=== PATIENT | male | born 1950 | race Caucasian/White ===

== ENCOUNTER 2019-06-28 05:42 | Day surgery (SDC) | payer MEDICARE, OTHER, SELFPAY ==
[2019-06-21 16:09] VITALS: BMI 43.5
--- NOTE | 2019-06-27 18:18 | HP.PCM_ITS ---
History and Physical Date of Admission: 06/28/19 HISTORY OF PRESENT ILLNESS 69 year old man presents with a lesion on his left nasal ala at nasal alar groove that had increased in size over the last several months. He underwent a shave biopsy by Dermatology on 06/03/19 which showed a melanoma in situ, lentigo maligna type. He denies fever. He denies trauma. He denies bleeding from this lesion. He has had basal cell carcinomas excised in the past. He has a family history of skin cancer. He presents at this time for surgical options for treatment. PAST MEDICAL HISTORY Atrial fibrillation Cataracts, bilateral Glaucoma Hearing problem History of blood clots Kidney stones Prostate cancer Skin cancer Sleep apnea High blood pressure PAST SURGICAL HISTORY hip replacement ALLERGIES No Known Allergies MEDICATIONS abiraterone amlodipine ascorbate calcium (vitamin C) aspirin atorvastatin calcium carbonate dorzolamide-timolol leuprolide losartan-hydrochlorothiazide metformin ER metoprolol multivitamin omega-3 fatty acids prednisone primidone venlafaxine ER warfarin FAMILY HISTORY Sister - Breast cancer Brother - Lung cancer Daughter - Melanoma SOCIAL HISTORY Smoking Status: Former smoker alcohol intake: never substance use type: does not use REVIEW OF SYSTEMS General - Denies fever, fatigue, and weight loss. Eyes - Has cataracts. Denies glaucoma. ENT - Denies nasal congestion and sore throat. Endocrine - Has excessive thirst and urination. Skin - Denies suspicious lesions and skin cancer. Musculoskeletal - Denies joint pain, weakness of muscles and joints, back pain, and arthritis. Has joint stiffness. Neuro - Denies headaches. Has lightheadedness. Cardiovascular - Denies chest pain, fatigue, and shortness of breath with exertion. Psych - Denies anxiety and depression. Respiratory - Denies chronic cough. Has shortness of breath. Has sleep apnea. Patient is a former smoker. Gastrointestinal - Denies nausea, vomiting, diarrhea, and constipation. Hematologic - Denies abnormal bruising and bleeding. Genitourinary - Denies hematuria. Has urinary frequency. Has incontinence. PHYSICAL EXAMINATION General - Alert and Oriented HEENT - PERRL. EOMI. Throat is clear. On the left nasal ala at nasal alar groove is a healing biopsy that occurred on 06/03/19 and it showed melanoma in situ, lentigo maligna type. No evidence of infection. Measures 6 mm. It is located by the melolabial fold. It is located 9 mm from the lateral nasal alar rim. No other suspicious lesions noted. Neck - Supple and nontender. No cervical adenopathy. No suspicious lesions noted. Lungs - Clear to auscultation. Heart - Regular rate and rhythm. Abdomen - Soft and nondistended. Extremities - FROM. No axillary adenopathy. Radial pulses are palpable. No suspicious lesions noted. Neuro - CN II-XII grossly intact. Psych - Normal mood and affect. ASSESSMENT 1. 6 mm melanoma in situ, lentigo maligna type, left nasal ala at nasal alar groove, shave excision. 2. Personal history of skin cancer. 3. Family history of skin cancer. 4. Former smoker. PLAN This was a shave excision so we need to establish the diagnosis with a completion excision into the subcutaneous tissue to check if there is any deeper focus of melanoma that would change the definitive treatment with regard to the margin required at the time of the wide excision. Also if there is a focus of melanoma in the intermediate range (between 1 and 4 mm thick) would require a sentinel lymph node biopsy before proceeding with a definitive wide excision since the definitive treatment can distort the lymphatic drainage. At the time of the completion excision, tissue will be sent to Pathology for analysis to look for a deeper focus of melanoma. At the time of surgery will leave the wound open and proceed with postop wound care with Silver dressing changes. Once the final pathology is available, can then schedule the definitive wide excision with a 5 mm margin down to the muscular fascia. Reconstruction will be with a two stage nasolabial flap and cartilage grafting for support. In three weeks will need a second procedure which is division and inset of the flap. Since melanoma in situ can travel extensively in the horizontal plane, if the subsequent pathology report has additional melanoma in situ at the margins, then additional excision would be necessary. Depending on the final size of the wound defect, a larger forehead flap may be necessary which is also a two stage procedure. Discussed with the patient the different levels of melanoma for treatment. If melanoma is less than 1 mm thick, it is a thin melanoma and needs a 1 cm margin of excision. If melanoma is between 1 and 4 mm thick, it is an intermediate melanoma and needs a 2 cm margin of excision. If melanoma is greater than 4 mm thick, it is a thick melanoma and needs a 2-3 cm margin of excision. The initial surgery will be done on an outpatient basis under local anesthesia with IV sedation. For the definitive wide excision with a nasolabial flap and cartilage graft for support, surgery can be done under general anesthesia with a surgical observation overnight stay in the hospital. Tissue will be sent to Pathology for analysis to look for any additional melanoma at the margins. For the second stage procedure which is division and inset of the flap can be done under general anesthesia on an outpatient basis. Patient was informed of the risks and complications of the procedure including alternatives to surgery. These were discussed with the patient personally. Patient voices understanding and wishes to proceed. Some of the risks and complications were included in a form from the [employer]. After treatment has been completed, she will need TBSE every 3-6 months. On a yearly basis, she will need LFT's including LDH and fractionation of Alkaline Phosphatase and a CXR.
[2019-06-28] VITALS (7 sets, daily range): BP systolic 102–131; BP diastolic 56–77; PULSE 46–52; RESP 16; TEMP 35.9–36.2; O2SAT 92–98; BMI 41.7
--- NOTE | 2019-06-28 | IMM_PTH ---
PATIENT: CRYSTAL PANTOJA LOC: [facility] – [place] U#:[id number] AGE/SX: 69/M ROOM: RE06/28/[address]: Dr. Domingo Donahue MD : 1950 BED: DIS: 06/28/2019 SPEC #: [id number] RECD: 06/29/19 13:53 STATUS: VANDANA REQ #: [id number] FRANCY: 06/28/19 00:[address]: Domingo Donahue DEPT: IMMUNOHISTOCHEMISTRY RECD BY: Sally Garcia ENTERED: 06/29/19 13:54 SP TYPE: IMMUNO OTHR DR: Dr. Dorita Shaw MD Tissues: Skin of nose, NOS Procedures: Vimentin (add) Pankeratin (initial) MELAN-A (add) S-100 (add) PHYSICIAN & INSTITUTION [place] [place] [id number] SPECIMEN INFORMATION: Tissue Source: Skin of left nasal ala, excision Clinical Info: Melanoma in situ Specimen Number: [id number] CPT code: 95869, 86484 x3 METHODOLOGY: Deparaffinized sections of prefer/formalin-fixed tissue or PAP/DQ stained slides are incubated with monoclonal/polyclonal antibodies/oligonucleotide probes. Localization is made via biotin free immunoperoxidase method. Appropriate controls are performed and reacted as expected. Results on target cell population are indicated in the following table: RESULTS: ANTIBODY / CLONE RESULT AE1-3 (AE1/AE3/PCK26) negative Vimentin (V9) negative Melan A (A103) positive S-100 (4C4.9) positive These tests were developed and their performance characteristics determined by [facility]. They may not have been cleared or approved by the U.S. Food and Drug Administration. The FDA has determined that such clearance or approval is not necessary. The above immunohistochemical/dualISH markers are ordered and reviewed by the Pathologist. INTERPRETATION: Skin of left nasal ala, excision: Focal atypical intraepithelial melanocytic proliferation, excised. Case has been reviewed in consultation with Dr. Rebolledo who concurs with the above diagnosis. IDC:WILLIE AM:anusha 06/29/19
[2019-06-28 06:21] LABS: Bedside Glucose 105 mg/dL (70-110)
[2019-06-28] MEDS: Lactated Ringers 1,000 ML 100 ML IV (06:31)
--- NOTE | 2019-06-28 07:30 | NASAL_PTH ---
PATIENT: CRYSTAL PANTOJA LOC: [facility] [place] U#:[id number] AGE/SX: 69/M ROOM: RE06/28/[address]: Dr. Domingo Donahue MD : 1950 BED: DIS: 06/28/2019 SPEC #: [id number] RECD: 06/28/19 09:00 STATUS: VANDANA TED #: [id number] FRANCY: 06/28/19 07:[address]: Domingo Donahue DEPT: SURGICAL PATHOLOGY RECD BY: Doris Kelsey ENTERED: 06/28/19 11:07 SP TYPE: NASAL SPEC OTHR DR: Dr. Dorita Shaw MD Tissues: Skin of nose, NOS Procedures: Gen Path Consultation (on slides) Surgery Specimen Level IV HEADER OPERATION: Completion excision melanoma in situ, nasal ala at nasal alar groove PRE-OP DIAGNOSIS: 6 mm melanoma in situ, lentigo maligna type, left nasal ala at nasal alar groove, shave excision; personal history of skin cancer TISSUE SUBMITTED: 6 mm melanoma in situ, lentigo maligna type, left nasal ala at nasal alar groove, suture at 12 o'clock MICROSCOPIC DIAGNOSIS Skin of left nasal alar groove, excision: Atypical intraepithelial melanocytic proliferation, excised. Jarvis. Solar elastosis AM:anusha 06/29/19 COMMENT Atypical melanocytic proliferation extends to 2mm to the 3-6 o'clock margin of excision. Immunohistochemistry ([id number]) supports the above diagnosis. This case is reviewed in consultation with of [place]. The complete consultative report can be viewed in patient's EMR. Case has been reviewed in consultation with Dr. Rebolledo who concurs with the above diagnosis. IDC:SJ MICROSCOPIC DESCRIPTION Slides are reviewed. GROSS DESCRIPTION Received in fixative is one container labeled with the patient's name and designated melanoma in situ, left nasal ala at nasal alar groove, suture at 12 o'clock. The specimen consists of a round piece of farley-white skin measuring 0.1 x 0.1 cm and up to 0.5 cm in thickness. The specimen is inked as follows: 12 to 3 o'clock - black, 3 to 6 o'clock - blue, 6 to 9 o'clock - green and 9 to 12 o'clock - yellow. The specimen is serially sectioned and submitted entirely in one cassette. / SJ:anusha 06/28/19 TC:3 CPT: 50325
--- NOTE | 2019-06-28 08:05 | OP.PCM_ITS ---
Report of Operation Date of Procedure: 06/28/19 Pre-Operative Diagnosis: 1. 6 mm melanoma in situ, lentigo maligna type, left nasal ala at nasal alar groove, shave excision. 2. Personal history of skin cancer. 3. Family history of skin cancer. 4. Former smoker. Post-Operative Diagnosis: Same. Surgery/Procedure Performed:: Excision 6 mm melanoma in situ, lentigo maligna type, left nasal ala at nasal alar groove. Description of Surgical Findings:: 69 year old man presents with a lesion on his left nasal ala at nasal alar groove that had increased in size over the last several months. He underwent a shave biopsy by Dermatology on 06/03/19 which showed a melanoma in situ, lentigo maligna type. He denies fever. He denies trauma. He denies bleeding from this lesion. He has had basal cell carcinomas excised in the past. He has a family history of skin cancer. Patient was informed of the risks and complications of the procedure including alternatives to surgery. These were discussed with the patient personally. Patient voices understanding and wishes to proceed. Some of the risks and complications were included in a form from the [employer]. Size of defect left nasal ala at nasal alar groove - 1 x 1 x 0.7 cm. hotel engineer: None Type of Anesthesia:: Local MAC Specimen's removed: Melanoma in situ, lentigo maligna type, left nasal ala at nasal alar groove to Pathology. Drains: None. Estimated Blood Loss (mL): 5 ml. Description of Procedure: Patient was taken to OR in supine position and was given IV sedation. The face was prepped and draped in the usual fashion. SCD's were placed for DVT prophylaxis. Perioperative antibiotics were given intravenously. The lesion left nasal ala at nasal alar groove was infiltrated with xylocaine and epinephrine. After waiting 5 minutes for the anesthetic to take effect, the melanoma in situ lesion was excised in a circular fashion into the subcutaneous tissue. I excised the lesion with a 2 mm margin in all directions thus making it a 1 cm excision. A suture was marked at the 12 oclock position for pathology orientation. The lesion was sent to Pathology for analysis to rule out carcinoma at the margins and to rule out a deeper focus of melanoma. Hemostasis was obtained with electrocautery. The melanoma in situ wound measured 1 x 1 x 0.7 cm. I placed Aquacel Silver into the wound and secured to the skin with 4-0 Nylon tie over stent suture dressing. Patient tolerated the procedure well and was sent to PACU in satisfactory condition. Patient will be sent home on antibiotics and pain medication. He will keep his head elevated during the initial postoperative period. Patient will followup tomorrow for a wound check and for a Silver dressing change. Will instruct the family on the Silver dressing changes. When the pathology report becomes available, will then proceed with the next stage which is wide excision down to the muscular fascia with reconstruction using a 2 stage nasolabial flap and cartilage graft for support. Grafts/Implants Used: None. - Complications None. - Admit VTE Documentation VTE Present on Admission: No VTE Mechan Device Prophylaxis: SCD's VTE Pharm Prophylaxis ordered?: No Code Visit Surgery Charges CPT - 16144 ICD-10 - D03.39, Z85.828, Z80.8, Z87.891
--- NOTE | 2019-06-28 08:18 | DCINST_ITS ---
You will use the following diet at home:: No restrictions Discharge Activity: May not drive while taking narcotic pain medications., May Not Shower - until the operatve dressing is removed in the office, - - keep head elevated. no heavy lifting. May shower in (days): 2 - after the operative dressing is removed and on the days the silver dressing is changed. May resume sexual activity in: No Restrictions Ice area for (Minutes): 5 - as needed for facial swelling. Weight Bearing Status: Weight bearing as tolerated, Full weight bearing, Partial weight bearing, Toe touch weight bearing, No weight bearing Lifting Restrictions: 10 lbs. Keep extremity elevated above heart level: - - elevate head. Call your doctor if your incision/area has: Continuous Slow Oozing, Sudden Increased Bleeding, Increased Pain/ Swelling, Increased Redness, Foul Smelling Discharge, Swelling at the incision site Call your doctor if you observe: Fever of 101 or Higher, Coldness, Increased Pain, Shortness of breath, Chest pain, Calf discomfort, Uncontrolled pain Change Dressing in (Days):: 1 - will change dressing in the office. Cleanse incision/area with: - - after the operative dressing is removed in the office, may shower on the days the silver dressing is changed. Allergies/Adverse Reactions: Allergies No Known Allergies Allergy (Unverified 06/28/19 06:22) Medications to take at Discharge abiraterone 250 mg tablet 1,000 mg PO DAILY 06/21/19 amlodipine 10 mg tablet 10 mg PO DAILY 06/21/19 ascorbate calcium (vitamin C) 500 mg capsule 500 mg PO DAILY 06/21/19 atorvastatin 10 mg tablet 10 mg PO DAILY 06/21/19 calcium carbonate 600 mg calcium (1,500 mg) tablet 600 mg PO DAILY 06/21/19 dorzolamide-timolol (PF) 2 %-0.5 % eye drops in a dropperette 1 drp OPHTHALMIC BID 06/21/19 leuprolide (6 month) 45 mg intramuscular syringe kit 45 mg IM [id number] 06/21/19 losartan 50 mg-hydrochlorothiazide 12.5 mg tablet 1 tab PO DAILY 06/21/19 metformin ER 500 mg tablet,extended release 24 hr 500 mg PO QPM 06/21/19 metoprolol tartrate 50 mg tablet 50 mg PO BID 06/21/19 multivitamin capsule 1 cap PO DAILY 06/21/19 omega-3 fatty acids 1,000 mg capsule 1,200 mg PO DAILY cap 06/21/19 prednisone 5 mg tablet 5 mg PO DAILY 06/21/19 primidone 50 mg tablet 50 mg PO BID tab 06/21/19 venlafaxine ER 150 mg capsule,extended release 24 hr 150 mg PO DAILY 06/21/19 warfarin 6 mg tablet 6 mg PO ONCE 06/21/19 Clindamycin HCl [Cleocin] 300 mg PO TID #15 cap 06/28/19 Lactobacillus Acidophilus/Fos [Acidophilus Probiotic Tablet] 1 ea PO BID #10 tab 06/28/19 Oxycodone HCl/Acetaminophen [Percocet 5/325] 1 tablet PO Q6H PRN PRN 7 Days #30 tablet 06/28/19 The following prescriptions were given: Lactobacillus Acidophilus/Fos [Acidophilus Probiotic Tablet] 1 ea PO BID #10 tab Transmission Status: Pending to [facility] Clindamycin HCl [Cleocin] 300 mg PO TID #15 cap Transmission Status: Pending to [facility] Oxycodone HCl/Acetaminophen [Percocet 5/325] 1 tablet PO Q6H PRN PRN 7 Days #30 tablet PRN Reason: Pain Score 4-5/10 Transmission Status: Sent to [facility] Primary Care Physician: Dorita Shaw MD [Primary Care Provider] - Test Results: Test results from this visit will be discussed in further detail at your follow- up appointment, if applicable. Please Follow Up With: Domingo Donahue MD When: tomorrow 06/29/19. call [phone] for appt. Proposed Discharge Date: 06/28/19
== END 2019-06-28 09:02 | disposition home or self-care (01) ==
LOC: SDC 05:42 → AC 05:44
PROVIDERS: Family Provider Family Medicine; PCP Family Medicine; Referring Provider Surgery; Visit Provider Surgery
PROC: (CPT 11641; principal; 2019-06-28 07:20)
DX: D03.39 Melanoma in situ of other parts of face (principal); Z85.828 Personal history of other malignant neoplasm of skin; Z80.8 Family history of malignant neoplasm of other organs or systems; Z87.891 Personal history of nicotine dependence; I48.91 Unspecified atrial fibrillation; G47.30 Sleep apnea, unspecified; I10 Essential (primary) hypertension; H26.9 Unspecified cataract; E78.00 Pure hypercholesterolemia, unspecified; Z86.718 Personal history of other venous thrombosis and embolism; Z87.442 Personal history of urinary calculi; Z85.46 Personal history of malignant neoplasm of prostate; Z79.82 Long term (current) use of aspirin; Z79.84 Long term (current) use of oral hypoglycemic drugs; Z79.01 Long term (current) use of anticoagulants; Z79.899 Other long term (current) drug therapy
CPT/HCPCS: 00300; 11641; 36416; 82962; 85610; 88305; 88325; 88341; 88342; J7120

== ENCOUNTER 2019-08-02 10:53 | Observation (INO) | payer MEDICARE, OTHER, SELFPAY ==
[2019-06-29 11:47] VITALS: BMI 41.7
--- NOTE | 2019-08-01 22:28 | PCM.HP.BLA ---
History and Physical Date of Admission: 08/02/19 HISTORY OF PRESENT ILLNESS 69 year old man presented with a lesion on his left nasal ala at nasal alar groove that had increased in size over the last several months. He underwent a shave biopsy by Dermatology on 06/03/19 which showed a melanoma in situ, lentigo maligna type. He denies fever. He denies trauma. He denies bleeding from this lesion. He has had basal cell carcinomas excised in the past. He has a family history of skin cancer. 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 Pathology showed atypical intraepithelial melanocytic proliferation. No further melanoma seen. 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 PAST MEDICAL HISTORY Atrial fibrillation Cataracts, bilateral Glaucoma Hearing problem History of blood clots Kidney stones Prostate cancer Skin cancer Sleep apnea High blood pressure melanoma in situ, lentigo maligna type, left nasal ala at nasal alar groove. PAST SURGICAL HISTORY hip replacement excision 6 mm melanoma in situ, lentigo maligna type, left nasal ala at nasal alar groove - 06/28/19 ALLERGIES No Known Allergies MEDICATIONS abiraterone amlodipine ascorbate calcium (vitamin C) aspirin atorvastatin calcium carbonate dorzolamide-timolol leuprolide losartan-hydrochlorothiazide metformin ER metoprolol multivitamin omega-3 fatty acids prednisone primidone venlafaxine ER warfarin FAMILY HISTORY Sister - Breast cancer Brother - Lung cancer Daughter - Melanoma SOCIAL HISTORY Smoking Status: Former smoker alcohol intake: never substance use type: does not use REVIEW OF SYSTEMS General - Denies fever, fatigue, and weight loss. Eyes - Has cataracts. Denies glaucoma. ENT - Denies nasal congestion and sore throat. Endocrine - Has excessive thirst and urination. Skin - Denies suspicious lesions and skin cancer. Musculoskeletal - Denies joint pain, weakness of muscles and joints, back pain, and arthritis. Has joint stiffness. Neuro - Denies headaches. Has lightheadedness. Cardiovascular - Denies chest pain, fatigue, and shortness of breath with exertion. Psych - Denies anxiety and depression. Respiratory - Denies chronic cough. Has shortness of breath. Has sleep apnea. Patient is a former smoker. Gastrointestinal - Denies nausea, vomiting, diarrhea, and constipation. Hematologic - Denies abnormal bruising and bleeding. Genitourinary - Denies hematuria. Has urinary frequency. Has incontinence. PHYSICAL EXAMINATION General - Alert and Oriented HEENT - PERRL. EOMI. Throat is clear. On the left nasal ala at nasal alar groove is an open surgical melanoma wound that measures 1 cm after a shave excision on 06/03/19 that showed melanoma in situ, lentigo maligna type. No evidence of infection. It is located by the melolabial fold. It is located 9 mm from the lateral nasal alar rim. No other suspicious lesions noted. Neck - Supple and nontender. No cervical adenopathy. No suspicious lesions noted. Lungs - Clear to auscultation. Heart - Regular rate and rhythm. Abdomen - Soft and nondistended. Extremities - FROM. No axillary adenopathy. Radial pulses are palpable. No suspicious lesions noted. Neuro - CN II-XII grossly intact. Psych - Normal mood and affect. ASSESSMENT 1. 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 2. Personal history of skin cancer. 3. Family history of skin cancer. 4. Former smoker. PLAN Recommend definitive wide excision with a 5 mm margin down to the muscular fascia. Reconstruction will be with a two stage melolabial flap and cartilage grafting for support. In three weeks will need a second procedure which is division and inset of the flap. Since melanoma in situ can travel extensively in the horizontal plane, if the subsequent pathology report has additional melanoma in situ at the margins, then additional excision would be necessary. Depending on the final size of the wound defect, a larger forehead flap may be necessary which is also a two stage procedure. Discussed with the patient the different levels of melanoma for treatment. If melanoma is less than 1 mm thick, it is a thin melanoma and needs a 1 cm margin of excision. If melanoma is between 1 and 4 mm thick, it is an intermediate melanoma and needs a 2 cm margin of excision. If melanoma is greater than 4 mm thick, it is a thick melanoma and needs a 2-3 cm margin of excision. For the definitive wide excision with a melolabial flap and cartilage graft for support, surgery can be done under general anesthesia with a surgical observation overnight stay in the hospital. Tissue will be sent to Pathology for analysis to look for any additional melanoma at the margins. For the second stage procedure which is division and inset of the flap can be done under general anesthesia on an outpatient basis. Patient was informed of the risks and complications of the procedure including alternatives to surgery. These were discussed with the patient personally. Patient voices understanding and wishes to proceed. Some of the risks and complications were included in a form from the [employer]. After treatment has been completed, she will need TBSE every 3-6 months. On a yearly basis, she will need LFT's including LDH and fractionation of Alkaline Phosphatase and a CXR.
[2019-08-02] VITALS (11 sets, daily range): BP systolic 110–151; BP diastolic 70–99; PULSE 68–104; RESP 15–22; TEMP 35.4–36.7; O2SAT 92–97; BMI 42.5; BMI 43.0
--- NOTE | 2019-08-02 | IMM_PTH ---
PATIENT: CRYSTAL PANTOJA LOC: [facility] U#:[id number] AGE/SX: 69/M ROOM: IL311 RE08/02/[address]: Dr. Boy Hill DO : 1950 BED: 1 DIS: 08/03/2019 SPEC #: [id number] RECD: 08/04/19 12:51 STATUS: VANDANA REQ #: [id number] FRANCY: 08/02/19 00:[address]: Domingo Donahue DEPT: IMMUNOHISTOCHEMISTRY RECD BY: Sally Garcia ENTERED: 08/04/19 12:53 SP TYPE: IMMUNO OTHR DR: DO Dr. Dorita Martin MD Dr. Mark Tereletsky, DO Tissues: Nasal bone Procedures: MACRO (add) Vimentin (add) Pankeratin (initial) MELAN-A (add) S-100 (add) PHYSICIAN & INSTITUTION [place] [id number] SPECIMEN INFORMATION: Tissue Source: Left nasal ala Clinical Info: Melanoma in situ left nasal ala groove Specimen Number: [id number] CPT code: 02175, 50681 x4 METHODOLOGY: Deparaffinized sections of prefer/formalin-fixed tissue or PAP/DQ stained slides are incubated with monoclonal/polyclonal antibodies/oligonucleotide probes. Localization is made via biotin free immunoperoxidase method. Appropriate controls are performed and reacted as expected. Results on target cell population are indicated in the following table: RESULTS: ANTIBODY / CLONE RESULT AE1-3 (AE1/AE3/PCK26) negative Vimentin (V9) positive Macro (HAM-56) positive Melan A (A103) negative S-100 (4C4.9) negative These tests were developed and their performance characteristics determined by [facility]. They may not have been cleared or approved by the U.S. Food and Drug Administration. The FDA has determined that such clearance or approval is not necessary. The above immunohistochemical/dualISH markers are ordered and reviewed by the Pathologist. INTERPRETATION: Skin lesion, left nasal ala, re-excision: No evidence of residual melanotic lesion. AM:anusha 08/05/19
[2019-08-02 06:21] LABS: Bedside Glucose 117 mg/dL (70-110)
[2019-08-02] MEDS: Lactated Ringers 1,000 ML 100 ML IV ×2 (06:44→09:20)
--- NOTE | 2019-08-02 06:54 | EKG12_ITS ---
Test Reason : PREOP Blood Pressure : / mmHG Vent. Rate : 092 BPM Atrial Rate : 197 BPM P-R Int : 000 ms QRS Dur : 114 ms QT Int : 406 ms P-R-T Axes : 000 -29 011 degrees QTc Int : 502 ms Atrial Flutter Leftward Temple [id number] Prolonged QT Abnormal ECG Confirmed by JACK VIRGEN, KEVEN ([id number]), advertising editor ARNOL LYLES ([id number]) on 08/04/2019 11:50:46 AM Referred By: Domingo Donahue Confirmed By:KEVEN SANTIAGO MD
--- NOTE | 2019-08-02 07:30 | NASAL_PTH ---
PATIENT: CRYSTAL PANTOJA LOC: MS3 U#:[id number] AGE/SX: 69/M ROOM: ND311 RE08/02/[address]: Dr. Boy Hill DO : 1950 BED: 1 DIS: 08/03/2019 SPEC #: [id number] RECD: 08/02/19 10:48 STATUS: VANDANA TED #: [id number] FRANCY: 08/02/19 07:[address]: Domingo Donahue DEPT: SURGICAL PATHOLOGY RECD BY: Stanley Phoenix ENTERED: 08/02/19 12:19 SP TYPE: NASAL SPEC OTHR DR: Dr. 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 Solar elastosis. No evidence of residual melanoma. See comment. AM:anusha 08/04/19 COMMENT Immunohistochemistry (RF20-1) supports the above diagnosis. Case has been reviewed in consultation with Dr. Rebolledo who concurs with the above diagnosis. IDC:[id number] MICROSCOPIC DESCRIPTION Slides are reviewed. GROSS DESCRIPTION Received is one container labeled with the patient's name and not further designated. The specimen consists of a discoid fragment of farley skin measuring 1.3 x 1.2 cm and depth of excision measuring 0.5 cm. A suture is present along one edge designating the point of opposition. The central cutaneous portion contains an ulcerated area measuring 0.9 x 0.7 x 0.3 cm. The specimen is differentially inked as follows: 12 o'clock - black, 3 o'clock - red, 6 o'clock - blue and 9 o'clock - yellow. The specimen is serially sectioned in a 3 to 9 o'clock orientation and totally submitted in one cassette. / AM:anusha 08/02/19 TC:2 CPT: 53830
[2019-08-02] MEDS: Mupirocin Ointment 22gm Tube 1 APPLIC (10:00)
[2019-08-02] MEDS: Oxymetazoline 0.05% 1 SPRAY SPRAY.BTL 15 SPRAY (10:00)
--- NOTE | 2019-08-02 10:42 | PCM.OPRPT ---
Report of Operation Date of Procedure: 08/02/19 Pre-Operative Diagnosis: 1. 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 2. Personal history of skin cancer. 3. Family history of skin cancer. 4. Former smoker. Post-Operative Diagnosis: Same. Surgery/Procedure Performed:: 1. Wide excision melanoma in situ, lentigo maligna type, wound left nasal ala at nasal alar groove. 2. 1st stage complex nasal reconstruction with left melolabial flap and cartilage graft from left ear. Description of Surgical Findings:: 69 year old man presented with a lesion on his left nasal ala at nasal alar groove that had increased in size over the last several months. He underwent a shave biopsy by Dermatology on 06/03/19 which showed a melanoma in situ, lentigo maligna type. He denies fever. He denies trauma. He denies bleeding from this lesion. He has had basal cell carcinomas excised in the past. He has a family history of skin cancer. 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 Pathology showed atypical intraepithelial melanocytic proliferation. No further melanoma seen. 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 Patient was informed of the risks and complications of the procedure including alternatives to surgery. These were discussed with the patient personally. Patient voices understanding and wishes to proceed. Some of the risks and complications were included in a form from the [employer]. gutter mouth cutter: None Type of Anesthesia:: General Specimen's removed: Melanoma in situ wound left nasal ala at nasal alar groove to Pathology. Drains: None. Estimated Blood Loss (mL): 15 ml. Fluids Replaced: 2050 ml (IV Fluids 1700 ml, Urine Output 350 ml). Description of Procedure: Patient was taken to OR in supine position and was placed under general anesthesia. The nose and face and left ear areas were prepped and draped in the usual fashion. SCD's were placed for DVT prophylaxis. Perioperative antibiotics were given intravenously. A berumen catheter was placed. Using xylocaine with epinephrine, the melanoma in situ wound left nasal ala was infiltrated. After waiting 5 minutes for the anesthetic to take effect, I proceeded with a wide excision of the melanoma in situ with a 5 mm margin. At the initial completion excision last month, the excision had a 2 mm margin removed. So I added 3 mm to this margin of excision making the total margin excised at 5 mm. The excision went down to the edge of the nasal cartilage and intranasal mucosa. A suture was marked at the 12 oclock position for pathology orientation. The lesion was sent to Pathology for evaluation to rule out any carcinoma at the margins. The defect measured 1.6 x 1.6 cm. The distance to the alar rim was about 5 mm. I marked out the left melolabial fold extending to the oral commissure. I took a suture packet and placed the foil on the wound and then traced the foil template onto the melolabial fold area just superior to the oral commissure. The melolabial flap was marked out leaving about 6 mm between the superior edge of the flap and the perialar crease. Incisions were made and the flap was elevated distally to proximally at the level of the facial musculature. When I got close to the superior edge of the flap, I included more of the subcutaneous tissue to maximize the blood supply to the flap from perforators from the angular artery which is the terminal branch of the facial artery. I stopped the dissection when I was able to rotate the flap clockwise into the left nasal ala defect. Hemostasis was obtained with electrocautery. I then obtained a cartilage graft from the left ear in the conchal area. I infiltrated the posterior aspect left ear with xylocaine with epinephrine. Longitudinal incision was made through the subcutaneous tissue until the perichondrium was seen. I the cartilage from the perichondrium. I measured a 1.5 cm graft. After excising the cartilage, it was placed in a blood soaked sponge. Hemostasis was obtained with electrocautery. I closed the incision with 5-0 Monocryl simple interrupted sutures. There was a small rent on the anterior aspect of the ear that was also closed with 5-0 Monocryl interrupted sutures. Antibiotic ointment was applied to the incision followed by Xeroform gauze and a dental roll soaked in saline as a compression dressing to minimize hematoma. The dental roll was secured with a 3-0 Nylon tie over stent suture dressing. The cartilage graft was placed in the left nasal alar defect and secured to the base of the wound to minimize flap contraction. The anterior edge of the graft was secured to the lateral edge of the existing lateral nasal cartilage with 5-0 Monocryl interrupted sutures. The melolabial flap was then inset into the left nasal alar defect over the cartilage graft with 5-0 Monocryl simple interrupted and vertical mattress interrupted sutures. I then wrapped Xeroform gauze around the base of the flap to cover the exposed undersurface of the flap. The melolabial fold was then closed in a layered fashion with 5-0 Monocryl interrupted sutures for the deep dermis and subcutaneous tissue. The skin was approximated with 6-0 Prolene simple interrupted sutures. Steri-strips were applied followed by antibiotic ointment. Antibiotic ointment was also applied to the suture line on the flap inset. At the end of the surgery, the flap was pink and soft and viable with evidence of vascular compromise. There was no clinical evidence of hematoma. Patient tolerated the procedure well and was sent to PACU in satisfactory condition. Patient will be sent upstairs for continued postop care. He will be admitted overnight as a surgical observation overnight stay in the hospital. He will be given a dose of Lovenox tomorrow. And he will resume his Coumadin after discharge. He will keep his head elevated during the initial postoperative period. Will schedule the next stage of the complex nasal reconstruction process which is division and inset of the melolabial flap in 3 weeks. Grafts/Implants Used: None. - Complications None. - Admit VTE Documentation VTE Present on Admission: No VTE Mechan Device Prophylaxis: SCD's VTE Pharm Prophylaxis ordered?: Yes Code Visit Surgery Charges CPT - 30880-87 ICD-10 - D03.39, S01.20xA, Z85.828, Z80.8, Z87.891 28408 D03.39, S01.20xA, Z85.828, Z80.8, Z87.891 35742 D03.39, S01.20xA, Z85.828, Z80.8, Z87.891
[2019-08-02 11:31] LABS: Bedside Glucose 149 mg/dL (70-110)
[2019-08-02] MEDS: Lactated Ringers 1,000 ML 60 ML IV (12:40)
[2019-08-02 13:00] LABS: Bedside Glucose 144 mg/dL (70-110)
--- NOTE | 2019-08-02 14:09 | PN_ITS ---
Subjective: Consult for medical mgmt. Feels well currently. No shortness of breath. Vitals/I&O's: Vital Signs Temp Pulse Resp BP Pulse Ox 36.7 C 103 H 18 135/90 H 95 08/02/19 12:00 08/02/19 12:00 08/02/19 12:00 08/02/19 12:00 08/02/19 12:00 Oxygen Flow Rate (L/min) 2 Oxygen Delivery Method Nasal Cannula Weight: 132 kg Body Mass Index (BMI) 43.0 Finger Stick Blood Glucose 149 Intake and Output for Last 24 Hours 07/31/19 08/01/19 08/02/19 23:59 23:59 23:59 Intake Total 1188 / 1188 Balance 1188 / 1188 General: Alert, Cooperative HEENT: Normocephalic, - - bandage over left side of nose. Oral: Moist Mucosa, No Gingival or Mucosal Lesions/ Ulcerations Neck: No Nodes, Trachea Midline Lungs: Clear to auscultation, Normal air movement, No rhonchi, No wheeze Cardiovascular: Regular rate, Regular Rhythm, Normal S1, Normal S2 Abdomen: Bowel Sounds Present, Soft, Non Tender, Non-Distended, Obese Extremities: No edema, No Calf Tenderness Skin: No rashes, No breakdown Musculoskeletal: No Tenderness to Palpation of Joints or Extremities, No Muscle Wasting Psych/Mental Status: Normal Affect, Appropriate Laboratory Results 08/02/19 06:14: POC Glucose 117 H 08/02/19 11:23: POC Glucose 149 H 08/02/19 12:53: POC Glucose 144 H Current Medications Amlodipine Besylate (Norvasc) 10 mg PO DAILY [facility] Ascorbic Acid (Vitamin C) 500 mg PO DAILY [facility] Atorvastatin Calcium (Lipitor) 10 mg PO HS [facility] Calcium Carbonate (Os-Graham 500) 500 mg PO DAILYCM [facility] Docusate Sodium (Colace) 100 mg PO BID [facility] Enoxaparin Sodium (Lovenox) 40 mg SC DAILY@0600 [facility] Hydrochlorothiazide (Hctz) 25 mg PO DAILY [facility] Hydrocortisone Sodium Succinate (Solu-Cortef) 100 mg IV Q8 [facility] Stop: 08/03/19 06:01 Hydromorphone HCl (Dilaudid Inj) 0.5 mg IV Q3H PRN PRN PRN Reason: Pain Score 6-10/10 Clindamycin Phosphate 600 mg/ (Dextrose) 54 mls @ 100 mls/hr IV Q8 [facility] Last Admin: 08/02/19 14:02 Dose: 100 mls/hr Documented by: Lactated Ringer's () 1,000 mls @ 60 mls/hr IV .[id number] [facility] Last Infusion: 08/02/19 14:02 Dose: 0 mls/hr Documented by: Losartan Potassium (Cozaar) 100 mg PO DAILY [facility] Metformin HCl (Glucophage Xr) 500 mg PO QPM [facility] Metoprolol Tartrate (Lopressor (Beta Ofelia)) 100 mg PO 1700 [facility] Metoprolol Tartrate (Lopressor (Beta Ofelia)) 150 mg PO 0800 [facility] Multivitamins (Multivitamin) 1 tablet PO DAILYCM [facility] Non-Formulary Medication (Dorzolamide/Timolol/Pf [Cosopt Pf Eye Drops]) 1 drp OPHTHALMIC BID [facility] Non-Formulary Medication (Abiraterone Acetate) 1,000 mg PO DAILY [facility] Non-Formulary Medication (Leuprolide Acetate [Lupron Depot]) 45 mg IM [id number] [facility] Nutritional Formula (Walt - [place] Flavor) 1 packet PO BIDCM [facility] Ondansetron HCl (Zofran) 4 mg IV Q6H PRN PRN PRN Reason: NAUSEA Oxycodone HCl (Oxyir) 5 mg PO Q4H PRN PRN PRN Reason: Pain Score 6-10/10 Primidone (Mysoline) 50 mg PO QHS [facility] Promethazine HCl (Phenergan Tablet) 25 mg PO Q4H PRN PRN PRN Reason: NAUSEA/VOMITING Sodium Chloride () 10 - 40 ml IV UD PRN PRN Reason: SALINE FLUSH Venlafaxine HCl (Effexor Xr) 150 mg PO DAILY [facility] STROKE Vital Signs/Narrative: Vital Signs Temp Pulse Resp BP Pulse Ox 08/02/19 12:00 36.7 C 103 H 18 135/90 H 95 08/02/19 11:32 36.4 C L 99 18 149/90 H 96 08/02/19 11:14 104 H 18 143/99 H 96 08/02/19 10:55 36.4 C L 104 H 18 110/70 92 Medical Necessity - Tobacco Use Smoking Status: Former smoker Tobacco Use: Non-smoker Assessment/Plan All Active Problems (Last Reviewed 07/01/19 @ 18:49 by Domingo Donahue MD) Open wound of nose (Acute) Assessment: 1. Left nasal ala melanoma 2. A fib, rate-controlled 3. TARIQ 4. HTN-stable 5. Dm2 Plan: 1. continue BP meds 2. resume warfarin when ok with Dr. Donahue 3. Start SSI, continue metformin 4. VTE proph with SCDs Thank you for the consult. The hospitalist service will follow along. Code Visit Inpatient E&M: 17399 Subs Hosp L2
[2019-08-02] MEDS: Hydrocortisone Sod Succinate 100 MG/2 ML Vial IV ×2 (15:18→22:05)
[2019-08-02 16:46] LABS: Bedside Glucose 241 mg/dL (70-110)
[2019-08-02] MEDS: Insulin Lispro 100 UNIT/ML INSULN.PEN SC (17:39)
[2019-08-02] MEDS: Metoprolol Tartrate 100 MG Tablet PO (17:41)
[2019-08-02] MEDS: metFORMIN (XR) 500 MG Tablet PO (20:27)
[2019-08-02] MEDS: Docusate Sodium 100 MG Capsule PO (20:28)
[2019-08-02] MEDS: Dorzolamide HCL/Timolol 10 ml Bottle 1 DRP RIGHT EYE (20:28)
[2019-08-02] MEDS: Primidone 50 MG Tablet PO (20:29)
[2019-08-02] MEDS: Atorvastatin Calcium 10 MG Tablet PO (20:29)
[2019-08-02 21:45] LABS: Bedside Glucose 155 mg/dL (70-110)
[2019-08-02] MEDS: 0.9% Saline Lock 10 ML Syringe IV (22:05)
[2019-08-03 02:20] VITALS: BP 137/87; PULSE 102; RESP 18; TEMP 36.5; O2SAT 96
[2019-08-03] MEDS: Lactated Ringers 1,000 ML 60 ML IV (03:22)
[2019-08-03] MEDS: 0.9% Saline Lock 10 ML Syringe IV (05:52)
[2019-08-03] MEDS: Hydrocortisone Sod Succinate 100 MG/2 ML Vial IV (05:52)
[2019-08-03 05:59] LABS: Hematocrit 40.4 % (40-54); Hemoglobin 13.6 g/dL (13.0-16.5); Mean Corp Hgb Conc 33.7 g/dL (32-36); Mean Corpuscular Hgb 30.3 pg (27.0-32.0); Mean Platelet Vol. 9.6 fl (6.2-12.0); Platelet Count 193 K/mm3 (150-450); RBC Distribution Width CV 13.3 % (11.6-14.6); RBC Distribution Width SD 43.8 fl (35.1-43.9); Red Blood Count 4.49 M/mm3 (4.6-6.2)
[2019-08-03 06:40] LABS: Anion Gap 7 (5-15); BUN 18 mg/dL (7-18); BUN/Creat Ratio 22.1 RATIO (10-20); Calcium,Total 8.8 mg/dL (8.5-10.1); Chloride 104 mmol/L (98-107); Creatinine, Serum 0.82 mg/dL (0.70-1.30); EST Glomerular Filtration Rate 99 mL/min (>60); Est Glom Filt Rate - Afr Amer 120 mL/min (>60); Estimated Creatinine Clearance 83.82 ml/min; Glucose 133 mg/dL (74-106); Potassium 3.4 mmol/L (3.5-5.1); Prealbumin 27.1 mg/dL (20.0-40.0); Sodium Level 143 mmol/L (136-145)
[2019-08-03] MEDS: Enoxaparin 40 MG/0.4 ML Syringe SC (06:47)
[2019-08-03 07:00] LABS: Bedside Glucose 114 mg/dL (70-110)
[2019-08-03 08:06] VITALS: BP 148/103; PULSE 104; RESP 18; TEMP 36.8; O2SAT 94
[2019-08-03 08:13] VITALS: PULSE 104
[2019-08-03] MEDS: Calcium (Elemental) 500 MG Tablet PO (08:13)
[2019-08-03] MEDS: Multivitamins,Therapeutic Tablet 1 TABLET PO (08:13)
[2019-08-03] MEDS: Metoprolol Tartrate 50 MG Tablet 150 MG PO (08:13)
[2019-08-03] MEDS: Docusate Sodium 100 MG Capsule PO (08:14)
[2019-08-03] MEDS: Losartan Potassium 100 MG Tablet PO (08:14)
[2019-08-03] MEDS: ABIRATERONE ACETATE 250 MG TABLET 1000 MG PO (08:14)
[2019-08-03] MEDS: hydroCHLOROthiazide 25 MG Tablet PO (08:14)
[2019-08-03] MEDS: Dorzolamide HCL/Timolol 10 ml Bottle 1 DRP RIGHT EYE (08:14)
[2019-08-03] MEDS: Ascorbic Acid 500 MG Tablet PO (08:14)
[2019-08-03] MEDS: amLODIPine 10 MG Tablet PO (08:14)
[2019-08-03] MEDS: Venlafaxine XR 150 MG Capsule PO (08:14)
[2019-08-03 10:01] VITALS: BP 143/91
[2019-08-03 11:20] LABS: Bedside Glucose 141 mg/dL (70-110)
--- NOTE | 2019-08-03 11:55 | PN.SURG_ITS ---
Subjective: Postop #1 Patient is resting comfortably. - Physical Exam Vitals/I&O's: Vital Signs Temp Pulse Resp BP Pulse Ox 98.2 F 104 H 18 143/91 H 94 08/03/19 08:06 08/03/19 08:13 08/03/19 08:06 08/03/19 10:01 08/03/19 08:06 Oxygen Flow Rate (L/min) 2 Oxygen Delivery Method Room Air Weight: 291 lb 0.163 oz Body Mass Index (BMI) 43.0 Finger Stick Blood Glucose 149 Intake and Output for Last 24 Hours 08/01/19 08/02/19 08/03/19 23:59 23:59 23:59 Intake Total 2562.67 / 2562.67 1153 / 1153 Output Total 550 / 550 1200 / 1200 Balance -47 / -47 General: Alert, Oriented x3 HEENT: PERRLA, EOMI Oral: Moist Mucosa Neck: Supple Abdomen: Soft, Non-Distended Skin: Incision - nasal and cheek incisions are dry and intact. Melolabial flap is soft and pink and viable. No active bleeding seen. Minimal oozing seen on the undersurface of the flap. Xeroform gauze changed today and adaptic placed under the flap. Neurological: Cranial nerves II-XII grossly intact Psych/Mental Status: Normal Affect, Appropriate Laboratory Results 08/02/19 12:53: POC Glucose 144 H 08/02/19 16:43: POC Glucose 241 H 08/02/19 21:38: POC Glucose 155 H 08/03/19 05:35: WBC 9.0, RBC 4.49 L, Hgb 13.6, Hct 40.4, MCV 90.0, MCH 30.3, MCHC 33.7, RDW Std Deviation 43.8, RDW Coeff of Kayley 13.3, Plt Count 193, MPV 9.6 08/03/19 05:35: Sodium 143, Potassium 3.4 L, Chloride 104, Carbon Dioxide 32.0, Anion Gap 7, BUN 18, Creatinine 0.82, Estim Creat Clear Calc 83.82, Est GFR (MDRD) Af Amer 120, Est GFR (MDRD) Non-Af 99, BUN/Creatinine Ratio 22.1 H, Glucose 133 H, Calcium 8.8, Prealbumin 27.1 08/03/19 06:50: POC Glucose 114 H 08/03/19 11:13: POC Glucose 141 H Current Medications Abiraterone Acetate (Zytiga) 1,000 mg PO DAILY [facility] Last Admin: 08/03/19 08:14 Dose: 1,000 mg Documented by: Amlodipine Besylate (Norvasc) 10 mg PO DAILY [facility] Last Admin: 08/03/19 08:14 Dose: 10 mg Documented by: Ascorbic Acid (Vitamin C) 500 mg PO DAILY [facility] Last Admin: 08/03/19 08:14 Dose: 500 mg Documented by: Atorvastatin Calcium (Lipitor) 10 mg PO HS [facility] Last Admin: 08/02/19 20:29 Dose: 10 mg Documented by: Calcium Carbonate (Os-Graham 500) 500 mg PO DAILYCM [facility] Last Admin: 08/03/19 08:13 Dose: 500 mg Documented by: Docusate Sodium (Colace) 100 mg PO BID [facility] Last Admin: 08/03/19 08:14 Dose: 100 mg Documented by: Dorzolamide/Timolol (Cosopt Opth Drops) 1 drop RIGHT EYE BID [facility] Last Admin: 08/03/19 08:14 Dose: 1 drop Documented by: Enoxaparin Sodium (Lovenox) 40 mg SC DAILY@0600 [facility] Last Admin: 08/03/19 06:47 Dose: 40 mg Documented by: Glucagon () 1 mg IM .X1 PRN PRN Reason: Hypoglycemia Hydrochlorothiazide (Hctz) 25 mg PO DAILY [facility] Last Admin: 08/03/19 08:14 Dose: 25 mg Documented by: Hydromorphone HCl (Dilaudid Inj) 0.5 mg IV Q3H PRN PRN PRN Reason: Pain Score 6-10/10 Clindamycin Phosphate 600 mg/ (Dextrose) 54 mls @ 100 mls/hr IV Q8 [facility] Last Infusion: 08/03/19 06:26 Dose: Infused Documented by: Lactated Ringer's () 1,000 mls @ 60 mls/hr IV .[id number] [facility] Last Infusion: 08/03/19 06:26 Dose: 60 mls/hr Documented by: Dextrose (Dextrose 10%-Water) 250 mls @ 999 mls/hr IV .Q16M PRN; Protocol PRN Reason: HYPOGLYCEMIA Insulin Human Lispro (Humalog Kwikpen (Bkc)) 0 unit SC TIDAC [facility]; Protocol Last Admin: 08/03/19 11:16 Dose: Not Given Documented by: Leuprolide Acetate (Eligard) 45 mg SQ Q6M [facility] Losartan Potassium (Cozaar) 100 mg PO DAILY [facility] Last Admin: 08/03/19 08:14 Dose: 100 mg Documented by: Metformin HCl (Glucophage Xr) 500 mg PO QPM [facility] Last Admin: 08/02/19 20:27 Dose: 500 mg Documented by: Metoprolol Tartrate (Lopressor (Beta Ofelia)) 100 mg PO 1700 [facility] Last Admin: 08/02/19 17:41 Dose: 100 mg Documented by: Metoprolol Tartrate (Lopressor (Beta Ofelia)) 150 mg PO 0800 [facility] Last Admin: 08/03/19 08:13 Dose: 150 mg Documented by: [facility]ivit[facility] ([facility]amin) [facility] Last Admin: 08/03/19 08:13 Dose: 1 tablet Documented by: Mupirocin (Bactroban) 1 applic TOPICAL DAILY [facility]; Protocol Nutritional Formula (Walt - [place] Flavor) 1 packet PO BIDCM [facility] Last Admin: 08/03/19 08:13 Dose: 1 packet Documented by: Ondansetron HCl (Zofran) 4 mg IV Q6H PRN PRN PRN Reason: NAUSEA Oxycodone HCl (Oxyir) 5 mg PO Q4H PRN PRN PRN Reason: Pain Score 6-10/10 Primidone (Mysoline) 50 mg PO QHS [facility] Last Admin: 08/02/19 20:29 Dose: 50 mg Documented by: Promethazine HCl (Phenergan Tablet) 25 mg PO Q4H PRN PRN PRN Reason: NAUSEA/VOMITING Sodium Chloride () 10 - 40 ml IV UD PRN PRN Reason: SALINE FLUSH Last Admin: 08/03/19 05:52 Dose: 10 ml Documented by: Venlafaxine HCl (Effexor Xr) 150 mg PO DAILY [facility] Last Admin: 08/03/19 08:14 Dose: 150 mg Documented by: Medical Necessity - Tobacco Use Smoking Status: Former smoker Tobacco Use: Non-smoker Assessment/Plan All Active Problems (Last Reviewed 07/01/19 @ 18:49 by Domingo Donahue MD) Open wound of nose (Acute) 1. 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 2. Personal history of skin cancer. 3. Family history of skin cancer. 4. Former smoker. 5. s/p wide excision melanoma in situ, lentigo maligna type, wound left nasal ala at nasal alar groove and 1st stage complex nasal reconstruction with left melolabial flap and cartilage graft from left ear. Melolabial flap is soft and pink and viable. No active bleeding seen. Minimal oozing noted on the undersurface of the flap. He has minimal pain. He is tolerating po analgesia. Ok for discharge home today. Keep head elevated. No heavy lifting with 10 lb restriction. Followup office 08/05/19, for another dressing change. Instructed family on the dressing change. Will further instruct on Thursday in the office. Wrote script for Cleocin and for Acidophilus Probiotic while on his antibiotics. Wrote script for Percocet for pain (30 tabs). Wrote script for Phenergan for nausea (30 tabs) and a refill and for Colace for constipation (60 tabs). He will resume his Coumadin tonight.
--- NOTE | 2019-08-03 12:05 | DCINST_ITS ---
You will use the following diet at home:: Calorie/Carbohydrate Controlled (specify 1200, 1400, etc), Other - encourage nutritional supplementation with protein to help the healing process. Discharge Activity: May not drive while taking narcotic pain medications., May Shower - from the neck down. Wash his face gently in the sink. Minimize getting the flap wet., - - keep head elevated. no heavy lifting. May shower in (days): 1 - from the neck down. wash face gently in the sink. May resume sexual activity in: 10-14 days Weight Bearing Status: Weight bearing as tolerated Lifting Restrictions: 10 lbs. Keep extremity elevated above heart level: - - elevate head. Call your doctor if your incision/area has: Continuous Slow Oozing, Sudden Increased Bleeding, Increased Pain/ Swelling, Increased Redness, Foul Smelling Discharge, Swelling at the incision site Call your doctor if you observe: Fever of 101 or Higher, Coldness, Increased Pain, Shortness of breath, Chest pain, Calf discomfort, Uncontrolled pain Suture Line Care: - - apply antibiotic ointment to suture line daily. may start after seen in the office. Change Dressing in (Days):: 2 - will change dressing in the office. Cleanse incision/area with: - - may shower from the neck down and wash face gently in the sink. Minimize getting the flap wet. Allergies/Adverse Reactions: Allergies No Known Allergies Allergy (Verified 08/02/19 06:04) Medications to take at Discharge abiraterone 250 mg tablet 1,000 mg PO DAILY 06/21/19 amlodipine 10 mg tablet 10 mg PO DAILY 06/21/19 ascorbate calcium (vitamin C) 500 mg capsule 500 mg PO DAILY 06/21/19 atorvastatin 10 mg tablet 10 mg PO DAILY 06/21/19 calcium carbonate 600 mg calcium (1,500 mg) tablet 600 mg PO DAILY 06/21/19 dorzolamide-timolol (PF) 2 %-0.5 % eye drops in a dropperette 1 drp OPHTHALMIC BID 06/21/19 leuprolide (6 month) 45 mg intramuscular syringe kit 45 mg IM [id number] 06/21/19 metformin 500 mg tablet,extended release 24 hr 500 mg PO QPM 06/21/19 metoprolol tartrate 50 mg tablet 100 mg PO 1700 06/21/19 multivitamin 1 cap PO DAILY 06/21/19 omega-3 fatty acids 1,000 mg capsule 1,200 mg PO DAILY cap 06/21/19 prednisone 5 mg tablet 5 mg PO DAILY 06/21/19 primidone 50 mg tablet 50 mg PO QHS tab 06/21/19 venlafaxine 150 mg capsule,extended release 24 hr 150 mg PO DAILY 06/21/19 warfarin 6 mg tablet 6 mg PO ONCE 06/21/19 Metoprolol Tartrate [Lopressor (beta karrie)] 150 mg PO 0800 07/28/19 Losartan/Hydrochlorothiazide [Losartan-Hctz 100-25 mg Tab] 1 ea PO DAILY 08/02/19 Clindamycin HCl [Cleocin] 300 mg PO TID #12 cap 08/03/19 Docusate Sodium [Colace] 100 mg PO BID #60 cap 08/03/19 Hydrochlorothiazide [Hctz] 25 mg PO DAILY tab 08/03/19 Insulin Lispro [Humalog KwikPen] See Protocol SUBCUT TIDAC insuln.pen 08/03/19 Lactobacillus Acidophilus/Fos [Acidophilus Probiotic Tablet] 1 ea PO BID #10 tab 08/03/19 Losartan Potassium [Cozaar] 100 mg PO DAILY tab 08/03/19 Mupirocin [Bactroban] 1 applic TOPICAL .QDAILY #2 tube 08/03/19 Oxycodone HCl/Acetaminophen [Percocet 5/325] 1 tablet PO Q6H PRN PRN 7 Days #30 tablet 08/03/19 proMETHazine tablet [Phenergan tablet] 25 mg PO 4X/DAY PRN PRN #30 tab 08/03/19 The following prescriptions were given: Lactobacillus Acidophilus/Fos [Acidophilus Probiotic Tablet] 1 ea PO BID #10 tab Transmission Status: Pending to [facility] Mupirocin [Bactroban] 1 applic TOPICAL .QDAILY #2 tube Transmission Status: Pending to [facility] Clindamycin HCl [Cleocin] 300 mg PO TID #12 cap Transmission Status: Pending to [facility] Docusate Sodium [Colace] 100 mg PO BID #60 cap Transmission Status: Pending to [facility] Oxycodone HCl/Acetaminophen [Percocet 5/325] 1 tablet PO Q6H PRN PRN 7 Days #30 tablet PRN Reason: Pain Score 4-5/10 Transmission Status: Received by [facility] proMETHazine tablet [Phenergan tablet] 25 mg PO 4X/DAY PRN PRN #30 tab PRN Reason: NAUSEA/VOMITING Transmission Status: Pending to [facility] Primary Care Physician: Dorita Shaw MD [Primary Care Provider] - Test Results: Test results from this visit will be discussed in further detail at your follow- up appointment, if applicable. Please Follow Up With: Domingo Donahue MD When: thursday08/05/19. call [phone] for appt. Proposed Discharge Date: 08/03/19
[2019-08-03] MEDS: Mupirocin Ointment 22gm Tube 1 APPLIC TOPICAL (12:55)
[2019-08-03 12:59] VITALS: BP 138/84; PULSE 84; RESP 16; TEMP 36.4; O2SAT 93
--- NOTE | 2019-08-03 15:35 | PN_ITS ---
Subjective: Patient was seen and examined today, he does not complain of any shortness of breath or chest discomfort. - Physical Exam Vitals/I&O's: Vital Signs Temp Pulse Resp BP Pulse Ox 97.6 F L 84 16 138/84 H 93 08/03/19 12:59 08/03/19 12:59 08/03/19 12:59 08/03/19 12:59 08/03/19 12:59 Oxygen Flow Rate (L/min) 2 Oxygen Delivery Method Room Air Weight: 132 kg Body Mass Index (BMI) 43.0 Finger Stick Blood Glucose 149 Intake and Output for Last 24 Hours 08/01/19 08/02/19 08/03/19 23:59 23:59 23:59 Intake Total 2562.67 / 2562.67 1544 / 1544 Output Total 550 / 550 1200 / 1200 Balance / 344 / 344 General: Alert, Oriented x3, Cooperative, No apparent distress, Well developed, Well nourished HEENT: PERRLA, EOMI, Normocephalic, - - Patient has a surgical bandage over the left side of the nasal area, this was not removed for examination Oral: Moist Mucosa Neck: Supple, No JVD, Trachea Midline, Thyroid Normal Size and Texture Lungs: Clear to auscultation, Normal air movement, No rhonchi, No wheeze Cardiovascular: Regular rate, Regular Rhythm, Normal S1, Normal S2, No murmurs, PMI Normal, No rub noted, No Gallop Abdomen: Bowel Sounds Present, Soft, Non Tender, Non-Distended, Obese Extremities: No clubbing, No cyanosis, No edema, Capillary Refill Less than 3 Seconds Skin: No rashes, No breakdown Musculoskeletal: No Tenderness to Palpation of Joints or Extremities Neurological: Cranial nerves II-XII grossly intact, Neuro grossly intact, Sensory exam intact to light touch and pain Psych/Mental Status: Normal Affect, Appropriate, Alert and oriented to time, place, person, mood and affect Laboratory Results 08/02/19 16:43: POC Glucose 241 H 08/02/19 21:38: POC Glucose 155 H 08/03/19 05:35: WBC 9.0, RBC 4.49 L, Hgb 13.6, Hct 40.4, MCV 90.0, MCH 30.3, MCHC 33.7, RDW Std Deviation 43.8, RDW Coeff of Kayley 13.3, Plt Count 193, MPV 9.6 08/03/19 05:35: Sodium 143, Potassium 3.4 L, Chloride 104, Carbon Dioxide 32.0, Anion Gap 7, BUN 18, Creatinine 0.82, Estim Creat Clear Calc 83.82, Est GFR (M DRD) Af Amer 120, Est GFR (MDRD) Non-Af 99, BUN/Creatinine Ratio 22.1 H, Glucose 133 H, Calcium 8.8, Prealbumin 27.1 08/03/19 06:50: POC Glucose 114 H 08/03/19 11:13: POC Glucose 141 H Medical Necessity - Tobacco Use Smoking Status: Former smoker Tobacco Use: Non-smoker Assessment/Plan All Active Problems (Last Reviewed 07/01/19 @ 18:49 by Domingo Donahue MD) Open wound of nose (Acute) #1 paroxysmal atrial fibrillation-patient appears to be in sinus rhythm at this time #2 hypertension #3 prostate cancer #4 hyperlipidemia #5 type 2 diabetes-patient is on metformin #6 melanoma-status post surgical excision of melanoma on the face Patient appears medically stable for discharge home Code Visit Inpatient E&M: 64156 Subs Hosp L2
[2019-08-04 07:55] LABS: Prothrombin Time Fingerstick 16.3 SEC (11.9-14.4)
== END 2019-08-03 13:22 | disposition home or self-care (01) ==
LOC: MS3 10:53
PROVIDERS: Admitting Provider Surgery; Family Provider Family Medicine; PCP Family Medicine; Referring Provider Surgery; Visit Provider Internal Medicine
PROC: (CPT 30420; principal; 2019-08-02 07:15)
DX: D03.39 Melanoma in situ of other parts of face (principal); I48.91 Unspecified atrial fibrillation; I10 Essential (primary) hypertension; G47.30 Sleep apnea, unspecified; H40.9 Unspecified glaucoma; H26.9 Unspecified cataract; R73.03 Prediabetes; S01.20XA Unspecified open wound of nose, initial encounter; E78.00 Pure hypercholesterolemia, unspecified; Z79.899 Other long term (current) drug therapy; Z79.84 Long term (current) use of oral hypoglycemic drugs; Z79.82 Long term (current) use of aspirin; Z80.8 Family history of malignant neoplasm of other organs or systems; Z85.828 Personal history of other malignant neoplasm of skin; Z87.891 Personal history of nicotine dependence; Z85.46 Personal history of malignant neoplasm of prostate; Z79.01 Long term (current) use of anticoagulants; Z79.51 Long term (current) use of inhaled steroids; Z86.718 Personal history of other venous thrombosis and embolism; Z86.711 Personal history of pulmonary embolism; R94.31 Abnormal electrocardiogram [ECG] [EKG]; Y83.8 Other surgical procedures as the cause of abnormal reaction of the patient, or of later complication, without mention of misadventure at the time of the procedure
CPT/HCPCS: 11642; 15576; 21235; 36415; 36416; 80048; 82962; 84134; 85027; 85610; 88305; 88341; 88342; 93005; 96365; 96366; 96372; 96375; 96376; 99218; J7120; A4216; G0378; G0379; J2405; Q9968

== ENCOUNTER 2019-09-05 11:35 | Day surgery (SDC) | payer MEDICARE, OTHER, SELFPAY ==
[2019-08-08 14:37] VITALS: BMI 43.0
[2019-08-31 10:16] VITALS: BMI 43.0
[2019-09-05] VITALS (8 sets, daily range): BP systolic 115–151; BP diastolic 86–111; PULSE 67–123; RESP 16–18; TEMP 35.9–36.5; O2SAT 85–97; BMI 41.6
--- NOTE | 2019-09-05 11:24 | PCM.HP.BLA ---
History and Physical Date of Admission: 09/05/19 HISTORY OF PRESENT ILLNESS 69 year old man presented with a lesion on his left nasal ala at nasal alar groove that had increased in size over the last several months. He underwent a shave biopsy by Dermatology on 06/03/19 which showed a melanoma in situ, lentigo maligna type. He denies fever. He denies trauma. He denies bleeding from this lesion. He has had basal cell carcinomas excised in the past. He has a family history of skin cancer. 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 Pathology showed atypical intraepithelial melanocytic proliferation. No further melanoma seen. On 08/02/19 he went to surgery and underwent wide excision melanoma in situ, lentigo maligna type, wound left nasal ala at nasal alar groove and 1st stage complex nasal reconstruction with left melolabial flap and cartilage graft from left ear. Postoperatively the flap healed uneventfully. He was scheduled for the second stage division and inset of the flap on 08/23/19. That was postponed because of respiratory issues that required steroid therapy. He is breathing better now and presents today for the second stage division and inset of the flap. PAST MEDICAL HISTORY Atrial fibrillation Cataracts, bilateral Glaucoma Hearing problem History of blood clots Kidney stones Prostate cancer Skin cancer Sleep apnea High blood pressure melanoma in situ, lentigo maligna type, left nasal ala at nasal alar groove. PAST SURGICAL HISTORY hip replacement excision 6 mm melanoma in situ, lentigo maligna type, left nasal ala at nasal alar groove - 06/28/19 Wide excision melanoma in situ, lentigo maligna type, wound left nasal ala at nasal alar groove and 1st stage complex nasal reconstruction with left melolabial flap and cartilage graft from left ear - 08/02/19 ALLERGIES No Known Allergies MEDICATIONS abiraterone amlodipine ascorbate calcium (vitamin C) aspirin atorvastatin calcium carbonate dorzolamide-timolol leuprolide losartan-hydrochlorothiazide metformin ER metoprolol multivitamin omega-3 fatty acids prednisone primidone venlafaxine ER warfarin FAMILY HISTORY Sister - Breast cancer Brother - Lung cancer Daughter - Melanoma SOCIAL HISTORY Smoking Status: Former smoker alcohol intake: never substance use type: does not use REVIEW OF SYSTEMS General - Denies fever, fatigue, and weight loss. Eyes - Has cataracts. Denies glaucoma. ENT - Denies nasal congestion and sore throat. Endocrine - Has excessive thirst and urination. Skin - Denies suspicious lesions and skin cancer. Musculoskeletal - Denies joint pain, weakness of muscles and joints, back pain, and arthritis. Has joint stiffness. Neuro - Denies headaches. Has lightheadedness. Cardiovascular - Denies chest pain, fatigue, and shortness of breath with exertion. Psych - Denies anxiety and depression. Respiratory - Denies chronic cough. Has shortness of breath. Has sleep apnea. Patient is a former smoker. Gastrointestinal - Denies nausea, vomiting, diarrhea, and constipation. Hematologic - Denies abnormal bruising and bleeding. Genitourinary - Denies hematuria. Has urinary frequency. Has incontinence. PHYSICAL EXAMINATION General - Alert and Oriented HEENT - PERRL. EOMI. Throat is clear. On the left nasal ala is a healing melolabial flap. The left melolabial fold incision is healed. The left ear incision is healed. Neck - Supple and nontender. No cervical adenopathy. No suspicious lesions noted. Lungs - Clear to auscultation. Heart - Regular rate and rhythm. Abdomen - Soft and nondistended. Extremities - FROM. No axillary adenopathy. Radial pulses are palpable. No suspicious lesions noted. Neuro - CN II-XII grossly intact. Psych - Normal mood and affect. ASSESSMENT 1. Melanoma in situ, lentigo maligna type, left nasal ala at nasal alar groove. 2. s/p wide excision melanoma in situ, lentigo maligna type, wound left nasal ala at nasal alar groove and 1st stage complex nasal reconstruction with left melolabial flap and cartilage graft from left ear. 3. Personal history of skin cancer. 4. Family history of skin cancer. 5. Former smoker. PLAN He presents today for the second stage division and inset of the melolabial flap. The procedure can be done under general anesthesia on an outpatient basis. Patient was informed of the risks and complications of the procedure including alternatives to surgery. These were discussed with the patient personally. Patient voices understanding and wishes to proceed. Some of the risks and complications were included in a form from the [employer]. After treatment has been completed, he will need TBSE every 3-6 months. On a yearly basis, he will need LFT's including LDH and fractionation of Alkaline Phosphatase and a CXR.
[2019-09-05 12:16] LABS: Prothrombin Time Fingerstick 15.1 SEC (11.9-14.4)
[2019-09-05] MEDS: Lactated Ringers 1,000 ML 100 ML IV (12:30)
[2019-09-05 12:40] LABS: Bedside Glucose 138 mg/dL (70-110)
[2019-09-05 12:42] LABS: Hemoglobin A1c 6.2 % (4.2-6.3)
[2019-09-05] MEDS: Mupirocin Ointment 22gm Tube 1 APPLIC (14:41)
--- NOTE | 2019-09-05 15:22 | PCM.OPRPT ---
Report of Operation Date of Procedure: 09/05/19 Pre-Operative Diagnosis: 1. Melanoma in situ, lentigo maligna type, left nasal ala at nasal alar groove. 2. s/p wide excision melanoma in situ, lentigo maligna type, wound left nasal ala at nasal alar groove and 1st stage complex nasal reconstruction with left melolabial flap and cartilage graft from left ear. 3. Personal history of skin cancer. 4. Family history of skin cancer. 5. Former smoker. Post-Operative Diagnosis: Same. Surgery/Procedure Performed:: 2nd stage complex nasal reconstruction left nasal ala at nasal alar groove with division and inset left melolabial flap. Description of Surgical Findings:: 69 year old man presented with a lesion on his left nasal ala at nasal alar groove that had increased in size over the last several months. He underwent a shave biopsy by Dermatology on 06/03/19 which showed a melanoma in situ, lentigo maligna type. He denies fever. He denies trauma. He denies bleeding from this lesion. He has had basal cell carcinomas excised in the past. He has a family history of skin cancer. 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 Pathology showed atypical intraepithelial melanocytic proliferation. No further melanoma seen. On 08/02/19 he went to surgery and underwent wide excision melanoma in situ, lentigo maligna type, wound left nasal ala at nasal alar groove and 1st stage complex nasal reconstruction with left melolabial flap and cartilage graft from left ear. Postoperatively the flap healed uneventfully. He was scheduled for the second stage division and inset of the flap on 08/23/19. That was postponed because of respiratory issues that required steroid therapy. He is breathing better now and presents today for the second stage division and inset of the flap. Patient was informed of the risks and complications of the procedure including alternatives to surgery. These were discussed with the patient personally. Patient voices understanding and wishes to proceed. Some of the risks and complications were included in a form from the [employer]. 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 Drains: None. Estimated Blood Loss (mL): 10 ml. Description of Procedure: Patient was taken to OR in supine position and was placed under general anesthesia. The nose and left cheek areas were prepped and draped in the usual fashion. SCD's were placed for DVT prophylaxis. Perioperative antibiotics were given intravenously. Using xylocaine with epinephrine, the left cheek portion of the flap was infiltrated. I made an incision through the melolabial flap near its base. I excised the excess flap and subcutaneous tissue in order to inset the flap into the nasal alar defect with minimal tension and minimal distortion. Hemostasis was obtained with electrocautery. The flap was then inset with 5-0 Monocryl vertical mattress interrupted sutures and simple interrupted sutures. Good nasal contour seen. No vascular compromise was noted on the melolabial flap. The proximal portion of the flap was excised down into the subcutaneous tissue. Hemostasis was obtained with electrocautery. I approximated the superior portion of the donor left melolabial incision in a layered fashion with 5-0 Monocryl interrupted sutures for the deep dermis and subcutaneous tissue. The skin was approximated with 6-0 Prolene simple interrupted sutures and vertical mattress interrupted sutures. Good cheek contour noted. Steri-strips were applied followed by antibiotic ointment. Patient tolerated the procedure well and was sent to PACU in satisfactory condition. Patient will be sent home on antibiotics and pain medication. He will keep his head elevated during the initial postoperative period. Patient will followup in a week for a wound check. Grafts/Implants Used: None. - Complications None. - Admit VTE Documentation VTE Present on Admission: No VTE Mechan Device Prophylaxis: SCD's VTE Pharm Prophylaxis ordered?: No Code Visit Surgery Charges CPT - 04052-38 ICD-10 - D03.39, Z85.828, Z80.8, Z87.891
--- NOTE | 2019-09-05 15:35 | DCINST_ITS ---
You will use the following diet at home:: No restrictions Discharge Activity: May not drive while taking narcotic pain medications., May Shower - in two days., - - keep head elevated. no heavy lifting. May shower in (days): 2 May resume sexual activity in: No Restrictions Weight Bearing Status: Weight bearing as tolerated Lifting Restrictions: 10 lbs. Keep extremity elevated above heart level: - - elevate head. Call your doctor if your incision/area has: Continuous Slow Oozing, Sudden Increased Bleeding, Increased Pain/ Swelling, Increased Redness, Foul Smelling Discharge, Swelling at the incision site Call your doctor if you observe: Fever of 101 or Higher, Coldness, Increased Pain, Shortness of breath, Chest pain, Calf discomfort, Uncontrolled pain Suture Line Care: - - apply antibiotic ointment to suture line daily. Cleanse incision/area with: - - may get incisions wet in the shower in two days. Allergies/Adverse Reactions: Allergies No Known Allergies Allergy (Verified 09/05/19 12:03) Medications to take at Discharge abiraterone 250 mg tablet 1,000 mg PO DAILY 06/21/19 amlodipine 10 mg tablet 10 mg PO DAILY 06/21/19 ascorbate calcium (vitamin C) 500 mg capsule 500 mg PO DAILY 06/21/19 atorvastatin 10 mg tablet 10 mg PO DAILY 06/21/19 calcium carbonate 600 mg calcium (1,500 mg) tablet 600 mg PO DAILY 06/21/19 dorzolamide-timolol (PF) 2 %-0.5 % eye drops in a dropperette 1 drp OPHTHALMIC BID 06/21/19 leuprolide (6 month) 45 mg intramuscular syringe kit 45 mg IM [id number] 06/21/19 metformin 500 mg tablet,extended release 24 hr 500 mg PO QPM 06/21/19 metoprolol tartrate 50 mg tablet 100 mg PO 1700 06/21/19 multivitamin 1 cap PO DAILY 06/21/19 prednisone 5 mg tablet 5 mg PO DAILY 06/21/19 primidone 50 mg tablet 50 mg PO QHS tab 06/21/19 venlafaxine 150 mg capsule,extended release 24 hr 150 mg PO DAILY 06/21/19 Metoprolol Tartrate [Lopressor (beta karrie)] 150 mg PO 0800 07/28/19 Docusate Sodium [Colace] 100 mg PO BID #60 cap 08/03/19 Hydrochlorothiazide [Hctz] 25 mg PO DAILY tab 08/03/19 Insulin Lispro [Humalog KwikPen] See Protocol SUBCUT TIDAC insuln.pen 08/03/19 Losartan Potassium [Cozaar] 100 mg PO DAILY tab 08/03/19 Mupirocin [Bactroban] 1 applic TOPICAL .QDAILY #2 tube 08/03/19 proMETHazine tablet [Phenergan tablet] 25 mg PO 4X/DAY PRN PRN #30 tab 08/03/19 Clindamycin HCl [Cleocin] 300 mg PO TID #15 cap 09/05/19 Lactobacillus Acidophilus/Fos [Acidophilus Probiotic Tablet] 1 ea PO BID #10 tab 09/05/19 Oxycodone HCl/Acetaminophen [Percocet 5/325] 1 tablet PO Q6H PRN PRN 7 Days #30 tablet 09/05/19 Warfarin Sodium 6 mg PO SUMOWETHSA #0 09/05/19 Warfarin [Coumadin] 9 mg PO TUFR #0 09/05/19 The following prescriptions were given: Lactobacillus Acidophilus/Fos [Acidophilus Probiotic Tablet] 1 ea PO BID #10 tab Transmission Status: Pending to [address] Clindamycin HCl [Cleocin] 300 mg PO TID #15 cap Transmission Status: Pending to [facility] Oxycodone HCl/Acetaminophen [Percocet 5/325] 1 tablet PO Q6H PRN PRN 7 Days #30 tablet PRN Reason: Pain Score 4-5/10 Transmission Status: Sent to [facility] Primary Care Physician: Dortia Shaw MD [Primary Care Provider] - Test Results: Test results from this visit will be discussed in further detail at your follow- up appointment, if applicable. Please Follow Up With: Domingo Donahue MD When: one week. call [phone] for appt. Proposed Discharge Date: 09/05/19
[2019-09-05 16:06] LABS: Bedside Glucose 129 mg/dL (70-110)
== END 2019-09-05 16:53 | disposition home or self-care (01) ==
LOC: SDC 11:36 → AC 11:53
PROVIDERS: Anesthesiology; Family Provider Family Medicine; PCP Family Medicine; Referring Provider Surgery; Visit Provider Surgery
PROC: (CPT 30420; principal; 2019-09-05 13:00)
DX: D03.39 Melanoma in situ of other parts of face (principal); Z85.828 Personal history of other malignant neoplasm of skin; Z80.8 Family history of malignant neoplasm of other organs or systems; Z87.891 Personal history of nicotine dependence; I48.91 Unspecified atrial fibrillation; H26.9 Unspecified cataract; H40.9 Unspecified glaucoma; G47.30 Sleep apnea, unspecified; I10 Essential (primary) hypertension; E78.00 Pure hypercholesterolemia, unspecified; E11.9 Type 2 diabetes mellitus without complications; Z85.46 Personal history of malignant neoplasm of prostate; Z86.718 Personal history of other venous thrombosis and embolism; Z87.442 Personal history of urinary calculi; Z79.84 Long term (current) use of oral hypoglycemic drugs; Z79.82 Long term (current) use of aspirin; Z79.01 Long term (current) use of anticoagulants; Z79.899 Other long term (current) drug therapy
CPT/HCPCS: 15630; 36416; 82962; 83036; 85610; J7120; J2405; Q9968

== ENCOUNTER 2020-12-13 08:34 | Inpatient (IN) | payer MEDICARE, OTHER, SELFPAY ==
[2020-12-13] VITALS (20 sets, daily range): BP systolic 116–202; BP diastolic 69–122; PULSE 20–137; RESP 18–27; TEMP 36.1–37.1; O2SAT 94–97; BMI 46.2; BMI 46.3; BMI 45.3
--- NOTE | 2020-12-13 08:50 | EKG12_ITS ---
Test Reason : SOB Blood Pressure : / mmHG Vent. Rate : 101 BPM Atrial Rate : 079 BPM P-R Int : 000 ms QRS Dur : 106 ms QT Int : 370 ms P-R-T Axes : 000 -22 058 degrees QTc Int : 479 ms Atrial fibrillation with rapid ventricular response Incomplete right bundle branch block Inferior infarct , age undetermined Abnormal ECG Confirmed by JACK VIRGEN, KEVEN ([id number]), sports editor SARAH PASTOR ([id number]) on 12/17/2020 2:29:48 PM Referred By: Confirmed By:KEVEN SANTIAGO MD
--- NOTE | 2020-12-13 09:01 | ED.VIS.DYS ---
HPI History of Present Illness Chief Complaint: Shortness of Breath Informant: patient and family Narrative Narrative: 70-year-old male presenting with shortness of breath. Patient was scheduled to have outpatient biopsy of a lesion on his lip today per Dr. Donahue. He was noted to have a pulse ox between 85 to 88% on room air. He was given a breathing treatment. He states he has been short of breath worsening over the last several days. It is worsened with exertion. He denies chest pain. Denies fever. He has a dry cough. He had Covid in April and has since recovered. He has a history of COPD. He is not on home O2. 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, vermilion border Neoplasm of unspecified behavior of bone, soft tissue, and skin Prostate cancer Skin cancer Sleep apnea Home Medications amlodipine 10 mg tablet 10 mg PO DAILY 06/21/19 [History Last Taken 12/13/20 05:30] atorvastatin 10 mg tablet 10 mg PO DAILY 06/21/19 [History Last Taken Unknown] calcium carbonate 600 mg calcium (1,500 mg) tablet 600 mg PO DAILY 06/21/19 [History Last Taken Unknown] leuprolide (6 month) 45 mg intramuscular syringe kit 45 mg IM [id number] 06/21/19 [History Last Taken Unknown] metformin 500 mg tablet,extended release 24 hr 500 mg PO QHS 06/21/19 [History Last Taken Unknown] metoprolol tartrate 50 mg tablet 100 mg PO 1700 06/21/19 [History Last Taken 09/05/19 09:00] multivitamin 1 cap PO DAILY 06/21/19 [History Last Taken Unknown] prednisone 5 mg tablet 5 mg PO DAILY 06/21/19 [History Last Taken 12/13/20 05:30] venlafaxine 150 mg capsule,extended release 24 hr 150 mg PO DAILY 06/21/19 [History Last Taken Unknown] hydrochlorothiazide 25 mg PO DAILY tab 08/03/19 [Rx Last Taken Unknown] primidone 50 mg tablet 150 mg PO TID tablet 10/22/20 [History Last Taken 12/13/20 05:30] albuterol sulfate 1 - 2 puff INHALATION Q4H PRN PRN 11/07/20 [History Last Taken Unknown] aspirin 81 mg PO DAILY 11/07/20 [History Last Taken Unknown] famotidine 40 mg PO DAILY 11/07/20 [History Last Taken 12/13/20 05:30] fluticasone furoate-vilanterol 1 puff IH DAILY 11/07/20 [History Last Taken Unknown] montelukast 10 mg PO DAILY 11/07/20 [History Last Taken Unknown] potassium citrate 20 meq PO BID 11/07/20 [History Last Taken Unknown] warfarin 6 mg PO DAILY 11/07/20 [History Last Taken Unknown] Allergy/AdvReac Type Severity Reaction Status Date / Time No Known Allergies Allergy Verified 12/13/20 09:20 Family History Sister Breast cancer Brother Lung cancer Daughter Melanoma Surgical History History of hip replacement History of melanoma excision Social History Smoking Status: Former smoker alcohol intake: never substance use type: does not use additional social history: DOES USE ASPIRIN DOES NOT USE IBUPROFEN ROS ROS ED Constitutional Constitutional ED: Denies fever(s) Eyes Eyes: Denies change in vision ENT ENT ED: Denies rhinorrhea or sore throat Cardiovascular Cardiovascular: Denies chest pain or palpitations Respiratory/Chest Respiratory/Chest: Reports cough and dyspnea Gastrointestinal Gastrointestinal: Denies abdominal pain, diarrhea, nausea or vomiting Genitourinary Genitourinary ED: Denies dysuria Musculoskeletal Musculoskeletal: Denies myalgias Integumentary Denies rash Neurologic Neurologic: Denies headache(s) Psychiatric Psychiatric: Denies suicidal thoughts EXAM Physical Exam Const Vital Signs: 12/13/20 09:08 12/13/20 09:12 12/13/20 09:13 Temperature Temperature Source Pulse Rate 107 H 127 H Respiratory Rate 26 H 23 H Respiratory Effort Blood Pressure 174/118 H Blood Pressure Mean 136 Pulse Ox 96 97 Oxygen Delivery Method Nasal Cannula Nasal Cannula Oxygen Flow Rate (L/min) 2 2 12/13/20 09:14 12/13/20 09:20 12/13/20 09:21 Temperature 97.3 F L 97.3 F L Temperature Source Oral Temporal Pulse Rate 20 L 106 H Respiratory Rate 19 H 20 H Respiratory Effort Short of Breath Blood Pressure 173/104 H 173/104 H Blood Pressure Mean 127 127 Pulse Ox 97 97 Oxygen Delivery Method Nasal Cannula Nasal Cannula Nasal Cannula Oxygen Flow Rate (L/min) 2 2 2 12/13/20 10:14 12/13/20 10:43 Temperature 98.3 F 98.3 F Temperature Source Temporal Oral Pulse Rate 127 H 108 H Respiratory Rate 24 H 20 H Respiratory Effort Blood Pressure 202/122 H 121/91 H Blood Pressure Mean 148 101 Pulse Ox 97 96 Oxygen Delivery Method Nasal Cannula Nasal Cannula Oxygen Flow Rate (L/min) 2 2 Positive well nourished and well developed General Appearance ED: well developed HEENT Reports normocephalic and head/scalp atraumatic Eyes PERRL and EOMs intact bilaterally Neck supple General: Negative for tenderness Chest Wall inspection of chest normal Resp normal respiratory effort Auscultation: wheezes and diminished lung sounds Cardio regular rate Rhythm: abnormal rhythm irregularly irregular GI non-tender and non-distended Palpation: soft; Negative for guarding or rebound tenderness present no CVA tenderness Extremity normal to inspection Neuro oriented x3 Sensorium / Orientation: alert Psych mental status grossly normal Skin Rashes: no rashes MDM MDM MDM Narrative Medical decision making narrative: Patient was given albuterol, Atrovent aerosols. Covid is negative. Chest x-ray reading recommends CT of chest. CT chest was obtained and shows right middle and lower peribronchial groundglass opacities possibly infectious/inflammatory, right hilar and mediastinal adenopathy. Blood cultures were sent. He was given Levaquin IV. His blood pressure is elevated 220/120, he states some of his medications were held this morning due to his scheduled surgery. He was given labetalol IV. His INR is 1.4. His Coumadin has been held since Thursday. His pulse ox is 97% on 3 L. Discussed with hospitalist for admission. Lab Data Attestation: I reviewed the patient's lab results. Labs: Laboratory Results - last 24 hr 12/13/20 12/13/20 12/13/20 08:59 08:59 08:59 WBC 5.3 RBC 4.87 Hgb 14.9 Hct 45.5 MCV 93.4 MCH 30.6 MCHC 32.7 RDW Std Deviation 50.9 H RDW Coeff of Kayley 15.2 H Plt Count 144 L MPV 10.3 Immature Gran % (Auto) 0.400 Neut % (Auto) 72.5 H Lymph % (Auto) 19.2 Ransom % (Auto) 6.6 Eos % (Auto) 1.1 Baso % (Auto) 0.2 Absolute Neuts (auto) 3.9 Absolute Lymphs (auto) 1.02 Nucleated RBC % 0 Sodium 140 Potassium 3.7 Chloride 102 Carbon Dioxide 32.0 Anion Gap 6 BUN 15 Creatinine 0.90 Estim Creat Clear Calc 72.83 Est GFR (MDRD) Af Amer 107 Est GFR (MDRD) Non-Af 89 BUN/Creatinine Ratio 16.8 Glucose 122 H Lactic Acid 2.0 Calcium 9.0 Troponin I 0.030 B-Natriuretic Peptide 12/13/20 08:59 WBC RBC Hgb Hct MCV MCH MCHC RDW Std Deviation RDW Coeff of Kayley Plt Count MPV Immature Gran % (Auto) Neut % (Auto) Lymph % (Auto) Ransom % (Auto) Eos % (Auto) Baso % (Auto) Absolute Neuts (auto) Absolute Lymphs (auto) Nucleated RBC % Sodium Potassium Chloride Carbon Dioxide Anion Gap BUN Creatinine Estim Creat Clear Calc Est GFR (MDRD) Af Amer Est GFR (MDRD) Non-Af BUN/Creatinine Ratio Glucose Lactic Acid Calcium Troponin I B-Natriuretic Peptide 288.1 H Radiography Chest X-Ray - ED: 2 View, Read by ED Physician and Read by Radiologist Diagnostic Testing: Radiology Impression Chest CTA 12/13/20 09:45 IMPRESSION: 1. Ill-defined right middle and lower peribronchial groundglass opacities and reticulation, possibly infectious/inflammatory. 2. Right hilar and mediastinal adenopathy. Although could be reactive adenopathy, recommend follow-up chest CT in 4-6 weeks and/or PET scan. Electronically Signed: Cong Hameed MD (Brooks) at 10:18 EDT , Service support , ADDENDUM: 12/13/20 1032 Chest x-ray shows asymmetric right hilar enlargement could suggest adenopathy. Chest CT with IV contrast recommended. Right more than left patchy infiltrates. EKG Initial EKG: Attestation: I personally reviewed and interpreted this EKG as follows: Interpretation: No Acute Injury Pattern and Atrial Fibrillation Discharge Plan Dx/Rx/DC Orders Clinical Impression: COPD exacerbation, Hypoxia Disposition Disposition: Acute Care Hospital [facility]
[2020-12-13] MEDS: Ipratropium/Albuterol Sulfate 3 ML AMPUL.NEB INHALATION ×3 (09:07→19:18)
[2020-12-13] MEDS: Albuterol 2.5 MG/3 ML VIAL.NEB. INHALATION ×3 (09:07→09:08)
[2020-12-13 09:24] LABS: Absolute Lymphocyte Count 1.02 X10^3/uL (0.83-4.51); Absolute Neutrophil Count 3.9 X10^3/uL (2.0-7.7); Basophil# 0.01 X10^3/uL; Basophil% 0.2 % (0-1); Eosinophil# 0.06 X10^3/uL; Eosinophils% 1.1 % (0-5); Hematocrit 45.5 % (40-54); Hemoglobin 14.9 g/dL (13.0-16.5); Lymphocyte # 1.02 X10^3/ul (0.83-4.51); Lymphocyte % 19.2 % (19-41); Mean Corp Hgb Conc 32.7 g/dL (32-36); Mean Corpuscular Hgb 30.6 pg (27.0-32.0); Mean Corpuscular Volume 93.4 fL (80-94); Mean Platelet Vol. 10.3 fl (6.2-12.0); Monocyte# 0.35 X10^3/uL; Monocyte% 6.6 % (0-10); NRBC Flagged by Analyzer 0 % (0-5); Neutrophil # 3.86 X10^3/uL (2.7-7.7); Neutrophil % 72.5 % (47-70); Platelet Count 144 K/mm3 (150-450); RBC Distribution Width CV 15.2 % (11.6-14.6); RBC Distribution Width SD 50.9 fl (35.1-43.9); Red Blood Count 4.87 M/mm3 (4.6-6.2); White Blood Count 5.3 K/mm3 (4.4-11.0)
[2020-12-13 09:37] LABS: Anion Gap 6 (5-15); BUN 15 mg/dL (7-18); BUN/Creat Ratio 16.8 RATIO (10-20); Chloride 102 mmol/L (98-107); EST Glomerular Filtration Rate 89 mL/min (>60); Est Glom Filt Rate - Afr Amer 107 mL/min (>60); Estimated Creatinine Clearance 72.83 ml/min; Glucose 122 mg/dL (74-106); Potassium 3.7 mmol/L (3.5-5.1); Sodium Level 140 mmol/L (136-145)
--- NOTE | 2020-12-13 09:45 | CT_ITS ---
STUDY: CTA CHEST REASON FOR EXAM: Male, 70 years old. dyspnea RADIATION DOSAGE (If Supplied By Facility): CTDIvol = ( 15.04 ) mGy, DLP = ( 537.88 ) mGycm TECHNIQUE: The examination was performed with the intravenous administration of IV 100mL Isovue-370. Post-processing of the angiographic images was performed, with multiplanar reformation and 3D reconstruction. Individualized dose optimization techniques were used for this CT. COMPARISON: None. FINDINGS: Normal enhancement of the main pulmonary artery and right and left pulmonary arteries. Normal enhancement of the bilateral peripheral pulmonary arteries. There is no demonstrated pulmonary embolism. Normal thoracic aorta and visualized great vessels. There is no demonstrated aortic dissection. Heart is mildly enlarged. Adenopathy of the middle mediastinum with paratracheal station for lymph node measuring 1.7 x 2.2 cm. Right hilar adenopathy on image 153 of series 2 measures 3.2 x 3.5 cm. Normal visualized trachea and bronchi. The lungs are well expanded. Patchy groundglass and reticular opacities of the right middle lobe and right lower lobe without dense airspace consolidation. Mild subpleural atelectasis in the bilateral lung bases. Normal pleura. Normal chest wall structures. There are degenerative changes of thoracic spine. Normal visualized upper abdomen. CT/CTA Chest W/WO Contrast IMPRESSION: 1. Ill-defined right middle and lower peribronchial groundglass opacities and reticulation, possibly infectious/inflammatory. 2. Right hilar and mediastinal adenopathy. Although could be reactive adenopathy, recommend follow-up chest CT in 4-6 weeks and/or PET scan. Electronically Signed: Cong Hameed MD (Brooks) at 10:18 EDT , Service support ,
[2020-12-13 09:50] LABS: BNP,B-Type NATRIURETIC PEPTIDE 288.1 pg/mL (0-100)
[2020-12-13] MEDS: Labetalol (Prefilled) 20 MG/4 ML 10 MG IV (10:25)
--- NOTE | 2020-12-13 10:27 | ED.RN ---
reports she will bring in his cpap for eva
[2020-12-13] MEDS: levoFLOXacin IV 750 MG/150 ML BAG 100 MG IV (10:39)
--- NOTE | 2020-12-13 11:02 | NURSING ---
DR GABRIELE AJSMINE
--- NOTE | 2020-12-13 11:12 | NURSING ---
CAROL SUAZO COPD EXAC, HYPOXIA
[2020-12-13] MEDS: MethylPREDNISolone 125 MG/2 ML Vial IV (11:30)
--- NOTE | 2020-12-13 11:49 | ECHOD_ITS ---
Reason For Study: DYSPNEA Procedure This was a 2D Doppler, Color Flow transthoracic echocardiogram. The exam was of poor technical quality due to body habitus. The study was technically limited. Contrast injection was performed. Exam performed portable in patient room. Left Ventricle Moderate concentric left ventricular hypertrophy. Based upon the 2D echocardiographic and contrast enhanced images obtained there appears to be grossly normal left ventricular size, wall motion, and systolic function. The estimated ejection fraction is 55 %. Unable to assess diastolic dysfunction. Right Ventricle Based upon the 2D echocardiographic images obtained there appears to be grossly normal right ventricular size and systolic function. Atria The left atrium appears enlarged. The right atrium is not well visualized. No doppler evidence for ASD. Mitral Valve There is no mitral annular calcification. Normal mitral valve. Mild (1+) mitral valve insufficiency. Tricuspid Valve The tricuspid valve is not well visualized. Mild tricuspid valve insufficiency. Right ventricular systolic pressure estimated to be 40 mmHg. Aortic Valve Trisinus/trileaflet aortic valve. Normal aortic valve. Pulmonic Valve The pulmonic valve is not well visualized. Great Vessels Mildly dilated aortic root. Pericardium/Pleural No pericardial effusion. Medication Diluted definity 7ml given slow IV push to enhance endocardial definition. MMode/2D Measurements & Calculations LVIDd: 5.1 cm IVSd: 1.6 cm Ao root diam: 4.0 cm LVIDs: 3.7 cm LVPWd: 1.4 cm FS: 27.0 % LA dimension(2D): 5.5 cm Time Measurements MV dec time: 0.16 sec Doppler Measurements & Calculations MV E max joyce: 93.7 cm/sec Ao V2 max: 105.7 cm/sec LV V1 max: 86.5 cm/sec Ao max P.5 mmHg LV V1 max P.0 mmHg PA V2 max: 88.4 cm/sec TR max joyce: 305.2 cm/sec TR max P.3 mmHg ECHO/Echo Complete W/ Contrast Interpretation Summary The study was technically limited. Contrast injection was performed. Based upon the 2D echocardiographic and contrast enhanced images obtained there appears to be grossly normal left ventricular size, wall motion, and systolic function. The estimated ejection fraction is 55 %. Moderate concentric left ventricular hypertrophy. The left atrium appears enlarged. Mild (1+) mitral valve insufficiency. Mild tricuspid valve insufficiency. Mildly dilated aortic root. Right ventricular systolic pressure estimated to be 40 mmHg. Unable to assess diastolic dysfunction. Ordering Physician: Boy Hill Referring Physician: SAULO ZIEGLER Performed By: Anna Gongora RDCS, RVT
[2020-12-13 13:13] LABS: Reflex Lactate? Y
[2020-12-13] MEDS: Azithromycin 250 MG Tablet 500 MG PO (13:49)
[2020-12-13] MEDS: Furosemide 20 MG/2 ML VIAL IV ×2 (13:50→20:25)
[2020-12-13] MEDS: Metoprolol Tartrate 50 MG Tablet PO (13:50)
[2020-12-13] MEDS: 0.9% Saline Lock 10 ML Syringe IV ×2 (13:50→20:25)
[2020-12-13 14:36] LABS: Lactic Acid 2.5 mmol/L (0.4-1.9)
[2020-12-13 16:51] LABS: Bedside Glucose 187 mg/dL (70-110)
[2020-12-13] MEDS: Potassium Chloride Oral Tablet 10 MEQ 20 MEQ PO (17:14)
[2020-12-13] MEDS: Metoprolol Tartrate 25 MG Tablet PO (18:40)
--- NOTE | 2020-12-13 19:34 | HP.PCM.HOS_ITS ---
HPI - General General Date of Admission: 12/13/20 HPI Narrative CRYSTAL PANTOJA, is a 70 M who presents to the emergency room at [facility] with complaints of shortness of breath after being sent out from surgery where he was to have an outpatient lip lesion removed by plastic surgery, he was found to be hypoxic and sent to the ER for evaluation. Patient does have a history of COPD and has a history of Covid 19 infection last year, he was not on the ventilator during that episode but he was hospitalized-not here. History was obtained from the patient's due to patient's difficulty in hearing, his states that he has had breathing difficulties since last fall before he got Covid. He is due to see pulmonary medicine next week for an office visit here, he is a new patient to Dr. Poole. Patient's pulse ox on room air was between 85 and 88% today, in the emergency room he required 2 L of oxygen via nasal cannula to maintain a sat above 90%. Patient is not on home oxygen. Labs obtained showed the patient's white blood cell count to be normal, patient 's chemistry panel was unremarkable, patient's lactic acid was 2, patient's chest x-ray showed bilateral infiltrates suggestive of either inflammation pneumonia, CT of the chest did not show an obvious pulmonary embolism but showed the infiltrates. Patient was afebrile, beta natruretic peptide was slightly elevated. Patient was given Levaquin in the emergency room and IV Solu-Medrol. I will admit the patient to PCU and treat with IV Solu-Medrol, aggressive aerosol treatments, he will undergo an echocardiogram to assess LV function, I decided to place him on IV Lasix and I have placed him on oral Zithromax. 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, soft tissue, and skin Prostate cancer Skin cancer Sleep apnea Home Medications amlodipine 10 mg tablet 10 mg PO DAILY 06/21/19 [History Last Taken 12/13/20 05:30] atorvastatin 10 mg tablet 10 mg PO DAILY 06/21/19 [History Last Taken 12/12/20] calcium carbonate 600 mg calcium (1,500 mg) tablet 600 mg PO DAILY 06/21/19 [History Last Taken 12/12/20] leuprolide (6 month) 45 mg intramuscular syringe kit 45 mg IM [id number] 06/21/19 [History Last Taken Unknown] metformin 500 mg tablet,extended release 24 hr 500 mg PO QHS 06/21/19 [History Last Taken 12/12/20] metoprolol tartrate 50 mg tablet 125 mg PO 1700 06/21/19 [History Last Taken 12/12/20] multivitamin 1 cap PO DAILY 06/21/19 [History Last Taken 12/12/20] prednisone 5 mg tablet 5 mg PO DAILY 06/21/19 [History Last Taken 12/13/20 05:30] venlafaxine 150 mg capsule,extended release 24 hr 150 mg PO DAILY 06/21/19 [History Last Taken 12/12/20] hydrochlorothiazide 25 mg PO DAILY tab 08/03/19 [Rx Last Taken 12/13/20] primidone 50 mg tablet 150 mg PO BID tablet 10/22/20 [History Last Taken 12/13/20 05:30] aspirin 81 mg PO DAILY 11/07/20 [History Last Taken 12/12/20] famotidine 40 mg PO DAILY 11/07/20 [History Last Taken 12/13/20 05:30] montelukast 10 mg PO DAILY 11/07/20 [History Last Taken 12/12/20] potassium citrate 20 meq PO BID 11/07/20 [History Last Taken 12/12/20] warfarin 6 mg PO DAILY 11/07/20 [History Last Taken 12/09/20] [id number] [Trelegy Ellipta] 1 inh INHALATION BID 12/13/20 [History Last Taken 12/13/20] losartan 100 mg PO DAILY 12/13/20 [History Last Taken 12/13/20] Allergy/AdvReac Type Severity Reaction Status Date / Time No Known Allergies Allergy Verified 12/13/20 09:20 Family History Sister Breast cancer Brother Lung cancer Daughter Melanoma Surgical History History of hip replacement History of melanoma excision Social History Smoking Status: Former smoker alcohol intake: never substance use type: does not use additional social history: DOES USE ASPIRIN DOES NOT USE IBUPROFEN ROS Constitutional Constitutional: Reports fatigue; Denies anorexia, change in weight or chills Eyes Eyes: Denies blurry vision, change in eye color, change in vision, discharge from eye(s), double vision or eye pain ENT HEENT: Reports abnormal hearing and hearing loss; Denies dysphagia, ear pain, epistaxis, headache(s) or nasal discharge Cardiovascular Cardiovascular: Reports dyspnea on exertion; Denies chest pain, claudication, edema, palpitations or paroxysmal nocturnal dyspnea Respiratory/Chest Respiratory/Chest: Reports cough, dyspnea and shortness of breath with exertion; Denies excessive phlegm production, hemoptysis or productive cough Gastrointestinal Gastrointestinal: Denies abdominal pain, coffee ground emesis, constipation, diarrhea, dyspepsia or hematemesis Genitourinary Genitourinary: Denies burning urination, difficulty urinating, dysuria or hematuria Musculoskeletal Musculoskeletal: Denies arthralgias or joint swelling Neurologic Neurologic: Denies abnormal gait, abnormal speech, confusion, dizziness or focal weakness Psychiatric Psychiatric: Denies anxiety or depression Endocrine Endocrinology: Denies change in body appearance, cold intolerance, excessive sweating, polydipsia or polyuria Hematologic/Lymphatic Hematologic/Lymphatic: Denies anemia, easy bleeding or easy bruising Allergic/Immunologic Allergic/Immunologic: Denies rhinitis, hives or eczemia Vital Signs Vital Signs Vital Signs: 12/13/20 09:08 12/13/20 09:12 12/13/20 09:13 Temperature Temperature Source Pulse Rate 107 H 127 H Respiratory Rate 26 H 23 H Respiratory Effort Respiratory Depth Respiratory Pattern Blood Pressure 174/118 H Blood Pressure Mean 136 Blood Pressure Source Blood Pressure Position Blood Pressure Location Pulse Ox 96 97 Oxygen Delivery Method Nasal Cannula Nasal Cannula Oxygen Flow Rate (L/min) 2 2 12/13/20 09:14 12/13/20 09:20 12/13/20 09:21 Temperature 97.3 F L 97.3 F L Temperature Source Oral Temporal Pulse Rate 20 L 106 H Respiratory Rate 19 H 20 H Respiratory Effort Short of Breath Respiratory Depth Respiratory Pattern Blood Pressure 173/104 H 173/104 H Blood Pressure Mean 127 127 Blood Pressure Source Blood Pressure Position Blood Pressure Location Pulse Ox 97 97 Oxygen Delivery Method Nasal Cannula Nasal Cannula Nasal Cannula Oxygen Flow Rate (L/min) 2 2 2 12/13/20 10:14 12/13/20 10:43 12/13/20 11:29 Temperature 98.3 F 98.3 F 97.6 F L Temperature Source Temporal Oral Oral Pulse Rate 127 H 108 H 110 H Respiratory Rate 24 H 20 H 18 Respiratory Effort Respiratory Depth Respiratory Pattern Blood Pressure 202/122 H 121/91 H 160/97 H Blood Pressure Mean 148 101 118 Blood Pressure Source Blood Pressure Position Blood Pressure Location Pulse Ox 97 96 97 Oxygen Delivery Method Nasal Cannula Nasal Cannula Nasal Cannula Oxygen Flow Rate (L/min) 2 2 2 12/13/20 12:05 12/13/20 12:09 12/13/20 12:26 Temperature 98.0 F Temperature Source Oral Pulse Rate 113 H 103 H Respiratory Rate 20 H Respiratory Effort Normal Non-Labored Respiratory Depth Normal Respiratory Pattern Normal Blood Pressure 164/110 H Blood Pressure Mean 128 Blood Pressure Source Monitor Blood Pressure Position Semi-Fowlers Blood Pressure Location Right Forearm Pulse Ox 97 Oxygen Delivery Method Nasal Cannula Nasal Cannula Oxygen Flow Rate (L/min) 2 2 12/13/20 13:01 12/13/20 13:50 12/13/20 14:50 Temperature Temperature Source Pulse Rate 79 125 H 115 H Respiratory Rate 20 H Respiratory Effort Respiratory Depth Respiratory Pattern Normal Blood Pressure Blood Pressure Mean Blood Pressure Source Blood Pressure Position Blood Pressure Location Pulse Ox 94 Oxygen Delivery Method Nasal Cannula Oxygen Flow Rate (L/min) 2 12/13/20 17:16 12/13/20 17:21 12/13/20 18:40 Temperature 98.8 F Temperature Source Oral Pulse Rate 108 H 137 H Respiratory Rate 20 H Respiratory Effort Normal Non-Labored Respiratory Depth Normal Respiratory Pattern Normal Blood Pressure 142/81 H Blood Pressure Mean 101 Blood Pressure Source Monitor Blood Pressure Position Semi-Fowlers Blood Pressure Location Right Forearm Pulse Ox 97 Oxygen Delivery Method Nasal Cannula Nasal Cannula Oxygen Flow Rate (L/min) 2 2 12/13/20 18:51 12/13/20 19:19 Temperature Temperature Source Pulse Rate 119 H 107 H Respiratory Rate 26 H Respiratory Effort Respiratory Depth Respiratory Pattern Tachypnea Blood Pressure Blood Pressure Mean Blood Pressure Source Blood Pressure Position Blood Pressure Location Pulse Ox Oxygen Delivery Method Oxygen Flow Rate (L/min) Physical Exam Const alert, oriented x3, no apparent distress and well nourished General Appearance: cooperative HEENT normocephalic and moist oral mucous membranes HEENT Narrative: Patient is hard of hearing Eyes PERRL, EOMs intact bilaterally and conjunctivae normal Neck no lymphadenopathy, supple, no JVD and no carotid bruits Resp no retractions and no use of accessory muscles Resp Narrative: Auscultation of the lungs reveals expiratory wheezes bilaterally which are scattered over both lungs. Auscultation: Negative for rales or rhonchi Cardio no murmurs, no rub, no gallops, no clicks and no JVD Cardio Narrative: Heart rate and rhythm is irregular GI normal to inspection, nondistended, normoactive bowel sounds, soft to palpation and non-tender GI Narrative: Patient has morbid obesity Extremity Extremity Narrative: There is evidence of pitting edema noted over both lower legs Skin no wounds, no jaundice and no petechiae Neuro oriented x3 and no focal motor deficits Sensorium / Orientation: awake and alert Speech: speech normal Psych affect normal Lab / Micro Data Result Diagrams: 12/13/20 08:59 12/13/20 08:59 Labs: Laboratory Results - last 24 hr 12/13/20 12/13/20 12/13/20 08:59 08:59 08:59 WBC 5.3 RBC 4.87 Hgb 14.9 Hct 45.5 MCV 93.4 MCH 30.6 MCHC 32.7 RDW Std Deviation 50.9 H RDW Coeff of Kayley 15.2 H Plt Count 144 L MPV 10.3 Immature Gran % (Auto) 0.400 Neut % (Auto) 72.5 H Lymph % (Auto) 19.2 [place] % (Auto) 6.6 Eos % (Auto) 1.1 Baso % (Auto) 0.2 Absolute Neuts (auto) 3.9 Absolute Lymphs (auto) 1.02 Nucleated RBC % 0 Sodium 140 Potassium 3.7 Chloride 102 Carbon Dioxide 32.0 Anion Gap 6 BUN 15 Creatinine 0.90 Estim Creat Clear Calc 72.83 Est GFR (MDRD) Af Amer 107 Est GFR (MDRD) Non-Af 89 BUN/Creatinine Ratio 16.8 Glucose 122 H Lactic Acid 2.0 Calcium 9.0 Troponin I 0.030 B-Natriuretic Peptide POC Glucose 12/13/20 12/13/20 12/13/20 08:59 13:40 16:46 WBC RBC Hgb Hct MCV MCH MCHC RDW Std Deviation RDW Coeff of Kayley Plt Count MPV Immature Gran % (Auto) Neut % (Auto) Lymph % (Auto) [place] % (Auto) Eos % (Auto) Baso % (Auto) Absolute Neuts (auto) Absolute Lymphs (auto) Nucleated RBC % Sodium Potassium Chloride Carbon Dioxide Anion Gap BUN Creatinine Estim Creat Clear Calc Est GFR (MDRD) Af Amer Est GFR (MDRD) Non-Af BUN/Creatinine Ratio Glucose Lactic Acid 2.5 H* Calcium Troponin I B-Natriuretic Peptide 288.1 H POC Glucose 187 H Micro: Microbiology 12/13/20 12:20 Respiratory Panel (PCR) - Final Mucosa - Nasopharyngeal 12/13/20 09:23 SARS-CoV-2 Antigen (Rapid) - Final Mucosa - Nasopharyngeal Radiology Impression Chest CTA 12/13/20 09:45 IMPRESSION: 1. Ill-defined right middle and lower peribronchial groundglass opacities and reticulation, possibly infectious/inflammatory. 2. Right hilar and mediastinal adenopathy. Although could be reactive adenopathy, recommend follow-up chest CT in 4-6 weeks and/or PET scan. Electronically Signed: Cong Hameed MD (Brooks) at 10:18 EDT , Service support , ADDENDUM: 12/13/20 1032 Assessment & Plan Assessment/Plan (1) COPD exacerbation: PLAN: #1 exacerbation of COPD-patient will be admitted to PCU, IV corticosteroids will be administered, patient will be given breathing treatments with DuoNeb, patient was placed on oral Zithromax #2 hypoxia secondary to #1 #3 diffuse pulmonary infiltrates suggestive of either pneumonia or congestive heart failure-I have elected to place patient on IV Lasix and reevaluate the chest x-ray tomorrow morning, he will be kept on oral Zithromax for now, he is not producing any sputum, he is afebrile, and his white blood cell count is normal. Echocardiogram was performed today and results are pending #4 obstructive sleep apnea #5 morbid obesity #6 elevated lactic acid secondary to hypoxia #7 chronic atrial fibrillation-patient's rate control medication may need to be adjusted, he is tachycardic #8 chronic use of warfarin-patient's warfarin will be restarted today Visit Charges Inpatient E&M: 18900 Init Hosp L3
[2020-12-13] MEDS: Atorvastatin Calcium 10 MG Tablet PO (20:25)
[2020-12-13] MEDS: Insulin Lispro 100 UNIT/ML INSULN.PEN SC (20:25)
[2020-12-13] MEDS: Primidone 50 MG Tablet 150 MG PO (20:25)
[2020-12-13 21:15] LABS: Bedside Glucose 214 mg/dL (70-110)
[2020-12-13] MEDS: Metoprolol Tartrate 100 MG Tablet PO (21:31)
[2020-12-14] VITALS (15 sets, daily range): BP systolic 125–155; BP diastolic 88–103; PULSE 80–133; RESP 16–20; TEMP 36.4–36.8; O2SAT 92–98
[2020-12-14] MEDS: Ipratropium/Albuterol Sulfate 3 ML AMPUL.NEB INHALATION ×4 (00:36→19:08)
--- NOTE | 2020-12-14 05:00 | RAD_ITS ---
STUDY: X-RAY CHEST REASON FOR EXAM: Male, 70 years old. CHF TECHNIQUE: Single AP portable view of the chest. COMPARISON: Chest x-ray yesterday FINDINGS: Interval decrease in mild pulmonary edema. Stable mild cardiomegaly. No consolidation or effusion. Remainder is unchanged RAD/Chest 1 View (Portable) IMPRESSION: Slight interval improvement in pulmonary edema Electronically Signed: Vinnie Shabazz DO at 6:21 EDT Tel , Service support ,
[2020-12-14] MEDS: 0.9% Saline Lock 10 ML Syringe IV ×4 (05:28→22:03)
[2020-12-14] MEDS: Furosemide 20 MG/2 ML VIAL IV ×3 (05:28→22:03)
[2020-12-14 06:06] LABS: Anion Gap 9 (5-15); BUN 21 mg/dL (7-18); BUN/Creat Ratio 17.9 RATIO (10-20); Calcium,Total 9.1 mg/dL (8.5-10.1); Chloride 101 mmol/L (98-107); Creatinine, Serum 1.17 mg/dL (0.70-1.30); EST Glomerular Filtration Rate 65 mL/min (>60); Est Glom Filt Rate - Afr Amer 79 mL/min (>60); Estimated Creatinine Clearance 56.03 ml/min; Glucose 127 mg/dL (74-106); Potassium 3.5 mmol/L (3.5-5.1); Sodium Level 141 mmol/L (136-145)
[2020-12-14 06:17] LABS: International Normalized Ratio 1.3
[2020-12-14 06:40] LABS: Bedside Glucose 144 mg/dL (70-110)
[2020-12-14] MEDS: Metoprolol Tartrate 100 MG Tablet PO ×2 (08:49→22:03)
[2020-12-14] MEDS: Potassium Chloride Oral Tablet 10 MEQ 20 MEQ PO ×2 (08:50→16:49)
[2020-12-14] MEDS: Losartan Potassium 100 MG Tablet PO (08:50)
[2020-12-14] MEDS: Montelukast 10 MG Tablet PO (08:50)
[2020-12-14] MEDS: Primidone 50 MG Tablet 150 MG PO ×2 (08:50→22:03)
[2020-12-14] MEDS: Venlafaxine XR 150 MG Capsule PO (08:50)
[2020-12-14] MEDS: Famotidine 20 MG Tablet 40 MG PO (08:50)
[2020-12-14] MEDS: Azithromycin 250 MG Tablet 500 MG PO (08:50)
[2020-12-14] MEDS: Calcium Carbonate 500 MG Tablet PO (08:50)
[2020-12-14] MEDS: Aspirin E.C. 81 MG Tablet PO (08:50)
[2020-12-14] MEDS: amLODIPine 10 MG Tablet PO (08:51)
--- NOTE | 2020-12-14 10:00 | CASEMGMT ---
Addendum entered by Loren Ulrich 12/14/20 10:23: Pt also has a CPAP at home. Pt states if he needs O2 he would like to obtain through his pharmacy. He denied need for local in network list of DME providers. TC to [facility], they will deliver to [facility]. Addendum entered by Loren Ulrich 12/14/20 10:12: Pt states he has [employer] benefits. He does not have his card with him. His will bring in card, will notify registration. Original Note: DANIA THEODORE Assessment: Face to Face with pt for initial transition planning/care coordination assessment. DANIA THEODORE introduced self and role at [facility], pt voices understanding and consents to assessment. Pt is A/O x4 and answers all questions appropriately at this time. Pt sitting up in chair with O2 on in no distress. Care providers, pharmacy, and demographics verified/updated. Admitting Dx: COPD exac, hypoxia PCP: Colin Specialists: Pt states he just switched pulmonologists to . Preferred Pharmacy: [facility] Insurance: [facility], MMO Prescription Benefit: yes, he believes so. LNOK: Milagros Cohen, ; Leonor Roshan, dtr Living Arrangements: Pt lives with in a two story house with 1 step to enter. Pt reports he is I in ADL's and denies concerns at home. Transportation: Pt states he drives self and denies concerns with transportation. DME/HHC/SNF: Pt states he has a walker, walking stick and grab bars at home. Pt states he has had HHC after his hip surgery from an agency in [place] but is unsure of the name of it. Pt denies any previous SNF stays. Pt states no concerns with going home at time of dc. Pt states no further concerns/needs. CM to follow for O2 needs and therapy. Advised pt to ask CM if any further question/concerns/needs arise, voices understanding. Pt Goal: Home Plan: Home
[2020-12-14] MEDS: Insulin Lispro 100 UNIT/ML INSULN.PEN SC ×2 (11:13→16:49)
[2020-12-14 11:20] LABS: Bedside Glucose 180 mg/dL (70-110)
[2020-12-14 16:30] LABS: Bedside Glucose 170 mg/dL (70-110)
--- NOTE | 2020-12-14 17:48 | PN.HOSP_ITS ---
Subjective Subjective Patient was seen and examined today, he states his breathing is somewhat better, chest x-ray appeared improved today. Patient continues to diurese. Echocardiogram shows normal EF with evidence of mild pulmonary hypertension. Patient is afebrile, I do not think he has pneumonia. I went over the use of his albuterol inhaler with him and his today in the room, he did not understand how to use it at home and he was not even using it for shortness of breath. Objective Data Objective Data Vital Signs: Vital Signs Temp Pulse Resp BP Pulse Ox 97.8 F 128 H 18 145/98 H 95 12/14/20 14:45 12/14/20 15:02 12/14/20 14:45 12/14/20 14:45 12/14/20 14:45 Oxygen Flow Rate (L/min) 2 Oxygen Delivery Method Nasal Cannula Weight: 135.4 kg Body Mass Index (BMI) 45.3 Intake & Output: Intake and Output for Last 24 Hours 12/12/20 12/13/20 12/14/20 23:59 23:59 23:59 Intake Total 390 / 490 1060 / 1060 Output Total 1600 / 1750 585 / 585 Balance -1210 / -1260 475 / 475 Lab / Micro Data Result Diagrams: 12/13/20 08:59 12/14/20 05:10 Labs: Laboratory Results - last 24 hr 12/13/20 12/14/20 12/14/20 20:14 05:10 05:10 PT 15.0 H INR 1.3 Sodium 141 Potassium 3.5 Chloride 101 Carbon Dioxide 31.0 Anion Gap 9 BUN 21 H Creatinine 1.17 Estim Creat Clear Calc 56.03 Est GFR (MDRD) Af Amer 79 Est GFR (MDRD) Non-Af 65 BUN/Creatinine Ratio 17.9 Glucose 127 H Calcium 9.1 POC Glucose 214 H 12/14/20 12/14/20 12/14/20 06:35 11:13 16:22 PT INR Sodium Potassium Chloride Carbon Dioxide Anion Gap BUN Creatinine Estim Creat Clear Calc Est GFR (MDRD) Af Amer Est GFR (MDRD) Non-Af BUN/Creatinine Ratio Glucose Calcium POC Glucose 144 H 180 H 170 H Micro: Microbiology 12/13/20 12:20 Mucosa - Nasopharyngeal Respiratory Panel (PCR) - Final 12/13/20 09:23 Mucosa - Nasopharyngeal SARS-CoV-2 Antigen (Rapid) - Final Radiography Diagnostic Testing: Radiology Impression Echocardiogram 12/13/20 11:49 Interpretation Summary The study was technically limited. Contrast injection was performed. Based upon the 2D echocardiographic and contrast enhanced images obtained there appears to be grossly normal left ventricular size, wall motion, and systolic function. The estimated ejection fraction is 55 %. Moderate concentric left ventricular hypertrophy. The left atrium appears enlarged. Mild (1+) mitral valve insufficiency. Mild tricuspid valve insufficiency. Mildly dilated aortic root. Right ventricular systolic pressure estimated to be 40 mmHg. Unable to assess diastolic dysfunction. Ordering Physician: Boy Hill Referring Physician: SAULO ZIEGLER Performed By: Anna Gongora, RDCS, RVT Chest X-Ray 12/14/20 05:00 IMPRESSION: Slight interval improvement in pulmonary edema Electronically Signed: Vinnie Shabazz DO at 6:21 EDT Tel , Service support , Physical Exam Const alert, oriented x3 and no apparent distress General Appearance: cooperative HEENT head/scalp atraumatic and moist oral mucous membranes Head and Scalp: normocephalic Eyes PERRL and EOMs intact bilaterally Neck no lymphadenopathy, supple and no JVD Resp normal respiratory effort, no retractions and no use of accessory muscles Resp Narrative: Scattered expiratory wheezes are noted mostly over the right lung Auscultation: Negative for crackles, rales or rhonchi Cardio S1 normal heart sound, S2 normal heart sound, no gallops and no clicks Cardio Narrative: Heart rate and rhythm was irregular GI normal to inspection, nondistended, normoactive bowel sounds, soft to palpation, non-tender and non-distended GI Narrative: Patient is morbidly obese Extremity Extremity Narrative: Mild lower leg edema is noted bilaterally Skin no rashes or lesions noted, no wounds and skin turgor normal Neuro oriented x3, CN's II-XII intact bilaterally and no focal motor deficits Sensorium / Orientation: awake and alert Speech: speech normal Psych affect normal Assessment & Plan Assessment/Plan (1) COPD exacerbation: PLAN: #1 exacerbation of COPD-patient will continue oral Zithromax, aerosol treatments, and IV corticosteroids #2 hypoxia secondary to #1 #3 Acute diastolic congestive heart failure-new diagnosis, continue IV Lasix #4 obstructive sleep apnea #5 morbid obesity #6 elevated lactic acid secondary to hypoxia #7 chronic atrial fibrillation-patient's rate control medication may need to be adjusted, he is tachycardic at times, for now I will keep him on his present dose of metoprolol #8 chronic use of warfarin-patient's INR was subtherapeutic today, he had been off his warfarin for several days in preparation for his lip biopsy. Visit Charges Inpatient E&M: 26548 Subs Hosp L2
[2020-12-14] MEDS: Digoxin 250 MCG/ML Ampul 500 MCG IV (20:11)
[2020-12-14] MEDS: dilTIAZem 30 MG Tablet PO ×2 (20:14→23:57)
[2020-12-14] MEDS: Atorvastatin Calcium 10 MG Tablet PO (22:03)
[2020-12-14 22:11] LABS: Bedside Glucose 132 mg/dL (70-110)
[2020-12-15] VITALS (15 sets, daily range): BP systolic 143–151; BP diastolic 92–105; PULSE 76–119; RESP 16–24; TEMP 36.1–36.3; O2SAT 92–98
[2020-12-15] MEDS: Ipratropium/Albuterol Sulfate 3 ML AMPUL.NEB INHALATION ×4 (00:56→20:23)
[2020-12-15] MEDS: 0.9% Saline Lock 10 ML Syringe IV ×2 (05:28→21:03)
[2020-12-15] MEDS: Furosemide 20 MG/2 ML VIAL IV ×3 (05:29→21:03)
[2020-12-15] MEDS: dilTIAZem 30 MG Tablet PO ×2 (05:29→11:10)
[2020-12-15 06:38] LABS: Anion Gap 7 (5-15); BUN 28 mg/dL (7-18); BUN/Creat Ratio 24.6 RATIO (10-20); Chloride 102 mmol/L (98-107); Creatinine, Serum 1.14 mg/dL (0.70-1.30); EST Glomerular Filtration Rate 67 mL/min (>60); Est Glom Filt Rate - Afr Amer 81 mL/min (>60); Glucose 137 mg/dL (74-106); International Normalized Ratio 1.4; Potassium 4.2 mmol/L (3.5-5.1); Prothrombin Time (Protime)PT. 16.5 SECONDS (11.7-14.9); Sodium Level 139 mmol/L (136-145)
[2020-12-15 06:45] LABS: Bedside Glucose 145 mg/dL (70-110)
[2020-12-15] MEDS: Azithromycin 250 MG Tablet 500 MG PO (08:17)
[2020-12-15] MEDS: Aspirin E.C. 81 MG Tablet PO (08:17)
[2020-12-15] MEDS: Potassium Chloride Oral Tablet 10 MEQ 20 MEQ PO ×2 (08:17→17:10)
[2020-12-15] MEDS: amLODIPine 10 MG Tablet PO (08:17)
[2020-12-15] MEDS: Primidone 50 MG Tablet 150 MG PO ×2 (08:18→21:03)
[2020-12-15] MEDS: Metoprolol Tartrate 100 MG Tablet PO ×2 (08:18→21:03)
[2020-12-15] MEDS: Losartan Potassium 100 MG Tablet PO (08:19)
[2020-12-15] MEDS: Montelukast 10 MG Tablet PO (08:19)
[2020-12-15] MEDS: Calcium Carbonate 500 MG Tablet PO (08:19)
[2020-12-15] MEDS: Venlafaxine XR 150 MG Capsule PO (08:19)
[2020-12-15] MEDS: Famotidine 20 MG Tablet 40 MG PO (08:19)
[2020-12-15 11:50] LABS: Bedside Glucose 136 mg/dL (70-110)
--- NOTE | 2020-12-15 15:54 | PN.HOSP_ITS ---
Subjective Subjective Patient was seen and examined today, he is currently on room air at rest but when we walked him today without oxygen, his O2 sat was 83%. I have decided to place him on time release Cardizem CD, I have elected to stop his Norvasc and his immediate release Cardizem. Patient's heart rate has been in the 80s today, I still think he needs further diuresis before he is able to go home. Objective Data Objective Data Vital Signs: Vital Signs Temp Pulse Resp BP Pulse Ox 97.3 F L 88 16 143/94 H 96 12/15/20 10:24 12/15/20 15:04 12/15/20 13:24 12/15/20 10:24 12/15/20 10:24 Oxygen Flow Rate (L/min) 2 Oxygen Delivery Method Nasal Cannula Weight: 135.4 kg Body Mass Index (BMI) 45.3 Intake & Output: Intake and Output for Last 24 Hours 12/13/20 12/14/20 12/15/20 23:59 23:59 23:59 Intake Total 390 / 490 1060 / 1300 840 / 840 Output Total 1600 / 1750 585 / 1310 1850 / 1850 Balance -1210 / -1260 475 / -10 -1010 / -1010 Lab / Micro Data Result Diagrams: 12/13/20 08:59 12/15/20 05:54 Labs: Laboratory Results - last 24 hr 12/14/20 12/14/20 12/15/20 16:22 22:02 05:54 PT 16.5 H INR 1.4 Sodium Potassium Chloride Carbon Dioxide Anion Gap BUN Creatinine Estim Creat Clear Calc Est GFR (MDRD) Af Amer Est GFR (MDRD) Non-Af BUN/Creatinine Ratio Glucose Calcium POC Glucose 170 H 132 H 12/15/20 12/15/20 12/15/20 05:54 06:37 11:09 PT INR Sodium 139 Potassium 4.2 Chloride 102 Carbon Dioxide 30.0 Anion Gap 7 BUN 28 H Creatinine 1.14 Estim Creat Clear Calc 57.50 Est GFR (MDRD) Af Amer 81 Est GFR (MDRD) Non-Af 67 BUN/Creatinine Ratio 24.6 H Glucose 137 H Calcium 9.0 POC Glucose 145 H 136 H Micro: Microbiology 12/13/20 08:59 Blood Culture (Wb) - Right Hand Blood Culture - Preliminary No growth in 48 hours. 12/13/20 08:59 Blood Culture (Wb) - Anticubital Left Blood Culture - Preliminary No growth in 48 hours. 12/13/20 12:20 Mucosa - Nasopharyngeal Respiratory Panel (PCR) - Final 12/13/20 09:23 Mucosa - Nasopharyngeal SARS-CoV-2 Antigen (Rapid) - Final Physical Exam [facility]arrative [facility] [id number] [place] [address] Progress Note - Ctieqooqynt62/14/21 [id number]#: [id number]:CRYSTAL PANTOJA LRep #:[id number]: From: Boy Hill DOPCP:Dr. Saulo Ziegler MD Status:ADM INLocation: [id number] Subjective Subjective Patient was seen and examined today, he states his breathing is somewhat better, chest x-ray appeared improved today. Patient continues to diurese. Echocardiogram shows normal EF with evidence of mild pulmonary hypertension. Patient is afebrile, I do not think he has pneumonia. I went over the use of his albuterol inhaler with him and his today in the room, he did not understand how to use it at home and he was not even using it for shortness of breath. Objective Data Objective Data Vital Signs: Vital Signs Temp Pulse Resp BP Pulse Ox 97.8 F 128 H 18 145/98 H 95 12/14/20 14:45 12/14/20 15:02 12/14/20 14:45 12/14/20 14:45 12/14/20 14:45 Oxygen Flow Rate (L/min) 2 Oxygen Delivery Method Nasal Cannula Weight: 135.4 kg Body Mass Index (BMI) 45.3 Intake & Output:Intake and Output for Last 24 Hours 12/12/20 12/13/20 12/14/20 23:59 23:59 23:59 Intake Total 390 / 490 1060 / 1060 Output Total 1600 / 1750 585 / 585 Balance -1210 / -1260 475 / 475 Lab / Micro Data Result Diagrams: 12/13/20 08:59 document embedded image 12/14/20 05:10 document embedded image Labs:Laboratory Results - last 24 hr 12/13/20 12/14/20 12/14/20 20:14 05:10 05:10 PT 15.0 H INR 1.3 Sodium 141 Potassium 3.5 Chloride 101 Carbon Dioxide 31.0 Anion Gap 9 BUN 21 H Creatinine 1.17 Estim Creat Clear Calc 56.03 Est GFR (MDRD) Af Amer 79 Est GFR (MDRD) Non-Af 65 BUN/Creatinine Ratio 17.9 Glucose 127 H Calcium 9.1 POC Glucose 214 H 12/14/20 12/14/20 12/14/20 06:35 11:13 16:22 PT INR Sodium Potassium Chloride Carbon Dioxide Anion Gap BUN Creatinine Estim Creat Clear Calc Est GFR (MDRD) Af Amer Est GFR (MDRD) Non-Af BUN/Creatinine Ratio Glucose Calcium POC Glucose 144 H 180 H 170 H Micro:Microbiology 12/13/20 12:20 Mucosa - Nasopharyngeal Respiratory Panel (PCR) - Final 12/13/20 09:23 Mucosa - Nasopharyngeal SARS-CoV-2 Antigen (Rapid) - Final Radiography Diagnostic Testing:Radiology Impression Echocardiogram 12/13/20 11:49 Interpretation Summary The study was technically limited. Contrast injection was performed. Based upon the 2D echocardiographic and contrast enhanced images obtained there appears to be grossly normal left ventricular size, wall motion, and systolic function. The estimated ejection fraction is 55 %. Moderate concentric left ventricular hypertrophy. The left atrium appears enlarged. Mild (1+) mitral valve insufficiency. Mild tricuspid valve insufficiency. Mildly dilated aortic root. Right ventricular systolic pressure estimated to be 40 mmHg. Unable to assess diastolic dysfunction. Ordering Physician: Boy Hill Referring Physician: SAULO ZIEGLER Performed By: Anna Gongora, JODIECS, RVT Chest X-Ray 12/14/20 05:00 IMPRESSION: Slight interval improvement in pulmonary edema Electronically Signed: Vinnie Shabazz DO at 6:21 EDT Tel , Service support , Physical Exam Const alert, oriented x3 and no apparent distress General Appearance: cooperative HEENT head/scalp atraumatic and moist oral mucous membranes Head and Scalp: normocephalic Eyes PERRL and EOMs intact bilaterally Neck no lymphadenopathy, supple and no JVD Resp normal respiratory effort, no retractions and no use of accessory muscles Resp Narrative: Scattered expiratory wheezes are noted mostly over the right lung Auscultation: Negative for crackles, rales or rhonchi Cardio S1 normal heart sound, S2 normal heart sound, no gallops and no clicks Cardio Narrative: Heart rate and rhythm was irregular GI normal to inspection, nondistended, normoactive bowel sounds, soft to palpation, non-tender and non-distended GI Narrative: Patient is morbidly obese Extremity Extremity Narrative: Mild lower leg edema is noted bilaterally Skin no rashes or lesions noted, no wounds and skin turgor normal Neuro oriented x3, CN's II-XII intact bilaterally and no focal motor deficits Sensorium / Orientation: awake and alert Speech: speech normal Psych affect normal Const alert, oriented x3, no apparent distress and well nourished General Appearance: cooperative HEENT normocephalic, head/scalp atraumatic and moist oral mucous membranes Eyes PERRL, EOMs intact bilaterally and conjunctivae normal Neck no lymphadenopathy, supple, no JVD and no carotid bruits Resp normal respiratory effort, no retractions and no use of accessory muscles Resp Narrative: Scattered expiratory wheezes are noted mostly over the right lung Auscultation: Negative for crackles, rales or rhonchi Cardio S1 normal heart sound, S2 normal heart sound, no murmurs, no rub, no gallops, no clicks and no JVD Cardio Narrative: Heart rate and rhythm was irregular GI normal to inspection, nondistended, normoactive bowel sounds, soft to palpation, non-tender and non-distended GI Narrative: Patient is morbidly obese Extremity Extremity Narrative: Mild lower leg edema is noted bilaterally Skin no rashes or lesions noted, no wounds, skin turgor normal, no jaundice and no petechiae Neuro oriented x3, CN's II-XII intact bilaterally and no focal motor deficits Sensorium / Orientation: awake and alert Speech: speech normal Psych affect normal Assessment & Plan Assessment/Plan (1) COPD exacerbation: PLAN: #1 exacerbation of COPD-patient will continue oral Zithromax, aerosol treatments, and IV corticosteroids #2 hypoxia secondary to #1, patient will be rechecked tomorrow ambulating to see if he requires home oxygen #3 Acute diastolic congestive heart failure-new diagnosis, continue IV Lasix-I have decided to give 1 dose of Zaroxolyn today #4 obstructive sleep apnea #5 morbid obesity #6 elevated lactic acid secondary to hypoxia #7 chronic atrial fibrillation-patient's heart rate is better today, I have decided to transition him over to time release Cardizem #8 chronic use of warfarin-patient's INR was subtherapeutic today, he had been off his warfarin for several days in preparation for his lip biopsy. I have given extra warfarin today Visit Charges Inpatient E&M: 01658 Subs Hosp L2
[2020-12-15] MEDS: Insulin Lispro 100 UNIT/ML INSULN.PEN SC ×2 (17:09→21:02)
[2020-12-15] MEDS: dilTIAZem CD 180 MG Capsule PO (17:13)
[2020-12-15] MEDS: metOLazone 5 MG Tablet PO (17:13)
[2020-12-15 17:15] LABS: Bedside Glucose 166 mg/dL (70-110)
[2020-12-15] MEDS: Atorvastatin Calcium 10 MG Tablet PO (21:03)
[2020-12-15 21:11] LABS: Bedside Glucose 199 mg/dL (70-110)
[2020-12-16] VITALS (11 sets, daily range): BP systolic 136–158; BP diastolic 67–92; PULSE 86–104; RESP 14–20; TEMP 36.2–36.7; O2SAT 88–95
[2020-12-16] MEDS: Ipratropium/Albuterol Sulfate 3 ML AMPUL.NEB INHALATION ×3 (01:00→13:19)
[2020-12-16 05:37] LABS: Prothrombin Time (Protime)PT. 21.5 SECONDS (11.7-14.9)
[2020-12-16] MEDS: 0.9% Saline Lock 10 ML Syringe IV (05:41)
[2020-12-16] MEDS: Furosemide 20 MG/2 ML VIAL IV (05:41)
[2020-12-16] MEDS: Insulin Lispro 100 UNIT/ML INSULN.PEN SC (06:37)
[2020-12-16 06:51] LABS: Bedside Glucose 158 mg/dL (70-110)
[2020-12-16] MEDS: Aspirin E.C. 81 MG Tablet PO (07:58)
[2020-12-16] MEDS: dilTIAZem CD 180 MG Capsule PO ×2 (07:58→13:04)
[2020-12-16] MEDS: Losartan Potassium 100 MG Tablet PO (07:58)
[2020-12-16] MEDS: Potassium Chloride Oral Tablet 10 MEQ 20 MEQ PO (07:59)
[2020-12-16] MEDS: Calcium Carbonate 500 MG Tablet PO (08:00)
[2020-12-16] MEDS: Venlafaxine XR 150 MG Capsule PO (08:00)
[2020-12-16] MEDS: Metoprolol Tartrate 100 MG Tablet PO (08:01)
[2020-12-16] MEDS: Primidone 50 MG Tablet 150 MG PO (08:02)
[2020-12-16] MEDS: Famotidine 20 MG Tablet 40 MG PO (08:03)
[2020-12-16] MEDS: Azithromycin 250 MG Tablet 500 MG PO (08:05)
[2020-12-16] MEDS: Montelukast 10 MG Tablet PO (08:05)
[2020-12-16 08:57] LABS: Anion Gap 6 (5-15); BUN 31 mg/dL (7-18); BUN/Creat Ratio 28.7 RATIO (10-20); Calcium,Total 9.3 mg/dL (8.5-10.1); Chloride 99 mmol/L (98-107); Creatinine, Serum 1.08 mg/dL (0.70-1.30); EST Glomerular Filtration Rate 72 mL/min (>60); Est Glom Filt Rate - Afr Amer 87 mL/min (>60); Estimated Creatinine Clearance 60.69 ml/min; Glucose 157 mg/dL (74-106); Potassium 4.1 mmol/L (3.5-5.1); Sodium Level 137 mmol/L (136-145)
--- NOTE | 2020-12-16 11:52 | PCM.DC ---
Discharge Instructions Follow Up Care Test Results: Test results from this visit will be discussed in further detail at your follow-up appointment, if applicable. Discharge Plan Admission Admit Date/Time: 12/13/20 11:27 Primary Reason for Your Visit: CONGESTIVE HEART FAILURE, COPD FLShalom ACEVEDO-ELIZABETH Attending Provider: Boy Hill Primary Care Provider: Dorita Shaw Instructions Additional Instructions / Restrictions: Use nasal cannula oxygen as directed Discharge Orders/Prescriptions Prescriptions: New metoprolol tartrate 100 mg Tablet 100 mg PO BID Qty: 60 RF: 0 furosemide [Lasix] 40 mg tablet 40 mg PO BID Qty: 60 RF: 0 Cardizem LA 120 mg tablet extended release 24 hr 240 mg PO DAILY Qty: 60 RF: 0 prednisone 10 mg tablet 10 mg PO UD Qty: 21 RF: 0 albuterol sulfate 90 mcg/actuation HFA aerosol inhaler 2 puff inhalation Q6H PRN (Reason: shortness of breath or wheezing) Qty: 6.7 RF: 0 Continued metformin 500 mg tablet extended release 24 hr 500 mg PO QHS RF: 0 venlafaxine [Effexor XR] 150 mg capsule,extended release 24hr 150 mg PO DAILY RF: 0 atorvastatin [Lipitor] 10 mg tablet 10 mg PO DAILY RF: 0 Lupron Depot (6 Month) 45 mg syringe kit 45 mg IM [id number] RF: 0 calcium carbonate [Calcium 600] 600 mg calcium (1,500 mg) tablet 600 mg PO DAILY RF: 0 multivitamin capsule capsule 1 cap PO DAILY RF: 0 primidone 50 mg tablet 150 mg PO BID RF: 0 famotidine 40 MG tablet 40 mg PO DAILY RF: 0 aspirin 81 MG tablet,delayed release (DR/EC) 81 mg PO DAILY RF: 0 potassium citrate 10 MEQ tablet extended release 20 meq PO BID RF: 0 montelukast 10 MG tablet 10 mg PO DAILY RF: 0 warfarin 6 MG tablet 6 mg PO DAILY RF: 0 losartan 100 mg tablet 100 mg PO DAILY RF: 0 Trelegy Ellipta 200-62.5-25 mcg blister with device 1 inh INHALATION BID RF: 0 Discontinued metoprolol tartrate 50 mg tablet 125 mg PO 1700 RF: 0 amlodipine [Norvasc] 10 mg tablet 10 mg PO DAILY RF: 0 prednisone 5 mg tablet 5 mg PO DAILY RF: 0 hydrochlorothiazide 25 MG tablet 25 mg PO DAILY RF: 0 Referrals / Follow Up: Nicholas Poole MD [STAFF PHYSICIAN] - Within 1 Week Dorita Shaw MD [Primary Care Provider] - Within 2 Weeks Disposition Disposition (needs filled in before D/C Order can be placed): Home, self care
--- NOTE | 2020-12-16 13:19 | NURSING ---
Attempted to order oxygen at [facility]. Business is closed. Family ok with use of [employer].
--- NOTE | 2020-12-16 13:36 | NURSING ---
[place] [facility] [place]. Prescription faxed along with demographics and insurance cards.
[2020-12-16 13:51] LABS: Bedside Glucose 120 mg/dL (70-110)
--- NOTE | 2020-12-16 15:09 | NURSING ---
pt home pharmacy in [place] is not open on Sundays. All prescription medications were called into [facility] in [place] by Dr. Hill.
--- NOTE | 2020-12-17 16:21 | CASEMGMT ---
DANIA THEODORE Discharge Follow Up Phone Call: KYLIE: Leonardo Strata: 3 Call Date: 12.17.20 Discharge Date: 12.16.20 Time of Call:1621 Duration: 3 min Admitting Dx: COPD, CHF DANIA THEODORE completed follow up phone call after recent hospitalization. Spoke with pt per pt request. She states he is doing well. O2 levels have been in the high 90's. Pt has used portable when at breakfast today without any issues. Pt was able to grape picker all of his rx. She states there was some issues with one but the pharmacist was able to get it straightened out and pt has all of them. States pt feels good and was mowing today. Pt denied further questions or concerns.
--- NOTE | 2020-12-17 17:44 | PCM.DC.SUM ---
Providers Date of Admission: 12/13/20 Date of Discharge: 12/16/20 Primary Care Physician: Dr. Dorita Shaw MD Reason For Visit: COPD EXACERBATION, HYPOXIA Diagnosis Discharge Diagnosis (1) COPD exacerbation: Status: Chronic Code(s): J44.1 - Chronic obstructive pulmonary disease with (acute) exacerbation Plan: 1 exacerbation of COPD #2 hypoxia secondary to #1 and #3 #3 Acute diastolic congestive heart failure-new diagnosis #4 obstructive sleep apnea #5 morbid obesity #6 elevated lactic acid secondary to hypoxia #7 chronic atrial fibrillation with episodes of rapid ventricular response during hospitalization #8 chronic use of warfarin #9 mild pulmonary hypertension #10 hyperlipidemia Medications at Discharge Home Medications atorvastatin 10 mg tablet 10 mg PO DAILY 06/21/19 calcium carbonate 600 mg calcium (1,500 mg) tablet 600 mg PO DAILY 06/21/19 leuprolide (6 month) 45 mg intramuscular syringe kit 45 mg IM [id number] 06/21/19 metformin 500 mg tablet,extended release 24 hr 500 mg PO QHS 06/21/19 multivitamin 1 cap PO DAILY 06/21/19 venlafaxine 150 mg capsule,extended release 24 hr 150 mg PO DAILY 06/21/19 primidone 50 mg tablet 150 mg PO BID tablet 10/22/20 aspirin 81 mg PO DAILY 11/07/20 famotidine 40 mg PO DAILY 11/07/20 montelukast 10 mg PO DAILY 11/07/20 potassium citrate 20 meq PO BID 11/07/20 warfarin 6 mg PO DAILY 11/07/20 Trelegy Ellipta 1 inh INHALATION BID 12/13/20 losartan 100 mg PO DAILY 12/13/20 albuterol sulfate 2 puff INHALATION Q6H PRN #6.7 g 12/16/20 diltiazem HCl [Cardizem LA] 240 mg PO DAILY #60 tab 12/16/20 furosemide [Lasix] 40 mg PO BID #60 tab 12/16/20 metoprolol tartrate 100 mg PO BID #60 tab 12/16/20 prednisone 10 mg PO UD #21 tab 12/16/20 Hospital Course Operations None Procedures 2-D Echocardiogram Summary of Care Provided Minutes Spent on Discharge: 31 Hospital Course: This 70-year-old white male was seen in the emergency room at [facility] after being sent in from the operating room area at [facility] where he was set to undergo a removal of a left lower lip lesion. Patient was noted to be hypoxic on room air, he had a history of COPD but was on no home oxygen. Patient had COVID-19 last fall, his stated that he had had breathing problems last fall before he got the COVID-19. On evaluation in the emergency room, patient had a chest x-ray performed which showed bilateral infiltrates, patient's beta natruretic peptide was elevated, his lactic acid was elevated, and his CBC was unremarkable. Patient was initially felt to have a possible pneumonia with hypoxia and COPD exacerbation, he was admitted to PCU, this examiner did not feel that he had pneumonia but felt that he probably had an exacerbation of COPD along with possible congestive heart failure. Patient underwent IV diuresis, he was given aggressive aerosol treatments, IV Solu-Medrol, and had an echocardiogram performed which showed mild pulmonary hypertension with a normal ejection fraction. Patient's heart rate was difficult to control at times during his hospitalization with his pulse going up into the 130s, his rate limiting medications were adjusted-he was placed on Cardizem in addition to an increased dose of metoprolol. Patient improved during his hospitalization but his oxygen could not be completely weaned off-he required 2 L on ambulation to maintain his pulse ox above 88%. His pulse ox on room air while ambulating was 88%, his pulse ox on room air at rest at the time of discharge was 91%, his pulse ox on 2 L while ambulating was 94%. On examination he appeared in good health and spirits. Vital signs as documented. Skin warm and dry and without overt rashes. Neck without JVD, neck was supple, trachea midline, thyroid was normal. Lungs clear bilaterally, normal air movement was noted. Heart exam notable for irregular rhythm, normal sounds and absence of murmurs, rubs or gallops. Abdomen unremarkable and without evidence of organomegaly, masses, or abdominal aortic enlargement. Patient is morbidly obese. Bowel sounds are present, abdomen is not distended. Extremities- mildly edematous, no cyanosis was noted, no clubbing was noted. Neuro: Cranial nerves II through XII are grossly intact, no focal motor deficits were noted, sensation to light touch and pinprick intact, motor exam 5/5 throughout. Psych: Patient is alert and oriented x3, he does not appear anxious or depressed, he does not appear agitated On 12/16/2020, patient was seen and examined and felt to be stable for discharge home. Oxygen was set up for the patient at home and he was expected to use it during activities in the home and outside the home. ABG / Lab / Microbiology Data Result Diagrams: 12/13/20 08:59 12/16/20 05:22 Microbiology: Microbiology 12/13/20 08:59 Blood Culture (Wb) - Right Hand Blood Culture - Preliminary No growth in 48 hours. 12/13/20 08:59 Blood Culture (Wb) - Anticubital Left Blood Culture - Preliminary No growth in 48 hours. 12/13/20 12:20 Mucosa - Nasopharyngeal Respiratory Panel (PCR) - Final 12/13/20 09:23 Mucosa - Nasopharyngeal SARS-CoV-2 Antigen (Rapid) - Final Meaningful Use Info Meaningful Use Diagnoses (Choose all that apply): CHF CHF DAVID/ARB ordered at discharge?: Yes Documented LVEF (%): 55 Discharge Plan Admission Admit Date/Time: 12/13/20 11:27 Primary Reason for Your Visit: CONGESTIVE HEART FAILURE, COPD AVA FIGUEROA Attending Provider: Boy Hill Primary Care Provider: Dorita Shaw Instructions Additional Instructions / Restrictions: Patient Problems: Altered Health Status related to Hospitalization Patient Goals: *Optimal Level of Health *Keep Appointments *Medication Compliance *Remain SafeUse nasal cannula oxygen as directed Discharge Orders/Prescriptions Prescriptions: New metoprolol tartrate 100 mg Tablet 100 mg PO BID Qty: 60 RF: 0 furosemide [Lasix] 40 mg tablet 40 mg PO BID Qty: 60 RF: 0 Cardizem LA 120 mg tablet extended release 24 hr 240 mg PO DAILY Qty: 60 RF: 0 prednisone 10 mg tablet 10 mg PO UD Qty: 21 RF: 0 albuterol sulfate 90 mcg/actuation HFA aerosol inhaler 2 puff inhalation Q6H PRN (Reason: shortness of breath or wheezing) Qty: 6.7 RF: 0 Continued metformin 500 mg tablet extended release 24 hr 500 mg PO QHS RF: 0 venlafaxine [Effexor XR] 150 mg capsule,extended release 24hr 150 mg PO DAILY RF: 0 atorvastatin [Lipitor] 10 mg tablet 10 mg PO DAILY RF: 0 Lupron Depot (6 Month) 45 mg syringe kit 45 mg IM [id number] RF: 0 calcium carbonate [Calcium 600] 600 mg calcium (1,500 mg) tablet 600 mg PO DAILY RF: 0 multivitamin capsule capsule 1 cap PO DAILY RF: 0 primidone 50 mg tablet 150 mg PO BID RF: 0 famotidine 40 MG tablet 40 mg PO DAILY RF: 0 aspirin 81 MG tablet,delayed release (DR/EC) 81 mg PO DAILY RF: 0 potassium citrate 10 MEQ tablet extended release 20 meq PO BID RF: 0 montelukast 10 MG tablet 10 mg PO DAILY RF: 0 warfarin 6 MG tablet 6 mg PO DAILY RF: 0 losartan 100 mg tablet 100 mg PO DAILY RF: 0 Trelegy Ellipta 200-62.5-25 mcg blister with device 1 inh INHALATION BID RF: 0 Discontinued metoprolol tartrate 50 mg tablet 125 mg PO 1700 RF: 0 amlodipine [Norvasc] 10 mg tablet 10 mg PO DAILY RF: 0 prednisone 5 mg tablet 5 mg PO DAILY RF: 0 hydrochlorothiazide 25 MG tablet 25 mg PO DAILY RF: 0 Referrals / Follow Up: Nicholas Poole MD [STAFF PHYSICIAN] - Within 1 Week Dorita Shaw MD [Primary Care Provider] - Within 2 Weeks Disposition Disposition (needs filled in before D/C Order can be placed): Home, self care Visit Charges Inpatient E&M: 55868 Disch Hosp
== END 2020-12-16 15:10 | disposition home or self-care (01) | DRG 190 ==
LOC: ED 11:16 → PCU 11:30
PROVIDERS: Admitting Provider Internal Medicine; Emergency Provider Emergency Medicine; PCP Family Medicine; Visit Provider Internal Medicine
DX: J44.1 Chronic obstructive pulmonary disease with (acute) exacerbation (principal); I50.31 Acute diastolic (congestive) heart failure; Z68.42 Body mass index [BMI] 45.0-49.9, adult; I48.20 Chronic atrial fibrillation, unspecified; I27.20 Pulmonary hypertension, unspecified; I11.0 Hypertensive heart disease with heart failure; R09.02 Hypoxemia; E66.01 Morbid (severe) obesity due to excess calories; H40.9 Unspecified glaucoma; G47.33 Obstructive sleep apnea (adult) (pediatric); H91.90 Unspecified hearing loss, unspecified ear; H26.9 Unspecified cataract; Z79.01 Long term (current) use of anticoagulants; Z79.82 Long term (current) use of aspirin; Z79.84 Long term (current) use of oral hypoglycemic drugs; Z79.899 Other long term (current) drug therapy; Z85.820 Personal history of malignant melanoma of skin; Z86.16 Personal history of COVID-19; Z86.718 Personal history of other venous thrombosis and embolism; Z87.891 Personal history of nicotine dependence; Z87.442 Personal history of urinary calculi
CPT/HCPCS: 36415; 36416; 71045; 71046; 71275; 80048; 82962; 83605; 83880; 84484; 85025; 85610; 87040; 87426; 87633; 93005; 93306; 94640; 99251; 99284; J7050; J7120; Q9957; Q9967; A4216; C8929; G0463; J1940

== ENCOUNTER → 2020-12-13 15:24 | Outpatient (CLI) | payer MEDICARE, OTHER, SELFPAY ==
[2020-12-05 10:19] VITALS: BMI 44.6
--- NOTE | 2020-12-12 21:03 | HP.PCM_ITS ---
History and Physical Date of Admission: 12/13/20 HISTORY OF PRESENT ILLNESS 70 year old man presents for evaluation for TBSE.? He was last seen on 11/05/20.? He had a scabby area on his right lower lip that had resolved.? A couple of months ago, a crusty lesion has developed on the left lower lip at the zen border near the oral commissure.? Patient has a history of cold sores, and placed Abreva on it for a few days.? He noticed it getting a little smaller but the crusting is still there. ? He first noticed it when he nicked himself shaving which caused some bleeding.? He had recently gone to his Dentist for a cleaning and checkup and this crusty lesion was noted.? He was then sent to an Oral Surgeon who recommended a followup with me since I had done his melanoma surgery a year ago.? The actinic damage superior helical rim left ear and the lesion left lateral cheek by lateral canthal area remain stable at this time.? He has also noted a crusty lesion left lateral forehead that has developed some erythema.? He started Aldara on his forehead and finished it.? He recently saw Dermatology for a biopsy of this lip lesion.? They recommended putting Vaseline on the lip and no biopsy was done.? They also recommended putting Aldara on his right lateral forehead. He denies trauma. ? He denies recent infection.? He presents at this time for further evaluation and treatment. 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, vermilion border Neoplasm of unspecified behavior of bone, soft tissue, and skin Prostate cancer Skin cancer Sleep apnea PAST SURGICAL HISTORY History of hip replacement History of melanoma excision ALLERGIES No Known Allergies MEDICATIONS amlodipine atorvastatin calcium carbonate leuprolide metformin metoprolol tartrate multivitamin prednisone venlafaxine hydrochlorothiazide primidone albuterol sulfate aspirin famotidine fluticasone furoate-vilanterol montelukast potassium citrate warfarin FAMILY HISTORY Sister - Breast cancer Brother - Lung cancer Daughter - Melanoma SOCIAL HISTORY Smoking Status:? Former smoker alcohol intake:? never substance use type:? does not use REVIEW OF SYSTEMS General - Denies fever, fatigue, and weight loss. Eyes - Has cataracts.? Denies glaucoma. ENT - Denies nasal congestion and sore throat. Endocrine - Has excessive thirst and urination. Skin - Had melanoma in situ excised from left nose in 07/21. ? Has scattered areas of actinic damage on his forearms bilaterally. ? Has scattered actinic damage on his forehead.? He has a family history of skin cancer.? He has lesions superior helical rim left ear and left lateral cheek by lateral canthal area.? He has a crusty lesion left lower lip at zen border near the oral commiss ure. Musculoskeletal - Denies joint pain, weakness of muscles and joints, back pain, and arthritis.? Has joint stiffness. Neuro - Denies headaches.? Has lightheadedness. Cardiovascular - Denies chest pain, fatigue, and shortness of breath with exertion. Psych - Denies anxiety and depression. Respiratory - Denies chronic cough.? Has shortness of breath.? Has sleep apnea.? Patient is a former smoker. Gastrointestinal - Denies nausea, vomiting, diarrhea, and constipation. Hematologic - Denies abnormal bruising and bleeding. Genitourinary - Denies hematuria.? Has urinary frequency. Has incontinence. PHYSICAL EXAMINATION General - Alert and Oriented HEENT - PERRL. EOMI.? Throat is clear.? On the left nasal ala is a healed melolabial flap.? The left melolabial fold incision is healed.? The left ear incision is healed.? Good nasal contour noted.? On the superior helical rim left ear was an area of crusting suggestive of actinic damage which is almost resolved.? The area has decreased about 75% to 0.3 cm.? He has used Aldara in the past on his left ear. On the left lateral cheek by lateral canthal area was a lesion that was raised in configuration and has resolved.? Will continue to observe. On the right lateral lower lip was a traumatic scabby lesion that remains resolved.? Will continue to observe. On the left lower lip at the zen border near the oral commissure is a lesion that measures at 0.8 cm.? It is crusty.? It is 1.7 cm from the oral commissure.? The length of the lower lip is 7 cm. On the left lateral forehead was a crusty actinic lesion that was treated with Aldara.? It appears smooth and healed at this time without evidence of recurrence.? On the right lateral forehead is some actinic damage that is currently being treated with Aldara. Neck - Supple and nontender.? No cervical adenopathy. No suspicious lesions noted. Lungs - Bilateral wheezing noted.? Increased expiratory phase. Heart - Regular rate and rhythm. Abdomen - Soft and nondistended. Extremities - FROM. No axillary adenopathy.? Radial pulses are palpable.? On the forearms are scattered areas of actinic damage.? No ulcerations.? Nontender.? No other suspicious lesions noted. He used Aldara on these areas of actinic damage.? Some improvement was noted.? Some areas healed. Neuro - CN II-XII grossly intact. Psych - Normal mood and affect. ASSESSMENT 1.? 0.8 cm crusty lesion left lower lip at the zen border near the oral commissure. 2.? Actinic lesion left lateral forehead, healed after using Aldara.? 3.? Actinic damage right lateral forehead, currently using Aldara. 4.? Melanoma in situ, lentigo maligna type, left nasal ala at nasal alar groove, with complex nasal reconstruction with melolabial flap, healed. 5.? Actinic damage superior helical rim left ear, recently treated with Aldara, almost healed, decreased 75%. 6.? Lesion left lateral cheek by lateral canthal area, healed after using Aldara. 7.? Scattered actinic damage bilateral forearms, recently treated with Aldara. 8.? Personal history of skin cancer. ? 9.? Family history of skin cancer. 10.? Former smoker. 11.? 1 cm traumatic scabby lesion right lateral lower lip, resolved. 12.? COPD. PLAN The new onset lesion left lower lip at the zen border near the oral commissure is clinically suspicious for a carcinoma.? He had a recent scabby lesion right lateral lower lip that has resolved.? This new onset lesion left lower lip needs to be excised and sent to Pathology for analysis to rule out carcinoma. ? If carcinoma is present then further excision will be done with complex lip flap reconstruction.? Initially I was going to leave the wound open until the final Pathology is available to make sure the margins are clear.? If not, then further excision would be needed.? If no carcinoma is seen, complex lip reconstruction may still be needed, but would be smaller flaps since the defect would be smaller. The patient is going to start treatment for a rising PSA from prostate cancer.? Initially they will try oral medication.? If not successful, they will consider IV chemotherapy probably in the Fall.? Since his immune system is decreased, I will go ahead and close the lip defect.? May take a little extra margin to minimize risk of microscopic margins.? Can proceed with radiation therapy if margins are positive which is a safer option than more surgery because of his worsening prostate cancer and subsequent treatment. ? Continue Aldara to the actinic lesion right lateral forehead. ? He is tolerating the treatment thus far. The actinic damage superior helical rim left ear continues to resolve and is almost healed, decreased 75%.? Will observe closely. The lesion left lateral cheek by lateral canthal area has resolved.? Will observe closely.? If changes occur at future visits, will need surgical excision.? Skin flap or skin graft reconstruction would be done.? Tissue would be sent to Pathology for analysis to rule out carcinoma.? Surgery would be done under local anesthesia and IV sedation on an outpatient basis. The traumatic scabby lesion right lateral lower lip remains resolved. He will followup with Dermatology on an as needed basis for his scattered areas of actinic damage bilateral forearms. The surgery on his left lower lip will be done on an outpatient basis under local anesthesia and IV sedation or general anesthesia.? Patient was informed of the risks and complications of the procedure including alternatives to surgery.? These were discussed with the patient personally.? Patient voices understanding and wishes to proceed. Some of the risks and complications were included in a form from the [employer]. ? On a yearly basis, he will need LFT's including LDH and fractionation of Alkaline Phosphatase and a CXR. He had a CXR in May when he was admitted to the hospital for COVID. We will discuss with him getting his lab work done. Patient states he has been having shortness of breath since his hospitalization for COVID.? He also has some wheezing.? He has been told he has COPD.? Will make a referral to Pulmonology for further evaluation and treatment. We discussed the current risks associated with COVID-19. While it is understood that there is a community spread of COVID-19, the risk of earline COVID-19 while at [facility] ([facility]) is very low; however, the risk cannot be completely mitigated because of the community spread of the disease. We discussed in detail the risk of exposure to and/or potential harm posed by the COVID-19 virus with having a surgery/procedure at this time versus the risk of delaying the surgery/procedure. It is not possible to know either the risk of delaying the surgery or procedure or chance of getting an infection with perfect accuracy, but a joint decision was made to proceed at this time with the scheduled surgery/procedure as indicated on the consent form. Patient was notified that we will need to comply with any screening or testing [facility] wishes to perform or that surgery may be delayed for any positive results. Discussed with the patient that I was tested for COVID-19 on 02/02/20 which was negative and on 02/16/20 which was negative and on 03/01/20 which was negative and on 03/15/20 which was negative and on 03/29/20 which was negative and on 04/19/20 which was negative and on 05/10/20 which was negative and on 06/14/20 which was negative and on 07/05/20 which was negative and on 07/24/20 which was negative. ? My testing regimen at this time is to be COVID-19 tested every 2 weeks or so.? I received the COVID-19 vaccine (Moderna) on 08/01/20 and the second vaccine dose was received on 08/29/20.? When I was hospitalized on 10/01/20 I was tested for COVID-19 which was negative.? I was also? tested for COVID-19 on 10/16/20 which was negative and on 11/12/20 which was negative. Procedure Criteria Procedure Type:?Elective COVID Risk Discussion: The surgeon/proceduralist and patient have discussed in detail the risk of exposure to and/or potential harm posed by the COVID-19 virus with having a surgery/procedure at this time versus the risk of delaying the surgery/procedure.? It is not possible to know either the risk of delaying the surgery or procedure or chance of getting an infection with perfect accuracy, but a joint decision was made between the patient and the surgeon/proceduralist to proceed at this time with the scheduled surgery/procedure as indicated on the consent form.
--- NOTE | 2020-12-13 07:25 | RAD_ITS ---
STUDY: X-RAY CHEST REASON FOR EXAM: Male, 70 years old. SOB, Wheezing, Crackles TECHNIQUE: PA and lateral views of the chest. COMPARISON: None. FINDINGS: Patchy reticular and groundglass opacities involving the right perihilar and left lower lobe more than the left side. There is no demonstrated pleural abnormality. Normal size heart. Asymmetric enlargement of the right hilum. Normal visualized pulmonary arteries. There is atherosclerotic calcification of the aortic arch with tortuosity. There are diffuse degenerative changes of the visualized thoracic spine. Normal visualized ribs, clavicles, and shoulders. There is no demonstrated abnormality of the visualized soft tissue structures of the upper abdomen. RAD/Chest PA and Lateral IMPRESSION: 1. Asymmetric right hilar enlargement could suggest adenopathy. Chest CT with IV contrast recommended. 2. Right more than left patchy infiltrates. Electronically Signed: Cong Hameed MD (Brooks) at 8:02 EDT , Service support ,
[2020-12-13 07:30] LABS: INR Fingerstick 1.4; Prothrombin Time Fingerstick 16.2 SEC (11.9-14.4)
[2020-12-13 08:06] VITALS: BP 176/134; PULSE 106; RESP 24; TEMP 37; O2SAT 90; BMI 46.2
[2020-12-13] MEDS: Ipratropium/Albuterol Sulfate 3 ML AMPUL.NEB INHALATION (08:16)
[2020-12-13 08:18] VITALS: PULSE 103; RESP 22
--- NOTE | 2020-12-13 09:39 | PCM.PN.BLA ---
Progress Note Patient was scheduled to have surgery today for excision of a lesion on his left lower lip involving the zen border with flap reconstruction. In the preop area, the patient was complaining of some shortness of breath. CXR showed infiltrates. His pulse ox was in the 80's. He was given a breathing treatment. His surgery is being postponed today until he is more medically stable. It was recommended for the patient to go to the ED for further evaluation and treatment for possible admission. The patient and his were in agreement.
== END ==
PROVIDERS: PCP Family Medicine; Referring Provider Surgery; Visit Provider Surgery
DX: R06.02 Shortness of breath (principal); R06.2 Wheezing
CPT/HCPCS: 36416; 71046; 85610; 94640; 99251; J7120; G0463

== ENCOUNTER 2021-01-22 12:46 | Inpatient (IN) | payer MEDICARE, OTHER, SELFPAY ==
[2020-12-19 08:24] VITALS: BMI 45.3
[2021-01-22] VITALS (16 sets, daily range): BP systolic 137–174; BP diastolic 87–124; PULSE 86–136; RESP 20–24; TEMP 36.6–37.2; O2SAT 93–97; BMI 47.8; BMI 47.1
--- NOTE | 2021-01-22 13:29 | EKG12_ITS ---
Test Reason : SOB Blood Pressure : / mmHG Vent. Rate : 089 BPM Atrial Rate : 250 BPM P-R Int : 000 ms QRS Dur : 102 ms QT Int : 372 ms P-R-T Axes : 000 -36 009 degrees QTc Int : 452 ms Atrial fibrillation Left axis deviation Incomplete right bundle branch block Inferior infarct , age undetermined Abnormal ECG Confirmed by JACK VIRGEN, KEVEN ([id number]), primer expeditor and drier SARAH PASTOR ([id number]) on 01/24/2021 12:31:10 PM Referred By: PEPITO Confirmed By:KEVEN SANTIAGO MD
[2021-01-22] MEDS: Ipratropium/Albuterol Sulfate 3 ML AMPUL.NEB INHALATION ×2 (13:43→19:23)
[2021-01-22 14:00] LABS: Absolute Lymphocyte Count 1.05 X10^3/uL (0.83-4.51); Absolute Neutrophil Count 3.2 X10^3/uL (2.0-7.7); Basophil# 0.01 X10^3/uL; Basophil% 0.2 % (0-1); Eosinophil# 0.04 X10^3/uL; Eosinophils% 0.8 % (0-5); Hematocrit 45.9 % (40-54); Hemoglobin 14.2 g/dL (13.0-16.5); Lymphocyte # 1.05 X10^3/ul (0.83-4.51); Lymphocyte % 21.4 % (19-41); Mean Corp Hgb Conc 30.9 g/dL (32-36); Mean Corpuscular Hgb 30.9 pg (27.0-32.0); Mean Corpuscular Volume 99.8 fL (80-94); Mean Platelet Vol. 9.8 fl (6.2-12.0); Monocyte# 0.56 X10^3/uL; Monocyte% 11.4 % (0-10); NRBC Flagged by Analyzer 0 % (0-5); Neutrophil # 3.23 X10^3/uL (2.7-7.7); Neutrophil % 65.8 % (47-70); Platelet Count 153 K/mm3 (150-450); RBC Distribution Width CV 17.6 % (11.6-14.6); White Blood Count 4.9 K/mm3 (4.4-11.0)
--- NOTE | 2021-01-22 14:20 | RAD_ITS ---
STUDY: X-RAY CHEST REASON FOR EXAM: Male, 70 years old. Dyspnea TECHNIQUE: 1 view COMPARISON: 12/13/2020 FINDINGS: The heart is mildly enlarged with tortuosity of the thoracic aorta. There are heavy markings seen in the right lower lung field the apices are otherwise clear. No pleural effusion or pneumothorax. The trachea is in the midline the visualized bones are intact. RAD/Chest 1 View (Portable) IMPRESSION: Heavy markings seen in the lower right lung and changed since the previous exam.. Electronically Signed: Tracey Johnson, at 14:45 EDT Tel , Service support ,
[2021-01-22 14:21] LABS: BNP,B-Type NATRIURETIC PEPTIDE 406.3 pg/mL (0-100)
[2021-01-22 14:24] LABS: ALB/GLOB Ratio 0.9 RATIO (0.9-2.4); AST(SGOT) 12 U/L (15-37); Alanine Aminotransfer ALT/SGPT 22 U/L (16-61); Albumin, Serum 3.1 g/dL (3.2-5.0); Alkaline Phosphatase 63 U/L (45-117); Anion Gap 3 (5-15); BUN 21 mg/dL (7-18); BUN/Creat Ratio 20.4 RATIO (10-20); Calcium,Total 8.6 mg/dL (8.5-10.1); Chloride 106 mmol/L (98-107); Creatinine, Serum 1.03 mg/dL (0.70-1.30); EST Glomerular Filtration Rate 76 mL/min (>60); Est Glom Filt Rate - Afr Amer 91 mL/min (>60); Estimated Creatinine Clearance 65.78 ml/min; Globulin 3.3 g/dL (2.2-4.2); Glucose 106 mg/dL (74-106); Potassium 4.7 mmol/L (3.5-5.1); Protein, Total 6.4 g/dL (6.4-8.2); Sodium Level 145 mmol/L (136-145); Troponin-I HS 132.1 pg/mL (3.0-78.5)
--- NOTE | 2021-01-22 14:32 | ED.RN ---
lab called elevated troponin of 132.07
--- NOTE | 2021-01-22 15:02 | EDS_ITS ---
HPI History of Present Illness Chief Complaint: Shortness of Breath Informant: patient and spouse/S.O. Onset/Context/Timing Onset: Weeks (2) Context: gradual Timing: Continuous Quality: Positive for Dyspnea on exertion and Wheezing Worsened by: Exertion Relieved by: Oxygen Associated Symptoms Negative for cough, rhinorrhea, fever, sore throat or chills Chest Pain: Positive for None Narrative Narrative: Patient presents with shortness of breath that has been getting worse over the past 2 weeks. Patient states it is gotten worse over the past couple days. reports that the patient has had a 9 pound weight gain in the last 2 weeks. Patient states he feels congested. Patient states his breathing is worse with any exertion and better with oxygen. Patient denies any chest pain. Patient denies any fevers or chills. Patient denies any cough. Patient has a history of congestive heart failure as well as COPD. [facility] Medical History (Updated 01/22/21 @ 15:[address] 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, vermilion border Prostate cancer Skin cancer Sleep apnea Home Medications atorvastatin 10 mg tablet 10 mg PO DAILY 06/21/19 [History Last Taken 01/21/21] calcium carbonate 600 mg calcium (1,500 mg) tablet 600 mg PO DAILY 06/21/19 [History Last Taken 01/21/21] leuprolide (6 month) 45 mg intramuscular syringe kit 45 mg IM [id number] 06/21/19 [History Last Taken 5 Months Ago ~08/24/20] metformin 500 mg tablet,extended release 24 hr 500 mg PO QHS 06/21/19 [History Last Taken 01/21/21] venlafaxine 150 mg capsule,extended release 24 hr 150 mg PO DAILY 06/21/19 [History Last Taken 01/22/21] primidone 50 mg tablet 150 mg PO BID tablet 10/22/20 [History Last Taken 01/22/21] aspirin 81 mg PO DAILY 11/07/20 [History Last Taken 01/16/21] famotidine 40 mg PO DAILY 11/07/20 [History Last Taken 01/22/21] montelukast 10 mg PO DAILY 11/07/20 [History Last Taken 01/22/21] warfarin 6 mg PO MOWEFRSA 11/07/20 [History Last Taken 01/21/21] Trelegy Ellipta 1 inh INHALATION BID 12/13/20 [History Last Taken 01/22/21] losartan 100 mg PO DAILY 12/13/20 [History Last Taken 01/22/21] diltiazem HCl 180 mg PO BID 01/22/21 [History Last Taken 01/22/21] enzalutamide [Xtandi] 120 mg PO DAILY 01/22/21 [History Last Taken 01/22/21] furosemide [Lasix] 40 mg PO BID 01/22/21 [History Last Taken 01/22/21] metoprolol tartrate 100 mg PO QHS 01/22/21 [History Last Taken 01/21/21] metoprolol tartrate 150 mg PO BREAKFAST 01/22/21 [History Last Taken 01/22/21] multivitamin 1 tab PO DAILY 01/22/21 [History Last Taken 01/21/21] potassium chloride 20 meq PO BID 01/22/21 [History Last Taken 01/22/21] warfarin 3 mg PO SUTUTH 01/22/21 [History Last Taken 01/20/21] Allergy/AdvReac Type Severity Reaction Status Date / Time No Known Allergies Allergy Verified 01/22/21 12:50 Family History Sister Breast cancer Brother Lung cancer Daughter Melanoma Surgical History History of hip replacement History of melanoma excision Social History Smoking Status: Former smoker alcohol intake: never substance use type: does not use additional social history: DOES USE ASPIRIN DOES NOT USE IBUPROFEN ROS ROS ED Constitutional Constitutional ED: Denies chills or fever(s) Eyes Eyes: Denies blurry vision or change in vision ENT ENT ED: Denies rhinorrhea or sore throat Cardiovascular Cardiovascular: Denies chest pain or palpitations Respiratory/Chest Respiratory/Chest: Reports dyspnea; Denies cough Gastrointestinal Gastrointestinal: Denies nausea or vomiting Genitourinary Genitourinary ED: Denies dysuria or hematuria Musculoskeletal Musculoskeletal: Denies back pain or neck pain Integumentary Denies abscess or rash Neurologic Neurologic: Reports weakness; Denies headache(s) Allergic/Immunologic Allergic/Immunologic ED: Denies mouth swelling or urticaria EXAM Physical Exam Const Vital Signs: 01/22/21 12:47 01/22/21 12:50 01/22/21 13:49 Temperature 97.8 F 97.8 F Temperature Source Temporal Temporal Pulse Rate 90 86 86 Respiratory Rate 20 H 24 H 24 H Respiratory Pattern Tachypnea Blood Pressure 147/111 H 147/111 H Blood Pressure Mean 123 123 Pulse Ox 97 97 Oxygen Delivery Method Nasal Cannula Nasal Cannula Oxygen Flow Rate (L/min) 2 2 01/22/21 13:50 01/22/21 14:00 Temperature 98 F 98 F Temperature Source Temporal Temporal Pulse Rate 89 89 Respiratory Rate 20 H 20 H Respiratory Pattern Blood Pressure 143/113 H 143/105 H Blood Pressure Mean 123 117 Pulse Ox 95 95 Oxygen Delivery Method Nasal Cannula Room Air Oxygen Flow Rate (L/min) 2.5 Positive well nourished, well developed and obese General Appearance ED: well developed Nutritional Appearance: obese HEENT Reports moist mucous membranes Neck supple and no JVD Resp normal respiratory effort Auscultation: wheezes throughout Cardio regular rate Rhythm: abnormal rhythm irregularly irregular GI non-tender and non-distended Auscultation: normoactive bowel sounds Palpation: soft Extremity Extremity Narrative: There is 2+ pitting edema of the lower extremities to the knees bilaterally. General Extremety ED: Yes edema General Extremity: edema Neuro oriented x3, CN's II-XII intact bilaterally and no sensory deficits noted Sensorium / Orientation: alert Motor Exam: strength 5/5 throughout Psych mental status grossly normal MDM MDM MDM Narrative Medical decision making narrative: Patient was given a DuoNeb here. EKG was obtained. On my interpretation, it shows atrial fibrillation with a rate of 89. There is an incomplete right bundle branch block pattern and there is left axis deviation. There are no acute ST or T wave changes. This is unchanged compared to previous EKG dated 12/13/2020. CBC was within normal limits. Comprehensive metabolic profile was essentially within normal limits. High-sensitivity troponin was elevated at 132.1. B-natruretic peptide was elevated at 406.3. This was increased from previous result. Portable chest x-ray was obtained. There is 1 view. On my interpretation, there is cardiomegaly and evidence of congestive heart failure. There are no effusions. Radiologist also interpreted the x-ray and describes it as heavy markings in the right lower lobe. Patient was given aspirin and Lasix here. Case was discussed with the hospitalist. Lab Data Attestation: I reviewed the patient's lab results. Labs: Laboratory Results - last 24 hr 01/22/21 01/22/21 01/22/21 13:50 13:50 13:50 WBC 4.9 RBC 4.60 Hgb 14.2 Hct 45.9 MCV 99.8 H MCH 30.9 MCHC 30.9 L RDW Std Deviation 63.0 H RDW Coeff of Kayley 17.6 H Plt Count 153 MPV 9.8 Immature Gran % (Auto) 0.400 Neut % (Auto) 65.8 Lymph % (Auto) 21.4 [place] % (Auto) 11.4 H Eos % (Auto) 0.8 Baso % (Auto) 0.2 Absolute Neuts (auto) 3.2 Absolute Lymphs (auto) 1.05 Nucleated RBC % 0 Sodium 145 Potassium 4.7 Chloride 106 Carbon Dioxide 36.0 H Anion Gap 3 L BUN 21 H Creatinine 1.03 Estim Creat Clear Calc 65.78 Est GFR (MDRD) Af Amer 91 Est GFR (MDRD) Non-Af 76 BUN/Creatinine Ratio 20.4 H Glucose 106 Calcium 8.6 Total Bilirubin 0.40 AST 12 L ALT 22 Alkaline Phosphatase 63 Troponin I High Sens 132.1 H* B-Natriuretic Peptide 406.3 H Total Protein 6.4 Albumin 3.1 L Globulin 3.3 Albumin/Globulin Ratio 0.9 Radiography Chest X-Ray - ED: 1 View, Read by ED Physician, Read by Radiologist and CHF Diagnostic Testing: Radiology Impression Chest X-Ray 01/22/21 14:20 IMPRESSION: Heavy markings seen in the lower right lung and changed since the previous exam.. Electronically Signed: Tracey Milesdorothy, at 14:45 EDT Tel , Service support , EKG Initial EKG: Interpretation: No Acute Injury Pattern, Atrial Fibrillation (89) and RBBB (Incomplete) Prior EKG tracings: available for review Prior: Unchanged (12/13/2020) Treatment and Re-Evaluation Vital Sign Attestation:: Vital signs were reviewed prior to admission. They are stable. Discharge Plan Disposition Disposition: Acute Care Hospital [facility] Discharge Date/Time: 01/22/21 16:10
[2021-01-22] MEDS: Aspirin 81 MG TAB.CHEW 324 MG PO (15:05)
[2021-01-22] MEDS: Furosemide 40 MG/4 ML Vial IV ×2 (15:05→21:03)
--- NOTE | 2021-01-22 15:22 | NURSING ---
[facility]
--- NOTE | 2021-01-22 15:44 | HP.PCM.HOS_ITS ---
[facility] - General General Date of Admission: 01/22/21 Date of Service: 01/22/21 Chief Complaint: Shortness of breath, weight gain. [facility] Narrative CRYSTAL PANTOJA, is a 70 M with past medical history as mentioned below was sent to the emergency department from his PCPs office for worsening shortness of breath and weight gain. According to the patient's , patient has been having progressively increasing shortness of breath mainly with activity over the last couple of weeks, but more worse during the last week, requiring more oxygen and she stated that he gained 21 pounds of the last 3 weeks. Patient stated that he has been getting more short of breath than usual with minimal activity and sometimes even at rest, aggravated by activity, associated with dry cough as well as wheezing and increasing leg swelling. Patient states that he has been taking his Lasix twice a day as prescribed. Patient's mentioned that he was started on a new medicine for his prostate cancer and they were informed that that medicine increase his blood pressure. Last week, his PCP went up on his Cardizem from 120 mg p.o. daily up to 180 mg p.o. daily. Patient denied any chest pain, palpitation, dizziness or lightheadedness. In the emergency department, patient was afebrile, heart rate has been around 100, blood pressure stable, pulse ox was 95% on 2.5 L. Routine blood work was unremarkable. LFT was normal. EKG revealed A. fib, heart rate was around 100, no acute ischemic changes. High-sensitivity troponin was elevated at 132.1. BNP was 406. Chest x-ray revealed bilateral basilar pulmonary vascular congestion, cardiomegaly. COVID-19 antigen was negative. Patient is being admitted for acute on chronic diastolic CHF, COPD exacerbation and acute non- STEMI. [facility] Medical History (Updated 01/22/21 @ 15:[address] 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, vermilion border Prostate cancer Skin cancer Sleep apnea Home Medications atorvastatin 10 mg tablet 10 mg PO DAILY 06/21/19 [History Last Taken 01/21/21] calcium carbonate 600 mg calcium (1,500 mg) tablet 600 mg PO DAILY 06/21/19 [History Last Taken 01/21/21] leuprolide (6 month) 45 mg intramuscular syringe kit 45 mg IM [id number] 06/21/19 [History Last Taken 5 Months Ago ~08/24/20] metformin 500 mg tablet,extended release 24 hr 500 mg PO QHS 06/21/19 [History Last Taken 01/21/21] venlafaxine 150 mg capsule,extended release 24 hr 150 mg PO DAILY 06/21/19 [History Last Taken 01/22/21] primidone 50 mg tablet 150 mg PO BID tablet 10/22/20 [History Last Taken 01/22/21] aspirin 81 mg PO DAILY 11/07/20 [History Last Taken 01/16/21] famotidine 40 mg PO DAILY 11/07/20 [History Last Taken 01/22/21] montelukast 10 mg PO DAILY 11/07/20 [History Last Taken 01/22/21] warfarin 6 mg PO MOWEFRSA 11/07/20 [History Last Taken 01/21/21] Trelegy Ellipta 1 inh INHALATION BID 12/13/20 [History Last Taken 01/22/21] losartan 100 mg PO DAILY 12/13/20 [History Last Taken 01/22/21] diltiazem HCl 180 mg PO BID 01/22/21 [History Last Taken 01/22/21] enzalutamide [Xtandi] 120 mg PO DAILY 01/22/21 [History Last Taken 01/22/21] furosemide [Lasix] 40 mg PO BID 01/22/21 [History Last Taken 01/22/21] metoprolol tartrate 100 mg PO QHS 01/22/21 [History Last Taken 01/21/21] metoprolol tartrate 150 mg PO BREAKFAST 01/22/21 [History Last Taken 01/22/21] multivitamin 1 tab PO DAILY 01/22/21 [History Last Taken 01/21/21] potassium chloride 20 meq PO BID 01/22/21 [History Last Taken 01/22/21] warfarin 3 mg PO SUTUTH 01/22/21 [History Last Taken 01/20/21] Allergy/AdvReac Type Severity Reaction Status Date / Time No Known Allergies Allergy Verified 01/22/21 12:50 Family History Sister Breast cancer Brother Lung cancer Daughter Melanoma Surgical History History of hip replacement History of melanoma excision Social History Smoking Status: Former smoker alcohol intake: never substance use type: does not use additional social history: DOES USE ASPIRIN DOES NOT USE IBUPROFEN ROS Constitutional Constitutional: Denies anorexia, chills, fatigue, fever(s) or malaise Eyes Eyes: Denies blurry vision, change in eye color, change in vision, double vision or eye pain ENT HEENT: Denies ear discharge, ear pain, epistaxis, headache(s), nasal congestion, post nasal drip or sore throat Cardiovascular Cardiovascular: Reports dyspnea on exertion and edema; Denies chest pain, lightheadedness, orthopnea, palpitations, paroxysmal nocturnal dyspnea or syncope Respiratory/Chest Respiratory/Chest: Reports cough, dyspnea, shortness of breath at rest, shortness of breath with exertion and wheezing; Denies hemoptysis or productive cough Gastrointestinal Gastrointestinal: Denies abdominal pain, constipation, diarrhea, hematemesis, hematochezia, melena, nausea or vomiting Genitourinary Genitourinary: Denies burning urination, dysuria, hematuria, urinary hesitancy or urinary urgency Musculoskeletal Musculoskeletal: Denies arthralgias, back pain, joint pain, joint swelling, myalgias or neck pain Neurologic Neurologic: Denies confusion, dizziness, focal weakness, headache(s), numbness, paresthesias, seizures, tingling, tremor(s) or vertigo Psychiatric Psychiatric: Denies anxiety, depression, hallucinations, homicidal ideation or suicidal ideation Endocrine Endocrinology: Denies change in body appearance, cold intolerance, heat intolerance, polydipsia or polyuria Hematologic/Lymphatic Hematologic/Lymphatic: Denies easy bleeding, easy bruising or lymphadenopathy Allergic/Immunologic Allergic/Immunologic: Denies itchy eyes, rhinitis, throat swelling, tongue swelling, hives, urticaria or wheezing Vital Signs Vital Signs Vital Signs: 01/22/21 12:47 01/22/21 12:50 01/22/21 13:49 Temperature 97.8 F 97.8 F Temperature Source Temporal Temporal Pulse Rate 90 86 86 Respiratory Rate 20 H 24 H 24 H Respiratory Pattern Tachypnea Blood Pressure 147/111 H 147/111 H Blood Pressure Mean 123 123 Pulse Ox 97 97 Oxygen Delivery Method Nasal Cannula Nasal Cannula Oxygen Flow Rate (L/min) 2 2 01/22/21 13:50 01/22/21 14:00 Temperature 98 F 98 F Temperature Source Temporal Temporal Pulse Rate 89 89 Respiratory Rate 20 H 20 H Respiratory Pattern Blood Pressure 143/113 H 143/105 H Blood Pressure Mean 123 117 Pulse Ox 95 95 Oxygen Delivery Method Nasal Cannula Room Air Oxygen Flow Rate (L/min) 2.5 Weight Weight: 324 lb Body Mass Index (BMI) 47.8 Physical Exam Const alert, oriented x3 and no limitations Constitutional Narrative: Minimally short of breath. General Appearance: cooperative HEENT normocephalic, head/scalp atraumatic, external ears normal, external nose normal and moist oral mucous membranes Eyes PERRL, EOMs intact bilaterally, conjunctivae normal and no scleral icterus General Eye: normal appearance of both eyes Neck no lymphadenopathy, supple, no meningeal signs, no JVD and no carotid bruits Lymph Lymphatic: no lymphadenopathy noted Resp normal air movement Resp Narrative: Decreased breath sounds bilateral, bilateral expiratory wheezes, faint bilateral basal crackles. Auscultation: crackles, rales, rhonchi and wheezes Cardio S1 normal heart sound, S2 normal heart sound, no murmurs and no JVD Cardio Narrative: Irregular rate and rhythm, tachycardia. GI normal to inspection, nondistended, normoactive bowel sounds, soft to palpation, non-tender and non-distended; Negative for hepatosplenomegaly GI Narrative: Obese. Extremity normal to inspection and full ROM Extremity Narrative: ++ Edema, no clubbing or cyanosis. Skin no rashes or lesions noted, no wounds and no petechiae Neuro oriented x3, CN's II-XII intact bilaterally and moves all extremities Sensorium / Orientation: alert Speech: speech normal Motor Exam: strength 5/5 throughout Psych mental status grossly normal and affect normal Appearance: appropriate Results Lab / Micro Data Result Diagrams: 01/22/21 13:50 01/22/21 13:50 Labs: Laboratory Results - last 24 hr 01/22/21 01/22/21 01/22/21 13:50 13:50 13:50 WBC 4.9 RBC 4.60 Hgb 14.2 Hct 45.9 MCV 99.8 H MCH 30.9 MCHC 30.9 L RDW Std Deviation 63.0 H RDW Coeff of Kayley 17.6 H Plt Count 153 MPV 9.8 Immature Gran % (Auto) 0.400 Neut % (Auto) 65.8 Lymph % (Auto) 21.4 [place] % (Auto) 11.4 H Eos % (Auto) 0.8 Baso % (Auto) 0.2 Absolute Neuts (auto) 3.2 Absolute Lymphs (auto) 1.05 Nucleated RBC % 0 Sodium 145 Potassium 4.7 Chloride 106 Carbon Dioxide 36.0 H Anion Gap 3 L BUN 21 H Creatinine 1.03 Estim Creat Clear Calc 65.78 Est GFR (MDRD) Af Amer 91 Est GFR (MDRD) Non-Af 76 BUN/Creatinine Ratio 20.4 H Glucose 106 Calcium 8.6 Total Bilirubin 0.40 AST 12 L ALT 22 Alkaline Phosphatase 63 Troponin I High Sens 132.1 H* B-Natriuretic Peptide 406.3 H Total Protein 6.4 Albumin 3.1 L Globulin 3.3 Albumin/Globulin Ratio 0.9 Micro: Microbiology 01/22/21 13:45 SARS-CoV-2 Antigen (Rapid) - Final Mucosa - Nose Radiology Impression Chest X-Ray 01/22/21 14:20 IMPRESSION: Heavy markings seen in the lower right lung and changed since the previous exam.. Electronically Signed: Tracey Johnson, at 14:45 EDT Tel , Service support , Assessment & Plan Assessment/Plan (1) COPD exacerbation: (2) Non-ST elevation myocardial infarction, initial hospitalization: (3) Acute on chronic diastolic CHF (congestive heart failure): (4) Prostate cancer: (5) HTN (hypertension): (6) Chronic respiratory failure: (7) Chronic diastolic CHF (congestive heart failure): (8) Chronic atrial fibrillation: (9) Diabetes mellitus, type 2: (10) COPD (chronic obstructive pulmonary disease): PLAN: This is a 70 years old male patient was sent from his PCPs office for increasing shortness of breath and weight gain as well as wheezing, found to have findings consistent with acute on chronic diastolic CHF with overlapping acute COPD exacerbation also found to have acute non-ST elevation KS. #1 acute on chronic diastolic CHF: Based on symptoms of shortness of breath, weight gain, leg edema chest x-ray findings and elevated BNP. EKG reviewed as above. Troponin was elevated. Patient denied any chest pain. Plan: Admit to PCU, cardiac monitoring, serial cardiac enzymes, start IV Lasix for diuresis, fluid restriction to less than 1500 cc daily, 2D echocardiogram, repeat CBC and BMP tomorrow morning, PT OT evaluation and treatment. #2 acute COPD exacerbation: Patient having significant wheezing along with cough and shortness of breath. Chest x-ray reviewed as above. COVID-19 antigen came back negative. Plan: DuoNeb every 6 hours, albuterol as needed, oxygen by nasal cannula to keep O2 saturation around 92%, incentive spirometer. #3 acute non-ST elevation KS: EKG reviewed, no acute ischemic changes. Troponin is elevated. Patient denied chest pain. Patient had no history of CAD, PCI or CABG. Plan: Cardiac monitoring, serial cardiac enzymes, 2D echocardiogram, cardiology consult, continue aspirin, statins, losartan and metoprolol. #4 COPD/chronic respiratory failure/sleep apnea: On home oxygen at 2 L during daytime and on CPAP at night for sleep apnea. Currently, he is on 2 L, plan as above. #5 chronic atrial fibrillation: Heart rate has been around 90-100, blood pressure stable. Continue metoprolol for rate control, hold Coumadin for now, check INR. #6 hypertension: Blood pressure stable, continue losartan and metoprolol, IV Lasix. #7 type 2 diabetes mellitus: ADA diet, Accu-Cheks, insulin scale, hold Metformin for now. #8 prostate cancer: Continue xtandi. #9 CODE STATUS: DNR CCA, no intubation. I discussed the CODE STATUS with the patient and his . I explained to them different types of CODE STATUS inclu ding full code, DNR CC, DNR CCA with and without intubation. Patient clearly mentioned that he does not want any type of artificial life-sustaining measures, does not want CPR, intubation or mechanical ventilation. #10 DVT prophylaxis: Coumadin, will check INR. This note was generated with [employer] software. It may contain incorrect words, spelling, and punctuation that were not noted in checking the note before signing. Charges/Coding Visit Charges Inpatient E&M: 05040 Init Hosp L3 Procedures Hospitalists Procedures: 91881 Advncd Care Plan 30 Min (Time spent discussing CODE STATUS with the patient and his is 13 minutes.)
[2021-01-22 16:36] LABS: Bedside Glucose 139 mg/dL (70-110)
[2021-01-22] MEDS: Glucerna Shake 120 ML LIQUID PO ×2 (16:58→21:02)
[2021-01-22 17:13] LABS: International Normalized Ratio 2.1; Prothrombin Time (Protime)PT. 22.6 SECONDS (11.7-14.9)
[2021-01-22 17:22] LABS: Troponin-I HS 133.9 pg/mL (3.0-78.5)
[2021-01-22] MEDS: hydrALAZINE 20 MG/ML Vial 10 MG IV (18:55)
--- NOTE | 2021-01-22 19:17 | CON.PCM.CA_ITS ---
Assessment & Plan Assessment/Plan (1) Non-ST elevation myocardial infarction, initial hospitalization: PLAN: The patient has findings compatible with a non-ST segment elevation MO. It is unclear whether this is a type I event versus a type II event from supply demand mismatch. The present time the patient will continue to be followed. His cardiac enzymes and ECG can be followed. He will be asked to have an echocardiogram to assess his left ventricular wall motion and systolic function. Eventually he should be considered for further evaluation with diagnostic cardiac catheterization-once his underlying pulmonary status has improved. In the interim he will continue medical therapy as deemed appropriate. (2) Acute on chronic diastolic CHF (congestive heart failure): PLAN: The patient does appear to have findings compatible with CHF. It is presumed at the moment that this is acute on chronic diastolic mediated CHF. However, the patient will undergo an echocardiogram to evaluate his left ventricular wall motion and systolic function as part of his diagnostic evaluation. In the interim he will continue medical therapy which is included IV diuretic therapy. (3) Chronic atrial fibrillation: PLAN: The patient appears to have a history of chronic/permanent atrial fibrillation. He has been on rate control therapy and anticoagulant therapy. His medicines will need to be continued and adjusted as deemed appropriate in and around the time of his diagnostic studies. (4) HTN (hypertension): QUALIFIERS: Hypertension type: essential hypertension Qualified Code(s): I10 - Essential (primary) hypertension PLAN: The patient appears to have a history of hypertension. He will continue medical management. (5) COPD (chronic obstructive pulmonary disease): PLAN: The patient is also being evaluated for underlying COPD and a COPD exacerbation to his clinical course. He will continue evaluation and care per internal medicine. Addt'l Comments The patient's case was discussed and reviewed with the patient and Dr. Jennings. This note was generated using a voice recognition system and there may be incorrect words, spelling or punctuation that were not noted when reviewing the office note prior to saving. HPI Consult Data Date of Consult: 01/22/21 HPI Narrative HPI Narrative: CRYSTAL PANTOJA, is a 70 year old white male who presents for evalu ation of shortness of breath/dyspnea with findings of abnormal cardiac enzyme levels and an abnormal ECG superimposed upon a history of atrial fibrillation. The patient states that approximately a year ago he had 2 days of uncomfortable chest discomfort. He states he did not act upon it at the time. He does not recall any similar discomfort since that time. He notes more recently he has been getting progressively short of breath and dyspneic and noticing audible wheezing. He states his shortness of breath and dyspnea is more so when he ambulates than when he is at rest. He denies any acute orthopnea or PND. He admits to mild bilateral lower extremity peripheral pitting edema. He has had no near syncope or syncope that he recalls. He does not recall having any ongoing palpitations or rapid heart rates. He states he is somewhat unfamiliar with his heartbeat related issue but does know he takes medication for it including warfarin/Coumadin. He presented to the emergency department for evaluation. He was found to have abnormal cardiac enzyme levels and an ECG demonstrating atrial fibrillation with the appearance of left axis deviation with a low voltage QRS and an incomplete right bundle branch block pattern and an inferior MO pattern of indeterminate age. He was felt to have findings compatible with a combination of an acute coronary syndrome as well as CHF and a COPD exacerbation superimposed upon his underlying atrial fibrillation. He was placed in the PCU for further evaluation and care. He was started on medical management including IV diuretic therapy. He has had repeat troponin I levels which have remained similar/slightly elevated compared to his admission troponin I level. His cardiac rhythm has remained atrial fibrillation. [facility] Medical History (Updated 01/22/21 @ 19:[address] 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, vermilion border Prostate cancer Skin cancer Sleep apnea Home Medications atorvastatin 10 mg tablet 10 mg PO DAILY 06/21/19 [History Last Taken 01/21/21] calcium carbonate 600 mg calcium (1,500 mg) tablet 600 mg PO DAILY 06/21/19 [History Last Taken 01/21/21] leuprolide (6 month) 45 mg intramuscular syringe kit 45 mg IM [id number] 06/21/19 [History Last Taken 5 Months Ago ~08/24/20] metformin 500 mg tablet,extended release 24 hr 500 mg PO QHS 06/21/19 [History Last Taken 01/21/21] venlafaxine 150 mg capsule,extended release 24 hr 150 mg PO DAILY 06/21/19 [History Last Taken 01/22/21] primidone 50 mg tablet 150 mg PO BID tablet 10/22/20 [History Last Taken 01/22/21] aspirin 81 mg PO DAILY 11/07/20 [History Last Taken 01/16/21] famotidine 40 mg PO DAILY 11/07/20 [History Last Taken 01/22/21] montelukast 10 mg PO DAILY 11/07/20 [History Last Taken 01/22/21] warfarin 6 mg PO [id number] 11/07/20 [History Last Taken 01/21/21] Trelegy Ellipta 1 inh INHALATION BID 12/13/20 [History Last Taken 01/22/21] losartan 100 mg PO DAILY 12/13/20 [History Last Taken 01/22/21] diltiazem HCl 180 mg PO BID 01/22/21 [History Last Taken 01/22/21] enzalutamide [Xtandi] 120 mg PO DAILY 01/22/21 [History Last Taken 01/22/21] furosemide [Lasix] 40 mg PO BID 01/22/21 [History Last Taken 01/22/21] metoprolol tartrate 100 mg PO QHS 01/22/21 [History Last Taken 01/21/21] metoprolol tartrate 150 mg PO BREAKFAST 01/22/21 [History Last Taken 01/22/21] multivitamin 1 tab PO DAILY 01/22/21 [History Last Taken 01/21/21] potassium chloride 20 meq PO BID 01/22/21 [History Last Taken 01/22/21] warfarin 3 mg PO SUTUTH 01/22/21 [History Last Taken 01/20/21] Allergy/AdvReac Type Severity Reaction Status Date / Time No Known Allergies Allergy Verified 01/22/21 12:50 Family History Sister Breast cancer Brother Lung cancer Daughter Melanoma Surgical History History of hip replacement History of melanoma excision Social History Smoking Status: Former smoker alcohol intake: never substance use type: does not use additional social history: DOES USE ASPIRIN DOES NOT USE IBUPROFEN ROS Constitutional Constitutional: Reports as per HPI Eyes Eyes: Reports as per HPI ENT HEENT: Reports as per HPI Cardiovascular Cardiovascular: Reports dyspnea, dyspnea at rest, dyspnea on exertion and leg edema Respiratory/Chest Respiratory/Chest: Reports dyspnea, dyspnea on exertion and wheezing Gastrointestinal Gastrointestinal: Reports as per HPI Genitourinary Genitourinary: Reports as per HPI Musculoskeletal Musculoskeletal: Reports as per HPI Neurologic Neurologic: Reports as per HPI Psychiatric Psychiatric: Reports as per HPI Physical Exam Const alert, oriented x3 and no apparent distress Orientation / Consciousness: awake HEENT normocephalic and head/scalp atraumatic HEENT Narrative: Hearing grossly impaired Eyes PERRL, EOMs intact bilaterally, conjunctivae normal and no scleral icterus Neck full ROM and supple Chest inspection of chest normal Resp Auscultation: wheezes expiratory wheezes, inspiratory wheezes and throughout and diminished lung sounds bilateral (Bases) lower Cardio Rhythm: abnormal rhythm irregularly irregular Heart Sounds: S1 normal and S2 normal GI normal to inspection, nondistended, normoactive bowel sounds Extremity General Extremity: edema bilateral lower extremity Details: mild Neuro oriented x3 Psych mental status grossly normal Procedure Criteria Type of Procedure Procedure Type: Elective Elective Risks - COVID COVID Risk Discussion: The surgeon/proceduralist and patient have discussed in detail the risk of exposure to and/or potential harm posed by the COVID-19 virus with having a surgery/procedure at this time versus the risk of delaying the surgery/procedure. It is not possible to know either the risk of delaying the surgery or procedure or chance of getting an infection with perfect accuracy, but a joint decision was made between the patient and the surgeon/proceduralist to proceed at this time with the scheduled surgery/procedure as indicated on the consent form. Objective Data Vital Signs: Vital Signs Temp Pulse Resp BP Pulse Ox 99.0 F 108 H 22 H 174/105 H 95 01/22/21 18:31 01/22/21 18:55 01/22/21 18:31 01/22/21 18:55 01/22/21 18:31 Oxygen Flow Rate (L/min) 2 Oxygen Delivery Method Nasal Cannula Weight: 319 lb 7.197 oz Body Mass Index (BMI) 47.1 Intake & Output: Intake and Output for Last 24 Hours 01/20/21 01/21/21 01/22/21 23:59 23:59 23:59 Intake Total 400 / 400 Output Total 1200 / 1200 Balance -800 / -800 Lab / Micro Data Result Diagrams: 01/22/21 13:50 01/22/21 13:50 Labs: Laboratory Results - last 24 hr 01/22/21 01/22/21 01/22/21 13:50 13:50 13:50 WBC 4.9 RBC 4.60 Hgb 14.2 Hct 45.9 MCV 99.8 H MCH 30.9 MCHC 30.9 L RDW Std Deviation 63.0 H RDW Coeff of Kayley 17.6 H Plt Count 153 MPV 9.8 Immature Gran % (Auto) 0.400 Neut % (Auto) 65.8 Lymph % (Auto) 21.4 Hendry % (Auto) 11.4 H Eos % (Auto) 0.8 Baso % (Auto) 0.2 Absolute Neuts (auto) 3.2 Absolute Lymphs (auto) 1.05 Nucleated RBC % 0 PT INR Sodium 145 Potassium 4.7 Chloride 106 Carbon Dioxide 36.0 H Anion Gap 3 L BUN 21 H Creatinine 1.03 Estim Creat Clear Calc 65.78 Est GFR (MDRD) Af Amer 91 Est GFR (MDRD) Non-Af 76 BUN/Creatinine Ratio 20.4 H Glucose 106 Calcium 8.6 Total Bilirubin 0.40 AST 12 L ALT 22 Alkaline Phosphatase 63 Troponin I High Sens 132.1 H* B-Natriuretic Peptide 406.3 H Total Protein 6.4 Albumin 3.1 L Globulin 3.3 Albumin/Globulin Ratio 0.9 POC Glucose 01/22/21 01/22/21 01/22/21 16:29 16:44 16:44 WBC RBC Hgb Hct MCV MCH MCHC RDW Std Deviation RDW Coeff of Kayley Plt Count MPV Immature Gran % (Auto) Neut % (Auto) Lymph % (Auto) Hendry % (Auto) Eos % (Auto) Baso % (Auto) Absolute Neuts (auto) Absolute Lymphs (auto) Nucleated RBC % PT 22.6 H INR 2.1 Sodium Potassium Chloride Carbon Dioxide Anion Gap BUN Creatinine Estim Creat Clear Calc Est GFR (MDRD) Af Amer Est GFR (MDRD) Non-Af BUN/Creatinine Ratio Glucose Calcium Total Bilirubin AST ALT Alkaline Phosphatase Troponin I High Sens 133.9 H* B-Natriuretic Peptide Total Protein Albumin Globulin Albumin/Globulin Ratio POC Glucose 139 H 01/22/21 18:31 WBC RBC Hgb Hct MCV MCH MCHC RDW Std Deviation RDW Coeff of Kayley Plt Count MPV Immature Gran % (Auto) Neut % (Auto) Lymph % (Auto) Hendry % (Auto) Eos % (Auto) Baso % (Auto) Absolute Neuts (auto) Absolute Lymphs (auto) Nucleated RBC % PT INR Sodium Potassium Chloride Carbon Dioxide Anion Gap BUN Creatinine Estim Creat Clear Calc Est GFR (MDRD) Af Amer Est GFR (MDRD) Non-Af BUN/Creatinine Ratio Glucose Calcium Total Bilirubin AST ALT Alkaline Phosphatase Troponin I High Sens 141.0 H* B-Natriuretic Peptide Total Protein Albumin Globulin Albumin/Globulin Ratio POC Glucose Micro: Microbiology 01/22/21 13:45 Mucosa - Nose SARS-CoV-2 Antigen (Rapid) - Final Cardiology Labs/Tests 01/22/21 13:50: WBC 4.9, RBC 4.60, Hgb 14.2, Hct 45.9, MCV 99.8 H, MCH 30.9, MCHC 30.9 L, Plt Count 153, MPV 9.8, Immature Gran % (Auto) 0.400, Neut % (Auto) 65.8, Lymph % (Auto) 21.4, Hendry % (Auto) 11.4 H, Eos % (Auto) 0.8, Baso % (Auto) 0.2, Absolute Neuts (auto) 3.2, Nucleated RBC % 0 01/22/21 13:50: Sodium 145, Potassium 4.7, Chloride 106, Carbon Dioxide 36.0 H, Anion Gap 3 L, BUN 21 H, Creatinine 1.03, Est GFR (MDRD) Af Amer 91, Est GFR (MDRD) Non-Af 76, BUN/Creatinine Ratio 20.4 H, Glucose 106, Calcium 8.6, Total Bilirubin 0.40 01/22/21 13:50: B-Natriuretic Peptide 406.3 H 01/22/21 16:44: PT 22.6 H, INR 2.1 Rhythm: Atrial fibrillation EKG: As noted above Radiography Diagnostic Testing: Radiology Impression Chest X-Ray 01/22/21 14:20 IMPRESSION: Heavy markings seen in the lower right lung and changed since the previous exam.. Electronically Signed: Adrianrolf Elizabeth, at 14:45 EDT Tel , Service support ,
[2021-01-22] MEDS: Clopidogrel Bisulfate 300 MG Tablet PO (20:09)
[2021-01-22] MEDS: 0.9% Saline Lock 10 ML Syringe IV (21:02)
[2021-01-22] MEDS: Atorvastatin Calcium 10 MG Tablet PO (21:03)
[2021-01-22] MEDS: dilTIAZem CD 180 MG Capsule PO (21:03)
[2021-01-22] MEDS: Metoprolol Tartrate 100 MG Tablet PO (21:03)
[2021-01-22] MEDS: Primidone 50 MG Tablet 150 MG PO (21:03)
[2021-01-22 22:36] LABS: Bedside Glucose 108 mg/dL (70-110)
[2021-01-22 23:20] LABS: Troponin-I HS 138.5 pg/mL (3.0-78.5)
[2021-01-23] VITALS (18 sets, daily range): BP systolic 113–159; BP diastolic 47–114; PULSE 69–150; RESP 16–24; TEMP 36.2–36.7; O2SAT 92–96
--- NOTE | 2021-01-23 05:55 | EKG12_ITS ---
Test Reason : AM Blood Pressure : / mmHG Vent. Rate : 095 BPM Atrial Rate : 129 BPM P-R Int : 000 ms QRS Dur : 102 ms QT Int : 330 ms P-R-T Axes : 000 -20 002 degrees QTc Int : 414 ms Atrial fibrillation Incomplete right bundle branch block Nonspecific ST and T wave abnormality Inferior infarct , age undetermined Abnormal ECG Confirmed by JACK VIRGEN, KEVEN ([id number]), society editor SARAH PASTOR ([id number]) on 01/24/2021 12:34:38 PM Referred By: MOIZ Confirmed By:KEVEN SANTIAGO MD
[2021-01-23 06:05] LABS: Basophil# 0.02 X10^3/uL; Basophil% 0.4 % (0-1); Eosinophil# 0.05 X10^3/uL; Eosinophils% 1.1 % (0-5); Hematocrit 43.7 % (40-54); Hemoglobin 13.7 g/dL (13.0-16.5); Lymphocyte % 20.1 % (19-41); Mean Corp Hgb Conc 31.4 g/dL (32-36); Mean Corpuscular Hgb 30.9 pg (27.0-32.0); Mean Corpuscular Volume 98.6 fL (80-94); Mean Platelet Vol. 10.6 fl (6.2-12.0); Monocyte# 0.49 X10^3/uL; Monocyte% 10.9 % (0-10); NRBC Flagged by Analyzer 0 % (0-5); Neutrophil # 3.01 X10^3/uL (2.7-7.7); Neutrophil % 67.3 % (47-70); Platelet Count 153 K/mm3 (150-450); RBC Distribution Width CV 17.4 % (11.6-14.6); RBC Distribution Width SD 61.6 fl (35.1-43.9); Red Blood Count 4.43 M/mm3 (4.6-6.2); White Blood Count 4.5 K/mm3 (4.4-11.0)
[2021-01-23] MEDS: Furosemide 40 MG/4 ML Vial IV ×3 (06:38→20:55)
[2021-01-23] MEDS: Ipratropium/Albuterol Sulfate 3 ML AMPUL.NEB INHALATION ×4 (06:52→21:17)
[2021-01-23 07:00] LABS: Bedside Glucose 119 mg/dL (70-110)
[2021-01-23 07:38] LABS: Anion Gap 5 (5-15); BUN 18 mg/dL (7-18); BUN/Creat Ratio 20.3 RATIO (10-20); Calcium,Total 8.7 mg/dL (8.5-10.1); Chloride 106 mmol/L (98-107); Creatinine, Serum 0.89 mg/dL (0.70-1.30); EST Glomerular Filtration Rate 90 mL/min (>60); Est Glom Filt Rate - Afr Amer 109 mL/min (>60); Estimated Creatinine Clearance 76.13 ml/min; Glucose 113 mg/dL (74-106); Potassium 3.9 mmol/L (3.5-5.1); Sodium Level 142 mmol/L (136-145)
[2021-01-23] MEDS: Metoprolol Tartrate 50 MG Tablet 150 MG PO (07:55)
[2021-01-23] MEDS: Primidone 50 MG Tablet 150 MG PO ×2 (07:56→16:35)
[2021-01-23] MEDS: Aspirin E.C. 81 MG Tablet PO (07:56)
[2021-01-23] MEDS: Famotidine 20 MG Tablet 40 MG PO (09:09)
[2021-01-23] MEDS: Montelukast 10 MG Tablet PO (09:09)
[2021-01-23] MEDS: Venlafaxine XR 150 MG Capsule PO (09:09)
[2021-01-23] MEDS: dilTIAZem CD 180 MG Capsule PO ×2 (09:09→20:55)
[2021-01-23] MEDS: Losartan Potassium 100 MG Tablet PO (09:09)
[2021-01-23] MEDS: Clopidogrel Bisulfate 75 MG Tablet PO (09:10)
[2021-01-23] MEDS: ENZALUTAMIDE 40 MG CAPSULE 160 MG PO (09:10)
[2021-01-23 11:31] LABS: Bedside Glucose 126 mg/dL (70-110)
--- NOTE | 2021-01-23 12:22 | CASEMGMT ---
This RN CM to room to complete CM assessment and pt is sleeping without distress. Pt does not awaken to knock on door or verbal stimuli. This RN CM will attempt again later. [place] RN CM
[2021-01-23] MEDS: Glucerna Shake 120 ML LIQUID PO (13:15)
--- NOTE | 2021-01-23 13:45 | CASEMGMT ---
DANIA THEODORE assessment: Face to Face with patient for initial transition planning/care coordination assessment. DANIA THEODORE introduced self and role at [facility], pt voices understanding and consents to assessment. Pt is sitting up in chair in no distress on 2L nc. Pt is A/Ox4 and answers questions appropriately. Care providers, pharmacy, and demographics verified. Presentation: sent by PCP for recent weight, increased SOB-hx CHF/COPD Admitting dx: CHF PCP: Colin Specialists: Rosi cardio Preferred Pharmacy: [facility] [place] Insurance: MCR A/B, MMO Prescription Benefit: Pt states does not have Rx insurance but declines difficulty with paying for meds. Living Will/HPOA: Pt states has LW/HPOA and is aware that they are on file at [facility]. Pt's , Milagros, is HPOA. LNOK: Milagros Cohen, Living Arrangements: Pt states lives with on main level of 2 story home with 2 steps in and states no concerns at home. Pt states is independent with ADL's. Transportation: Pt states drives self and states no transportation concerns. DME/HHC: Pt states has the following DME: w/c, cpap, and 2L nc continuous thru [employer]. Pt states no need for any further DME. Pt states no hx of HHC or SNF. Pt states no concerns with going home at time of discharge. Pt is retired. Pt states does not smoke cigarettes or drink ETOH. Pt states no further concerns/needs. CM to follow for increased home oxygen need and any further discharge planning/needs. Advised pt to ask for CM if any further questions/concerns/needs arise, voices understanding. Pt Goal: Home Plan: Home [place] DANIA THEODORE
--- NOTE | 2021-01-23 14:14 | PCM.PN.CARD ---
Subjective Subjective The patient is awake and alert. His main concern continues to be his progressive shortness of breath and dyspnea and orthopnea. His spouse is with him today and she states this is been progressively getting worse. Objective Data Vital Signs: Vital Signs Temp Pulse Resp BP Pulse Ox 98.1 F 85 20 H 113/77 95 01/23/21 09:07 01/23/21 10:57 01/23/21 10:57 01/23/21 09:07 01/23/21 09:07 Oxygen Flow Rate (L/min) 2 Oxygen Delivery Method Nasal Cannula Weight: 315 lb 0.649 oz Body Mass Index (BMI) 47.1 Intake & Output: Intake and Output for Last 24 Hours 01/21/21 01/22/21 01/23/21 23:59 23:59 23:59 Intake Total 400 / 520 640 / 640 Output Total 1200 / 1800 1550 / 1550 Balance -800 / -1280 -910 / -910 Lab / Micro Data Result Diagrams: 01/23/21 05:50 01/23/21 06:46 Labs: Laboratory Results - last 24 hr 01/22/21 01/22/21 01/22/21 13:50 13:50 16:29 WBC RBC Hgb Hct MCV MCH MCHC RDW Std Deviation RDW Coeff of Kayley Plt Count MPV Immature Gran % (Auto) Neut % (Auto) Lymph % (Auto) [place] % (Auto) Eos % (Auto) Baso % (Auto) Absolute Neuts (auto) Absolute Lymphs (auto) Nucleated RBC % PT INR Sodium 145 Potassium 4.7 Chloride 106 Carbon Dioxide 36.0 H Anion Gap 3 L BUN 21 H Creatinine 1.03 Estim Creat Clear Calc 65.78 Est GFR (MDRD) Af Amer 91 Est GFR (MDRD) Non-Af 76 BUN/Creatinine Ratio 20.4 H Glucose 106 Calcium 8.6 Total Bilirubin 0.40 AST 12 L ALT 22 Alkaline Phosphatase 63 Troponin I High Sens 132.1 H* B-Natriuretic Peptide 406.3 H Total Protein 6.4 Albumin 3.1 L Globulin 3.3 Albumin/Globulin Ratio 0.9 POC Glucose 139 H 01/22/21 01/22/21 01/22/21 16:44 16:44 18:31 WBC RBC Hgb Hct MCV MCH MCHC RDW Std Deviation RDW Coeff of Kayley Plt Count MPV Immature Gran % (Auto) Neut % (Auto) Lymph % (Auto) [place] % (Auto) Eos % (Auto) Baso % (Auto) Absolute Neuts (auto) Absolute Lymphs (auto) Nucleated RBC % PT 22.6 H INR 2.1 Sodium Potassium Chloride Carbon Dioxide Anion Gap BUN Creatinine Estim Creat Clear Calc Est GFR (MDRD) Af Amer Est GFR (MDRD) Non-Af BUN/Creatinine Ratio Glucose Calcium Total Bilirubin AST ALT Alkaline Phosphatase Troponin I High Sens 133.9 H* 141.0 H* B-Natriuretic Peptide Total Protein Albumin Globulin Albumin/Globulin Ratio POC Glucose 01/22/21 01/22/21 01/23/21 20:57 22:36 05:50 WBC 4.5 RBC 4.43 L Hgb 13.7 Hct 43.7 MCV 98.6 H MCH 30.9 MCHC 31.4 L RDW Std Deviation 61.6 H RDW Coeff of Kayley 17.4 H Plt Count 153 MPV 10.6 Immature Gran % (Auto) 0.200 Neut % (Auto) 67.3 Lymph % (Auto) 20.1 [place] % (Auto) 10.9 H Eos % (Auto) 1.1 Baso % (Auto) 0.4 Absolute Neuts (auto) 3.0 Absolute Lymphs (auto) 0.90 Nucleated RBC % 0 PT INR Sodium Potassium Chloride Carbon Dioxide Anion Gap BUN Creatinine Estim Creat Clear Calc Est GFR (MDRD) Af Amer Est GFR (MDRD) Non-Af BUN/Creatinine Ratio Glucose Calcium Total Bilirubin AST ALT Alkaline Phosphatase Troponin I High Sens 138.5 H* B-Natriuretic Peptide Total Protein Albumin Globulin Albumin/Globulin Ratio POC Glucose 108 01/23/21 01/23/21 01/23/21 05:50 06:42 06:46 WBC RBC Hgb Hct MCV MCH MCHC RDW Std Deviation RDW Coeff of Kayley Plt Count MPV Immature Gran % (Auto) Neut % (Auto) Lymph % (Auto) [place] % (Auto) Eos % (Auto) Baso % (Auto) Absolute Neuts (auto) Absolute Lymphs (auto) Nucleated RBC % PT INR Sodium Cancelled 142 Potassium Cancelled 3.9 Chloride Cancelled 106 Carbon Dioxide Cancelled 31.0 Anion Gap Cancelled 5 BUN Cancelled 18 Creatinine Cancelled 0.89 Estim Creat Clear Calc Cancelled 76.13 Est GFR (MDRD) Af Amer Cancelled 109 Est GFR (MDRD) Non-Af Cancelled 90 BUN/Creatinine Ratio Cancelled 20.3 H Glucose Cancelled 113 H Calcium Cancelled 8.7 Total Bilirubin AST ALT Alkaline Phosphatase Troponin I High Sens B-Natriuretic Peptide Total Protein Albumin Globulin Albumin/Globulin Ratio POC Glucose 119 H 01/23/21 10:57 WBC RBC Hgb Hct MCV MCH MCHC RDW Std Deviation RDW Coeff of Kayley Plt Count MPV Immature Gran % (Auto) Neut % (Auto) Lymph % (Auto) [place] % (Auto) Eos % (Auto) Baso % (Auto) Absolute Neuts (auto) Absolute Lymphs (auto) Nucleated RBC % PT INR Sodium Potassium Chloride Carbon Dioxide Anion Gap BUN Creatinine Estim Creat Clear Calc Est GFR (MDRD) Af Amer Est GFR (MDRD) Non-Af BUN/Creatinine Ratio Glucose Calcium Total Bilirubin AST ALT Alkaline Phosphatase Troponin I High Sens B-Natriuretic Peptide Total Protein Albumin Globulin Albumin/Globulin Ratio POC Glucose 126 H Micro: Microbiology 01/22/21 13:45 Mucosa - Nose SARS-CoV-2 Antigen (Rapid) - Final Cardiology Labs/Tests 01/22/21 13:50: Sodium 145, Potassium 4.7, Chloride 106, Carbon Dioxide 36.0 H, Anion Gap 3 L, BUN 21 H, Creatinine 1.03, Est GFR (MDRD) Af Amer 91, Est GFR (MDRD) Non-Af 76, BUN/Creatinine Ratio 20.4 H, Glucose 106, Calcium 8.6, Total Bilirubin 0.40 01/22/21 13:50: B-Natriuretic Peptide 406.3 H 01/22/21 16:44: PT 22.6 H, INR 2.1 01/23/21 05:50: WBC 4.5, RBC 4.43 L, Hgb 13.7, Hct 43.7, MCV 98.6 H, MCH 30.9, MCHC 31.4 L, Plt Count 153, MPV 10.6, Immature Gran % (Auto) 0.200, Neut % (Auto) 67.3, Lymph % (Auto) 20.1, [place] % (Auto) 10.9 H, Eos % (Auto) 1.1, Baso % (Auto) 0.4, Absolute Neuts (auto) 3.0, Nucleated RBC % 0 01/23/21 05:50: Sodium Cancelled, Potassium Cancelled, Chloride Cancelled, Carbon Dioxide Cancelled, Anion Gap Cancelled, BUN Cancelled, Creatinine Cancelled, Est GFR (MDRD) Af Amer Cancelled, Est GFR (MDRD) Non-Af Cancelled, BUN/Creatinine Ratio Cancelled, Glucose Cancelled, Calcium Cancelled 01/23/21 06:46: Sodium 142, Potassium 3.9, Chloride 106, Carbon Dioxide 31.0, Anion Gap 5, BUN 18, Creatinine 0.89, Est GFR (MDRD) Af Amer 109, Est GFR (MDRD) Non-Af 90, BUN/Creatinine Ratio 20.3 H, Glucose 113 H, Calcium 8.7 Rhythm: Atrial fibrillation EKG: Atrial fibrillation; inferior TX of indeterminate age cannot be excluded; nonspecific ST/T wave abnormality ECHO: Summary: Technically difficult study Contrast injection performed Left ventricle: Overall preserved LV wall motion systolic function with an estimated LVEF 55% Please see official/complete report Radiography Diagnostic Testing: Radiology Impression Chest X-Ray 01/22/21 14:20 IMPRESSION: Heavy markings seen in the lower right lung and changed since the previous exam.. Electronically Signed: Tracey Johnson, at 14:45 EDT Tel , Service support , Physical Exam Const alert, oriented x3 and no apparent distress Orientation / Consciousness: awake HEENT normocephalic and head/scalp atraumatic Eyes PERRL, EOMs intact bilaterally, conjunctivae normal and no scleral icterus Neck full ROM and supple Chest inspection of chest normal Resp Auscultation: wheezes expiratory wheezes, inspiratory wheezes and throughout (Appears less prominent at this time) and diminished lung sounds bilateral (Bases) lower Cardio Rhythm: abnormal rhythm irregularly irregular Heart Sounds: S1 normal and S2 normal GI normal to inspection, nondistended, normoactive bowel sounds Extremity General Extremity: edema bilateral lower extremity Details: mild Neuro oriented x3 Psych mental status grossly normal Assessment & Plan Assessment/Plan (1) Non-ST elevation myocardial infarction, initial hospitalization: PLAN: The patient has findings compatible with a non-ST segment elevation [place]. It is unclear whether this is a type I event versus a type II event from supply demand mismatch. The present time the patient will continue to be followed. He does limited transthoracic echocardiogram to reassess his left ventricular wall motion systolic function is as noted. Eventually he should be considered for further evaluation with diagnostic cardiac catheterization-once his underlying pulmonary status has improved and his anticoagulation status is appropriate. In the interim he will continue medical therapy as deemed appropriate. (2) Acute on chronic diastolic CHF (congestive heart failure): PLAN: The patient does appear to have findings compatible with CHF. It is presumed at the moment that this is acute on chronic diastolic mediated CHF. His limited transthoracic echocardiogram does not suggest diminished LV systolic function or LVEF (3) Chronic atrial fibrillation: PLAN: The patient appears to have a history of chronic/permanent atrial fibrillation. He has been on rate control therapy and anticoagulant therapy. His states that his PCP has been adjusting his anticoagulation recently based upon fluctuations in his INR levels. His medicines will need to be continued and adjusted as deemed appropriate in and around the time of his diagnostic studies. (4) HTN (hypertension): QUALIFIERS: Hypertension type: essential hypertension Qualified Code(s): I10 - Essential (primary) hypertension PLAN: The patient appears to have a history of hypertension. He will continue medical management. (5) COPD (chronic obstructive pulmonary disease): PLAN: The patient is also being evaluated for underlying COPD and a COPD exacerbation to his clinical course. He will continue evaluation and care per internal medicine. Addt'l Comments At the present time the patient will continue medical therapy. Once he has demonstrated clinical improvement from a respiratory standpoint and his anticoagulation status is appropriate then hopefully he will be able to undergo further evaluation with diagnostic cardiac catheterization. The above was discussed and reviewed with the patient, his spouse, and Dr. Webster. This note was generated using a voice recognition system and there may be incorrect words, spelling or punctuation that were not noted when reviewing the office note prior to saving.
--- NOTE | 2021-01-23 14:18 | CASEMGMT ---
[facility] palliative screen completed and pt qualifies for palliative referral. Dr. Webster aware and agreeable to referral. Order placed and palliative updated on referral. Jasen NAJERA CM
[2021-01-23] MEDS: Insulin Lispro 100 UNIT/ML INSULN.PEN SC (16:34)
[2021-01-23 17:01] LABS: Bedside Glucose 168 mg/dL (70-110)
--- NOTE | 2021-01-23 17:32 | PCM.PN.HOSP ---
Subjective Subjective Patient seen and examined. He feels a bit better. Still significant short of breath. Denied any chest pain or dizziness Objective Data Objective Data Vital Signs: Vital Signs Temp Pulse Resp BP Pulse Ox 98.0 F 87 18 138/47 H 94 01/23/21 15:15 01/23/21 15:15 01/23/21 15:15 01/23/21 15:15 01/23/21 15:15 Oxygen Flow Rate (L/min) 2 Oxygen Delivery Method Nasal Cannula Weight: 142.9 kg Body Mass Index (BMI) 47.1 Intake & Output: Intake and Output for Last 24 Hours 01/21/21 01/22/21 01/23/21 23:59 23:59 23:59 Intake Total 400 / 520 640 / 640 Output Total 1200 / 1800 1550 / 1550 Balance -800 / -1280 -910 / -910 Lab / Micro Data Result Diagrams: 01/23/21 05:50 01/23/21 06:46 Labs: Laboratory Results - last 24 hr 01/22/21 01/22/21 01/22/21 18:31 20:57 22:36 WBC RBC Hgb Hct MCV MCH MCHC RDW Std Deviation RDW Coeff of Kayley Plt Count MPV Immature Gran % (Auto) Neut % (Auto) Lymph % (Auto) [place] % (Auto) Eos % (Auto) Baso % (Auto) Absolute Neuts (auto) Absolute Lymphs (auto) Nucleated RBC % Sodium Potassium Chloride Carbon Dioxide Anion Gap BUN Creatinine Estim Creat Clear Calc Est GFR (MDRD) Af Amer Est GFR (MDRD) Non-Af BUN/Creatinine Ratio Glucose Calcium Troponin I High Sens 141.0 H* 138.5 H* POC Glucose 108 01/23/21 01/23/21 01/23/21 05:50 05:50 06:42 WBC 4.5 RBC 4.43 L Hgb 13.7 Hct 43.7 MCV 98.6 H MCH 30.9 MCHC 31.4 L RDW Std Deviation 61.6 H RDW Coeff of Kayley 17.4 H Plt Count 153 MPV 10.6 Immature Gran % (Auto) 0.200 Neut % (Auto) 67.3 Lymph % (Auto) 20.1 [place] % (Auto) 10.9 H Eos % (Auto) 1.1 Baso % (Auto) 0.4 Absolute Neuts (auto) 3.0 Absolute Lymphs (auto) 0.90 Nucleated RBC % 0 Sodium Cancelled Potassium Cancelled Chloride Cancelled Carbon Dioxide Cancelled Anion Gap Cancelled BUN Cancelled Creatinine Cancelled Estim Creat Clear Calc Cancelled Est GFR (MDRD) Af Amer Cancelled Est GFR (MDRD) Non-Af Cancelled BUN/Creatinine Ratio Cancelled Glucose Cancelled Calcium Cancelled Troponin I High Sens POC Glucose 119 H 01/23/21 01/23/21 01/23/21 06:46 10:57 16:33 WBC RBC Hgb Hct MCV MCH MCHC RDW Std Deviation RDW Coeff of Kayley Plt Count MPV Immature Gran % (Auto) Neut % (Auto) Lymph % (Auto) [place] % (Auto) Eos % (Auto) Baso % (Auto) Absolute Neuts (auto) Absolute Lymphs (auto) Nucleated RBC % Sodium 142 Potassium 3.9 Chloride 106 Carbon Dioxide 31.0 Anion Gap 5 BUN 18 Creatinine 0.89 Estim Creat Clear Calc 76.13 Est GFR (MDRD) Af Amer 109 Est GFR (MDRD) Non-Af 90 BUN/Creatinine Ratio 20.3 H Glucose 113 H Calcium 8.7 Troponin I High Sens POC Glucose 126 H 168 H Micro: Microbiology 01/22/21 13:45 Mucosa - Nose SARS-CoV-2 Antigen (Rapid) - Final Physical Exam Narrative Physical exam: General: Alert, Oriented x3, Cooperative, No apparent distress, Well developed, on 2 L of oxygen HEENT: Atraumatic Oral: Moist Mucosa Neck: Supple Lungs: Diminished, coarse crackles bilateral Cardiovascular: HS I+II, regular, no murmurs Abdomen: Bowel Sounds Present, Soft, Non Tender Extremities: Bilateral pedal edema +4 Assessment & Plan Assessment/Plan (1) COPD exacerbation: (2) Non-ST elevation myocardial infarction, initial hospitalization: (3) Acute on chronic diastolic CHF (congestive heart failure): (4) Prostate cancer: (5) HTN (hypertension): QUALIFIERS: Hypertension type: essential hypertension Qualified Code(s): I10 - Essential (primary) hypertension (6) Chronic respiratory failure: (7) Chronic diastolic CHF (congestive heart failure): (8) Chronic atrial fibrillation: (9) Diabetes mellitus, type 2: (10) COPD (chronic obstructive pulmonary disease): PLAN: 1. Acute on chronic diastolic CHF, continue on IV Lasix, CHF protocol 2. Acute COPD exacerbation, COVID-19 antigen negative Will continue with prn breathing treatments, IV Solu-Medrol, continue on oxygen 3. Acute NSTEMI, cardiology following, continue aspirin, statin, Plavix, Cardizem, metoprolol, losartan 4. COPD/chronic chronic atrial fibrillation respiratory failure/sleep apnea, continue on home 2 L oxygen as well as CPAP 5. Chronic atrial fibrillation, rate controlled, continue metoprolol and Cardizem, Coumadin on hold, recheck INR, Lovenox pending further evaluation for possible cardiac cath 6. Hypertension, continue home medication 7. Type II DM, blood sugars controlled, hold Metformin, continue with insulin sliding scale blood glucose check Charges/Coding Visit Charges Inpatient E&M: 56588 Subs Hosp L2
[2021-01-23 18:22] LABS: International Normalized Ratio 1.7; Prothrombin Time (Protime)PT. 19.4 SECONDS (11.7-14.9)
[2021-01-23] MEDS: Atorvastatin Calcium 10 MG Tablet PO (20:55)
[2021-01-23] MEDS: Enoxaparin 150 MG/ML Syringe SC (20:55)
[2021-01-23] MEDS: Metoprolol Tartrate 100 MG Tablet PO (20:59)
[2021-01-23] MEDS: 0.9% Saline Lock 10 ML Syringe IV (20:59)
[2021-01-23 22:21] LABS: Bedside Glucose 130 mg/dL (70-110)
[2021-01-24] VITALS (21 sets, daily range): BP systolic 120–153; BP diastolic 79–107; PULSE 67–124; RESP 16–20; TEMP 36.5–36.7; O2SAT 92–97
[2021-01-24 05:36] LABS: International Normalized Ratio 1.5; Prothrombin Time (Protime)PT. 17.8 SECONDS (11.7-14.9)
[2021-01-24 05:43] LABS: Anion Gap 5 (5-15); BUN 21 mg/dL (7-18); BUN/Creat Ratio 21.8 RATIO (10-20); Calcium,Total 8.3 mg/dL (8.5-10.1); Chloride 105 mmol/L (98-107); Creatinine, Serum 0.96 mg/dL (0.70-1.30); EST Glomerular Filtration Rate 82 mL/min (>60); Est Glom Filt Rate - Afr Amer 99 mL/min (>60); Estimated Creatinine Clearance 70.58 ml/min; Glucose 130 mg/dL (74-106); Potassium 3.3 mmol/L (3.5-5.1); Sodium Level 143 mmol/L (136-145)
[2021-01-24] MEDS: Aspirin E.C. 81 MG Tablet PO (06:03)
[2021-01-24] MEDS: dilTIAZem CD 180 MG Capsule PO ×2 (06:03→21:22)
[2021-01-24] MEDS: Clopidogrel Bisulfate 75 MG Tablet PO (06:04)
[2021-01-24] MEDS: Metoprolol Tartrate 50 MG Tablet 150 MG PO (06:04)
[2021-01-24] MEDS: Losartan Potassium 100 MG Tablet PO (06:08)
[2021-01-24 06:20] LABS: Bedside Glucose 125 mg/dL (70-110)
[2021-01-24] MEDS: Ipratropium/Albuterol Sulfate 3 ML AMPUL.NEB INHALATION ×4 (07:02→21:00)
[2021-01-24] MEDS: 0.9% Saline Lock 10 ML Syringe IV (08:25)
[2021-01-24] MEDS: Furosemide 40 MG/4 ML Vial IV ×3 (08:25→21:22)
[2021-01-24] MEDS: Potassium Chloride Oral Tablet 20 MEQ 60 MEQ PO (08:25)
[2021-01-24] MEDS: ENZALUTAMIDE 40 MG CAPSULE 160 MG PO (08:27)
[2021-01-24] MEDS: Primidone 50 MG Tablet 150 MG PO ×2 (08:27→16:51)
[2021-01-24] MEDS: Montelukast 10 MG Tablet PO (08:27)
[2021-01-24] MEDS: Famotidine 20 MG Tablet 40 MG PO (08:27)
[2021-01-24] MEDS: Venlafaxine XR 150 MG Capsule PO (08:27)
--- NOTE | 2021-01-24 09:10 | PN.CARD_ITS ---
Subjective Subjective The patient is awake and alert. He believes his breathing has improved overall and feels more comfortable lying supine, however, he still is chronically short of breath and still has chronic wheezing. He appears to require O2 as on room air his O2 sat appears to drop well below 90%. Objective Data Vital Signs: Vital Signs Temp Pulse Resp BP Pulse Ox 97.8 F 94 16 147/102 H 95 01/24/21 06:09 01/24/21 07:00 01/24/21 06:09 01/24/21 06:09 01/24/21 06:09 Oxygen Flow Rate (L/min) 2 Oxygen Delivery Method Nasal Cannula Weight: 314 lb 13.121 oz Body Mass Index (BMI) 47.1 Intake & Output: Intake and Output for Last 24 Hours 01/22/21 01/23/21 01/24/21 23:59 23:59 23:59 Intake Total 400 / 520 840 / 940 100 / 100 Output Total 1200 / 1800 1925 / 2825 1150 / 1150 Balance -800 / -1280 -1085 / -1885 -1050 / -1050 Lab / Micro Data Result Diagrams: 01/23/21 05:50 01/24/21 05:10 Labs: Laboratory Results - last 24 hr 01/23/21 01/23/21 01/23/21 10:57 16:33 18:08 PT 19.4 H INR 1.7 Sodium Potassium Chloride Carbon Dioxide Anion Gap BUN Creatinine Estim Creat Clear Calc Est GFR (MDRD) Af Amer Est GFR (MDRD) Non-Af BUN/Creatinine Ratio Glucose Calcium POC Glucose 126 H 168 H 01/23/21 01/24/21 01/24/21 20:51 05:10 05:10 PT 17.8 H INR 1.5 Sodium 143 Potassium 3.3 L Chloride 105 Carbon Dioxide 33.0 H Anion Gap 5 BUN 21 H Creatinine 0.96 Estim Creat Clear Calc 70.58 Est GFR (MDRD) Af Amer 99 Est GFR (MDRD) Non-Af 82 BUN/Creatinine Ratio 21.8 H Glucose 130 H Calcium 8.3 L POC Glucose 130 H 01/24/21 06:07 PT INR Sodium Potassium Chloride Carbon Dioxide Anion Gap BUN Creatinine Estim Creat Clear Calc Est GFR (MDRD) Af Amer Est GFR (MDRD) Non-Af BUN/Creatinine Ratio Glucose Calcium POC Glucose 125 H Micro: Microbiology 01/22/21 13:45 Mucosa - Nose SARS-CoV-2 Antigen (Rapid) - Final Cardiology Labs/Tests 01/23/21 18:08: PT 19.4 H, INR 1.7 01/24/21 05:10: Sodium 143, Potassium 3.3 L, Chloride 105, Carbon Dioxide 33.0 H , Anion Gap 5, BUN 21 H, Creatinine 0.96, Est GFR (MDRD) Af Amer 99, Est GFR (MDRD) Non-Af 82, BUN/Creatinine Ratio 21.8 H, Glucose 130 H, Calcium 8.3 L 01/24/21 05:10: PT 17.8 H, INR 1.5 Rhythm: Atrial fibrillation Physical Exam Const alert, oriented x3 and no apparent distress Orientation / Consciousness: awake HEENT normocephalic and head/scalp atraumatic Eyes PERRL, EOMs intact bilaterally, conjunctivae normal and no scleral icterus Neck full ROM and supple Chest inspection of chest normal Resp Auscultation: wheezes expiratory wheezes, inspiratory wheezes and throughout (Appears less prominent at this time) and diminished lung sounds bilateral (Bases) lower Cardio Rhythm: abnormal rhythm irregularly irregular Heart Sounds: S1 normal and S2 normal GI normal to inspection, nondistended, normoactive bowel sounds Extremity General Extremity: edema bilateral lower extremity Details: mild Neuro oriented x3 Psych mental status grossly normal Assessment & Plan Assessment/Plan (1) Non-ST elevation myocardial infarction, initial hospitalization: PLAN: The patient has findings compatible with a non-ST segment elevation [place]. It is unclear whether this is a type I event versus a type II event from supply demand mismatch. The present time the patient will continue to be followed. His limited transthoracic echocardiogram to reassess his left ventricular wall motion systolic function is as noted. An attempt will be made to proceed with diagnostic cardiac catheterization as he does appear to be improved from a respiratory standpoint to further assist with concerns of a non-ST segment elevation DC and his underlying CAD status. In the interim he will continue medical therapy as deemed appropriate. (2) Acute on chronic diastolic CHF (congestive heart failure): PLAN: The patient does appear to have findings compatible with CHF. It is presumed at the moment that this is acute on chronic diastolic mediated CHF. His limited transthoracic echocardiogram does not suggest diminished LV systolic function or LVEF (3) Chronic atrial fibrillation: PLAN: The patient appears to have a history of chronic/permanent atrial fibrillation. He has been on rate control therapy and anticoagulant therapy. His states that his PCP has been adjusting his anticoagulation recently based upon fluctuations in his INR levels. His medicines will need to be continued and adjusted as deemed appropriate in and around the time of his diagnostic studies. (4) HTN (hypertension): QUALIFIERS: Hypertension type: essential hypertension Qualified Code(s): I10 - Essential (primary) hypertension PLAN: The patient appears to have a history of hypertension. He will continue medical management. (5) COPD (chronic obstructive pulmonary disease): PLAN: The patient is also being evaluated for underlying COPD and a COPD exacerbation to his clinical course. He will continue evaluation and care per internal medicine. Addt'l Comments The patient's case has been discussed and reviewed with the patient and Dr. Webster. This note was generated using a voice recognition system and there may be incorrect words, spelling or punctuation that were not noted when reviewing the office note prior to saving.
[2021-01-24] MEDS: 0.9% Normal Saline 1,000 ML 15 ML IV (11:40)
--- NOTE | 2021-01-24 11:49 | NURSING ---
Gave report to Jaleesa NAJERA in [employer]
[2021-01-24 11:50] LABS: Bedside Glucose 122 mg/dL (70-110)
[2021-01-24] MEDS: 0.9% Normal Saline 1,000 ML 50 ML IV (13:12)
--- NOTE | 2021-01-24 13:14 | CL.D_ITS ---
Patient Name: CRYSTAL PANTOJA Study Date: 01/24/2021 Performing: Hang Aranda MD Ht: 69 inches 175 cm : 1950 Wt: 315.7 lbs 143 kg Age: 70 Gender: male BSA: 2.5 PROCEDURE(S) PERFORMED [id number] CLINICAL PROFILE AND INDICATIONS Indications: Suspected CAD Heart Failure: NYHA Class: 3, Newly Diagnosed: Yes, Heart Failure Type: Diastolic Stress/Imaging Stress/Image Study Performed: No Angina Classification Anginal Classification w/in 2 Weeks: Anginal Equivalent Dyspnea CAD Presentations: Non-STEMI. CONCLUSIONS Elevated Left Ventricular End Diastolic Pressure Global LV systolic dysfunction- Mild LVEF: by LV gram 40 % Normal coronary arteries RECOMMENDATIONS Risk factor modification Medical therapy DESCRIPTION OF PROCEDURE The patient arrived to the procedure lab. The risks and benefits of the procedure as well as a full d escription of our services here and current unavailability of surgical backup were fully explained to the patient and/or their significant other prior to the catheterization. The Timeout was completed, verifying the correct patient and procedure. The patient's procedural site was prepped and draped in the usual fashion. Local anesthetic was given subcutaneously to right radial region with Lidocaine 2% . Using a modified Seldinger technique, arterial access was obtained via the right radial artery, a 6 Fr sheath was inserted. Right Coronary Artery selective angiography was then performed in multiple v iews using a 5 Fr. 4.0 Arrington catheter. Left Coronary Artery selective angiography was performed in mu ltiple views using a 5 Fr. JL3.5 catheter. Left Ventriculography was performed in HOBBS projection usin g a 5 Fr. Pigtail catheter. LV to AO pullback pressures were then recorded.The arterial sheath was pulled and a TR Band was applied for hemostasis. 2cm hematoma noted proximal to band. 10cc of air applied CORONARY ANGIOGRAPHY DOMINANCE: Co- Dominant LEFT HEART ASSESSMENT Left Ventricular Ejection Fraction: by LV Gram 40 % Global Hypokinesis - Mild Elevated Left Ventricular End Diastolic Pressure LVEDP: 19 mmHg LEFT MAIN: Angiographically normal LEFT ANTERIOR DESCENDING ARTERY: Angiographically normal CIRCUMFLEX ARTERY: Angiographically normal RIGHT CORONARY ARTERY: Angiographically normal AORTIC ROOT: Angiographically normal COMPLICATIONS No Complications PROCEDURE MEDICATIONS Fentanyl 50 mcg IV Versed 1 mg IV Oxygen: 2 L/min via nasal cannula Oxygen: 4 L/min via nasal cannula Heparin given IA 01/24/2021 12:32:28 Verapamil 2.5mg, Ntg 100mcgs, 3000 units of Heparin given IA 01/24/2021 12:32:28 SUMMARY OF HEMODYNAMIC DATA Time AIR REST ECG 12:15:48 AO 134/90 (114) SA 12:35:23 LV 156/15, 28 12:45:02 LV 152/11, 19 12:45:09 LV 153/17, 29 12:46:44 LVp 151/10, 34 12:46:51 AOp 156/108 (128) 12:46:56 Signed By Hang Aranda MD On 01/24/2021 13:13:26 Hang Aranda MD
[2021-01-24] MEDS: Glucerna Shake 120 ML LIQUID PO (13:15)
[2021-01-24] MEDS: Isosorbide Mononitrate 30 MG Tablet PO (13:15)
--- NOTE | 2021-01-24 14:47 | PCM.PN.HOSP ---
Subjective Subjective Patient was seen and examined. Had a cardiac cath today; his coronary arteries were unremarkable. No other acute events Objective Data Objective Data Vital Signs: Vital Signs Temp Pulse Resp BP Pulse Ox 98.0 F 76 18 122/79 H 92 01/24/21 11:30 01/24/21 14:20 01/24/21 14:20 01/24/21 14:20 01/24/21 14:20 Oxygen Flow Rate (L/min) 2 Oxygen Delivery Method Nasal Cannula Weight: 142.8 kg Body Mass Index (BMI) 47.1 Intake & Output: Intake and Output for Last 24 Hours 01/22/21 01/23/21 01/24/21 23:59 23:59 23:59 Intake Total 400 / 520 840 / 940 302.75 / 302.75 Output Total 1200 / 1800 1925 / 2825 1150 / 1150 Balance -800 / -1280 -1085 / -1885 -847.25 / -847.25 Lab / Micro Data Result Diagrams: 01/23/21 05:50 01/24/21 05:10 Labs: Laboratory Results - last 24 hr 01/23/21 01/23/21 01/23/21 16:33 18:08 20:51 PT 19.4 H INR 1.7 Sodium Potassium Chloride Carbon Dioxide Anion Gap BUN Creatinine Estim Creat Clear Calc Est GFR (MDRD) Af Amer Est GFR (MDRD) Non-Af BUN/Creatinine Ratio Glucose Calcium POC Glucose 168 H 130 H 01/24/21 01/24/21 01/24/21 05:10 05:10 06:07 PT 17.8 H INR 1.5 Sodium 143 Potassium 3.3 L Chloride 105 Carbon Dioxide 33.0 H Anion Gap 5 BUN 21 H Creatinine 0.96 Estim Creat Clear Calc 70.58 Est GFR (MDRD) Af Amer 99 Est GFR (MDRD) Non-Af 82 BUN/Creatinine Ratio 21.8 H Glucose 130 H Calcium 8.3 L POC Glucose 125 H 01/24/21 11:29 PT INR Sodium Potassium Chloride Carbon Dioxide Anion Gap BUN Creatinine Estim Creat Clear Calc Est GFR (MDRD) Af Amer Est GFR (MDRD) Non-Af BUN/Creatinine Ratio Glucose Calcium POC Glucose 122 H Micro: Microbiology 01/22/21 13:45 Mucosa - Nose SARS-CoV-2 Antigen (Rapid) - Final Physical Exam Narrative Physical exam: General: Alert, Oriented x3, Cooperative, No apparent distress, Well developed, on 2 L of oxygen HEENT: Atraumatic Oral: Moist Mucosa Neck: Supple Lungs: Diminished, coarse crackles bilateral Cardiovascular: HS I+II, regular, no murmurs Abdomen: Bowel Sounds Present, Soft, Non Tender Extremities: Bilateral pedal edema +4 Assessment & Plan Assessment/Plan (1) COPD exacerbation: (2) Non-ST elevation myocardial infarction, initial hospitalization: (3) Acute on chronic diastolic CHF (congestive heart failure): (4) Prostate cancer: (5) HTN (hypertension): QUALIFIERS: Hypertension type: essential hypertension Qualified Code(s): I10 - Essential (primary) hypertension (6) Chronic respiratory failure: (7) Chronic diastolic CHF (congestive heart failure): (8) Chronic atrial fibrillation: (9) Diabetes mellitus, type 2: (10) COPD (chronic obstructive pulmonary disease): PLAN: 1. Acute on chronic diastolic CHF, slowly improving Patient is diuresing; continue on IV Lasix, CHF protocol 2. Acute COPD exacerbation,,mild, COVID-19 antigen negative Not on Solu-medrol because of general improvement Will continue with prn breathing treatments 3. Acute NSTEMI, Status post cardiac cath with clean coronaries, Cardiology following, continue aspirin, statin, Plavix, Cardizem, metoprolol, losartan 4. COPD/chronic chronic atrial fibrillation respiratory failure/sleep apnea, continue on home 2 L oxygen as well as CPAP 5. Chronic atrial fibrillation, rate controlled, continue metoprolol and Cardizem, Will resume coumadin, recheck INR, Lovenox pending further evaluation for possible cardiac cath 6. Hypertension, controlled 7. Type II DM, blood sugars controlled, hold Metformin, continue with insulin sliding scale blood glucose check Charges/Coding Visit Charges Inpatient E&M: 04241 Subs Hosp L2
--- NOTE | 2021-01-24 15:13 | PCM.CONS.P ---
Assessment & Plan Assessment/Plan (1) Shortness of breath: (2) COPD exacerbation: (3) Non-ST elevation myocardial infarction, initial hospitalization: (4) Acute on chronic diastolic CHF (congestive heart failure): (5) Prostate cancer: (6) Personal history of malignant melanoma: (7) COPD (chronic obstructive pulmonary disease): QUALIFIERS: COPD type: unspecified COPD Qualified Code(s): J44.9 - Chronic obstructive pulmonary disease, unspecified (8) Diabetes mellitus, type 2: QUALIFIERS: Diabetes mellitus intermodal dispatcher insulin use: without intermodal dispatcher use (9) Chronic atrial fibrillation: (10) Chronic respiratory failure: QUALIFIERS: Respiratory failure complication: hypoxia Qualified Code(s): J96.11 - Chronic respiratory failure with hypoxia (11) HTN (hypertension): QUALIFIERS: Hypertension type: essential hypertension Qualified Code(s): I10 - Essential (primary) hypertension PLAN: 70-year-old male with acute on chronic diastolic CHF exacerbation and COPD exacerbation, seen today for initial palliative care consultation secondary to recurrent admissions and uncontrolled symptoms. He was recently discharged from the hospital on supplemental oxygen. 1. Shortness of breath: Again, multifactorial. Goal is to control symptoms with treating underlying etiologies. No indication for opioids to assist with shortness of breath at this time. Goal is to avoid rehospitalizations, improve quality of life, control symptoms. 2. Diastolic CHF: Second exacerbation in the last 2 months. Supplemental oxygen. Cardiology following. Monitor symptoms closely 3. Non-STEMI/COPD exacerbation/history of malignant melanoma/prostate cancer/T2DM/chronic A. fib/chronic hypoxemic respiratory failure on supplemental oxygen at home/HTN: Complicates overall care, management, recovery, and prognosis. Defer management. Cardiac cath negative. On triple therapy inhalers. Anticoagulated on Eliquis. Goal of rate control. Will assist with symptom management. Thank you for the opportunity to participate in this patient's care, please do not hesitate to contact [facility] with any further questions or concerns. Palliative direct line is [phone]. We will follow up after discharge and will discuss palliative services further at that time. Greater than 50% of F2F visit dedicated to education and counseling of palliative care services, medications, comorbid conditions and potential assistance with management, and plan of care moving forward. Start time: 1511 End time: 1545 HPI Consult Data Date of Consult: 01/24/21 HPI Narrative HPI Narrative: CRYSTAL PANTOJA, is a 70 M who presents to [facility] 01/22/2021 with acute on chronic diastolic CHF exacerbation. Patient had progressive shortness of breath over the course of about 2 weeks associated with about 10 pound weight gain. He was admitted to the progressive care unit for further evaluation and management. Patient had an acute non-STEMI s/p heart catheterization 01/24 which showed angiographically normal vessels. He is also being treated for COPD exacerbation with breathing treatments, IV Solu-Medrol, oxygen. He does wear home oxygen at 2 L as well as CPAP. Patient was also admitted 12/13- 12/16/2020 for COPD exacerbation and hypoxemia. He actually was in the surgical waiting area and was sent by Dr. Donahue to the ER, he was to have a left lower lip lesion removed but was having breathing issues. He also was treated for with IV diuresis, had difficulty with rate control at that time. Patient lives at home with his in a two-story home, 2 steps to enter but no difficulties or concerns. He is independent with ADLs. He still drives. DME in the home include a wheelchair, CPAP, 2 L of oxygen through [employer]. His healthcare power of family law attorney is his , Milagros. He is retired and lives in [place], [place]. He reportedly does not have any prescription insurance. He uses [facility] pharmacy in [place]. Discussed his chronic comorbid conditions and different ways to help control his symptoms. He does have some shortness of breath, especially with exertion. He just returned from the bathroom and is wheezing. His breathing is mildly labored. Not really coughing or bringing up anything. His legs are wrapped with Shilo bandages. States he has been wearing compression stockings at home, which has been helping with the swelling. Patient does appear more interested in watching the western on his TV than speaking about his chronic conditions and palliative care. Otherwise, he is pleasant and cooperative. Denies any nausea, vomiting, diarrhea, constipation. No abdominal pain. No neuropathy symptoms. 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, vermilion border Prostate cancer Skin cancer Sleep apnea Home Medications atorvastatin 10 mg tablet 10 mg PO DAILY 06/21/19 [History Last Taken 01/21/21] calcium carbonate 600 mg calcium (1,500 mg) tablet 600 mg PO DAILY 06/21/19 [History Last Taken 01/21/21] leuprolide (6 month) 45 mg intramuscular syringe kit 45 mg IM [id number] 06/21/19 [History Last Taken 5 Months Ago ~08/24/20] metformin 500 mg tablet,extended release 24 hr 500 mg PO QHS 06/21/19 [History Last Taken 01/21/21] venlafaxine 150 mg capsule,extended release 24 hr 150 mg PO DAILY 06/21/19 [History Last Taken 01/22/21] primidone 50 mg tablet 150 mg PO BID tablet 10/22/20 [History Last Taken 01/22/21] aspirin 81 mg PO DAILY 11/07/20 [History Last Taken 01/16/21] famotidine 40 mg PO DAILY 11/07/20 [History Last Taken 01/22/21] montelukast 10 mg PO DAILY 11/07/20 [History Last Taken 01/22/21] warfarin 6 mg PO MOWEFRSA 11/07/20 [History Last Taken 01/21/21] Trelegy Ellipta 1 inh INHALATION BID 12/13/20 [History Last Taken 01/22/21] losartan 100 mg PO DAILY 12/13/20 [History Last Taken 01/22/21] diltiazem HCl 180 mg PO BID 01/22/21 [History Last Taken 01/22/21] enzalutamide [Xtandi] 160 mg PO DAILY 01/22/21 [History Last Taken 01/22/21] furosemide [Lasix] 40 mg PO BID 01/22/21 [History Last Taken 01/22/21] metoprolol tartrate 100 mg PO QHS 01/22/21 [History Last Taken 01/21/21] metoprolol tartrate 150 mg PO BREAKFAST 01/22/21 [History Last Taken 01/22/21] multivitamin 1 tab PO DAILY 01/22/21 [History Last Taken 01/21/21] potassium chloride 20 meq PO BID 01/22/21 [History Last Taken 01/22/21] warfarin 3 mg PO SUTUTH 01/22/21 [History Last Taken 01/20/21] apixaban [Eliquis] 5 mg PO BID #60 tab 01/24/21 [Rx Last Taken Unknown] Allergy/AdvReac Type Severity Reaction Status Date / Time No Known Allergies Allergy Verified 01/22/21 12:50 Family History Sister Breast cancer Brother Lung cancer Daughter Melanoma Surgical History History of hip replacement History of melanoma excision Social History Smoking Status: Former smoker alcohol intake: never substance use type: does not use additional social history: DOES USE ASPIRIN DOES NOT USE IBUPROFEN ROS ROS Narrative Review of systems otherwise negative from a constitutional, HEENT, respiratory, cardiovascular, GI, genitourinary, musculoskeletal, skin, neurologic, psychiatric and hematologic system unless stated above. Physical Exam Const alert, oriented x3 and no apparent distress General Appearance: cooperative Exam Limitations: physical limitations Nutritional Appearance: morbidly obese HEENT normocephalic and head/scalp atraumatic HEENT Narrative: large neck circumference Neck supple General: trachea midline Resp Effort and Inspection: symmetric chest movement Auscultation: wheezes expiratory wheezes, upper bilaterally, anterior and posterior and diminished lung sounds; Negative for rales or rhonchi Cardio regular rate, regular rhythm, S1 normal heart sound and S2 normal heart sound GI Inspection: abdominal distention Auscultation: normoactive bowel sounds Palpation: soft; Negative for tender Extremity General Extremity: edema bilateral lower extremity; Negative for clubbing or cyanosis Skin no rashes or lesions noted Neuro CN's II-XII intact bilaterally and no focal motor deficits Psych mental status grossly normal Activity / Motor Behavior: other appears more interested in TV show than talking about palliative and his chronic conditions Memory / Cognition: memory grossly intact Insight: fair
[2021-01-24 16:15] LABS: Bedside Glucose 123 mg/dL (70-110)
[2021-01-24] MEDS: Budesonide Respules 0.5 MG/2 ML AMPUL.NEB. INHALATION (21:00)
[2021-01-24] MEDS: Atorvastatin Calcium 10 MG Tablet PO (21:22)
[2021-01-24] MEDS: Carvedilol 12.5 MG Tablet PO (21:22)
[2021-01-24 22:15] LABS: Bedside Glucose 118 mg/dL (70-110)
[2021-01-25 03:00] VITALS: BP 148/104; PULSE 105; PULSE 90; RESP 18; TEMP 36.4; O2SAT 96
[2021-01-25] MEDS: Glucerna Shake 120 ML LIQUID PO (06:04)
[2021-01-25] MEDS: Furosemide 40 MG/4 ML Vial IV (06:04)
[2021-01-25 06:32] VITALS: PULSE 121
[2021-01-25 06:37] LABS: Absolute Lymphocyte Count 0.97 X10^3/uL (0.83-4.51); Absolute Neutrophil Count 2.8 X10^3/uL (2.0-7.7); Basophil# 0.01 X10^3/uL; Basophil% 0.2 % (0-1); Eosinophil# 0.07 X10^3/uL; Eosinophils% 1.6 % (0-5); Hemoglobin 13.6 g/dL (13.0-16.5); Lymphocyte # 0.97 X10^3/ul (0.83-4.51); Lymphocyte % 22.7 % (19-41); Mean Corp Hgb Conc 31.6 g/dL (32-36); Mean Corpuscular Hgb 31.1 pg (27.0-32.0); Mean Corpuscular Volume 98.4 fL (80-94); Mean Platelet Vol. 10.1 fl (6.2-12.0); Monocyte# 0.42 X10^3/uL; Monocyte% 9.8 % (0-10); NRBC Flagged by Analyzer 0 % (0-5); Neutrophil # 2.79 X10^3/uL (2.7-7.7); Neutrophil % 65.5 % (47-70); Platelet Count 144 K/mm3 (150-450); RBC Distribution Width CV 17.2 % (11.6-14.6); RBC Distribution Width SD 62.2 fl (35.1-43.9); Red Blood Count 4.37 M/mm3 (4.6-6.2); White Blood Count 4.3 K/mm3 (4.4-11.0)
[2021-01-25 06:43] LABS: International Normalized Ratio 1.3; Prothrombin Time (Protime)PT. 15.5 SECONDS (11.7-14.9)
[2021-01-25 07:02] LABS: AST(SGOT) 13 U/L (15-37); Alanine Aminotransfer ALT/SGPT 18 U/L (16-61); Albumin, Serum 3.2 g/dL (3.2-5.0); Alkaline Phosphatase 58 U/L (45-117); Anion Gap 3 (5-15); BUN 17 mg/dL (7-18); BUN/Creat Ratio 18.5 RATIO (10-20); Calcium,Total 8.9 mg/dL (8.5-10.1); Chloride 104 mmol/L (98-107); Creatinine, Serum 0.92 mg/dL (0.70-1.30); EST Glomerular Filtration Rate 86 mL/min (>60); Est Glom Filt Rate - Afr Amer 104 mL/min (>60); Estimated Creatinine Clearance 73.65 ml/min; Globulin 3.2 g/dL (2.2-4.2); Glucose 111 mg/dL (74-106); Potassium 3.7 mmol/L (3.5-5.1); Protein, Total 6.4 g/dL (6.4-8.2); Sodium Level 143 mmol/L (136-145)
[2021-01-25 07:36] VITALS: PULSE 119; RESP 16; O2SAT 93
[2021-01-25] MEDS: Ipratropium/Albuterol Sulfate 3 ML AMPUL.NEB INHALATION ×2 (07:36→11:18)
[2021-01-25] MEDS: Budesonide Respules 0.5 MG/2 ML AMPUL.NEB. INHALATION (07:36)
[2021-01-25] MEDS: Primidone 50 MG Tablet 150 MG PO (07:53)
[2021-01-25] MEDS: Aspirin E.C. 81 MG Tablet PO (07:54)
[2021-01-25 08:59] VITALS: BP 157/100; PULSE 76; RESP 18; TEMP 36.5; O2SAT 96
[2021-01-25] MEDS: Losartan Potassium 100 MG Tablet PO (09:00)
[2021-01-25] MEDS: Famotidine 20 MG Tablet 40 MG PO (09:00)
[2021-01-25] MEDS: Isosorbide Mononitrate 30 MG Tablet PO (09:00)
[2021-01-25] MEDS: Carvedilol 12.5 MG Tablet PO (09:00)
[2021-01-25] MEDS: Montelukast 10 MG Tablet PO (09:00)
[2021-01-25] MEDS: Venlafaxine XR 150 MG Capsule PO (09:00)
[2021-01-25] MEDS: dilTIAZem CD 180 MG Capsule PO (09:01)
[2021-01-25] MEDS: ENZALUTAMIDE 40 MG CAPSULE 160 MG PO (09:01)
--- NOTE | 2021-01-25 09:38 | PN.CARD_ITS ---
Subjective Subjective The patient is feeling better today. He states he has not is raspy or is wheezy. Objective Data Vital Signs: Vital Signs Temp Pulse Resp BP Pulse Ox 97.7 F L 76 18 157/100 H 96 01/25/21 08:59 01/25/21 08:59 01/25/21 08:59 01/25/21 08:59 01/25/21 08:59 Oxygen Flow Rate (L/min) 2 Oxygen Delivery Method Nasal Cannula Weight: 310 lb 13.628 oz Body Mass Index (BMI) 47.1 Intake & Output: Intake and Output for Last 24 Hours 01/23/21 01/24/21 01/25/21 23:59 23:59 23:59 Intake Total 840 / 940 1296.92 / 1396.92 100 / 100 Output Total 1925 / 2825 2050 / 2650 950 / 950 Balance -1085 / -1885 -753.08 / -1253.08 -850 / -850 Lab / Micro Data Result Diagrams: 01/25/21 06:19 01/25/21 06:19 Labs: Laboratory Results - last 24 hr 01/24/21 01/24/21 01/24/21 11:29 16:08 21:20 WBC RBC Hgb Hct MCV MCH MCHC RDW Std Deviation RDW Coeff of Kayley Plt Count MPV Immature Gran % (Auto) Neut % (Auto) Lymph % (Auto) [place] % (Auto) Eos % (Auto) Baso % (Auto) Absolute Neuts (auto) Absolute Lymphs (auto) Nucleated RBC % PT INR Sodium Potassium Chloride Carbon Dioxide Anion Gap BUN Creatinine Estim Creat Clear Calc Est GFR (MDRD) Af Amer Est GFR (MDRD) Non-Af BUN/Creatinine Ratio Glucose Calcium Total Bilirubin AST ALT Alkaline Phosphatase Total Protein Albumin Globulin Albumin/Globulin Ratio POC Glucose 122 H 123 H 118 H 01/25/21 01/25/21 01/25/21 06:19 06:19 06:19 WBC 4.3 L RBC 4.37 L Hgb 13.6 Hct 43.0 MCV 98.4 H MCH 31.1 MCHC 31.6 L RDW Std Deviation 62.2 H RDW Coeff of Kayley 17.2 H Plt Count 144 L MPV 10.1 Immature Gran % (Auto) 0.200 Neut % (Auto) 65.5 Lymph % (Auto) 22.7 [place] % (Auto) 9.8 Eos % (Auto) 1.6 Baso % (Auto) 0.2 Absolute Neuts (auto) 2.8 Absolute Lymphs (auto) 0.97 Nucleated RBC % 0 PT 15.5 H INR 1.3 Sodium 143 Potassium 3.7 Chloride 104 Carbon Dioxide 36.0 H Anion Gap 3 L BUN 17 Creatinine 0.92 Estim Creat Clear Calc 73.65 Est GFR (MDRD) Af Amer 104 Est GFR (MDRD) Non-Af 86 BUN/Creatinine Ratio 18.5 Glucose 111 H Calcium 8.9 Total Bilirubin 0.50 AST 13 L ALT 18 Alkaline Phosphatase 58 Total Protein 6.4 Albumin 3.2 Globulin 3.2 Albumin/Globulin Ratio 1.0 POC Glucose Micro: Microbiology 01/22/21 13:45 Mucosa - Nose SARS-CoV-2 Antigen (Rapid) - Final Cardiology Labs/Tests 01/25/21 06:19: WBC 4.3 L, RBC 4.37 L, Hgb 13.6, Hct 43.0, MCV 98.4 H, MCH 31.1, MCHC 31.6 L, Plt Count 144 L, MPV 10.1, Immature Gran % (Auto) 0.200, Neut % (Auto) 65.5, Lymph % (Auto) 22.7, [place] % (Auto) 9.8, Eos % (Auto) 1.6, Baso % (Auto) 0.2, Absolute Neuts (auto) 2.8, Nucleated RBC % 0 01/25/21 06:19: Sodium 143, Potassium 3.7, Chloride 104, Carbon Dioxide 36.0 H, Anion Gap 3 L, BUN 17, Creatinine 0.92, Est GFR (MDRD) Af Amer 104, Est GFR (MDRD) Non-Af 86, BUN/Creatinine Ratio 18.5, Glucose 111 H, Calcium 8.9, Total Bilirubin 0.50 01/25/21 06:19: PT 15.5 H, INR 1.3 Rhythm: Atrial fibrillation Physical Exam Const alert, oriented x3 and no apparent distress Orientation / Consciousness: awake HEENT normocephalic and head/scalp atraumatic Eyes PERRL, EOMs intact bilaterally, conjunctivae normal and no scleral icterus Neck full ROM and supple Chest inspection of chest normal Resp Resp Narrative: Respiratory examination appears improved compared to the prior examination Auscultation: diminished lung sounds bilateral (Bases) lower Cardio Rhythm: abnormal rhythm irregularly irregular Heart Sounds: S1 normal and S2 normal GI normal to inspection, nondistended, normoactive bowel sounds Extremity General Extremity: edema bilateral lower extremity Details: mild Neuro oriented x3 Psych mental status grossly normal Assessment & Plan Assessment/Plan (1) Non-ST elevation myocardial infarction, initial hospitalization: PLAN: The patient has findings compatible with a non-ST segment elevation CT. Based upon his cardiac catheterization demonstrating no angiographically significant appearing CAD it appears this is a type II event. His cardiac catheterization also suggested a diminished LV systolic function with an estimated LVEF of approximately 40%. He will continue medical therapy. The present time the patient will continue to be followed. . (2) Acute on chronic diastolic CHF (congestive heart failure): PLAN: The patient does appear to have findings compatible with CHF. Based upon his cardiac catheterization there appears to be an element of dim inished LV systolic function as well. Thus he may have a combination of both systolic and diastolic mediated CHF. He will continue medical therapy. (3) Chronic atrial fibrillation: PLAN: The patient appears to have a history of chronic/permanent atrial fibrillation. He has been on rate control therapy and anticoagulant therapy. His states that his PCP has been adjusting his anticoagulation recently based upon fluctuations in his INR levels. His medicines will need to be continued and adjusted as deemed appropriate in and around the time of his diagnostic studies. (4) HTN (hypertension): QUALIFIERS: Hypertension type: essential hypertension Qualified Code(s): I10 - Essential (primary) hypertension PLAN: The patient appears to have a history of hypertension. He will continue medical management. (5) COPD (chronic obstructive pulmonary disease): QUALIFIERS: COPD type: unspecified COPD Qualified Code(s): J44.9 - Chronic obstructive pulmonary disease, unspecified PLAN: The patient is also being evaluated for underlying COPD and a COPD exacerbation to his clinical course. He will continue evaluation and care per internal medicine. Addt'l Comments This note was generated using a voice recognition system and there may be incorrect words, spelling or punctuation that were not noted when reviewing the office note prior to saving.
[2021-01-25 10:54] VITALS: O2SAT 89; O2SAT 95
[2021-01-25 11:11] LABS: Bedside Glucose 118 mg/dL (70-110)
[2021-01-25 11:18] VITALS: PULSE 116; RESP 16
[2021-01-25 11:20] LABS: Bedside Glucose 109 mg/dL (70-110)
--- NOTE | 2021-01-25 11:33 | PCM.DC ---
Discharge Instructions Diet Discharge Diet: Low fat / Low cholesterol, 6 Cup Fluid Restriction and 2000 mg Sodium Diet Activity Discharge Activity: Return to Normal Activity Follow Up Care Test Results: Test results from this visit will be discussed in further detail at your follow-up appointment, if applicable. Discharge Plan Admission Admit Date/Time: 01/22/21 15:39 Primary Reason for Your Visit: SOB, chest pain Attending Provider: Brunilda Webster Primary Care Provider: Dorita Shaw Consulting Providers: Hang Aranda Instructions Additional Instructions / Restrictions: Continue to take all your medications as prescribed. Take note of changes to your medication. Continue on a low-fat low-salt diet. Restrict your total fluid intake to less than 1500 mils. Weigh yourself every day. Let your doctor know when you gain more than 4 pounds of weight. Follow-up with your primary care doctor in 1 to 2 weeks. Follow-up with the pinsetter mechanic helper in 2 weeks. You would need repeat blood work to check on your kidney function within a week of discharge. Discharge Orders/Prescriptions Prescriptions: New carvedilol 25 mg Tablet 25 mg PO BID 30 Days Qty: 60 RF: 0 isosorbide mononitrate 30 mg Tablet Extended Release 24 Hr 30 mg PO DAILY 30 Days Qty: 30 RF: 0 furosemide [Lasix] 80 mg tablet 80 mg PO BID 30 Days Qty: 60 RF: 0 Continued metformin 500 mg tablet extended release 24 hr 500 mg PO QHS RF: 0 venlafaxine [Effexor XR] 150 mg capsule,extended release 24hr 150 mg PO DAILY RF: 0 atorvastatin [Lipitor] 10 mg tablet 10 mg PO DAILY RF: 0 Lupron Depot (6 Month) 45 mg syringe kit 45 mg IM [id number] RF: 0 calcium carbonate [Calcium 600] 600 mg calcium (1,500 mg) tablet 600 mg PO DAILY RF: 0 primidone 50 mg tablet 150 mg PO BID RF: 0 famotidine 40 MG tablet 40 mg PO DAILY RF: 0 aspirin 81 MG tablet,delayed release (DR/EC) 81 mg PO DAILY RF: 0 montelukast 10 MG tablet 10 mg PO DAILY RF: 0 warfarin 6 MG tablet 6 mg PO MOWEFRSA RF: 0 losartan 100 mg tablet 100 mg PO DAILY RF: 0 Trelegy Ellipta 200-62.5-25 mcg blister with device 1 inh INHALATION BID RF: 0 multivitamin Tablet 1 tab PO DAILY RF: 0 diltiazem HCl 180 mg capsule,extended release 24hr 180 mg PO BID RF: 0 warfarin 6 mg tablet 3 mg PO SUTUTH RF: 0 potassium chloride 20 mEq tablet,ER particles/crystals 20 meq PO BID RF: 0 Xtandi 40 mg capsule 160 mg PO DAILY RF: 0 Discontinued metoprolol tartrate 100 mg tablet 150 mg PO BREAKFAST RF: 0 furosemide [Lasix] 40 mg tablet 40 mg PO BID RF: 0 metoprolol tartrate 100 mg tablet 100 mg PO QHS RF: 0 Referrals / Follow Up: Dorita Shaw MD [Primary Care Provider] - In 1 Week Hang Aranda MD [STAFF PHYSICIAN] - Within 2 Weeks Disposition Disposition (needs filled in before D/C Order can be placed): Home, Self Care
--- NOTE | 2021-01-25 11:54 | PCM.DC.SUM ---
Providers Date of Admission: 01/22/21 Date of Discharge: 01/25/21 Primary Care Physician: Dr. Dorita Shaw MD Consultations 01/22/21 16:20 Consult: Cardiology Routine Consulting Provider: Hang Aranda Reason for Consult: Non-STEMI EMERGENT Consult: No MD Notified: Yes Date Notified: 01/22/21 Time Notified: 16:01 Method of Notification: Verbal Reason For Visit: CONGESTIVE HEART FAILURE Diagnosis Discharge Diagnosis (1) Non-ST elevation myocardial infarction, initial hospitalization: Status: Resolved Code(s): I21.4 - Non-ST elevation (NSTEMI) myocardial infarction (2) Acute on chronic diastolic CHF (congestive heart failure): Status: Acute Code(s): I50.33 - Acute on chronic diastolic (congestive) heart failure (3) Chronic atrial fibrillation: Status: Chronic Code(s): I48.20 - Chronic atrial fibrillation, unspecified (4) HTN (hypertension): Status: Chronic Code(s): I10 - Essential (primary) hypertension Qualifiers: Hypertension type: essential hypertension Qualified Code(s): I10 - Essential (primary) hypertension (5) COPD (chronic obstructive pulmonary disease): Status: Chronic Code(s): J44.9 - Chronic obstructive pulmonary disease, unspecified Qualifiers: COPD type: unspecified COPD Qualified Code(s): J44.9 - Chronic obstructive pulmonary disease, unspecified Medications at Discharge Home Medications atorvastatin 10 mg tablet 10 mg PO DAILY 06/21/19 calcium carbonate 600 mg calcium (1,500 mg) tablet 600 mg PO DAILY 06/21/19 leuprolide (6 month) 45 mg intramuscular syringe kit 45 mg IM [id number] 06/21/19 metformin 500 mg tablet,extended release 24 hr 500 mg PO QHS 06/21/19 venlafaxine 150 mg capsule,extended release 24 hr 150 mg PO DAILY 06/21/19 primidone 50 mg tablet 150 mg PO BID tablet 10/22/20 aspirin 81 mg PO DAILY 11/07/20 famotidine 40 mg PO DAILY 11/07/20 montelukast 10 mg PO DAILY 11/07/20 warfarin 6 mg PO MOWEFRSA 11/07/20 Trelegy Ellipta 1 inh INHALATION BID 12/13/20 losartan 100 mg PO DAILY 12/13/20 Xtandi 160 mg PO DAILY 01/22/21 diltiazem HCl 180 mg PO BID 01/22/21 multivitamin 1 tab PO DAILY 01/22/21 potassium chloride 20 meq PO BID 01/22/21 warfarin 3 mg PO SUTUTH 01/22/21 carvedilol 25 mg PO BID 30 Days #60 tab 01/25/21 furosemide [Lasix] 80 mg PO BID 30 Days #60 tab 01/25/21 isosorbide mononitrate 30 mg PO DAILY 30 Days #30 tab 01/25/21 Hospital Course Operations None Procedures 2-D Echocardiogram and Cardiac catheterization Summary of Care Provided Minutes Spent on Discharge: 55 Hospital Course: 70-year-old male with multiple comorbidities who comes in with progressive shortness of breath and weight gain. This has been going on over a couple of weeks but worse over the last 1 week prior to admission. Patient required more oxygen at home and had gained about 21 pounds in the last 3 weeks. He admits to shortness of breath with minimal exertion and even at rest. He admits to leg swelling. His troponins were found to be elevated. He was admitted as acute on chronic diastolic CHF, COPD exacerbation, mild and acute non-STEMI. Patient was managed on IV Lasix, cardiology consulted. He underwent cardiac catheterization on 01/24/21 which showed clean coronaries. Patient was kept overnight, continued on IV Lasix with improvement in his diuresis. He was evaluated for home oxygen and required the same amount of oxygen. He was advised to continue on CHF protocol, discharged on Lasix 80 mg p.o. twice daily. To follow-up with Dr. Aranda within 2 weeks. Physical Exam Narrative General: Alert, Oriented x3, Cooperative, No apparent distress, Well developed, on 2 L of oxygen HEENT: Atraumatic Oral: Moist Mucosa Neck: Supple Lungs: Diminished, coarse crackles bilateral Cardiovascular: HS I+II, regular, no murmurs Abdomen: Bowel Sounds Present, Soft, Non Tender Extremities: Bilateral pedal edema +2 Weight / BMI Weight Weight: 141 kg Body Mass Index (BMI) 47.1 ABG / Lab / Microbiology Data Result Diagrams: 01/25/21 06:19 01/25/21 06:19 Laboratory: Laboratory Results - last 24 hr 01/24/21 01/24/21 01/25/21 16:08 21:20 06:19 WBC 4.3 L RBC 4.37 L Hgb 13.6 Hct 43.0 MCV 98.4 H MCH 31.1 MCHC 31.6 L RDW Std Deviation 62.2 H RDW Coeff of Kayley 17.2 H Plt Count 144 L MPV 10.1 Immature Gran % (Auto) 0.200 Neut % (Auto) 65.5 Lymph % (Auto) 22.7 [place] % (Auto) 9.8 Eos % (Auto) 1.6 Baso % (Auto) 0.2 Absolute Neuts (auto) 2.8 Absolute Lymphs (auto) 0.97 Nucleated RBC % 0 PT INR Sodium Potassium Chloride Carbon Dioxide Anion Gap BUN Creatinine Estim Creat Clear Calc Est GFR (MDRD) Af Amer Est GFR (MDRD) Non-Af BUN/Creatinine Ratio Glucose Calcium Total Bilirubin AST ALT Alkaline Phosphatase Total Protein Albumin Globulin Albumin/Globulin Ratio POC Glucose 123 H 118 H 01/25/21 01/25/21 01/25/21 06:19 06:19 07:43 WBC RBC Hgb Hct MCV MCH MCHC RDW Std Deviation RDW Coeff of Kayley Plt Count MPV Immature Gran % (Auto) Neut % (Auto) Lymph % (Auto) [place] % (Auto) Eos % (Auto) Baso % (Auto) Absolute Neuts (auto) Absolute Lymphs (auto) Nucleated RBC % PT 15.5 H INR 1.3 Sodium 143 Potassium 3.7 Chloride 104 Carbon Dioxide 36.0 H Anion Gap 3 L BUN 17 Creatinine 0.92 Estim Creat Clear Calc 73.65 Est GFR (MDRD) Af Amer 104 Est GFR (MDRD) Non-Af 86 BUN/Creatinine Ratio 18.5 Glucose 111 H Calcium 8.9 Total Bilirubin 0.50 AST 13 L ALT 18 Alkaline Phosphatase 58 Total Protein 6.4 Albumin 3.2 Globulin 3.2 Albumin/Globulin Ratio 1.0 POC Glucose 109 01/25/21 11:01 WBC RBC Hgb Hct MCV MCH MCHC RDW Std Deviation RDW Coeff of Kayley Plt Count MPV Immature Gran % (Auto) Neut % (Auto) Lymph % (Auto) [place] % (Auto) Eos % (Auto) Baso % (Auto) Absolute Neuts (auto) Absolute Lymphs (auto) Nucleated RBC % PT INR Sodium Potassium Chloride Carbon Dioxide Anion Gap BUN Creatinine Estim Creat Clear Calc Est GFR (MDRD) Af Amer Est GFR (MDRD) Non-Af BUN/Creatinine Ratio Glucose Calcium Total Bilirubin AST ALT Alkaline Phosphatase Total Protein Albumin Globulin Albumin/Globulin Ratio POC Glucose 118 H Microbiology: Microbiology 01/22/21 13:45 Mucosa - Nose SARS-CoV-2 Antigen (Rapid) - Final D/C Instructions Discharge Diet: Low fat / Low cholesterol, 6 Cup Fluid Restriction and 2000 mg Sodium Diet Meaningful Use Info Meaningful Use Diagnoses (Choose all that apply): CHF CHF DAVID/ARB ordered at discharge?: Yes Documented LVEF (%): 55 Discharge Plan Admission Admit Date/Time: 01/22/21 15:39 Primary Reason for Your Visit: SOB, chest pain Attending Provider: Brunilda Webster Primary Care Provider: Dorita Shaw Consulting Providers: Hang Aranda Instructions Additional Instructions / Restrictions: Continue to take all your medications as prescribed. Take note of changes to your medication. Continue on a low-fat low-salt diet. Restrict your total fluid intake to less than 1500 mils. Weigh yourself every day. Let your doctor know when you gain more than 4 pounds of weight. Follow-up with your primary care doctor in 1 to 2 weeks. Follow-up with the auto body rep[facility] [employer] in 2 weeks. You would need repeat blood work to check on your kidney function within a week of discharge. Patient Problems: Altered Health Status related to Hospitalization Patient Goals: *Optimal Level of Health *Keep Appointments *Medication Compliance *Remain Safe Discharge Orders/Prescriptions Prescriptions: New carvedilol 25 mg Tablet 25 mg PO BID 30 Days Qty: 60 RF: 0 isosorbide mononitrate 30 mg Tablet Extended Release 24 Hr 30 mg PO DAILY 30 Days Qty: 30 RF: 0 furosemide [Lasix] 80 mg tablet 80 mg PO BID 30 Days Qty: 60 RF: 0 Continued metformin 500 mg tablet extended release 24 hr 500 mg PO QHS RF: 0 venlafaxine [Effexor XR] 150 mg capsule,extended release 24hr 150 mg PO DAILY RF: 0 atorvastatin [Lipitor] 10 mg tablet 10 mg PO DAILY RF: 0 Lupron Depot (6 Month) 45 mg syringe kit 45 mg IM [id number] RF: 0 calcium carbonate [Calcium 600] 600 mg calcium (1,500 mg) tablet 600 mg PO DAILY RF: 0 primidone 50 mg tablet 150 mg PO BID RF: 0 famotidine 40 MG tablet 40 mg PO DAILY RF: 0 aspirin 81 MG tablet,delayed release (DR/EC) 81 mg PO DAILY RF: 0 montelukast 10 MG tablet 10 mg PO DAILY RF: 0 warfarin 6 MG tablet 6 mg PO RF: 0 losartan 100 mg tablet 100 mg PO DAILY RF: 0 Trelegy Ellipta 200-62.5-25 mcg blister with device 1 inh INHALATION BID RF: 0 multivitamin Tablet 1 tab PO DAILY RF: 0 diltiazem HCl 180 mg capsule,extended release 24hr 180 mg PO BID RF: 0 warfarin 6 mg tablet 3 mg PO SUTUTH RF: 0 potassium chloride 20 mEq tablet,ER particles/crystals 20 meq PO BID RF: 0 Xtandi 40 mg capsule 160 mg PO DAILY RF: 0 Discontinued metoprolol tartrate 100 mg tablet 150 mg PO BREAKFAST RF: 0 furosemide [Lasix] 40 mg tablet 40 mg PO BID RF: 0 metoprolol tartrate 100 mg tablet 100 mg PO QHS RF: 0 Referrals / Follow Up: Dorita Shaw MD [Primary Care Provider] - In 1 Week (Please call to schedule follow up appointment) Hang Aranda MD [STAFF PHYSICIAN] - Within 2 Weeks (Please call to schedule follow up appointment) Disposition Disposition (needs filled in before D/C Order can be placed): Home, Self Care Charges/Coding Visit Charges Inpatient E&M: 07215 Disch Hosp
--- NOTE | 2021-01-25 12:19 | CASEMGMT ---
DANIA THEODORE NOTE: PT/OT recommending additional therapy. DANIA THEODORE to room and he was made aware. Discussed options of HHC and OP therapy. Pt declines both, stating he does not feel he needs either. He was made aware, if he decides he would like either of these in the future, to discuss options with his PCP. Pt voices understanding. Anahy TOM RN, CM
--- NOTE | 2021-01-25 14:51 | PHA.DC.MR ---
Pharmacy Service has performed discharge medication reconciliation for this patient. The patient's discharge medication list was reviewed for discrepancies and discrepancies were resolved. Home Medications atorvastatin 10 mg tablet 10 mg PO DAILY 06/21/19 calcium carbonate 600 mg calcium (1,500 mg) tablet 600 mg PO DAILY 06/21/19 leuprolide (6 month) 45 mg intramuscular syringe kit 45 mg IM [id number] 06/21/19 metformin 500 mg tablet,extended release 24 hr 500 mg PO QHS 06/21/19 venlafaxine 150 mg capsule,extended release 24 hr 150 mg PO DAILY 06/21/19 primidone 50 mg tablet 150 mg PO BID tablet 10/22/20 aspirin 81 mg PO DAILY 11/07/20 famotidine 40 mg PO DAILY 11/07/20 montelukast 10 mg PO DAILY 11/07/20 warfarin 6 mg PO MOWEFRSA 11/07/20 Trelegy Ellipta 1 inh INHALATION BID 12/13/20 losartan 100 mg PO DAILY 12/13/20 Xtandi 160 mg PO DAILY 01/22/21 diltiazem HCl 180 mg PO BID 01/22/21 multivitamin 1 tab PO DAILY 01/22/21 potassium chloride 20 meq PO BID 01/22/21 warfarin 3 mg PO SUTUTH 01/22/21 carvedilol 25 mg PO BID 30 Days #60 tab 01/25/21 furosemide [Lasix] 80 mg PO BID 30 Days #60 tab 01/25/21 isosorbide mononitrate 30 mg PO DAILY 30 Days #30 tab 01/25/21
--- NOTE | 2021-01-28 14:05 | CASEMGMT ---
DANIA THEODORE Discharge Follow-up Phone Call: GLORIAJohn: Moustapha Strata: 3 Call Date: 01/28/21 Discharge Date: 01/25/21 Time of Call: 1405 Duration: 3 min Admitting Diagnosis: CHF DANIA THEODORE completed follow-up phone call after recent hospitalization. Patient states he feels good. No questions or concerns with discharge instructions. Patient was able to fill prescriptions without any issues. Patient states he has scheduled his follow-up appts. Patient had no further questions or concerns at this time.
== END 2021-01-25 14:39 | disposition home or self-care (01) | DRG 281 ==
LOC: ED 14:15 → PCU 15:40
PROVIDERS: Internal Medicine Cardiovascular Disease; Admitting Provider Hospitalist; Emergency Provider Emergency Medicine; PCP Family Medicine; Visit Provider Internal Medicine
DX: I11.0 Hypertensive heart disease with heart failure (principal); I21.A1 Myocardial infarction type 2; J96.10 Chronic respiratory failure, unspecified whether with hypoxia or hypercapnia; Z68.42 Body mass index [BMI] 45.0-49.9, adult; I48.20 Chronic atrial fibrillation, unspecified; J44.1 Chronic obstructive pulmonary disease with (acute) exacerbation; C61 Malignant neoplasm of prostate; I50.33 Acute on chronic diastolic (congestive) heart failure; H40.9 Unspecified glaucoma; I45.10 Unspecified right bundle-branch block; G47.30 Sleep apnea, unspecified; E66.9 Obesity, unspecified; E11.9 Type 2 diabetes mellitus without complications; Z66 Do not resuscitate; Z79.01 Long term (current) use of anticoagulants; Z79.82 Long term (current) use of aspirin; Z79.84 Long term (current) use of oral hypoglycemic drugs; Z85.820 Personal history of malignant melanoma of skin; Z87.891 Personal history of nicotine dependence; Z87.442 Personal history of urinary calculi; Z99.81 Dependence on supplemental oxygen; Z79.899 Other long term (current) drug therapy
CPT/HCPCS: 36415; 71045; 80048; 80053; 82962; 83880; 84484; 85025; 85610; 87426; 93005; 93308; 93458; 94640; 97162; 97166; 97530; 97535; 97802; 97803; 99152; 99153; 99251; 99284; J7030; Q9957; Q9967; A4216; C1769; C1894; C8924; G0463; J1940; J3490

== ENCOUNTER → 2021-03-21 10:23 | Outpatient (CLI) | payer MEDICARE, OTHER, SELFPAY ==
[2021-03-21 11:44] LABS: Anion Gap 5 (5-15); BUN 19 mg/dL (7-18); BUN/Creat Ratio 20.5 RATIO (10-20); Calcium,Total 9.1 mg/dL (8.5-10.1); Chloride 103 mmol/L (98-107); Creatinine, Serum 0.93 mg/dL (0.70-1.30); EST Glomerular Filtration Rate 85 mL/min (>60); Est Glom Filt Rate - Afr Amer 103 mL/min (>60); Glucose 117 mg/dL (74-106); Potassium 3.9 mmol/L (3.5-5.1); Sodium Level 141 mmol/L (136-145)
[2021-03-21 18:40] LABS: Xtra Tube EP Lab EXTRA TUBE
== END ==
PROVIDERS: PCP Internal Medicine; Referring Provider Internal Medicine Cardiovascular Disease; Visit Provider Internal Medicine Cardiovascular Disease
DX: I48.20 Chronic atrial fibrillation, unspecified (principal); I50.32 Chronic diastolic (congestive) heart failure
CPT/HCPCS: 36415; 80048

== ENCOUNTER → 2021-05-27 11:25 | Outpatient (CLI) | payer MEDICARE, OTHER, SELFPAY ==
[2021-05-27 14:12] LABS: Anion Gap 8 (5-15); BUN 16 mg/dL (7-18); Calcium,Total 9.1 mg/dL (8.5-10.1); Chloride 101 mmol/L (98-107); Creatinine, Serum 0.94 mg/dL (0.70-1.30); EST Glomerular Filtration Rate 84 mL/min (>60); Est Glom Filt Rate - Afr Amer 102 mL/min (>60); Glucose 102 mg/dL (74-106); Potassium 4.3 mmol/L (3.5-5.1); Sodium Level 142 mmol/L (136-145)
== END ==
PROVIDERS: PCP Internal Medicine; Referring Provider Physician Assistant Medical; Visit Provider Physician Assistant Medical
DX: I50.33 Acute on chronic diastolic (congestive) heart failure (principal)
CPT/HCPCS: 36415; 80048

== ENCOUNTER → 2021-07-01 13:12 | Outpatient (CLI) | payer MEDICARE, OTHER, SELFPAY ==
--- NOTE | 2021-07-01 13:22 | CT_ITS ---
STUDY: CT CHEST WITHOUT CONTRAST REASON FOR EXAM: Male, 71 years old. Follow for resolution of ground glass RADIATION DOSAGE (If Supplied By Facility): CTDIvol = ( 22.71 ) mGy, DLP = ( 721.87 ) mGycm TECHNIQUE: Transaxial imaging was performed without the administration of intravenous contrast material. Multiplanar coronal and sagittal images were reformatted. Individualized dose optimization techniques were used for this CT. COMPARISON: Comparison is made with prior examination of 12/13/2020. FINDINGS: Stable small benign-appearing bilateral axillary lymph nodes. Small right pleural effusion with basilar atelectasis. Tiny left pleural effusion. There is no demonstrated pleural abnormality. There are calcifications of the coronary arteries. Small pericardial effusion. There are multiple small lymph nodes within the mediastinum, which are normal in size and morphology most compatible with reactive lymph hyperplasia. The right paratracheal lymph node has decreased in size. The right hilar lymph node has decreased in size as well. Normal unenhanced pulmonary arteries. Normal aorta arch and descending thoracic aorta. Normal osseous structures. There is no demonstrated abnormality of the visualized upper abdomen. CT/Chest without Contrast IMPRESSION: Small right pleural effusion with right basilar atelectasis. Tiny left pleural effusion. Small pericardial effusion. Electronically Signed: Yogesh Babcock MD at 15:34 EST , Service support ,
== END ==
PROVIDERS: PCP Internal Medicine; Referring Provider Nurse Practitioner Acute Care; Visit Provider Nurse Practitioner Acute Care
DX: R91.8 Other nonspecific abnormal finding of lung field (principal)
CPT/HCPCS: 71250

== ENCOUNTER → 2021-07-11 12:03 | Outpatient (CLI) | payer MEDICARE, OTHER, SELFPAY ==
[2021-07-11 13:10] LABS: BNP,B-Type NATRIURETIC PEPTIDE 291.3 pg/mL (0-100)
[2021-07-11 13:12] LABS: Anion Gap 6 (5-15); BUN 21 mg/dL (7-18); BUN/Creat Ratio 19.1 RATIO (10-20); Calcium,Total 9.3 mg/dL (8.5-10.1); Chloride 101 mmol/L (98-107); EST Glomerular Filtration Rate 70 mL/min (>60); Est Glom Filt Rate - Afr Amer 85 mL/min (>60); Glucose 115 mg/dL (74-106); Potassium 3.5 mmol/L (3.5-5.1); Sodium Level 142 mmol/L (136-145)
== END ==
PROVIDERS: PCP Internal Medicine; Referring Provider Internal Medicine Cardiovascular Disease; Visit Provider Internal Medicine Cardiovascular Disease
DX: I11.0 Hypertensive heart disease with heart failure (principal); I50.33 Acute on chronic diastolic (congestive) heart failure; R60.0 Localized edema
CPT/HCPCS: 36415; 80048; 83880

== ENCOUNTER → 2021-07-31 10:00 | Outpatient (CLI) | payer MEDICARE, OTHER, SELFPAY ==
[2021-07-31 10:29] LABS: Anion Gap 7 (5-15); BUN 27 mg/dL (7-18); BUN/Creat Ratio 23.1 RATIO (10-20); Calcium,Total 9.2 mg/dL (8.5-10.1); Chloride 101 mmol/L (98-107); Creatinine, Serum 1.17 mg/dL (0.70-1.30); EST Glomerular Filtration Rate 65 mL/min (>60); Est Glom Filt Rate - Afr Amer 79 mL/min (>60); Glucose 142 mg/dL (74-106); Potassium 3.6 mmol/L (3.5-5.1); Sodium Level 141 mmol/L (136-145)
== END ==
PROVIDERS: PCP Internal Medicine; Referring Provider Physician Assistant Medical; Visit Provider Physician Assistant Medical
DX: I50.33 Acute on chronic diastolic (congestive) heart failure (principal)
CPT/HCPCS: 36415; 80048

== ENCOUNTER 2021-09-02 12:45 | Outpatient (CLI) | payer MEDICARE, OTHER, SELFPAY ==
[2021-09-02 13:53] LABS: Anion Gap 6 (5-15); BUN 19 mg/dL (7-18); BUN/Creat Ratio 17.8 RATIO (10-20); Calcium,Total 8.6 mg/dL (8.5-10.1); Chloride 106 mmol/L (98-107); Creatinine, Serum 1.07 mg/dL (0.70-1.30); EST Glomerular Filtration Rate 72 mL/min (>60); Est Glom Filt Rate - Afr Amer 87 mL/min (>60); Glucose 120 mg/dL (74-106); Potassium 4.2 mmol/L (3.5-5.1); Sodium Level 142 mmol/L (136-145)
== END 2021-09-02 23:59 | disposition short-term general hospital (02) ==
LOC: PAVLAB 12:47
PROVIDERS: PCP Internal Medicine; Referring Provider Physician Assistant Medical; Visit Provider Physician Assistant Medical
DX: I50.33 Acute on chronic diastolic (congestive) heart failure (principal)
CPT/HCPCS: 36415; 80048

== ENCOUNTER 2021-11-06 10:34 | Outpatient (CLI) | payer MEDICARE, OTHER, SELFPAY ==
[2021-11-06 11:43] LABS: Anion Gap 4 (5-15); BUN 26 mg/dL (7-18); Calcium,Total 9.6 mg/dL (8.5-10.1); Chloride 101 mmol/L (98-107); Creatinine, Serum 1.24 mg/dL (0.70-1.30); EST Glomerular Filtration Rate 61 mL/min (>60); Est Glom Filt Rate - Afr Amer 74 mL/min (>60); Glucose 118 mg/dL (74-106); Potassium 4.8 mmol/L (3.5-5.1); Sodium Level 136 mmol/L (136-145)
[2021-11-06 11:44] LABS: AST(SGOT) 25 U/L (15-37); Alanine Aminotransfer ALT/SGPT 29 U/L (16-61); Albumin, Serum 3.7 g/dL (3.2-5.0); Alkaline Phosphatase 63 U/L (45-117); Bilirubin, Direct 0.19 mg/dL (0.00-0.30); Cholesterol 166 mg/dL (200); Globulin 3.5 g/dL (2.2-4.2); High Density Lipoprotein 39 mg/dL; Protein, Total 7.2 g/dL (6.4-8.2); Triglycerides 251 mg/dL; Very Low Density Lipoprotein 50 mg/dL (5-40)
== END 2021-11-06 23:59 | disposition home or self-care (01) ==
LOC: PAVLAB 10:36
PROVIDERS: Nurse Practitioner Family; PCP Internal Medicine; Referring Provider Physician Assistant Medical; Visit Provider Physician Assistant Medical
DX: I10 Essential (primary) hypertension (principal); E11.9 Type 2 diabetes mellitus without complications; E78.5 Hyperlipidemia, unspecified
CPT/HCPCS: 36415; 80048; 80061; 80076

== ENCOUNTER 2022-04-13 14:42 | Emergency (ER) | payer MEDICARE, OTHER, SELFPAY ==
[2022-04-13 14:43] VITALS: BP 160/116; PULSE 115; RESP 18; TEMP 35.9; O2SAT 93; BMI 48.7
[2022-04-13 15:21] VITALS: BP 165/104; PULSE 102; RESP 20; O2SAT 92
--- NOTE | 2022-04-13 16:01 | CT_ITS ---
STUDY: CT LUMBAR SPINE WITHOUT CONTRAST ADMINISTRATION OF 1633 HOURS ON 04/13/2022 REASON FOR EXAM: 72-year-old male with low back injury. RADIATION DOSAGE (If Supplied By Facility): CTDIvol = ( 66.28 ) mGy, DLP = ( 1826.57 ) mGycm. TECHNIQUE: The patient was scanned in a multi detector CT scanner. High resolution transaxial imaging was performed. Images were obtained from to . Sagittal and coronal images were reconstructed. COMPARISON: None FINDINGS: Demineralization. Mild compression fractures of the T12, L1, L2, and L4 vertebra of unknown age. No subluxations or intervertebral space narrowing. 1.2 cm sclerotic lesion in the posterior-superior aspect of the L3 vertebra--most likely a hemangioma. Intact pedicles, facets, intervertebral neural foramina, and processes. CT/Spine Lumbar without Contrast IMPRESSION: 1. Mild demineralization. 2. Mild compression fractures of the T12, L1, L2, and L4 vertebra of unknown age. 3. No subluxation or intervertebral disc space narrowing. 4. Suggestion of a small hemangioma in the posterior-superior aspect of the L3 vertebra. 5. Intact pedicles, facets, and intervertebral neural foramina, and processes. Electronically Signed: Kenny Hernandez MD at 18:11 EDT ,
--- NOTE | 2022-04-13 16:01 | EDS_ITS ---
HPI History of Present Illness Chief Complaint: Back Informant: patient and spouse/S.O. Narrative Narrative: Reports increasing back pain since his injury a week ago from a fall. Patient ambulates with a walker at baseline. Fell a week ago with his walker stating that got away from him. He landed in between his walker. He still been amatory with his walker however today told his spouse his back pain has been persistent and thought it to get evaluated. Denies pain down his legs. Denies paresthesias. 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 Denies head injuries. No headaches. History of CHF on chronic 2 L of oxygen. Spouse states increasing weight gain since November normal weight around 309 at that time today 330 recently was 334. He is on Lasix 80 mg twice daily he takes metolazone as needed from his PCP spouse states 1 was given Thursday edition 1 today. He denies dyspnea or orthopnea. 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[place] border Prostate cancer Skin cancer Sleep apnea Home Medications leuprolide acetate (6 month) 45 mg intramuscular syringe kit (Lupron Depot) 45 mg IM [id number] cancer 06/21/19 [History Last Taken 5 Months Ago ~08/24/20] venlafaxine 150 mg capsule,extended release 24 hr (Effexor XR) 150 mg PO DAILY depression 06/21/19 [History Last Taken 01/22/21] primidone 50 mg tablet 150 mg PO BID tremors 10/22/20 [History Last Taken 01/22/21] multivitamin 1 tab PO DAILY supplement 01/22/21 [History Last Taken 01/21/21] enzalutamide 40 mg tablet (Xtandi) 160 mg PO DAILY 05/27/21 [History Last Taken Unknown] atorvastatin 10 mg tablet (Lipitor) 10 mg PO DAILY cholesterol #90 tabs 06/12/21 [Rx Last Taken Unknown] isosorbide mononitrate 60 mg tablet,extended release 24 hr 60 mg PO DAILY #30 tabs 06/12/21 [Rx Last Taken Unknown] losartan 100 mg tablet 100 mg PO DAILY blood pressure #90 tabs 06/12/21 [Rx Last Taken Unknown] metformin 500 mg tablet,extended release 24 hr 500 mg PO QHS diabetes #90 tabs 07/23/21 [Rx Last Taken Unknown] montelukast 10 mg tablet 10 mg PO DAILY allergies #90 tabs 07/23/21 [Rx Last Taken Unknown] hydralazine 25 mg tablet 25 mg PO TID #90 tabs 09/27/21 [Rx Last Taken Unknown] metolazone 2.5 mg tablet 2.5 mg PO .COMPLEX #24 tabs 09/27/21 [Rx Last Taken Unknown] albuterol sulfate 90 mcg/actuation aerosol inhaler 1 inh inhalation ONCE PRN 10/10/21 [History Last Taken Unknown] omega-3 fatty acids 1,000 mg capsule 1,000 mg PO DAILY 10/10/21 [History Last Taken Unknown] famotidine 40 mg tablet 40 mg PO DAILY acid reflux #90 tabs 10/31/21 [Rx Last Taken Unknown] potassium chloride 20 mEq tablet,extended release(part/cryst) 20 meq PO BID supplement #180 tabs 10/31/21 [Rx Last Taken Unknown] warfarin 6 mg tablet 6 mg PO .SMTuThF blood thinner #90 tabs 11/12/21 [Rx Last Taken Unknown] warfarin 6 mg tablet 9 mg PO .WSa blood clots #90 tabs 11/12/21 [Rx Last Taken Unknown] carvedilol 25 mg tablet 25 mg PO BID #180 tabs 01/07/22 [Rx Last Taken Unknown] diltiazem HCl 180 mg capsule,extended release 24 hr 180 mg PO BID heart #180 caps 01/07/22 [Rx Last Taken Unknown] furosemide 80 mg tablet (Lasix) 80 mg PO BID 30 days #180 tabs 01/07/22 [Rx Last Taken Unknown] fluticasone fur. 200 mcg-umeclid 62.5 mcg-vilant 25 mcg inhalat.powder (Trelegy Ellipta) 1 inh inhalation BID COPD #60 ea 02/05/22 [Rx Last Taken Unknown] Allergy/AdvReac Type Severity Reaction Status Date / Time No Known Allergies Allergy Verified 04/13/22 14:46 Family History Sister Breast cancer Diabetes Brother Lung cancer Cancer prostate, liver Daughter Melanoma Mother Diabetes Heart disease Surgical History History of hip replacement History of left heart catheterization (LHC) (~01/24/21) History of melanoma excision Social History Smoking Status: Former smoker quit date: 08/03/80 Tobacco: How many years used: 16 alcohol intake: never substance use type: does not use what type of physical activity do you participate in: none additional social history: DOES USE ASPIRIN DOES NOT USE IBUPROFEN ROS ROS ED Constitutional Constitutional ED: Denies chills, fever(s) or sweats Eyes Eyes: Denies change in vision ENT ENT ED: Denies dysphagia or sore throat Cardiovascular Cardiovascular: Reports leg edema; Denies chest pain, palpitations or racing heartbeat Respiratory/Chest Respiratory/Chest: Denies cough, dyspnea or dyspnea on exertion Gastrointestinal Gastrointestinal: Denies abdominal pain, diarrhea, nausea or vomiting Genitourinary Genitourinary ED: Denies dysuria, hematuria or urinary frequency Musculoskeletal Musculoskeletal: Reports back pain; Denies extremity pain or neck pain Integumentary Denies rash or wounds Neurologic Neurologic: Denies headache(s), paresthesias or weakness EXAM Physical Exam Const Vital Signs: 04/13/22 14:43 04/13/22 15:21 04/13/22 18:09 Temperature 96.6 F L Temperature Source Temporal Pulse Rate 115 H 102 H 92 Respiratory Rate 18 20 H 20 H Blood Pressure 160/116 H 165/104 H 158/109 H Blood Pressure Mean 130 124 125 Pulse Ox 93 92 93 Oxygen Delivery Method Nasal Cannula Nasal Cannula Nasal Cannula Oxygen Flow Rate (L/min) 2 2 3 04/13/22 19:25 Temperature Temperature Source Pulse Rate 81 Respiratory Rate 20 H Blood Pressure 139/99 H Blood Pressure Mean Pulse Ox 93 Oxygen Delivery Method Oxygen Flow Rate (L/min) Positive well nourished, well developed and obese Constitutional Narrative: 2 L nasal cannula no distress. General Appearance ED: well developed and NAD Nutritional Appearance: obese HEENT Reports moist mucous membranes normocephalic and atraumatic Eyes PERRL, EOMs intact bilaterally and conjunctivae normal General Eye ED: Yes normal appearance of both eyes Neck no lymphadenopathy and supple General: Negative for tenderness Chest Wall Chest: Negative for tenderness Resp normal respiratory effort and normal air movement Effort and Inspection: symmetric chest movement; Negative for respiratory distress Cardio regular rate, regular rhythm and no murmurs Peripheral Pulses: pulses 2+ throughout GI normal to inspection, nondistended, normoactive bowel sounds and non-tender Palpation: Negative for guarding or rebound tenderness present Back/Spine no CVA tenderness Back/Spine Narrative: Midline lumbar tenderness with no step-offs there is no ecchymosis of the back. No thoracic midline tenderness. Straight leg test negative bilaterally. Extremity normal to inspection Extremity Narrative: 1-2+ lower extremity edema. Pulses intact distally. General Extremety ED: Negative for tenderness Neuro oriented x3 and no sensory deficits noted Sensorium / Orientation: awake and alert Skin no rashes or lesions noted and no wounds MDM MDM MDM Narrative Medical decision making narrative: Patient fall a week ago with no additional falls able to ambulate with his walker. Son warfarin with no head injuries. He has leg swelling reported weight gain on diuretics. No orthopnea for concerns for CHF exacerbation. Stable on his oxygen. With him being on his diuretics will check labs normal creatinine 1.0 improved from previously his INR 2.[address] scan lumbar spine with his fall and back pain injury there is noted per radiology mild compression fracture T12, L1, L2 and L4 of unknown age. There is no radicular symptoms. He is able ambulate with his walker. He does state improvement with Tylenol at home. He will continue this. He is given follow-up with spine as an outpatient. He will continue his diuretics. 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 Return precautions. All questions were answered. Lab Data Attestation: I reviewed the patient's lab results. Labs: Laboratory Results - last 24 hr 04/13/22 04/13/22 04/13/22 16:10 16:10 16:10 WBC 5.3 RBC 4.56 L Hgb 14.8 Hct 46.2 MCV 101.3 H MCH 32.5 H MCHC 32.0 RDW Std Deviation 61.3 H RDW Coeff of Kayley 16.4 H Plt Count 161 MPV 10.1 Immature Gran % (Auto) 0.400 Neut % (Auto) 71.9 H Lymph % (Auto) 15.5 L [place] % (Auto) 9.9 Eos % (Auto) 1.9 Baso % (Auto) 0.4 Absolute Neuts (auto) 3.8 Absolute Lymphs (auto) 0.83 Nucleated RBC % 0 PT 22.7 H INR 2.0 Sodium 142 Potassium 3.7 Chloride 101 Carbon Dioxide 34.0 H Anion Gap 7 BUN 21 H Creatinine 1.00 Estim Creat Clear Calc 65.79 Est GFR (MDRD) Af Amer 94 Est GFR (MDRD) Non-Af 78 BUN/Creatinine Ratio 21.0 H Glucose 121 H Calcium 9.8 Radiography Diagnostic Testing: Clinical Impression(s) from Imaging Studies Lumbar Spine CT 04/13/22 16:01 IMPRESSION: 1. Mild demineralization. 2. Mild compression fractures of the T12, L1, L2, and L4 vertebra of unknown age. 3. No subluxation or intervertebral disc space narrowing. 4. Suggestion of a small hemangioma in the posterior-superior aspect of the L3 vertebra. 5. Intact pedicles, facets, and intervertebral neural foramina, and processes. Electronically Signed: Kenny Hernandez MD at 18:11 EDT , Discharge Plan Triage Chief Complaint: Back ED Provider: Darrin Chu Dx/Rx/DC Orders Clinical Impression: Compression fracture of lumbar vertebra, Back pain, History of heart failure Instructions: Compression Fx Prescriptions: No Action venlafaxine [Effexor XR] 150 mg capsule,extended release 24hr 150 mg PO DAILY Lupron Depot (6 Month) 45 mg syringe kit 45 mg IM [id number] primidone 50 mg tablet 150 mg PO BID Xtandi 40 mg tablet 160 mg PO DAILY Rx Instructions: 4 tabs daily isosorbide mononitrate 60 mg tablet extended release 24 hr 60 mg PO DAILY Qty: 30 11RF albuterol sulfate 90 mcg/actuation HFA aerosol inhaler 1 inh inhalation ONCE PRN omega-3 fatty acids 1,000 mg capsule 1,000 mg PO DAILY potassium chloride 20 mEq tablet,ER particles/crystals 20 meq PO BID Qty: 180 3RF famotidine 40 mg tablet 40 mg PO DAILY Qty: 90 3RF multivitamin Tablet 1 tab PO DAILY atorvastatin [Lipitor] 10 mg tablet 10 mg PO DAILY Qty: 90 3RF losartan 100 mg tablet 100 mg PO DAILY Qty: 90 3RF metformin 500 mg tablet extended release 24 hr 500 mg PO QHS Qty: 90 3RF montelukast 10 mg tablet 10 mg PO DAILY Qty: 90 3RF metolazone 2.5 mg tablet 2.5 mg PO .COMPLEX Qty: 24 3RF Rx Instructions: 2.5 mg PO Thursday; May need to take more often as directed hydralazine 25 mg tablet 25 mg PO TID Qty: 90 11RF Hold Instructions: paradoxical elevated BP and weight gain warfarin 6 mg tablet 6 mg PO .SMTuThF Qty: 90 3RF warfarin 6 mg tablet 9 mg PO .WSa Qty: 90 1RF Rx Instructions: Managed by Jarad Enriquez diltiazem HCl 180 mg capsule,extended release 24hr 180 mg PO BID Qty: 180 3RF Hold Instructions: swelling furosemide [Lasix] 80 mg tablet 80 mg PO BID 30 Days Qty: 180 3RF carvedilol 25 mg tablet 25 mg PO BID Qty: 180 3RF Rx Instructions: must administer with a meal/food Trelegy Ellipta 200-62.5-25 mcg blister with device 1 inh INHALATION BID Qty: 60 6RF Primary Care Provider: Milady Kimble Referrals: Godfrey Alford DO [Med Staff - Active Staff] - 1 Week Milady Kimble MD [Primary Care Provider] - Activity Restrictions/Additional Instructions: Mild age-indeterminate compression fractures of T12, L1, L2, L4. No radicular symptoms. Continue Tylenol no as needed. Your INR is 2.0 today. Your creatinine is 2.0 today. You had your PT/INR today, CBC, BMP today. Continue your diuretics as planned with metolazone. Disposition Disposition: Home, Self Care Discharge Date/Time: 04/13/22 19:34
[2022-04-13 16:23] LABS: Absolute Lymphocyte Count 0.83 X10^3/uL (0.83-4.51); Absolute Neutrophil Count 3.8 X10^3/uL (2.0-7.7); Basophil# 0.02 X10^3/uL; Basophil% 0.4 % (0-1); Eosinophils% 1.9 % (0-5); Hematocrit 46.2 % (40-54); Hemoglobin 14.8 g/dL (13.0-16.5); Lymphocyte # 0.83 X10^3/ul (0.83-4.51); Lymphocyte % 15.5 % (19-41); Mean Corpuscular Hgb 32.5 pg (27.0-32.0); Mean Corpuscular Volume 101.3 fL (80-94); Mean Platelet Vol. 10.1 fl (6.2-12.0); Monocyte# 0.53 X10^3/uL; Monocyte% 9.9 % (0-10); NRBC Flagged by Analyzer 0 % (0-5); Neutrophil # 3.84 X10^3/uL (2.7-7.7); Neutrophil % 71.9 % (47-70); Platelet Count 161 K/mm3 (150-450); RBC Distribution Width CV 16.4 % (11.6-14.6); RBC Distribution Width SD 61.3 fl (35.1-43.9); Red Blood Count 4.56 M/mm3 (4.6-6.2); White Blood Count 5.3 K/mm3 (4.4-11.0)
[2022-04-13 16:41] LABS: Anion Gap 7 (5-15); BUN 21 mg/dL (7-18); Calcium,Total 9.8 mg/dL (8.5-10.1); Chloride 101 mmol/L (98-107); EST Glomerular Filtration Rate 78 mL/min (>60); Est Glom Filt Rate - Afr Amer 94 mL/min (>60); Estimated Creatinine Clearance 65.79 ml/min; Glucose 121 mg/dL (74-106); Potassium 3.7 mmol/L (3.5-5.1); Sodium Level 142 mmol/L (136-145)
[2022-04-13 17:45] LABS: Prothrombin Time (Protime)PT. 22.7 SECONDS (11.7-14.9)
[2022-04-13 18:09] VITALS: BP 158/109; PULSE 92; RESP 20; O2SAT 93
[2022-04-13 19:25] VITALS: BP 139/99; PULSE 81; RESP 20; O2SAT 93
== END 2022-04-13 19:34 | disposition home or self-care (01) ==
PROVIDERS: Emergency Provider Emergency Medicine; PCP Internal Medicine; Visit Provider Emergency Medicine
DX: S22.080A Wedge compression fracture of T11-T12 vertebra, initial encounter for closed fracture (principal); S32.010A Wedge compression fracture of first lumbar vertebra, initial encounter for closed fracture; S32.020A Wedge compression fracture of second lumbar vertebra, initial encounter for closed fracture; S32.040A Wedge compression fracture of fourth lumbar vertebra, initial encounter for closed fracture; J44.9 Chronic obstructive pulmonary disease, unspecified; I11.0 Hypertensive heart disease with heart failure; I50.9 Heart failure, unspecified; I48.11 Longstanding persistent atrial fibrillation; Z68.42 Body mass index [BMI] 45.0-49.9, adult; H26.9 Unspecified cataract; H40.9 Unspecified glaucoma; Z87.442 Personal history of urinary calculi; Z85.828 Personal history of other malignant neoplasm of skin; Z85.46 Personal history of malignant neoplasm of prostate; G47.30 Sleep apnea, unspecified; R73.03 Prediabetes; Z79.84 Long term (current) use of oral hypoglycemic drugs; Z79.01 Long term (current) use of anticoagulants; Z79.899 Other long term (current) drug therapy; Z87.891 Personal history of nicotine dependence; E66.9 Obesity, unspecified; W19.XXXA Unspecified fall, initial encounter
CPT/HCPCS: 72131; 80048; 85025; 85610; 99283

== ENCOUNTER → 2022-04-17 | Outpatient (CLI) | payer MEDICARE, OTHER, SELFPAY ==
[2022-04-17 13:05] LABS: BNP,B-Type NATRIURETIC PEPTIDE 496.9 pg/mL (0-100)
[2022-04-17 13:25] LABS: AST(SGOT) 20 U/L (15-37); Alanine Aminotransfer ALT/SGPT 21 U/L (16-61); Albumin, Serum 3.3 g/dL (3.2-5.0); Alkaline Phosphatase 93 U/L (45-117); Bilirubin, Direct 0.14 mg/dL (0.00-0.30); Cholesterol 132 mg/dL (200); Globulin 3.8 g/dL (2.2-4.2); High Density Lipoprotein 33 mg/dL; Protein, Total 7.1 g/dL (6.4-8.2); Triglycerides 303 mg/dL; Very Low Density Lipoprotein 61 mg/dL (5-40)
[2022-04-17 13:26] LABS: ALB/GLOB Ratio 0.9 RATIO (0.9-2.4); AST(SGOT) 19 U/L (15-37); Alanine Aminotransfer ALT/SGPT 21 U/L (16-61); Albumin, Serum 3.3 g/dL (3.2-5.0); Alkaline Phosphatase 93 U/L (45-117); Anion Gap 7 (5-15); BUN 19 mg/dL (7-18); BUN/Creat Ratio 18.6 RATIO (10-20); Calcium,Total 9.4 mg/dL (8.5-10.1); Chloride 103 mmol/L (98-107); Creatinine, Serum 1.02 mg/dL (0.70-1.30); EST Glomerular Filtration Rate 76 mL/min (>60); Est Glom Filt Rate - Afr Amer 92 mL/min (>60); Globulin 3.7 g/dL (2.2-4.2); Glucose 121 mg/dL (74-106); Potassium 3.7 mmol/L (3.5-5.1); Sodium Level 142 mmol/L (136-145)
== END | disposition home or self-care (01) ==
LOC: LAB 12:10
PROVIDERS: Nurse Practitioner Family; PCP Internal Medicine; Visit Provider Internal Medicine Cardiovascular Disease
DX: E78.00 Pure hypercholesterolemia, unspecified (principal); I50.33 Acute on chronic diastolic (congestive) heart failure; I11.0 Hypertensive heart disease with heart failure
CPT/HCPCS: 36415; 80053; 80061; 80076; 83880

== ENCOUNTER → 2022-04-25 | Outpatient (CLI) | payer MEDICARE, OTHER, SELFPAY ==
--- NOTE | 2022-04-25 13:44 | ECHOCS_ITS ---
Reason For Study: CHF Procedure This was a 2D Doppler, Color Flow transthoracic echocardiogram. The study was technically difficult. Contrast injection was performed. Exam performed in department. Left Ventricle Mild concentric left ventricular hypertrophy. Based upon the 2D echocardiographic and contrast enhanced images obtained the left ventricle appears to be grossly normal with respect to size, wall motion, and systolic function. The estimated ejection fraction is 55 %. Unable to assess diastolic dysfunction. Right Ventricle Based upon the 2D echocardiographic and contrast enhanced images obtained the right ventricle appears to be dilated and globally dysfunctional. Atria The left atrium was not well visualized. The right atrium is not well visualized. No doppler evidence for ASD. Mitral Valve Mitral valve not well visualized. Trivial mitral valve insufficiency. Tricuspid Valve The tricuspid valve is not well visualized. Mild tricuspid valve insufficiency. Right ventricular systolic pressure estimated to be 53 mmHg. Aortic Valve The aortic valve is not well visualized. Pulmonic Valve The pulmonic valve is not well visualized. Great Vessels Normal sized aortic root. Pericardium/Pleural No pericardial effusion. Medication Diluted definity 3ml given slow IV push to enhance endocardial definition. MMode/2D Measurements & Calculations LVIDd: 5.3 cm IVSd: 1.4 cm Ao root diam: 3.3 cm LVIDs: 4.1 cm LVPWd: 1.3 cm RVDd: 6.8 cm FS: 22.2 % LAV(MOD-bp): 91.5 ml LA A4 area: 25.4 cm2 LA dimension(2D): 5.6 cm LAV(MOD-bp) Indexed: 37.1 ml/m2 LAV(MOD-sp2): 95.2 ml LAV(MOD-sp4): 79.4 ml RA A4 area: 27.5 cm2 Doppler Measurements & Calculations MV E max joyce: 74.4 cm/sec Ao V2 max: 89.9 cm/sec LV V1 max: 69.9 cm/sec Ao max P.2 mmHg LV V1 max P.0 mmHg Ao V2 mean: 62.8 cm/sec Ao mean P.8 mmHg Ao V2 VTI: 12.1 cm PA V2 max: 68.7 cm/sec TR max joyce: 334.6 cm/sec TR max P.8 mmHg ECHO/Echo Complete W/ Contrast Interpretation Summary The study was technically difficult. Contrast injection was performed. Based upon the 2D echocardiographic and contrast enhanced images obtained the l eft ventricle appears to be grossly normal with respect to size, wall motion, and systolic function. The estimated ejection fraction is 55 %. Mild concentric left ventricular hypertrophy. Based upon the 2D echocardiographic and contrast enhanced images obtained the r ight ventricle appears to be dilated and globally dysfunctional. Trivial mitral valve insufficiency. Mild tricuspid valve insufficiency. Right ventricular systolic pressure estimated to be 53 mmHg. Unable to assess diastolic dysfunction. Ordering Physician: Hang Aranda Referring Physician: Milday Kimble Performed By: Tara Garay RDCS, RVT
[2022-04-25 16:41] LABS: Anion Gap 9 (5-15); BUN 21 mg/dL (7-18); BUN/Creat Ratio 22.6 RATIO (10-20); Calcium,Total 9.4 mg/dL (8.5-10.1); Chloride 100 mmol/L (98-107); Creatinine, Serum 0.93 mg/dL (0.70-1.30); EST Glomerular Filtration Rate 85 mL/min (>60); Est Glom Filt Rate - Afr Amer 102 mL/min (>60); Glucose 119 mg/dL (74-106); Potassium 3.9 mmol/L (3.5-5.1); Sodium Level 138 mmol/L (136-145)
== END | disposition home or self-care (01) ==
PROVIDERS: PCP Internal Medicine; Referring Provider Internal Medicine Cardiovascular Disease; Visit Provider Internal Medicine Cardiovascular Disease
DX: I50.32 Chronic diastolic (congestive) heart failure (principal)
CPT/HCPCS: 36415; 80048; 93306; Q9957; A4216; C8929

== ENCOUNTER → 2022-06-12 | Outpatient (CLI) | payer MEDICARE, OTHER, SELFPAY | END | disposition home or self-care (01) | PROVIDERS: PCP Internal Medicine; Visit Provider Internal Medicine | DX: K58.9 Irritable bowel syndrome, unspecified (principal); R19.7 Diarrhea, unspecified | CPT/HCPCS: 87493; 87506 ==

== ENCOUNTER 2022-10-22 15:02 | Inpatient (IN) | payer MEDICARE, OTHER, SELFPAY ==
[2022-10-22] VITALS (14 sets, daily range): BP systolic 108–159; BP diastolic 78–109; PULSE 32–119; RESP 14–29; TEMP 36.3–37.2; O2SAT 92–97; BMI 48.9; BMI 47.5
[2022-10-22] MEDS: Ipratropium/Albuterol Sulfate 3 ML AMPUL.NEB INHALATION (16:31)
[2022-10-22 16:44] LABS: Absolute Lymphocyte Count 1.15 X10^3/uL (0.83-4.51); Absolute Neutrophil Count 2.7 X10^3/uL (2.0-7.7); Basophil# 0.02 X10^3/uL; Basophil% 0.5 % (0-1); Eosinophil# 0.17 X10^3/uL; Eosinophils% 3.8 % (0-5); Hematocrit 44.8 % (40-54); Hemoglobin 13.8 g/dL (13.0-16.5); Lymphocyte # 1.15 X10^3/ul (0.83-4.51); Mean Corp Hgb Conc 30.8 g/dL (32-36); Mean Corpuscular Hgb 31.9 pg (27.0-32.0); Mean Corpuscular Volume 103.7 fL (80-94); Mean Platelet Vol. 10.4 fl (6.2-12.0); NRBC Flagged by Analyzer 0 % (0-5); Neutrophil # 2.67 X10^3/uL (2.7-7.7); Neutrophil % 60.2 % (47-70); Platelet Count 144 K/mm3 (150-450); RBC Distribution Width CV 16.1 % (11.6-14.6); Red Blood Count 4.32 M/mm3 (4.6-6.2); White Blood Count 4.4 K/mm3 (4.4-11.0)
[2022-10-22 16:50] LABS: Blood Gas Specimen Type VEN; O2 Delivery Device Cannula; VBG BASE EXCESS 8 mmol/L (-1.0-3.5); VBG Bicarbonate 34 mmol/L (22-26); VBG PO2 50 mmHg (25-40); VBG SO2 80 % (50-70); VBG TCO2 36 mmol/L (23-33); VBG pCO2 64.6 mmHg (41-51); VBG pH 7.32 (7.32-7.42)
--- NOTE | 2022-10-22 16:55 | RAD_ITS ---
STUDY: X-RAY CHEST REASON FOR EXAM: Male, 72 years old. Acute on chronic respiratory failure, wheezing, co TECHNIQUE: PA and lateral COMPARISON: None. FINDINGS: Bilateral perihilar infiltrates or pulmonary edema.. There is no demonstrated pleural abnormality. Heart is enlarged. Normal mediastinum and allyn. Normal visualized pulmonary arteries. Normal visualized aortic arch and descending thoracic aorta. Dorsal spine demonstrates degenerative changes. Normal visualized ribs, clavicles, and shoulders. There is no demonstrated abnormality of the visualized soft tissue structures of the upper abdomen. RAD/Chest PA and Lateral IMPRESSION: Findings consistent with congestive failure. Cannot definitively exclude coexisting inflammatory disease Electronically Signed: Godfrey Szymanski MD at 17:13 EDT ,
[2022-10-22 17:01] LABS: D-Dimer Quantitative (DVT/PE) 1.01 FEU/ug/m (0.27-0.49)
[2022-10-22 17:04] LABS: BNP,B-Type NATRIURETIC PEPTIDE 334.7 pg/mL (0-100)
[2022-10-22 17:05] LABS: Anion Gap 8 (5-15); BUN 18 mg/dL (7-18); BUN/Creat Ratio 20.5 RATIO (10-20); Calcium,Total 8.8 mg/dL (8.5-10.1); Chloride 108 mmol/L (98-107); Creatinine, Serum 0.88 mg/dL (0.70-1.30); EST Glomerular Filtration Rate 90 mL/min (>60); Est Glom Filt Rate - Afr Amer 109 mL/min (>60); Estimated Creatinine Clearance 74.76 ml/min; Glucose 168 mg/dL (74-106); Potassium 3.9 mmol/L (3.5-5.1); Sodium Level 145 mmol/L (136-145); Troponin-I HS (w/2H Reflex) 34 pg/mL (3.0-78.0)
--- NOTE | 2022-10-22 17:06 | CT_ITS ---
STUDY: CTA CHEST REASON FOR EXAM: Male, 72 years old. Dyspnea, elevated D-dimer RADIATION DOSAGE (If Supplied By Facility): CTDIvol = ( 38.35 ) mGy, DLP = ( 782.59 ) mGycm TECHNIQUE: The examination was performed with the intravenous administration of IV 100mL [id number]-[id number]. Post-processing of the angiographic images was performed, with multiplanar reformation and 3D reconstruction. Individualized dose optimization techniques were used for this CT. COMPARISON: None. FINDINGS: Normal enhancement of the main pulmonary artery and right and left pulmonary arteries. Normal enhancement of the bilateral peripheral pulmonary arteries. There is no demonstrated pulmonary embolism. Mild atherosclerotic changes of the aorta without evidence for aneurysm. There is no demonstrated aortic dissection. Heart is enlarged. Subcentimeter mediastinal nodes most likely benign. Normal hilar regions. Normal visualized trachea and bronchi. The lungs are well expanded. Mild diffuse possibly chronic interstitial thickening more pronounced in the lower lobes. There is small right pleural effusion and mild compressive atelectasis in the right lower lobe.. Normal chest wall structures. Dorsal spine demonstrates degenerative changes.. There are scattered foci of increased bony sclerosis within the thoracic spine of uncertain etiology. Possibly of blastic metastasis not excluded Nonspecific fatty infiltrated liver. CT/CTA Chest W/WO Contrast IMPRESSION: ASHD and mild nonspecific diffuse interstitial thickening.. Small right pleural effusion and basilar atelectasis. No evidence for pulmonary embolus Incidental finding of sclerotic densities within the dorsal spine possibly metastatic. This may be further assessed with bone scan if clinically indicated Electronically Signed: Godfrey Szymanski MD at 18:09 EDT ,
--- NOTE | 2022-10-22 18:07 | ED.VIS.DYS ---
HPI History of Present Illness Chief Complaint: Shortness of Breath Detail of Chief Complaint: Shortness of breath that has gotten worse over the past 2 weeks. Informant: patient and spouse/S.O. Onset/Context/Timing Onset: Weeks Timing: Continuous Quality: Positive for Dyspnea on exertion and Wheezing; Negative for Orthopnea or PND Maximum Severity: Severe Worsened by: Exertion Relieved by: Nothing Associated Symptoms cough and rhinorrhea; Negative for post nasal drip, ear pain, fever, sore throat, subjective, chills, sweats, clear sputum, white sputum, yellow sputum or green sputum Chest Pain: Positive for None Narrative Narrative: Patient is a 72-year-old male who is seen by Dr. Nicholas Poole for COPD. He was on oxygen at 2 L. He recently had his oxygen increased to 4 L. The shortness got worse starting a month ago and there was significant change last 2 weeks. His oxygen requirement increased from 2 to 4 L this past week. He denies fever or chills. He does have history of PE and DVT. His PT/INR has been subtherapeutic. Patient's had increased swelling of his feet and legs per . She informing that he has history of congestive heart failure. He also has history of sleep apnea and morbid obesity. He has had difficulty caring for himself at home. He denies headache, visual, ocular auditory symptoms. He denies chest pain. He states he sleeps with 1 pillow. He denies abdominal pain, nausea, vomiting or diarrhea. He denies urologic symptoms. PE Risk Factors: Positive for Cancer, Prior DVT or PE and Recent immobilization; Negative for OCP + Smoking + > 35, Recent surgery or Recent travel Prior similar symptoms: Yes (CHF, COPD and pulmonary embolus) Recent Illness/Hospitalization: No [facility] Medical History Actinic keratosis Borderline diabetes Cataracts, bilateral Chronic atrial fibrillation COPD (chronic obstructive pulmonary disease) Essential hypertension Glaucoma History of prostate disorder Kidney stones Longstanding persistent atrial fibrillation Melanoma in situ of nose 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, vermilion border Prostate cancer Skin cancer Sleep apnea Home Medications leuprolide acetate (6 month) 45 mg intramuscular syringe kit (Lupron Depot) 45 mg IM [id number] cancer 06/21/19 [History Last Taken 5 Months Ago ~08/24/20] venlafaxine 150 mg capsule,extended release 24 hr (Effexor XR) 150 mg PO DAILY depression 06/21/19 [History Last Taken 01/22/21] primidone 50 mg tablet 150 mg PO BID tremors 10/22/20 [History Last Taken 01/22/21] multivitamin 1 tab PO DAILY supplement 01/22/21 [History Last Taken 01/21/21] enzalutamide 40 mg tablet (Xtandi) 160 mg PO DAILY 05/27/21 [History Last Taken Unknown] albuterol sulfate 90 mcg/actuation aerosol inhaler 1 inh inhalation ONCE PRN 10/10/21 [History Last Taken Unknown] omega-3 fatty acids 1,000 mg capsule 1,000 mg PO DAILY 10/10/21 [History Last Taken Unknown] famotidine 40 mg tablet 40 mg PO DAILY acid reflux #90 tabs 10/31/21 [Rx Last Taken Unknown] potassium chloride 20 mEq tablet,extended release(part/cryst) 20 meq PO BID supplement #180 tabs 10/31/21 [Rx Last Taken Unknown] furosemide 80 mg tablet (Lasix) 80 mg PO BID 30 days #180 tabs 01/07/22 [Rx Last Taken Unknown] fluticasone fur. 200 mcg-umeclid 62.5 mcg-vilant 25 mcg inhalat.powder (Trelegy Ellipta) 1 inh inhalation BID COPD #60 ea 02/05/22 [Rx Last Taken Unknown] atorvastatin 10 mg tablet (Lipitor) 10 mg PO DAILY cholesterol #90 tabs 07/07/22 [Rx Last Taken Unknown] carvedilol 25 mg tablet 25 mg PO BID 07/07/22 [History Last Taken Unknown] losartan 100 mg tablet 100 mg PO DAILY blood pressure #90 tabs 07/07/22 [Rx Last Taken Unknown] metformin 500 mg tablet,extended release 24 hr 500 mg PO QHS diabetes #90 tabs 07/07/22 [Rx Last Taken Unknown] montelukast 10 mg tablet 10 mg PO DAILY allergies #90 tabs 07/07/22 [Rx Last Taken Unknown] probiotic PO 07/07/22 [History Last Taken Unknown] warfarin 6 mg tablet 6 mg PO .SMTuThF blood thinner #90 tabs 07/07/22 [Rx Last Taken Unknown] warfarin 6 mg tablet 9 mg PO .WSa blood clots #90 tabs 07/07/22 [Rx Last Taken Unknown] diltiazem HCl 180 mg capsule,extended release 24 hr 180 mg PO DAILY heart #90 caps 07/31/22 [Rx Last Taken Unknown] metolazone 2.5 mg tablet 2.5 mg PO .COMPLEX 10/15/22 [History Last Taken Unknown] Allergy/AdvReac Type Severity Reaction Status Date / Time No Known Allergies Allergy Verified 10/22/22 15:06 Family History Sister Breast cancer Diabetes Brother Lung cancer Cancer prostate, liver Daughter Melanoma Mother Diabetes Heart disease Surgical History History of hip replacement History of left heart catheterization (LHC) (~01/24/21) History of melanoma excision Social History Smoking Status: Former smoker quit date: 08/03/80 Tobacco: How many years used: 16 alcohol intake: never substance use type: does not use what type of physical activity do you participate in: none additional social history: DOES USE ASPIRIN DOES NOT USE IBUPROFEN ROS ROS ED Constitutional Constitutional ED: Denies chills, fever(s), sweats or weight loss Eyes Eyes: Denies blurry vision, change in vision or diplopia ENT ENT ED: Reports rhinorrhea; Denies ear pain or sore throat Cardiovascular Cardiovascular: Denies chest pain, orthopnea, palpitations, paroxysmal nocturnal dyspnea or racing heartbeat Respiratory/Chest Respiratory/Chest: Reports cough, dyspnea and dyspnea on exertion; Denies orthopnea or paroxysmal nocturnal dyspnea Gastrointestinal Gastrointestinal: Reports abdominal pain; Denies constipation, diarrhea, melena, nausea or vomiting Genitourinary Genitourinary ED: Denies dysuria, hematuria or urinary frequency Musculoskeletal Musculoskeletal: Denies arthralgias, back pain, myalgias or neck pain Integumentary Denies Abrasions or rash Neurologic Neurologic: Reports weakness; Denies headache(s) or paresthesias Endocrine Endocrinology: Denies cold intolerance or heat intolerance EXAM Physical Exam Narrative Exam Narrative: Patient is presently on 4/5 L of oxygen with a saturation 9495%. He is tachypneic. Monitor reveals sinus rhythm with no ectopy. Const Vital Signs: 10/22/22 15:06 10/22/22 15:32 10/22/22 15:36 Temperature 99 F Temperature Source Temporal Pulse Rate 32 L 96 Respiratory Rate 22 H 24 H Respiratory Effort Short of Breath Labored Respiratory Depth Deep Respiratory Pattern Tachypnea Blood Pressure 133/107 H Blood Pressure Mean 115 Pulse Ox 95 94 Oxygen Delivery Method Nasal Cannula Nasal Cannula Nasal Cannula Oxygen Flow Rate (L/min) 4 5 5 10/22/22 16:29 10/22/22 16:40 10/22/22 20:00 Temperature 98 F Temperature Source Temporal Pulse Rate 100 81 100 Respiratory Rate 18 14 28 H Respiratory Effort Respiratory Depth Respiratory Pattern Normal Blood Pressure 108/78 138/98 H Blood Pressure Mean 88 111 Pulse Ox 94 94 Oxygen Delivery Method Nasal Cannula Oxygen Flow Rate (L/min) 5 10/22/22 17:00 10/22/22 18:00 10/22/22 19:00 Temperature 98 F 98.2 F 98 F Temperature Source Temporal Temporal Temporal Pulse Rate 116 H 112 H 119 H Respiratory Rate 22 H 20 H 26 H Respiratory Effort Respiratory Depth Respiratory Pattern Blood Pressure 108/93 H 159/107 H 126/109 H Blood Pressure Mean 98 124 114 Pulse Ox 94 92 97 Oxygen Delivery Method Oxygen Flow Rate (L/min) 10/22/22 20:00 10/22/22 21:00 10/22/22 21:00 Temperature 98 F 98 F Temperature Source Temporal Temporal Pulse Rate 105 H 98 98 Respiratory Rate 29 H 27 H 27 H Respiratory Effort Respiratory Depth Respiratory Pattern Blood Pressure 138/98 H 140/95 H 140/95 H Blood Pressure Mean 111 110 110 Pulse Ox 93 94 94 Oxygen Delivery Method Room Air Oxygen Flow Rate (L/min) Positive well nourished, well developed and obese General Appearance ED: well developed and pallor; Negative for NAD Nutritional Appearance: obese HEENT Reports moist mucous membranes HEENT Narrative: Head is atraumatic normocephalic. Ears normal. TMs normal. Nares patent. Posterior pharynx out erythema or exudate. Uvula is midline. Eyes PERRL and EOMs intact bilaterally General Eye ED: Negative for scleral icterus Neck no lymphadenopathy, supple and no meningeal signs Neck Narrative: Trachea is midline. There is no stridor. Resp normal respiratory effort and No clear to auscultation bilaterally Resp Narrative: Rales noted bilaterally. Question of expiratory wheezing. Difficult since patient cannot lift himself up off the bed. Cardio regular rate, regular rhythm, S1 normal heart sound, S2 normal heart sound and no murmurs GI non-tender, non-distended and no masses Palpation: soft; Negative for tender, guarding, hepatomegaly or splenomegaly Back/Spine General Back: CVA tenderness Extremity General Extremety ED: Yes edema; Negative for tenderness General Extremity: edema Neuro oriented x3 and CN's II-XII intact bilaterally Jose Coma Scale: document GCS findings Spontaneous Obeys Commands Oriented 15 Sensorium / Orientation: Negative for alert Psych mental status grossly normal Skin no wounds and No skin turgor normal General Skin Exam: pallor; Negative for jaundice MDM MDM MDM Narrative Medical decision making narrative: Frontal diagnosis would include CHF, pneumonia, pulmonary embolus cardiac ischemia. Will obtain EKG, chest x-ray and appropriate blood work. Patient's D-dimer was elevated. Since he has prior history of PE and DVT will obtain CTA to assess for pulmonary embolus. History & Record Review Discussion w/independent historian: Patient and Significant other Additional record(s) reviewed:: Prior inpatient record (Records from outside facilities were reviewed. Most of those records are related to congestive heart failure.), Prior outpatient record (Reviewed outpatient records from pulmonary. Patient is oxygen dependent.) and Prior ED visit Lab Data Attestation: I reviewed the patient's lab results. Lab results narrative: CBC is remarkable for an MCV of 103.7. Platelet count is 144,000 which is below lower end of normal. D-dimer was elevated 1.01 and is elevated even after corrected for age. Basic metabolic panel reveals normal renal function, CO2 anion gap. Lactate is a evaded 3.0. BNP is slightly elevated at 334. Labs: Laboratory Results - last 24 hr 10/22/22 10/22/22 10/22/22 16:15 16:15 16:15 WBC 4.4 RBC 4.32 L Hgb 13.8 Hct 44.8 MCV 103.7 H MCH 31.9 MCHC 30.8 L RDW Std Deviation 61.0 H RDW Coeff of Kayley 16.1 H Plt Count 144 L MPV 10.4 Immature Gran % (Auto) 0.500 Neut % (Auto) 60.2 Lymph % (Auto) 26.0 [facility] % (Auto) 9.0 Eos % (Auto) 3.8 Baso % (Auto) 0.5 Absolute Neuts (auto) 2.7 Absolute Lymphs (auto) 1.15 Nucleated RBC % 0 D-Dimer Quant (PE/DVT) 1.01 H* Sodium 145 Potassium 3.9 Chloride 108 H Carbon Dioxide 29.0 Anion Gap 8 BUN 18 Creatinine 0.88 Estim Creat Clear Calc 74.76 Est GFR (MDRD) Af Amer 109 Est GFR (MDRD) Non-Af 90 BUN/Creatinine Ratio 20.5 H Glucose 168 H Lactic Acid Calcium 8.8 Troponin I High Sens 34 B-Natriuretic Peptide 10/22/22 10/22/22 10/22/22 16:15 16:15 18:43 WBC RBC Hgb Hct MCV MCH MCHC RDW Std Deviation RDW Coeff of Kayley Plt Count MPV Immature Gran % (Auto) Neut % (Auto) Lymph % (Auto) [facility] % (Auto) Eos % (Auto) Baso % (Auto) Absolute Neuts (auto) Absolute Lymphs (auto) Nucleated RBC % D-Dimer Quant (PE/DVT) Sodium Potassium Chloride Carbon Dioxide Anion Gap BUN Creatinine Estim Creat Clear Calc Est GFR (MDRD) Af Amer Est GFR (MDRD) Non-Af BUN/Creatinine Ratio Glucose Lactic Acid 3.0 H* Calcium Troponin I High Sens 37 B-Natriuretic Peptide 334.7 H 10/22/22 20:42 WBC RBC Hgb Hct MCV MCH MCHC RDW Std Deviation RDW Coeff of Kayley Plt Count MPV Immature Gran % (Auto) Neut % (Auto) Lymph % (Auto) [facility] % (Auto) Eos % (Auto) Baso % (Auto) Absolute Neuts (auto) Absolute Lymphs (auto) Nucleated RBC % D-Dimer Quant (PE/DVT) Sodium Potassium Chloride Carbon Dioxide Anion Gap BUN Creatinine Estim Creat Clear Calc Est GFR (MDRD) Af Amer Est GFR (MDRD) Non-Af BUN/Creatinine Ratio Glucose Lactic Acid 2.0 Calcium Troponin I High Sens B-Natriuretic Peptide ABG Data ABG results: ABG 10/22/22 16:44 Specimen Type LA VBG pH 7.32 VBG pO2 50 H VBG HCO3 34 H VBG Total CO2 36 H VBG O2 Sat (Calc) 80 H VBG Base Excess 8 H POC Mix VBG pCO2 Pt Tmp 64.6 H O2 Delivery Device Cannula Liter Flow 5.0 Radiography Chest X-Ray - ED: 2 View and Read by ED Physician (Chest x-ray is difficult to read. Due to body habitus and penetration. There is cardiomegaly. There may be congestive heart failure. There is no evidence of pleural effusion. Patient is slightly rotated. Osseous structures appear normal.) Diagnostic Testing: Clinical Impression(s) from Imaging Studies Chest X-Ray 10/22/22 16:55 IMPRESSION: Findings consistent with congestive failure. Cannot definitively exclude coexisting inflammatory disease Electronically Signed: Godfrey Szymanski MD at 17:13 EDT , Chest CTA 10/22/22 17:06 IMPRESSION: ASHD and mild nonspecific diffuse interstitial thickening.. Small right pleural effusion and basilar atelectasis. No evidence for pulmonary embolus Incidental finding of sclerotic densities within the dorsal spine possibly metastatic. This may be further assessed with bone scan if clinically indicated Electronically Signed: Godfrey Szymanski MD at 18:09 EDT , CTA reveals no evidence of blood clot. There is nonseptic diffuse interstitial thickening which may represent CHF. He also has exacerbation of COPD. Since patient is tachypneic at rest requiring now 5 L of oxygen will call hospitalist for admission. Critical Care Time Critical Care Time: Yes Critical care time (excluding procedures): 30-74 minutes (31), Including time spent: (History, physical, documentation, review of prior records, consultation with hospitalist), Discussing w/Patient &/or Family/Architect (Patient and family were informed of results), Discussing w/Consultants and Arranging Admission or Transfer Discharge Plan Dx/Rx/DC Orders Clinical Impression: Acute exacerbation of CHF (congestive heart failure), Sleep apnea, Diabetes mellitus, type 2, Essential hypertension, Longstanding persistent atrial fibrillation, Tachypnea, Acute exacerbation of chronic obstructive pulmonary disease, Acute bronchospasm, Acidosis, lactic Disposition Disposition: [facility]
[2022-10-22 18:31] LABS: Reflex Troponin-HS? (from REC) Y
[2022-10-22 19:22] LABS: Troponin-I HS 37 pg/mL (3.0-78.0)
[2022-10-22 20:31] LABS: Reflex Lactate? Y
--- NOTE | 2022-10-22 21:31 | HP.PCM_ITS ---
HPI - General General Date of Admission: 10/22/22 Date of Service: 10/22/22 Chief Complaint: Dyspnea, worsening oxygen supplementation needs. HPI Narrative The patient is a 72 y/o M w/ PMHx: Morbid Obesity, COPD with Chronic Hypoxic Respiratory Failure (2L NC) following with Dr. Poole, Chronic atrial fibrillation, HTN, HLD, Chronic Diastolic CHF, Diabetes mellitus type II, Hx Malignant melanoma, TARIQ, Hx Prostate CA who presents to the [facility] ED on 10/22/22 with history of progressively worsening dyspnea over the last 2 weeks, worse with exertion with no specific orthopnea with cough not markedly productive of any specific type of sputum as well as rhinorrhea normally on 2 L nasal cannula however he is increased over the last 2 to 4 weeks requiring increased up to 4 L presenting on 5 L nasal cannula with increased swelling of his legs per his spouse as well as wheezing with difficulty caring for himself at home prompting eventual ED evaluation. Of note patient's INR outpatient has been therapeutic. He denies any associated chest discomfort. Patient spouse is present and denies any recent illnesses in herself. Work-up in the ED included T99, heart rate 96, BP 133/107, respiratory rate 24, 94% on 5 L nasal cannula with most recent repeat vitals BP 138/98, respiratory rate 28, 94% on 5 L nasal cannula, CBC with WBC 4.4, hemoglobin 13.8, platelet 144 without any significant shift, D-dimer 1.01, VBG with pH 7.32, PO2 50, bicarb 34, total CO2 36, O2 saturation 80% performed on 5 L nasal cannula, BMP with chloride 108, glucose 168, BNP 334.7, lactic acid initially 3.0 with repeat lactic acid 2.0, initial troponin 34 with repeat 37, chest x-ray with questionable overload appearance although could not exclude coexisting inflammatory disease, follow-up CTPA with mild nonspecific diffuse interstitial thickening, small right pleural effusion and basilar atelectasis, no evidence of pulmonary embolus, incidental finding sclerotic densities within the dorsal spine, EKG atrial fibrillation with mildly increased rate with no acute evidence of ischemia. In the ED patient ministered the neb therapy and Lasix 40 mg IV x1. 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, vermilion border Prostate cancer Skin cancer Sleep apnea Home Medications leuprolide acetate (6 month) 45 mg intramuscular syringe kit (Lupron Depot) 45 mg IM [id number] cancer 06/21/19 [History Last Taken 5 Months Ago ~08/24/20] venlafaxine 150 mg capsule,extended release 24 hr (Effexor XR) 150 mg PO DAILY depression 06/21/19 [History Last Taken 01/22/21] primidone 50 mg tablet 150 mg PO BID tremors 10/22/20 [History Last Taken 01/22/21] multivitamin 1 tab PO DAILY supplement 01/22/21 [History Last Taken 01/21/21] enzalutamide 40 mg tablet (Xtandi) 160 mg PO DAILY Check with primary doctor 05/27/21 [History Last Taken Unknown] albuterol sulfate 90 mcg/actuation aerosol inhaler 1 inh inhalation DAILY Wheezing 10/10/21 [History Last Taken Unknown] omega-3 fatty acids 1,000 mg capsule 1,000 mg PO DAILY Check with primary doctor 10/10/21 [History Last Taken Unknown] famotidine 40 mg tablet 40 mg PO DAILY acid reflux #90 tabs 10/31/21 [Rx Last Taken Unknown] potassium chloride 20 mEq tablet,extended release(part/cryst) 20 meq PO BID supplement #180 tabs 10/31/21 [Rx Last Taken Unknown] furosemide 80 mg tablet (Lasix) 80 mg PO BID 30 days #180 tabs 01/07/22 [Rx Last Taken Unknown] fluticasone fur. 200 mcg-umeclid 62.5 mcg-vilant 25 mcg inhalat.powder (Trelegy Ellipta) 1 inh inhalation BID COPD #60 ea 02/05/22 [Rx Last Taken Unknown] atorvastatin 10 mg tablet (Lipitor) 10 mg PO DAILY cholesterol #90 tabs 07/07/22 [Rx Last Taken Unknown] carvedilol 25 mg tablet 25 mg PO BID Check with primary doctor 07/07/22 [History Last Taken Unknown] losartan 100 mg tablet 100 mg PO DAILY blood pressure #90 tabs 07/07/22 [Rx Last Taken Unknown] metformin 500 mg tablet,extended release 24 hr 500 mg PO QHS diabetes #90 tabs 07/07/22 [Rx Last Taken Unknown] montelukast 10 mg tablet 10 mg PO DAILY allergies #90 tabs 07/07/22 [Rx Last Taken Unknown] probiotic 1 tab PO DAILY Check with primary doctor 07/07/22 [History Last Taken Unknown] warfarin 6 mg tablet 6 mg PO .SMTuThF blood thinner #90 tabs 07/07/22 [Rx Last Taken Unknown] warfarin 6 mg tablet 9 mg PO .WSa blood clots #90 tabs 07/07/22 [Rx Last Taken Unknown] metolazone 2.5 mg tablet 2.5 mg PO .COMPLEX Check with primary doctor 10/15/22 [History Last Taken Unknown] Allergy/AdvReac Type Severity Reaction Status Date / Time No Known Allergies Allergy Verified 10/22/22 15:06 Family History Sister Breast cancer Diabetes Brother Lung cancer Cancer prostate, liver Daughter Melanoma Mother Diabetes Heart disease Surgical History History of hip replacement History of left heart catheterization (LHC) (~01/24/21) History of melanoma excision Social History household members: spouse housing: house Smoking Status: Former smoker quit date: 08/03/80 Tobacco: How many years used: 16 alcohol intake: never substance use type: does not use what type of physical activity do you participate in: none additional social history: DOES USE ASPIRIN DOES NOT USE IBUPROFEN ROS ROS Narrative Admission Review of Systems: CONSTITUTIONAL: No weight loss, fever, chills, weakness or fatigue. HEENT: + Congestion, rhinorrhea, mildly sore throat. Eyes: No visual loss, blurred vision, double vision or yellow sclerae. Ears, Nose, Throat: No hearing loss. SKIN: No rash or itching, lesions, wounds. CARDIOVASCULAR: + Edema. No chest pain, chest pressure or chest discomfort, palpitations, orthopnea, syncopal events. RESPIRATORY: + Shortness of breath, cough without marked sputum, wheezing, No hemoptysis. GASTROINTESTINAL: + anorexia. No nausea, vomiting or diarrhea, abdominal pain, melena, BRBPR. GENITOURINARY: No dysuria, frequency, urgency or retention. NEUROLOGICAL: No headache, dizziness, syncope, paralysis, ataxia, numbness or tingling in the extremities, focal weakness, change in bowel or bladder control, seizure. MUSCULOSKELETAL: + muscle, back pain, joint pain or stiffness. HEMATOLOGIC: + anemia, bleeding or bruising. LYMPHATICS: No enlarged nodes. No history of splenectomy. PSYCHIATRIC: No history of depression or anxiety. ENDOCRINOLOGIC: + reports of sweating, cold or heat intolerance. No polyuria or polydipsia. ALLERGIES: No history of asthma, hives, eczema or rhinitis. Vital Signs Vital Signs Vital Signs: 10/22/22 15:06 10/22/22 15:32 10/22/22 15:36 Temperature 99 F Temperature Source Temporal Pulse Rate 32 L 96 Respiratory Rate 22 H 24 H Respiratory Effort Short of Breath Labored Respiratory Depth Deep Respiratory Pattern Tachypnea Blood Pressure 133/107 H Blood Pressure Mean 115 Pulse Ox 95 94 Oxygen Delivery Method Nasal Cannula Nasal Cannula Nasal Cannula Oxygen Flow Rate (L/min) 4 5 5 10/22/22 16:29 10/22/22 16:40 10/22/22 20:00 Temperature 98 F Temperature Source Temporal Pulse Rate 100 81 100 Respiratory Rate 18 14 28 H Respiratory Effort Respiratory Depth Respiratory Pattern Normal Blood Pressure 108/78 138/98 H Blood Pressure Mean 88 111 Pulse Ox 94 94 Oxygen Delivery Method Nasal Cannula Oxygen Flow Rate (L/min) 5 10/22/22 17:00 10/22/22 18:00 10/22/22 19:00 Temperature 98 F 98.2 F 98 F Temperature Source Temporal Temporal Temporal Pulse Rate 116 H 112 H 119 H Respiratory Rate 22 H 20 H 26 H Respiratory Effort Respiratory Depth Respiratory Pattern Blood Pressure 108/93 H 159/107 H 126/109 H Blood Pressure Mean 98 124 114 Pulse Ox 94 92 97 Oxygen Delivery Method Oxygen Flow Rate (L/min) 10/22/22 20:00 10/22/22 21:00 10/22/22 21:00 Temperature 98 F 98 F Temperature Source Temporal Temporal Pulse Rate 105 H 98 98 Respiratory Rate 29 H 27 H 27 H Respiratory Effort Respiratory Depth Respiratory Pattern Blood Pressure 138/98 H 140/95 H 140/95 H Blood Pressure Mean 111 110 110 Pulse Ox 93 94 94 Oxygen Delivery Method Room Air Oxygen Flow Rate (L/min) Weight Weight: 330 lb 14.621 oz Body Mass Index (BMI) 48.9 Physical Exam Narrative Physical Examination: General: Awake, alert, oriented x 3 and cooperative, seated upright in the ED bed, fatigued, mildly ill-appearing Skin: Normal color, normal turgor, no icterus, no cyanosis. HEENT: AT/NC, EOMI, PERRLA, dry MM, no carotid bruits or JVD noted; however, thickened neck makes evaluation difficult. Lungs: Significantly diminished, greater bases, mild rales bases, expiratory wheezing, mildly increased respiratory rate but no distress. Heart: Irregular, rate mildly increased; no gallop, rub audible. Abdomen: Soft, morbidly obese, NTTP, no obvious distention but habitus makes evaluation difficult distant normal BS, no obvious HSM however habitus makes evaluation difficult. Extremities: No cyanosis, no clubbing, bilateral lower extremity pedal to mid romero 1-2+ pitting edema. Neurological: Patient awake, alert, oriented as noted, cognitive function intact; pupils equally reactive to light and accommodation, cranial nerves II- XII grossly normal, moving all 4 extremities, no focal deficits, strength moderately to severely global decrease secondary to acute presentation and underlying comorbidities Psychiatric: Affect appears flat, fatigued, no acute evidence of depressive or anxiety feelings. Results Lab / Micro Data Result Diagrams: 10/22/22 16:15 10/22/22 16:15 Labs: Laboratory Results - last 24 hr 10/22/22 16:15: WBC 4.4, RBC 4.32 L, Hgb 13.8, Hct 44.8, MCV 103.7 H, MCH 31.9, MCHC 30.8 L, RDW Std Deviation 61.0 H, RDW Coeff of Kayley 16.1 H, Plt Count 144 L, MPV 10.4, Immature Gran % (Auto) 0.500, Neut % (Auto) 60.2, Lymph % (Auto) 26.0, Tripp % (Auto) 9.0, Eos % (Auto) 3.8, Baso % (Auto) 0.5, Absolute Neuts (auto) 2.7, Absolute Lymphs (auto) 1.15, Nucleated RBC % 0 10/22/22 16:15: D-Dimer Quant (PE/DVT) 1.01 H* 10/22/22 16:15: Sodium 145, Potassium 3.9, Chloride 108 H, Carbon Dioxide 29.0, Anion Gap 8, BUN 18, Creatinine 0.88, Estim Creat Clear Calc 74.76, Est GFR (MDRD) Af Amer 109, Est GFR (MDRD) Non-Af 90, BUN/Creatinine Ratio 20.5 H, Glucose 168 H, Calcium 8.8, Troponin I High Sens 34 10/22/22 16:15: Lactic Acid 3.0 H* 10/22/22 16:15: B-Natriuretic Peptide 334.7 H 10/22/22 18:43: Troponin I High Sens 37 10/22/22 20:42: Lactic Acid 2.0 Micro: Microbiology 10/22/22 16:40 Nasal Secretion SARS-CoV-2 & FLU Antigen (Rapid) - Final ABG Data ABG results: ABG 10/22/22 16:44 Specimen Type LA VBG pH 7.32 VBG pO2 50 H VBG HCO3 34 H VBG Total CO2 36 H VBG O2 Sat (Calc) 80 H VBG Base Excess 8 H POC Mix VBG pCO2 Pt Tmp 64.6 H O2 Delivery Device Cannula Liter Flow 5.0 Radiology Impression Chest X-Ray 10/22/22 16:55 IMPRESSION: Findings consistent with congestive failure. Cannot definitively exclude coexisting inflammatory disease Electronically Signed: Godfrey Szymanski MD at 17:13 EDT , Chest CTA 10/22/22 17:06 IMPRESSION: ASHD and mild nonspecific diffuse interstitial thickening.. Small right pleural effusion and basilar atelectasis. No evidence for pulmonary embolus Incidental finding of sclerotic densities within the dorsal spine possibly metastatic. This may be further assessed with bone scan if clinically indicated Electronically Signed: Godfrey Szymanski MD at 18:09 EDT , Assessment & Plan Assessment/Plan (1) Acute exacerbation of CHF (congestive heart failure): PLAN: Plan The patient is a 72 y/o M w/ PMHx: Morbid Obesity, COPD with Chronic Hypoxic Respiratory Failure (2L NC) following with Dr. Poole, Chronic atrial fibrillation, HTN, HLD, Chronic Diastolic CHF, Diabetes mellitus type II, Hx Malignant melanoma, TARIQ, Hx Prostate CA who presents to the [facility] ED on 10/22/22 with history of progressively worsening dyspnea over the last 2 weeks, worse with exertion with no specific orthopnea with cough not markedly productive of any specific type of sputum as well as rhinorrhea normally on 2 L nasal cannula however he is increased over the last 2 to 4 weeks requiring increased up to 4 L presenting on 5 L nasal cannula with increased swelling of his legs per his spouse as well as wheezing with difficulty caring for himself at home prompting eventual ED evaluation. #1. Acute dyspnea with acute on chronic increasing hypoxia possibly multifactorial secondary to Acute on Chronic COPD Exacerbation and Acute on chronic Diastolic CHF w/ transient lactic acidosis, possibly hypoxia related: BNP only mildly elevated, CTPA with no marked overload appearance with only a small right pleural effusion and basilar atelectasis, will pulsed dose with Lasix IV x1, will continue Coumadin with INR trending, statin therapy, Coreg, losartan, metolazone. 04/25/2022 echocardiogram with grossly normal LV size, wall motion and systolic function, EF 55%, mild concentric LVH, RV dilated and globally dysfunctional, trivial MVI, mild TVI, RVSP 53 mmHg with inability to assess diastolic dysfunction thus will defer repeat. Mag, TSH pending. Will cycle cardiac enzymes. Will maintain on oxygen with wean as tolerated to home oxygen supplementation, continue ATC duonebs, PRN albuterol, IV methylprednisolone, HOB, IS parameters, will request full respiratory viral panel, COVID PCR and procalcitonin with addition of antibiotic therapy if concerns arise for bacterial component. #2. Incidental dorsal spinal sclerotic densities: CTPA with incidental findings of sclerotic densities within the dorsal spine, possibly metastatic but unclear specific etiology, will obtain lumbar and thoracic spinal MRI to be cautious, maintain on fall precautions, therapies as well as case management for discharge planning #3. Diabetes mellitus type II: Hold oral home regimen, ADA diet, accu checks w/ ISS. #4. Chronic atrial fibrillation: We will continue Coumadin with requested INR and continue trending, continue home Coreg and diltiazem regimen. #5. Hypertension: Continue home regimen including metolazone, losartan, Lasix, diltiazem, Coreg with hold parameters as needed, PRN hydralazine. #6. Hyperlipidemia: We will continue patient home statin therapy. #7. History of prostate cancer: Unclear specific extent of disease process, we will continue patient home chronic enzalutamide home regimen, encourage continued outpatient follow-up with urology. #8. Morbid Obesity: Weight loss and lifestyle changes encouraged. #9. GERD: We will continue patient on famotidine regimen. #10 TARIQ: BiPAP nightly. #11. DVT prophylaxis: Coumadin with INR trending. #12. CODE status: Patient HCPOA is his spouse who is present and living will is currently in place. Discussed CODE status at length including difference between FULL code, DNR-CCA and DNR-CC status. Following discussions about the differences in these status, requested DNR-CCA, no intubation status. Advanced C are Planning Face to Face Time: 16 minutes. Admission Evaluation Time spent evaluating chart, patient history, patient evaluation, care planning and discussion with specialists: 75 minutes. Charges/Coding Visit Charges Inpatient E&M: 84786 Init Hosp L3 Procedures Hospitalists Procedures: 12601 Advncd Care Plan 30 Min
[2022-10-22] MEDS: Furosemide 40 MG/4 ML Vial IV (21:44)
[2022-10-22] MEDS: MethylPREDNISolone 125 MG/2 ML Vial IV (22:01)
[2022-10-22 22:06] LABS: Magnesium 2.2 mg/dL (1.6-2.6)
[2022-10-22 22:08] LABS: International Normalized Ratio 1.8; Prothrombin Time (Protime)PT. 20.2 SECONDS (11.7-14.9)
--- NOTE | 2022-10-22 22:35 | MRI_ITS ---
STUDY: MRI LUMBAR SPINE WITH AND WITHOUT CONTRAST REASON FOR EXAM: Male, 72 years old. Pt very SOB, breathing motion and tremors, also very obese* -- F/U to abnormal spinal lesions seen on CT chest -- -- patient has a history of melanoma and prostate CA TECHNIQUE: Standardized fat and water weighted pulse sequences were obtained in the sagittal and axial planes. IV 30ml Clariscan was administered for the contrast portion of the examination. COMPARISON: CT lumbar spine without contrast 04/13/[address] chest with and without contrast 10/22/2022. FINDINGS: 6 lumbar type vertebral bodies due to lumbarization of S1. T11-T12: Normal T11 inferior endplate. Schmorl''s node in the posterior T12 superior endplate. Normal disc height, hydration and morphology. Normal central canal and bilateral intervertebral neural foramina. Round T1 hypointensity lesion in the T11 vertebral body is bone metastases. T12-L1: Normal T12 inferior endplate. Pronounced central compression fracture of the L1 vertebral body, new since 04/13/2022 but unchanged when compared to 10/22/2022. Increased central disc space height. Small posterior bulging annulus. Normal central canal and bilateral lateral recesses. Normal facet joints. Normal bilateral intervertebral neural foramina.. Normal lumbar lordosis. There is no substantial scoliosis. Normal conus medullaris that terminates at the T12-L1 disc space level. L1-2: Normal L2 superior endplate. Increased central disc space height due to pronounced central compression fracture of the L1 vertebral body. There is minimal edema of the L1 lower central compression fracture. Normal facet joints. Normal central canal and bilateral lateral recesses. Normal bilateral intervertebral neural foramina. L2-3: Normal endplates. Normal disc height, hydration and morphology. Mild bilateral degenerative facet arthropathy. Normal central canal and bilateral lateral recesses. Normal bilateral intervertebral neural foramina. L3-4: Normal endplates. Normal disc height, hydration and morphology. Mild bilateral degenerative facet arthropathy. Normal central canal and bilateral lateral recesses. Normal bilateral intervertebral neural foramina. Round T1 hypointense lesion in the posterior L4 vertebral body is sclerotic bone metastases. L4-5: Normal endplates. Normal disc height, hydration and morphology. Moderate bilateral degenerative facet arthropathy. Normal central canal and bilateral lateral recesses. Normal bilateral intervertebral neural foramina. L5-L6: Normal endplates. Normal disc height, hydration and morphology. Moderately pronounced bilateral degenerative facet arthropathy.. Normal central canal and bilateral lateral recesses. Normal bilateral intervertebral neural foramina. L6-S1: (Sagittal only). Normal endplates. Normal disc height, hydration and morphology. Normal hypoplastic facet joints. Normal central canal and bilateral lateral recesses. Normal bilateral intervertebral neural foramina. Normal visualized sacral ala. Normal visualized paraspinous soft tissue structures. There is contrast enhancement of the L1 central compression fracture. Contrast enhancement of the sclerotic bone metastases involving L3, L4 and T11 vertebral bodies. MRI/Spine Lumbar W/WO Contrast IMPRESSION: 1. Pronounced L1 central compression fracture with bone edema enhances with intravenous contrast due to recent nonpathologic compression fracture. This is feasible for kyphoplasty if patient has debilitating back pain referrable to this site. This is unchanged when compared to 10/22/2022 but new since 04/13/2022. 2. Enhancing sclerotic bone metastases involving T11, L3 and L4 vertebral bodies. 3. 6 lumbar type vertebral bodies due to lumbarization of S1. 4. No MRI evidence of intradural enhancing metastatic disease. COMMENT: Baseline bone scan will help determine the extent of skeletal metastases since this was never performed. Electronically Signed: Atif Montero MD at 15:08 EDT ,
[2022-10-22] MEDS: Potassium Chloride Oral Tablet 20 MEQ PO (23:37)
[2022-10-22] MEDS: Primidone 50 MG Tablet 150 MG PO (23:37)
[2022-10-22] MEDS: Carvedilol 25 MG Tablet PO (23:37)
[2022-10-23] VITALS (12 sets, daily range): BP systolic 133–155; BP diastolic 93–111; PULSE 37–128; RESP 18–28; TEMP 36.5–37.8; O2SAT 92–99; BMI 47.9
[2022-10-23 00:41] LABS: Bedside Glucose 139 mg/dL (74-106)
[2022-10-23 04:00] LABS: Absolute Lymphocyte Count 0.91 X10^3/uL (0.83-4.51); Absolute Neutrophil Count 3.5 X10^3/uL (2.0-7.7); Basophil# 0.02 X10^3/uL; Basophil% 0.4 % (0-1); Eosinophil# 0.04 X10^3/uL; Eosinophils% 0.9 % (0-5); Hematocrit 43.1 % (40-54); Hemoglobin 13.3 g/dL (13.0-16.5); Lymphocyte # 0.91 X10^3/ul (0.83-4.51); Mean Corp Hgb Conc 30.9 g/dL (32-36); Mean Corpuscular Hgb 32.3 pg (27.0-32.0); Mean Corpuscular Volume 104.6 fL (80-94); Mean Platelet Vol. 10.5 fl (6.2-12.0); Monocyte# 0.11 X10^3/uL; Monocyte% 2.4 % (0-10); NRBC Flagged by Analyzer 0 % (0-5); Neutrophil # 3.45 X10^3/uL (2.7-7.7); Neutrophil % 76.1 % (47-70); Platelet Count 128 K/mm3 (150-450); RBC Distribution Width CV 16.3 % (11.6-14.6); RBC Distribution Width SD 61.9 fl (35.1-43.9); Red Blood Count 4.12 M/mm3 (4.6-6.2); White Blood Count 4.5 K/mm3 (4.4-11.0)
[2022-10-23 04:09] LABS: International Normalized Ratio 1.8; Prothrombin Time (Protime)PT. 20.3 SECONDS (11.7-14.9)
[2022-10-23 04:21] LABS: Troponin-I HS 29 pg/mL (3.0-78.0)
[2022-10-23 04:38] LABS: AST(SGOT) 16 U/L (15-37); Alanine Aminotransfer ALT/SGPT 25 U/L (16-61); Albumin, Serum 3.3 g/dL (3.2-5.0); Alkaline Phosphatase 65 U/L (45-117); Anion Gap 9 (5-15); BUN 18 mg/dL (7-18); BUN/Creat Ratio 16.5 RATIO (10-20); Calcium,Total 8.7 mg/dL (8.5-10.1); Chloride 107 mmol/L (98-107); Cholesterol 148 mg/dL (200); Creatinine, Serum 1.09 mg/dL (0.70-1.30); EST Glomerular Filtration Rate 70 mL/min (>60); Est Glom Filt Rate - Afr Amer 85 mL/min (>60); Estimated Creatinine Clearance 60.36 ml/min; Globulin 3.4 g/dL (2.2-4.2); Glucose 167 mg/dL (74-106); High Density Lipoprotein 36 mg/dL; Potassium 4.6 mmol/L (3.5-5.1); Protein, Total 6.7 g/dL (6.4-8.2); Sodium Level 144 mmol/L (136-145); Thyroid Stim Hormone (TSH) 1.66 uIU/mL (0.358-3.74); Triglycerides 190 mg/dL; Very Low Density Lipoprotein 38 mg/dL (5-40)
[2022-10-23] MEDS: 0.9% Saline Lock 10 ML Syringe IV ×5 (06:32→23:08)
[2022-10-23 07:05] LABS: Bedside Glucose 139 mg/dL (74-106)
[2022-10-23] MEDS: Ipratropium/Albuterol Sulfate 3 ML AMPUL.NEB INHALATION ×3 (07:50→19:46)
[2022-10-23] MEDS: Venlafaxine XR 150 MG Capsule PO (08:14)
[2022-10-23] MEDS: Primidone 50 MG Tablet 150 MG PO ×2 (08:14→23:06)
[2022-10-23] MEDS: dilTIAZem CD 180 MG Capsule PO (08:14)
[2022-10-23] MEDS: Losartan Potassium 100 MG Tablet PO (08:15)
[2022-10-23] MEDS: Carvedilol 25 MG Tablet PO ×2 (08:16→23:06)
[2022-10-23] MEDS: Potassium Chloride Oral Tablet 20 MEQ PO ×2 (08:16→23:06)
[2022-10-23] MEDS: Famotidine 20 MG Tablet 40 MG PO (08:17)
[2022-10-23] MEDS: ENZALUTAMIDE 40 MG TABLET 160 MG PO (08:17)
[2022-10-23] MEDS: Montelukast 10 MG Tablet PO (08:17)
--- NOTE | 2022-10-23 09:30 | MRI_ITS ---
STUDY: MRI THORACIC SPINE WITH AND WITHOUT CONTRAST REASON FOR EXAM: Male, 72 years old. Pt very SOB, breathing motion and tremors, also very obese* -- F/U to abnormal spinal lesions seen on CT chest TECHNIQUE: 30ml Clariscan via IV was administered for the contrast portion of the examination. COMPARISON: CT chest with and without contrast 10/02/2022. CT chest without contrast 07/01/2021. FINDINGS: Normal kyphosis of the thoracic spine. There is no substantial scoliosis. T1-2, T2-3, T3-4, T4-5, T5-6, T6-7, T7-8, T8-9, T9-10, T10-11, T11-12: Multiple T1 hypointensity lesions involving T11, T10, T9, T7, T6 and T1 vertebral bodies are sclerotic bone metastatic disease. Pronounced central compression fracture of the L1 vertebral body. Minimal anterior wedging of the superior endplate of T8 vertebral body is presumably from remote injury and unchanged. Normal visualized thoracic cord. Normal conus medullaris that terminates at the T12-L1 disc space level. The soft tissue structures are unremarkable. No abnormal enhancing lesions intradurally and extradurally. There is contrast enhancement of the bone metastases involving T11 and T6 vertebral bodies. MRI/Spine Thoracic W/WO Contrast IMPRESSION: 1. Sclerotic bone metastatic disease involving T1, T6, T7, T9, T10 and T11 vertebral bodies with contrast enhancement of the sclerotic bone metastases involving T6 and T11 vertebral bodies. Bone scan will help determine the extent of skeletal metastasis. 2. Pronounced L1 central compression fracture. This is unchanged. 3. No MRI evidence of abnormal enhancing lesions intradurally and extradurally. 4. Normal thoracic spinal cord. 5. No spinal stenosis. Electronically Signed: Atif Montero MD at 14:49 EDT ,
[2022-10-23] MEDS: Furosemide 100 MG/10 ML Vial 60 MG IV ×2 (11:39→17:32)
[2022-10-23] MEDS: Insulin Lispro 100 UNIT/ML INSULN.PEN SC (11:42)
[2022-10-23 11:50] LABS: Bedside Glucose 154 mg/dL (74-106)
--- NOTE | 2022-10-23 11:55 | CASEMGMT ---
RN ARBEN Face to Face with patient for initial transition planning/care coordination assessment. RN CM introduced self and role at [facility]. Patient lying in bed, alert and oriented. Patient willing to participate in assessment and is able to answer all questions appropriately. Care providers, pharmacy, and demographics verified. Patient wishes to discharge home with resumption of HHC, but is willing to go to SNF pending therapy. Patient states he has no further needs or concerns at this time. CM to follow for discharge planning needs that may arise. PCP: Lamin Specialists: Rosi pcb designer Preferred Pharmacy: [facility], [facility] retail at discharge. Insurance: [facility], [employer] Prescription Benefit: yes Living Will/HPOA: yes, Milagros Cohen LNOK: , daughter Living Arrangements: Patient lives with in a 2 story home with bed and bath on first floor. 2 steps and railing to enter the home. Patient toilets himself, assists with bathing and dressing. Transportation: DME/HHC: patient has shower chair, raised toilet, grab bars, walker, cpap, pulse ox, and home oxygen at 4lpm through [employer] with portability. [facility] Will monitor progress with therapy Disposition Plan: TBD, HHC vs SNF pending progress with therapy. Nadya TOM, RN, CM
[2022-10-23] MEDS: dilTIAZem 25 MG/5 ML Vial 20 MG IV BOLUS (12:53)
--- NOTE | 2022-10-23 15:05 | PN_ITS ---
Subjective Subjective Patient seen and examined. He was admitted with a complaint of worsening shortness of breath and cough. Cough was not really productive. He had been increasing his oxygen to about 5 L and says he usually will 4 L. He states he does feel better today. He feels like his breathing is getting better. However he is still wheezing. He denies any cough or chest pain, palpitations, dizziness, nausea or vomiting. Review of systems otherwise negative. He has remained hemodynamically stable. Objective Data Objective Data Vital Signs: Vital Signs Temp Pulse Resp BP Pulse Ox O2 Del Method O2 Flow Rate 98.6 F 128 H 20 H 133/97 H 92 Nasal Cannula 3 10/23/22 12:49 10/23/22 12:49 10/23/22 12:49 10/23/22 12:49 10/23/22 12:49 10/23/22 12:49 10/23/22 12:49 Oxygen Flow Rate (L/min) 3 Oxygen Delivery Method Nasal Cannula Weight: 324 lb 8.327 oz Body Mass Index (BMI) 47.9 Intake & Output: Intake and Output for Last 24 Hours 10/21/22 10/22/22 10/23/22 23:59 23:59 23:59 Intake Total 480 / 480 Output Total 300 / 300 Balance 180 / 180 Lab / Micro Data Result Diagrams: 10/23/22 03:29 10/23/22 03:29 Labs: Laboratory Results - last 24 hr 10/22/22 16:15: WBC 4.4, RBC 4.32 L, Hgb 13.8, Hct 44.8, MCV 103.7 H, MCH 31.9, MCHC 30.8 L, RDW Std Deviation 61.0 H, RDW Coeff of Kayley 16.1 H, Plt Count 144 L, MPV 10.4, Immature Gran % (Auto) 0.500, Neut % (Auto) 60.2, Lymph % (Auto) 26.0, [place] % (Auto) 9.0, Eos % (Auto) 3.8, Baso % (Auto) 0.5, Absolute Neuts (auto) 2.7, Absolute Lymphs (auto) 1.15, Nucleated RBC % 0 10/22/22 16:15: D-Dimer Quant (PE/DVT) 1.01 H* 10/22/22 16:15: Sodium 145, Potassium 3.9, Chloride 108 H, Carbon Dioxide 29.0, Anion Gap 8, BUN 18, Creatinine 0.88, Estim Creat Clear Calc 74.76, Est GFR (MDRD) Af Amer 109, Est GFR (MDRD) Non-Af 90, BUN/Creatinine Ratio 20.5 H, Glucose 168 H, Calcium 8.8, Troponin I High Sens 34 10/22/22 16:15: Lactic Acid 3.0 H* 10/22/22 16:15: B-Natriuretic Peptide 334.7 H 10/22/22 18:43: Troponin I High Sens 37 10/22/22 20:42: Lactic Acid 2.0 10/22/22 21:45: COVID-19 (ARNOLDO) Not Detected 10/22/22 21:49: PT 20.2 H, INR 1.8 10/22/22 21:49: Magnesium 2.2 10/22/22 21:49: Procalcitonin 0.10 H 10/22/22 23:35: POC Glucose 139 H 10/23/22 03:29: WBC 4.5, RBC 4.12 L, Hgb 13.3, Hct 43.1, MCV 104.6 H, MCH 32.3 H , MCHC 30.9 L, RDW Std Deviation 61.9 H, RDW Coeff of Kayley 16.3 H, Plt Count 128 L, MPV 10.5, Immature Gran % (Auto) 0.200, Neut % (Auto) 76.1 H, Lymph % (Auto) 20.0, [place] % (Auto) 2.4, Eos % (Auto) 0.9, Baso % (Auto) 0.4, Absolute Neuts (auto) 3.5, Absolute Lymphs (auto) 0.91, Nucleated RBC % 0 10/23/22 03:29: Sodium 144, Potassium 4.6, Chloride 107, Carbon Dioxide 28.0, Anion Gap 9, BUN 18, Creatinine 1.09, Estim Creat Clear Calc 60.36, Est GFR (MDRD) Af Amer 85, Est GFR (MDRD) Non-Af 70, BUN/Creatinine Ratio 16.5, Glucose 167 H, Calcium 8.7, Total Bilirubin 0.30, AST 16, ALT 25, Alkaline Phosphatase 65, Total Protein 6.7, Albumin 3.3, Globulin 3.4, Albumin/Globulin Ratio 1.0, Triglycerides 190, Cholesterol 148, LDL Cholesterol 74, VLDL Cholesterol 38, HDL Cholesterol 36 L, TSH 1.66 10/23/22 03:29: PT 20.3 H, INR 1.8 10/23/22 03:29: Troponin I High Sens 29 10/23/22 06:30: POC Glucose 139 H 10/23/22 11:27: POC Glucose 154 H Micro: Microbiology 10/22/22 21:45 Mucosa - Nasopharyngeal Respiratory Panel (PCR) - Final 10/22/22 16:40 Nasal Secretion SARS-CoV-2 & FLU Antigen (Rapid) - Final ABG Data ABG results: ABG 10/22/22 16:44 Specimen Type LA VBG pH 7.32 VBG pO2 50 H VBG HCO3 34 H VBG Total CO2 36 H VBG O2 Sat (Calc) 80 H VBG Base Excess 8 H POC Mix VBG pCO2 Pt Tmp 64.6 H O2 Delivery Device Cannula Liter Flow 5.0 Radiography Diagnostic Testing: Radiology Impression Chest X-Ray 10/22/22 16:55 IMPRESSION: Findings consistent with congestive failure. Cannot definitively exclude coexisting inflammatory disease Electronically Signed: Godfrey Szymanski MD at 17:13 EDT , Chest CTA 10/22/22 17:06 IMPRESSION: ASHD and mild nonspecific diffuse interstitial thickening.. Small right pleural effusion and basilar atelectasis. No evidence for pulmonary embolus Incidental finding of sclerotic densities within the dorsal spine possibly metastatic. This may be further assessed with bone scan if clinically indicated Electronically Signed: Godfrey Szymanski MD at 18:09 EDT , Thoracic Spine MRI 10/23/22 09:30 IMPRESSION: 1. Sclerotic bone metastatic disease involving T1, T6, T7, T9, T10 and T11 vertebral bodies with contrast enhancement of the sclerotic bone metastases involving T6 and T11 vertebral bodies. Bone scan will help determine the extent of skeletal metastasis. 2. Pronounced L1 central compression fracture. This is unchanged. 3. No MRI evidence of abnormal enhancing lesions intradurally and extradurally. 4. Normal thoracic spinal cord. 5. No spinal stenosis. Electronically Signed: Atif Montero MD at 14:49 EDT , Physical Exam Const alert, oriented x3 and no apparent distress Constitutional Narrative: obese HEENT normocephalic, head/scalp atraumatic and moist oral mucous membranes Eyes PERRL and EOMs intact bilaterally Neck no lymphadenopathy and supple General: trachea midline Lymph Lymphatic: no lymphadenopathy noted Resp Resp Narrative: mildly diminished breath sounds bibasally, moderate wheezing, no crackles. on room air. Cardio regular rate, regular rhythm, S1 normal heart sound, S2 normal heart sound and no murmurs GI normal to inspection, nondistended, normoactive bowel sounds, soft to palpation and non-tender Extremity normal capillary refill and no clubbing, cyanosis or edema Neuro CN's II-XII intact bilaterally, no focal motor deficits, no sensory deficits noted and deep tendon reflexes 2+ bilaterally Psych thought process normal, cooperative and affect normal Appearance: appropriate Assessment & Plan Assessment/Plan (1) Acute exacerbation of CHF (congestive heart failure): (2) Tachypnea: (3) Acute exacerbation of chronic obstructive pulmonary disease: PLAN: Plan #Hypoxia in the setting of chronic hypoxic respiratory failure * likely due to COPD exacerbation and heart failure exacerbation. * Still having some wheezing though he states his breathing is getting better. * He has known EF of 55% from 2D echo done in April 2022. He does have RVSP of 53 mmHg which may be influencing his shortness of breath. * Currently on breathing treatments with bronchodilators. IV Solu-Medrol. COV ID test done was negative. * Also being diuresed with IV Lasix. Titrate oxygen to maintain saturation above 90%. * CTA chest was negativ for PE and showed small right plerual effusion and basilar aatelectasis * * #Dorsal spine increased sclerosis * unclear etiology. Blast metastases not excluded * #Type 2 diabetes mellitus: On insulin sliding scale. Accu-Cheks ACHS. #Chronic A-fib: On Coumadin. Also on Coreg and Cardizem. Was tachcyardic, but heart rate is improving. #Hypertension: on metolazone and losartan as well as cardizem #Hyperlipidemia: on statin #History of prostate cancer: * on enzalutamide. Follow up with urology on outpatient basis * Thoracic spine MRI shows sclerotic bone metastatic disease involving T1 T6, T7 and T9-T10 and T11 vertebral bodies with sclerotic bone mets of T6 and T11 vertebral bodies. * Lumbar spine MRI showed pronounced L1 central compression fracture with bony edema and enhancing sclerotic bony metastasis involving T11, L3 and L4 vertebral bodies. * Currently on pain meds. If pain is debilitating will need pain management consult for possible kyphoplasty. * May also benefit from radiation. #Thrombocytopenia: Platelets are 128. Has had episodic thrombocytopenia. This is therefore not new. Will monitor. #GERD: on famotidine #Super morbid obesity: BMI is 47. Complicates acute care, expected recovery and prognosis #TARIQ: on BIPAP qhs DVT prophylaxis: on coumadin. INR is 1.8. Will monitor INR Charges/Coding Visit Charges Inpatient E&M: 24297 Subs Hosp L3
[2022-10-23 16:40] LABS: Bedside Glucose 133 mg/dL (74-106)
--- NOTE | 2022-10-23 19:46 | CPS ---
Added a 4 lpm bleed in to pt's home CPAP machine.
[2022-10-23] MEDS: Metolazone 2.5 MG Tablet PO (23:06)
[2022-10-23] MEDS: Atorvastatin Calcium 10 MG Tablet PO (23:06)
[2022-10-23 23:46] LABS: Bedside Glucose 132 mg/dL (74-106)
[2022-10-24] VITALS (9 sets, daily range): BP systolic 114–153; BP diastolic 74–111; PULSE 74–101; RESP 14–23; TEMP 36.3–36.8; O2SAT 92–97; BMI 47.7
[2022-10-24] MEDS: 0.9% Saline Lock 10 ML Syringe IV ×5 (06:49→22:45)
[2022-10-24 07:15] LABS: Bedside Glucose 123 mg/dL (74-106)
[2022-10-24 07:18] LABS: Absolute Lymphocyte Count 1.22 X10^3/uL (0.83-4.51); Absolute Neutrophil Count 3.5 X10^3/uL (2.0-7.7); Basophil# 0.01 X10^3/uL; Basophil% 0.2 % (0-1); Eosinophil# 0.01 X10^3/uL; Eosinophils% 0.2 % (0-5); Hematocrit 43.1 % (40-54); Hemoglobin 13.2 g/dL (13.0-16.5); Lymphocyte # 1.22 X10^3/ul (0.83-4.51); Lymphocyte % 23.6 % (19-41); Mean Corp Hgb Conc 30.6 g/dL (32-36); Mean Corpuscular Hgb 32.3 pg (27.0-32.0); Mean Corpuscular Volume 105.4 fL (80-94); Mean Platelet Vol. 9.9 fl (6.2-12.0); Monocyte# 0.43 X10^3/uL; Monocyte% 8.3 % (0-10); NRBC Flagged by Analyzer 0 % (0-5); Neutrophil # 3.48 X10^3/uL (2.7-7.7); Neutrophil % 67.5 % (47-70); Platelet Count 127 K/mm3 (150-450); RBC Distribution Width CV 16.4 % (11.6-14.6); RBC Distribution Width SD 63.5 fl (35.1-43.9); Red Blood Count 4.09 M/mm3 (4.6-6.2); White Blood Count 5.2 K/mm3 (4.4-11.0)
[2022-10-24 07:33] LABS: Anion Gap 5 (5-15); BUN 32 mg/dL (7-18); BUN/Creat Ratio 29.4 RATIO (10-20); Calcium,Total 9.1 mg/dL (8.5-10.1); Chloride 107 mmol/L (98-107); Creatinine, Serum 1.09 mg/dL (0.70-1.30); EST Glomerular Filtration Rate 70 mL/min (>60); Est Glom Filt Rate - Afr Amer 85 mL/min (>60); Estimated Creatinine Clearance 60.36 ml/min; Glucose 135 mg/dL (74-106); Potassium 4.5 mmol/L (3.5-5.1); Sodium Level 146 mmol/L (136-145)
[2022-10-24] MEDS: Ipratropium/Albuterol Sulfate 3 ML AMPUL.NEB INHALATION ×4 (08:00→19:46)
[2022-10-24] MEDS: Venlafaxine XR 150 MG Capsule PO (09:04)
[2022-10-24] MEDS: dilTIAZem CD 180 MG Capsule PO (09:04)
[2022-10-24] MEDS: Famotidine 20 MG Tablet 40 MG PO (09:04)
[2022-10-24] MEDS: Carvedilol 25 MG Tablet PO ×2 (09:04→22:39)
[2022-10-24] MEDS: Losartan Potassium 100 MG Tablet PO (09:04)
[2022-10-24] MEDS: Primidone 50 MG Tablet 150 MG PO ×2 (09:04→22:38)
[2022-10-24] MEDS: Potassium Chloride Oral Tablet 20 MEQ PO ×2 (09:05→22:39)
[2022-10-24] MEDS: Montelukast 10 MG Tablet PO (09:05)
[2022-10-24] MEDS: ENZALUTAMIDE 40 MG TABLET 160 MG PO (09:05)
[2022-10-24] MEDS: Furosemide 100 MG/10 ML Vial 60 MG IV ×2 (09:05→17:12)
--- NOTE | 2022-10-24 10:41 | PN_ITS ---
Subjective Subjective Patient seen and examined. His was by his bedside. He says his breathing has improved today. He denies any chest pain, palpitations, dizziness, nausea, vomiting or diarrhea. Review of systems is otherwise negative. His heart rate is also better controlled. Objective Data Objective Data Vital Signs: Vital Signs Temp Pulse Resp BP Pulse Ox O2 Del Method O2 Flow Rate 98.3 F 81 18 153/87 H 95 Nasal Cannula 3 10/24/22 09:00 10/24/22 09:00 10/24/22 09:00 10/24/22 09:00 10/24/22 09:00 10/24/22 09:00 10/24/22 09:00 Oxygen Flow Rate (L/min) 3 Oxygen Delivery Method Nasal Cannula Weight: 322 lb 15.635 oz Body Mass Index (BMI) 47.7 Intake & Output: Intake and Output for Last 24 Hours 10/22/22 10/23/22 10/24/22 23:59 23:59 23:59 Intake Total 720 / 720 Output Total 950 / 1650 900 / 900 Balance -230 / -930 -900 / -900 Lab / Micro Data Result Diagrams: 10/24/22 06:55 10/24/22 06:55 Labs: Laboratory Results - last 24 hr 10/23/22 11:27: POC Glucose 154 H 10/23/22 16:17: POC Glucose 133 H 10/23/22 23:02: POC Glucose 132 H 10/24/22 06:44: POC Glucose 123 H 10/24/22 06:55: WBC 5.2, RBC 4.09 L, Hgb 13.2, Hct 43.1, MCV 105.4 H, MCH 32.3 H , MCHC 30.6 L, RDW Std Deviation 63.5 H, RDW Coeff of Kayley 16.4 H, Plt Count 127 L, MPV 9.9, Immature Gran % (Auto) 0.200, Neut % (Auto) 67.5, Lymph % (Auto) 23.6, [place] % (Auto) 8.3, Eos % (Auto) 0.2, Baso % (Auto) 0.2, Absolute Neuts (auto) 3.5, Absolute Lymphs (auto) 1.22, Nucleated RBC % 0 10/24/22 06:55: Sodium 146 H, Potassium 4.5, Chloride 107, Carbon Dioxide 34.0 H , Anion Gap 5, BUN 32 H, Creatinine 1.09, Estim Creat Clear Calc 60.36, Est GFR (MDRD) Af Amer 85, Est GFR (MDRD) Non-Af 70, BUN/Creatinine Ratio 29.4 H, Glucose 135 H, Calcium 9.1 Micro: Microbiology 10/22/22 21:45 Mucosa - Nasopharyngeal Respiratory Panel (PCR) - Final 10/22/22 16:40 Nasal Secretion SARS-CoV-2 & FLU Antigen (Rapid) - Final Radiography Diagnostic Testing: Radiology Impression Lumbar Spine MRI 10/22/22 22:35 IMPRESSION: 1. Pronounced L1 central compression fracture with bone edema enhances with intravenous contrast due to recent nonpathologic compression fracture. This is feasible for kyphoplasty if patient has debilitating back pain referrable to this site. This is unchanged when compared to 10/22/2022 but new since 04/13/2022. 2. Enhancing sclerotic bone metastases involving T11, L3 and L4 vertebral bodies. 3. 6 lumbar type vertebral bodies due to lumbarization of S1. 4. No MRI evidence of intradural enhancing metastatic disease. COMMENT: Baseline bone scan will help determine the extent of skeletal metastases since this was never performed. Electronically Signed: Atif Montero MD at 15:08 EDT , Thoracic Spine MRI 10/23/22 09:30 IMPRESSION: 1. Sclerotic bone metastatic disease involving T1, T6, T7, T9, T10 and T11 vertebral bodies with contrast enhancement of the sclerotic bone metastases involving T6 and T11 vertebral bodies. Bone scan will help determine the extent of skeletal metastasis. 2. Pronounced L1 central compression fracture. This is unchanged. 3. No MRI evidence of abnormal enhancing lesions intradurally and extradurally. 4. Normal thoracic spinal cord. 5. No spinal stenosis. Electronically Signed: Atif Montero MD at 14:49 EDT , Physical Exam Const alert, oriented x3 and no apparent distress Constitutional Narrative: super morbid obesity General Appearance: cooperative and well developed HEENT normocephalic, head/scalp atraumatic and moist oral mucous membranes Eyes PERRL and EOMs intact bilaterally Neck no lymphadenopathy, supple and no JVD General: trachea midline Lymph Lymphatic: no lymphadenopathy noted and no lymphedema noted Resp Resp Narrative: mildly diminished breath sounds bibasally, moderate wheezing, no crackles. on room air. Cardio regular rate, regular rhythm, S1 normal heart sound, S2 normal heart sound and no murmurs GI normal to inspection, nondistended, normoactive bowel sounds, soft to palpation and non-tender Extremity normal capillary refill, no clubbing, cyanosis or edema and no calf tenderness Skin General Skin Exam: no breakdown Neuro CN's II-XII intact bilaterally, no focal motor deficits, no sensory deficits noted and deep tendon reflexes 2+ bilaterally Psych thought process normal, cooperative and affect normal Appearance: appropriate Assessment & Plan Assessment/Plan (1) Acute exacerbation of CHF (congestive heart failure): (2) Tachypnea: (3) Acute exacerbation of chronic obstructive pulmonary disease: PLAN: Plan #Hypoxia in the setting of chronic hypoxic respiratory failure * likely due to COPD exacerbation and heart failure exacerbation. * wheezing has improved and he feels much better * He has known EF of 55% from 2D echo done in April 2022. He does have RVSP of 53 mmHg which may be influencing his shortness of breath. * Currently on breathing treatments with bronchodilators. IV Solu-Medrol. COVID test done was negative. * Also being diuresed with IV Lasix. Titrate oxygen to maintain saturation above 90%. * CTA chest was negative for PE and showed small right plerual effusion and basilar aatelectasis * * #Type 2 diabetes mellitus: On insulin sliding scale. Accu-Cheks ACHS. #Chronic A-fib: On Coumadin. Also on Coreg and Cardizem. Was tachcyardic, but heart rate is improving. #Hypertension: on metolazone and losartan as well as cardizem #Hyperlipidemia: on statin #History of prostate cancer: * on enzalutamide. Follow up with urology on outpatient basis * Thoracic spine MRI shows sclerotic bone metastatic disease involving T1 T6, T7 and T9-T10 and T11 vertebral bodies with sclerotic bone mets of T6 and T11 vertebral bodies. * Lumbar spine MRI showed pronounced L1 central compression fracture with bony edema and enhancing sclerotic bony metastasis involving T11, L3 and L4 vertebral bodies. * Currently on pain meds. If pain is debilitating will need pain management consult for possible kyphoplasty. * May also benefit from radiation. * I discussed this with patient and his today. They want to follow up with their oncologist in [place], and say they will ask for their oncologist to request records of the imaging to determine the next course of action. He was supposed to follow up in March. He doesnt have any back pain now. #Thrombocytopenia: Platelets are 127 today. Has had episodic thrombocytopenia. This is therefore not new. Will monitor. #GERD: on famotidine #Super morbid obesity: BMI is 47. Complicates acute care, expected recovery and prognosis #TARIQ: on BIPAP qhs DVT prophylaxis: on coumadin. Will monitor INR Charges/Coding Visit Charges Inpatient E&M: 05968 Subs Hosp L2
--- NOTE | 2022-10-24 11:00 | CASEMGMT ---
Therapy is recommending group home facility for patient. This SW and CINDI Dahl met with patient and his . Introduced selves and role at [facility]. They confirmed they are looking at placement. SW provided them with a list of group home facility providers including quality and resource use data and consistent with patient?s preferred geographic region, medical needs, and insurance network were provided from the [facility]. SW explained they would need to pick 2-3 facilities and SW will make referrals. SW also explained Medicare coverage for group home facilities. Arpita Means HAND TRUCKER PAIGE
[2022-10-24] MEDS: Insulin Lispro 100 UNIT/ML INSULN.PEN SC (11:11)
--- NOTE | 2022-10-24 11:30 | CASEMGMT ---
SW spoke with patient and his and their residential choices were [facility] and then [facility]. SW [facility]errals [facility] facilities [facility]. Arpita GIBSON
[2022-10-24 11:35] LABS: Bedside Glucose 177 mg/dL (74-106)
[2022-10-24 11:59] LABS: International Normalized Ratio 1.7; Prothrombin Time (Protime)PT. 19.7 SECONDS (11.7-14.9)
--- NOTE | 2022-10-24 12:45 | CASEMGMT ---
[facility] said no as they have no available beds. Await response from [place]. Arpita Means BRICK EXTRUDER OPERATOR PAIGE
--- NOTE | 2022-10-24 16:43 | CASEMGMT ---
[facility] is unable to accept patient as his one medication for prostate cancer is too expensive. CINDI notified patient's . She will look a the list. However, since it is late in the day on a Thursday it is unlikely SW will be able to find placement for patient today. CINDI will follow up on Thursday. Arpita Means DATA PROCESSING OPERATOR PAIGE
[2022-10-24 17:01] LABS: Bedside Glucose 149 mg/dL (74-106)
[2022-10-24] MEDS: Atorvastatin Calcium 10 MG Tablet PO (22:38)
[2022-10-24] MEDS: Metolazone 2.5 MG Tablet PO (22:39)
[2022-10-25 01:46] LABS: Bedside Glucose 130 mg/dL (74-106)
[2022-10-25 04:12] VITALS: BP 136/99; PULSE 100; RESP 15; TEMP 36.5; O2SAT 96
[2022-10-25] MEDS: 0.9% Saline Lock 10 ML Syringe IV ×5 (06:42→21:59)
[2022-10-25 06:45] LABS: Absolute Lymphocyte Count 1.39 X10^3/uL (0.83-4.51); Absolute Neutrophil Count 3.9 X10^3/uL (2.0-7.7); Basophil# 0.01 X10^3/uL; Basophil% 0.2 % (0-1); Eosinophil# 0.01 X10^3/uL; Eosinophils% 0.2 % (0-5); Hematocrit 42.9 % (40-54); Hemoglobin 13.3 g/dL (13.0-16.5); Lymphocyte # 1.39 X10^3/ul (0.83-4.51); Lymphocyte % 23.8 % (19-41); Mean Corpuscular Hgb 32.1 pg (27.0-32.0); Mean Corpuscular Volume 103.6 fL (80-94); Mean Platelet Vol. 10.2 fl (6.2-12.0); Monocyte# 0.45 X10^3/uL; Monocyte% 7.7 % (0-10); NRBC Flagged by Analyzer 0 % (0-5); Neutrophil # 3.94 X10^3/uL (2.7-7.7); Neutrophil % 67.4 % (47-70); Platelet Count 144 K/mm3 (150-450); RBC Distribution Width SD 60.9 fl (35.1-43.9); Red Blood Count 4.14 M/mm3 (4.6-6.2); White Blood Count 5.8 K/mm3 (4.4-11.0)
[2022-10-25 07:06] LABS: Bedside Glucose 124 mg/dL (74-106)
[2022-10-25 07:25] LABS: Anion Gap 5 (5-15); BUN 36 mg/dL (7-18); BUN/Creat Ratio 34.6 RATIO (10-20); Calcium,Total 9.2 mg/dL (8.5-10.1); Chloride 102 mmol/L (98-107); Creatinine, Serum 1.04 mg/dL (0.70-1.30); EST Glomerular Filtration Rate 74 mL/min (>60); Est Glom Filt Rate - Afr Amer 90 mL/min (>60); Estimated Creatinine Clearance 63.26 ml/min; Glucose 137 mg/dL (74-106); Sodium Level 138 mmol/L (136-145)
[2022-10-25] MEDS: dilTIAZem CD 180 MG Capsule PO (08:40)
[2022-10-25] MEDS: Losartan Potassium 100 MG Tablet PO (08:41)
[2022-10-25] MEDS: Venlafaxine XR 150 MG Capsule PO (08:41)
[2022-10-25] MEDS: Carvedilol 25 MG Tablet PO ×2 (08:41→21:59)
[2022-10-25] MEDS: Furosemide 100 MG/10 ML Vial 60 MG IV ×2 (08:42→16:42)
[2022-10-25] MEDS: Famotidine 20 MG Tablet 40 MG PO (08:42)
[2022-10-25] MEDS: Primidone 50 MG Tablet 150 MG PO ×2 (08:42→21:59)
[2022-10-25] MEDS: Potassium Chloride Oral Tablet 20 MEQ PO ×2 (08:42→21:59)
[2022-10-25] MEDS: Montelukast 10 MG Tablet PO (08:43)
[2022-10-25] MEDS: ENZALUTAMIDE 40 MG TABLET 160 MG PO (08:43)
[2022-10-25 09:15] VITALS: BP 132/88; PULSE 98; RESP 18; TEMP 36.4; O2SAT 94
[2022-10-25 10:43] VITALS: PULSE 98; RESP 20
[2022-10-25] MEDS: Ipratropium/Albuterol Sulfate 3 ML AMPUL.NEB INHALATION ×3 (10:43→19:53)
[2022-10-25] MEDS: Insulin Lispro 100 UNIT/ML INSULN.PEN SC (11:13)
[2022-10-25 11:35] LABS: Bedside Glucose 170 mg/dL (74-106)
--- NOTE | 2022-10-25 12:47 | PN_ITS ---
Subjective Subjective Patient seen and examined. He had no complaints this morning and felt well. He had an uneventful night and review of systems otherwise negative. He has remained hemodynamically stable. Objective Data Objective Data Vital Signs: Vital Signs Temp Pulse Resp BP Pulse Ox O2 Del Method O2 Flow Rate 97.6 F L 98 20 H 132/88 H 94 Room Air 3 10/25/22 09:15 10/25/22 10:43 10/25/22 10:43 10/25/22 09:15 10/25/22 09:15 10/25/22 10:00 10/25/22 09:15 Oxygen Flow Rate (L/min) 3 Oxygen Delivery Method Room Air Weight: 322 lb 15.635 oz Body Mass Index (BMI) 47.7 Intake & Output: Intake and Output for Last 24 Hours 10/23/22 10/24/22 10/25/22 23:59 23:59 23:59 Intake Total 720 / 720 600 / 600 Output Total 950 / 1650 1700 / 2500 2300 / 2300 Balance -230 / -930 -1100 / -1900 -2300 / -2300 Lab / Micro Data Result Diagrams: 10/25/22 06:27 10/25/22 06:27 Labs: Laboratory Results - last 24 hr 10/24/22 16:36: POC Glucose 149 H 10/24/22 22:35: POC Glucose 130 H 10/25/22 06:27: WBC 5.8, RBC 4.14 L, Hgb 13.3, Hct 42.9, MCV 103.6 H, MCH 32.1 H , MCHC 31.0 L, RDW Std Deviation 60.9 H, RDW Coeff of Kayley 16.0 H, Plt Count 144 L, MPV 10.2, Immature Gran % (Auto) 0.700, Neut % (Auto) 67.4, Lymph % (Auto) 23.8, [place] % (Auto) 7.7, Eos % (Auto) 0.2, Baso % (Auto) 0.2, Absolute Neuts (auto) 3.9, Absolute Lymphs (auto) 1.39, Nucleated RBC % 0 10/25/22 06:27: Sodium 138, Potassium 4.0, Chloride 102, Carbon Dioxide 31.0, Anion Gap 5, BUN 36 H, Creatinine 1.04, Estim Creat Clear Calc 63.26, Est GFR (MDRD) Af Amer 90, Est GFR (MDRD) Non-Af 74, BUN/Creatinine Ratio 34.6 H, Glucose 137 H, Calcium 9.2 10/25/22 06:46: POC Glucose 124 H 10/25/22 11:12: POC Glucose 170 H Micro: Microbiology 10/22/22 21:45 Mucosa - Nasopharyngeal Respiratory Panel (PCR) - Final 10/22/22 16:40 Nasal Secretion SARS-CoV-2 & FLU Antigen (Rapid) - Final Physical Exam Const alert, oriented x3 and no apparent distress Constitutional Narrative: super morbid obesity General Appearance: cooperative and well developed HEENT normocephalic, head/scalp atraumatic and moist oral mucous membranes Eyes PERRL and EOMs intact bilaterally Neck no lymphadenopathy, supple and no JVD General: trachea midline Lymph Lymphatic: no lymphadenopathy noted and no lymphedema noted Resp Resp Narrative: mildly diminished breath sounds bibasally, moderate wheezing, no crackles. on 3L of oxygen Cardio regular rate, regular rhythm, S1 normal heart sound, S2 normal heart sound and no murmurs GI normal to inspection, nondistended, normoactive bowel sounds, soft to palpation and non-tender Extremity normal capillary refill, no clubbing, cyanosis or edema and no calf tenderness Skin General Skin Exam: no breakdown Neuro CN's II-XII intact bilaterally, no focal motor deficits, no sensory deficits noted and deep tendon reflexes 2+ bilaterally Psych thought process normal, cooperative and affect normal Appearance: appropriate Assessment & Plan Assessment/Plan (1) Acute exacerbation of CHF (congestive heart failure): (2) Tachypnea: (3) Acute exacerbation of chronic obstructive pulmonary disease: PLAN: Plan #Hypoxia in the setting of chronic hypoxic respiratory failure * likely due to COPD exacerbation and heart failure exacerbation. * wheezing has improved and he feels much better * He has known EF of 55% from 2D echo done in April 2022. He does have RVSP of 53 mmHg which may be influencing his shortness of breath. * Currently on breathing treatments with bronchodilators. IV Solu-Medrol. COVID test done was negative. * Also being diuresed with IV Lasix. Titrate oxygen to maintain saturation above 90%. * CTA chest was negative for PE and showed small right plerual effusion and basilar aatelectasis * shortness of breath has improved and he is down to his baseline 3L of oxygen. * #Type 2 diabetes mellitus: On insulin sliding scale. Accu-Cheks ACHS. #Chronic A-fib: On Coumadin. Also on Coreg and Cardizem. Was tachcyardic, but heart rate is improving. #Hypertension: on metolazone and losartan as well as cardizem #Hyperlipidemia: on statin #History of prostate cancer: * on enzalutamide. Follow up with urology on outpatient basis * Thoracic spine MRI shows sclerotic bone metastatic disease involving T1 T6, T7 and T9-T10 and T11 vertebral bodies with sclerotic bone mets of T6 and T11 vertebral bodies. * Lumbar spine MRI showed pronounced L1 central compression fracture with bony edema and enhancing sclerotic bony metastasis involving T11, L3 and L4 neftaly tebral bodies. * Currently on pain meds. denies any pain. * I discussed this with patient and his . They want to follow up with their oncologist in [place], and say they will ask for their oncologist to request records of the imaging to determine the next course of action. He was supposed to follow up in March. He doesnt have any back pain now. #Thrombocytopenia: Platelets have improved to 144 today. Has had episodic thrombocytopenia. This is therefore not new. Will monitor. #GERD: on famotidine #Super morbid obesity: BMI is 47. Complicates acute care, expected recovery and prognosis #TARIQ: on BIPAP qhs DVT prophylaxis: on coumadin. Will monitor INR Disposition: awaiting placement Charges/Coding Visit Charges Inpatient E&M: 98741 Subs Hosp L2
[2022-10-25 13:52] LABS: International Normalized Ratio 1.6; Prothrombin Time (Protime)PT. 18.7 SECONDS (11.7-14.9)
[2022-10-25 15:33] VITALS: O2SAT 97
[2022-10-25 17:06] LABS: Bedside Glucose 148 mg/dL (74-106)
[2022-10-25 19:53] VITALS: PULSE 116; RESP 17
[2022-10-25 20:16] VITALS: BMI 47.0
[2022-10-25 21:40] VITALS: BP 141/85; PULSE 92; RESP 18; TEMP 36.6; O2SAT 97
[2022-10-25] MEDS: Atorvastatin Calcium 10 MG Tablet PO (21:59)
[2022-10-25 22:25] LABS: Bedside Glucose 131 mg/dL (74-106)
[2022-10-26] VITALS (8 sets, daily range): BP systolic 137–151; BP diastolic 91–105; PULSE 87–101; RESP 16–20; TEMP 36.2–37.1; O2SAT 94–99; BMI 46.7
[2022-10-26] MEDS: 0.9% Saline Lock 10 ML Syringe IV (06:14)
[2022-10-26 06:37] LABS: Absolute Lymphocyte Count 1.23 X10^3/uL (0.83-4.51); Absolute Neutrophil Count 3.7 X10^3/uL (2.0-7.7); Basophil# 0.01 X10^3/uL; Basophil% 0.2 % (0-1); Eosinophil# 0.01 X10^3/uL; Eosinophils% 0.2 % (0-5); Hematocrit 42.9 % (40-54); Hemoglobin 13.4 g/dL (13.0-16.5); Lymphocyte # 1.23 X10^3/ul (0.83-4.51); Lymphocyte % 22.8 % (19-41); Mean Corp Hgb Conc 31.2 g/dL (32-36); Mean Corpuscular Volume 102.4 fL (80-94); Monocyte# 0.37 X10^3/uL; Monocyte% 6.9 % (0-10); NRBC Flagged by Analyzer 0 % (0-5); Neutrophil # 3.74 X10^3/uL (2.7-7.7); Neutrophil % 69.3 % (47-70); Platelet Count 140 K/mm3 (150-450); RBC Distribution Width CV 15.7 % (11.6-14.6); RBC Distribution Width SD 58.8 fl (35.1-43.9); Red Blood Count 4.19 M/mm3 (4.6-6.2); White Blood Count 5.4 K/mm3 (4.4-11.0)
[2022-10-26 06:40] LABS: Bedside Glucose 124 mg/dL (74-106)
[2022-10-26 07:04] LABS: Anion Gap 4 (5-15); BUN 42 mg/dL (7-18); BUN/Creat Ratio 38.5 RATIO (10-20); Calcium,Total 9.1 mg/dL (8.5-10.1); Chloride 100 mmol/L (98-107); Creatinine, Serum 1.09 mg/dL (0.70-1.30); EST Glomerular Filtration Rate 70 mL/min (>60); Est Glom Filt Rate - Afr Amer 85 mL/min (>60); Estimated Creatinine Clearance 60.36 ml/min; Glucose 135 mg/dL (74-106); Potassium 4.3 mmol/L (3.5-5.1); Sodium Level 139 mmol/L (136-145)
--- NOTE | 2022-10-26 08:35 | PN.HOSP_ITS ---
Reason for Visit Reason for Visit: Diagnoses Heart failure, unspecified (10/22/22) Chronic obstructive pulmonary disease with (acute) exacerbation (10/22/22) Tachypnea, not elsewhere classified (10/22/22) Subjective Subjective Breathing is significantly better and close to baseline, no cough. Slight swelling on legs, denies new complaints. Objective Data Objective Data Vital Signs: Vital Signs Temp Pulse Resp BP Pulse Ox O2 Del Method O2 Flow Rate 98.7 F 96 18 137/105 H 94 CPAP 3 10/26/22 03:40 10/26/22 03:40 10/26/22 03:40 10/26/22 03:40 10/26/22 03:40 10/26/22 03:40 10/25/22 20:00 Oxygen Flow Rate (L/min) 3 Oxygen Delivery Method CPAP Weight: 143.5 kg Body Mass Index (BMI) 46.7 Intake & Output: Intake and Output for Last 24 Hours 10/24/22 10/25/22 10/26/22 23:59 23:59 23:59 Intake Total 600 / 600 Output Total 1700 / 2500 3600 / 4550 1400 / 1400 Balance -1100 / -1900 -3600 / -4550 -1400 / -1400 Lab / Micro Data Result Diagrams: 10/26/22 06:17 10/26/22 06:17 Labs: Laboratory Results - last 24 hr 10/25/22 11:12: POC Glucose 170 H 10/25/22 13:08: PT 18.7 H, INR 1.6 10/25/22 16:40: POC Glucose 148 H 10/25/22 21:58: POC Glucose 131 H 10/26/22 06:17: WBC 5.4, RBC 4.19 L, Hgb 13.4, Hct 42.9, MCV 102.4 H, MCH 32.0, MCHC 31.2 L, RDW Std Deviation 58.8 H, RDW Coeff of Kayley 15.7 H, Plt Count 140 L, MPV 10.0, Immature Gran % (Auto) 0.600, Neut % (Auto) 69.3, Lymph % (Auto) 22.8, [place] % (Auto) 6.9, Eos % (Auto) 0.2, Baso % (Auto) 0.2, Absolute Neuts (auto) 3.7, Absolute Lymphs (auto) 1.23, Nucleated RBC % 0 10/26/22 06:17: Sodium 139, Potassium 4.3, Chloride 100, Carbon Dioxide 35.0 H, Anion Gap 4 L, BUN 42 H, Creatinine 1.09, Estim Creat Clear Calc 60.36, Est GFR (MDRD) Af Amer 85, Est GFR (MDRD) Non-Af 70, BUN/Creatinine Ratio 38.5 H, Glucose 135 H, Calcium 9.1 10/26/22 06:19: POC Glucose 124 H Micro: Microbiology 10/22/22 21:45 Mucosa - Nasopharyngeal Respiratory Panel (PCR) - Final 10/22/22 16:40 Nasal Secretion SARS-CoV-2 & FLU Antigen (Rapid) - Final Physical Exam Narrative General: Alert, oriented, no apparent distress HEENT: Atraumatic, normocephalic Eyes: Anicteric, normal conjunctiva, extraocular movements grossly intact Neck: Supple Respiratory: Somewhat diminished at the bases, possibly secondary to body spivey bitus, normal respiratory effort Cardiovascular: Regular rate GI: nontender, nondistended Extremities: 1+ bilateral lower extremity edema Musculoskeletal: Moving all extremities Neuro: No overt focal neurological deficits, does have repetitive movements in his lips Skin: No rashes appreciated Psych: Cooperative Assessment & Plan Assessment/Plan (1) Acute exacerbation of CHF (congestive heart failure): (2) Acute exacerbation of chronic obstructive pulmonary disease: PLAN: Plan #Hypoxia in the setting of chronic hypoxic respiratory failure and acute on chronic CHF -likely due to COPD exacerbation and heart failure exacerbation. -He has known EF of 55% from 2D echo done in April 2022.? He does have RVSP of 53 mmHg which may be influencing his shortness of breath. -CTA chest was negative for PE and showed small right plerual effusion and basilar aatelectasis -Currently on breathing treatments with bronchodilators.? COVID test negative -Seems to be improving, will de-escalate to p.o. steroids and p.o. Lasix and assess progress, continue home metolazone -Currently down to his baseline 3L of oxygen. #History of prostate cancer: -on enzalutamide. Follow up with urology on outpatient basis -Thoracic spine MRI shows sclerotic bone metastatic disease involving T1 T6, T7 and T9-T10 and T11 vertebral bodies with sclerotic bone mets of T6 and T11 vertebral bodies. -Lumbar spine MRI showed pronounced L1 central compression fracture with bony edema and enhancing sclerotic bony metastasis involving T11, L3 and L4 vertebral bodies. -They want to follow up with their oncologist in [place], and say they will ask for their oncologist to request records of the imaging to determine the next course of action. He was supposed to follow up in March. #Type 2 diabetes mellitus: On insulin sliding scale.? Accu-Cheks ACHS. #Chronic A-fib -On Coumadin but INR subtherapeutic, will adjust dose. Based on the RE-LY Trial algorithm, given INR 1.6 will increase by 10 %/week, Given weekly dose of 48 mg will increase by 5 mg. Will increase to 6 mg 5 times a week to 7 mg 5 times a week and continue 9 mg Wednesdays and Saturdays -On Coreg and Cardizem #Hypertension: on metolazone and losartan as well as cardizem #Hyperlipidemia: on statin #Super morbid obesity:? BMI is 47. Complicates acute care, expected recovery and prognosis #TARIQ: on BIPAP qhs #DVT ppx: Due to subtherapeutic INR we will add SCDs Anabella Morrell MD Time spent in the patient's overall evaluation,decision-making process, review of diagnostic data, adjustment of management, discussion with other providers, nursing nursing and ancillary staff involved in patient's care documentation, 60 minutes Charges/Coding Visit Charges Inpatient E&M: 45208 Subs Hosp L2
[2022-10-26 09:50] LABS: International Normalized Ratio 1.6
[2022-10-26] MEDS: Primidone 50 MG Tablet 150 MG PO ×2 (10:36→20:49)
[2022-10-26] MEDS: Famotidine 20 MG Tablet 40 MG PO (10:36)
[2022-10-26] MEDS: Carvedilol 25 MG Tablet PO ×2 (10:36→20:49)
[2022-10-26] MEDS: Potassium Chloride Oral Tablet 20 MEQ PO ×2 (10:36→20:49)
[2022-10-26] MEDS: ENZALUTAMIDE 40 MG TABLET 160 MG PO (10:36)
[2022-10-26] MEDS: dilTIAZem CD 180 MG Capsule PO (10:36)
[2022-10-26] MEDS: Losartan Potassium 100 MG Tablet PO (10:36)
[2022-10-26] MEDS: Montelukast 10 MG Tablet PO (10:36)
[2022-10-26] MEDS: Venlafaxine XR 150 MG Capsule PO (10:36)
[2022-10-26] MEDS: Furosemide 40 MG Tablet 60 MG PO ×2 (10:40→17:00)
[2022-10-26] MEDS: Ipratropium/Albuterol Sulfate 3 ML AMPUL.NEB INHALATION ×3 (10:59→19:53)
[2022-10-26] MEDS: Insulin Lispro 100 UNIT/ML INSULN.PEN SC (11:25)
[2022-10-26 11:46] LABS: Bedside Glucose 153 mg/dL (74-106)
[2022-10-26 16:21] LABS: Bedside Glucose 115 mg/dL (74-106)
[2022-10-26] MEDS: Jantoven 2 MG Tablet PO (17:00)
[2022-10-26] MEDS: Atorvastatin Calcium 10 MG Tablet PO (20:49)
[2022-10-26 22:30] LABS: Bedside Glucose 136 mg/dL (74-106)
[2022-10-27] VITALS (8 sets, daily range): BP systolic 122–151; BP diastolic 75–100; PULSE 76–100; RESP 16–20; TEMP 36.6–36.8; O2SAT 92–97; BMI 46.5
[2022-10-27 06:43] LABS: Absolute Lymphocyte Count 1.72 X10^3/uL (0.83-4.51); Absolute Neutrophil Count 2.7 X10^3/uL (2.0-7.7); Basophil# 0.02 X10^3/uL; Basophil% 0.4 % (0-1); Eosinophil# 0.07 X10^3/uL; Eosinophils% 1.4 % (0-5); Hematocrit 42.6 % (40-54); Hemoglobin 13.8 g/dL (13.0-16.5); Lymphocyte # 1.72 X10^3/ul (0.83-4.51); Lymphocyte % 34.1 % (19-41); Mean Corp Hgb Conc 32.4 g/dL (32-36); Mean Corpuscular Hgb 32.7 pg (27.0-32.0); Mean Corpuscular Volume 100.9 fL (80-94); Mean Platelet Vol. 9.9 fl (6.2-12.0); Monocyte# 0.48 X10^3/uL; Monocyte% 9.5 % (0-10); NRBC Flagged by Analyzer 0 % (0-5); Neutrophil # 2.74 X10^3/uL (2.7-7.7); Neutrophil % 54.2 % (47-70); Platelet Count 138 K/mm3 (150-450); RBC Distribution Width CV 15.8 % (11.6-14.6); RBC Distribution Width SD 58.1 fl (35.1-43.9); Red Blood Count 4.22 M/mm3 (4.6-6.2); White Blood Count 5.1 K/mm3 (4.4-11.0)
[2022-10-27 06:50] LABS: Bedside Glucose 108 mg/dL (74-106)
[2022-10-27 07:12] LABS: International Normalized Ratio 1.9
[2022-10-27 07:19] LABS: Anion Gap 4 (5-15); BUN 36 mg/dL (7-18); BUN/Creat Ratio 39.6 RATIO (10-20); Chloride 100 mmol/L (98-107); Creatinine, Serum 0.91 mg/dL (0.70-1.30); EST Glomerular Filtration Rate 87 mL/min (>60); Est Glom Filt Rate - Afr Amer 105 mL/min (>60); Glucose 117 mg/dL (74-106); Potassium 3.4 mmol/L (3.5-5.1); Sodium Level 139 mmol/L (136-145)
[2022-10-27] MEDS: Ipratropium/Albuterol Sulfate 3 ML AMPUL.NEB INHALATION ×4 (08:29→18:46)
[2022-10-27] MEDS: predniSONE 20 MG Tablet 60 MG PO (10:10)
[2022-10-27] MEDS: Potassium Chloride Oral Tablet 20 MEQ PO ×3 (10:10→20:44)
[2022-10-27] MEDS: Losartan Potassium 100 MG Tablet PO (10:11)
[2022-10-27] MEDS: Venlafaxine XR 150 MG Capsule PO (10:12)
[2022-10-27] MEDS: Furosemide 40 MG Tablet 60 MG PO ×2 (10:12→18:17)
[2022-10-27] MEDS: Montelukast 10 MG Tablet PO (10:13)
[2022-10-27] MEDS: dilTIAZem CD 180 MG Capsule PO (10:13)
[2022-10-27] MEDS: Primidone 50 MG Tablet 150 MG PO ×2 (10:13→20:43)
[2022-10-27] MEDS: Famotidine 20 MG Tablet 40 MG PO (10:13)
[2022-10-27] MEDS: ENZALUTAMIDE 40 MG TABLET 160 MG PO (10:19)
[2022-10-27] MEDS: Carvedilol 25 MG Tablet PO ×2 (10:19→20:43)
--- NOTE | 2022-10-27 10:23 | CASEMGMT ---
CINDI called patient's . Her next choice for SNF would be [facility]. CINDI let her know SW will send the referral to [facility] via [facility]. Await response. Arpita GIBSON
[2022-10-27 12:25] LABS: Bedside Glucose 130 mg/dL (74-106)
--- NOTE | 2022-10-27 13:34 | PN.HOSP_ITS ---
Reason for Visit Reason for Visit: Diagnoses Heart failure, unspecified (10/22/22) Chronic obstructive pulmonary disease with (acute) exacerbation (10/22/22) Tachypnea, not elsewhere classified (10/22/22) Subjective Subjective Continues to feel better today, no new complaints. Feels breathing is essentially at baseline Objective Data Objective Data Vital Signs: Vital Signs Temp Pulse Resp BP Pulse Ox O2 Del Method O2 Flow Rate 97.8 F 85 16 129/100 H 93 Nasal Cannula 3 10/27/22 09:00 10/27/22 11:48 10/27/22 11:48 10/27/22 09:00 10/27/22 09:00 10/27/22 09:50 10/27/22 09:50 Oxygen Flow Rate (L/min) 3 Oxygen Delivery Method Nasal Cannula Weight: 143 kg Body Mass Index (BMI) 46.5 Intake & Output: Intake and Output for Last 24 Hours 10/25/22 10/26/22 10/27/22 23:59 23:59 23:59 Intake Total 840 / 840 Output Total 3600 / 4550 2700 / 3700 1600 / 1600 Balance -3600 / -4550 -1860 / -2860 -1600 / -1600 Lab / Micro Data Result Diagrams: 10/27/22 06:00 10/27/22 06:00 Labs: Laboratory Results - last 24 hr 10/26/22 15:59: POC Glucose 115 H 10/26/22 20:47: POC Glucose 136 H 10/27/22 06:00: WBC 5.1, RBC 4.22 L, Hgb 13.8, Hct 42.6, MCV 100.9 H, MCH 32.7 H , MCHC 32.4, RDW Std Deviation 58.1 H, RDW Coeff of Kayley 15.8 H, Plt Count 138 L, MPV 9.9, Immature Gran % (Auto) 0.400, Neut % (Auto) 54.2, Lymph % (Auto) 34.1, [place] % (Auto) 9.5, Eos % (Auto) 1.4, Baso % (Auto) 0.4, Absolute Neuts (auto) 2.7, Absolute Lymphs (auto) 1.72, Nucleated RBC % 0 10/27/22 06:00: Sodium 139, Potassium 3.4 L, Chloride 100, Carbon Dioxide 35.0 H , Anion Gap 4 L, BUN 36 H, Creatinine 0.91, Estim Creat Clear Calc 72.30, Est GFR (MDRD) Af Amer 105, Est GFR (MDRD) Non-Af 87, BUN/Creatinine Ratio 39.6 H, Glucose 117 H, Calcium 9.0 10/27/22 06:00: PT 21.0 H, INR 1.9 10/27/22 06:28: POC Glucose 108 H 10/27/22 12:06: POC Glucose 130 H Micro: Microbiology 10/22/22 21:45 Mucosa - Nasopharyngeal Respiratory Panel (PCR) - Final 10/22/22 16:40 Nasal Secretion SARS-CoV-2 & FLU Antigen (Rapid) - Final Physical Exam Narrative General: Alert, oriented, no apparent distress HEENT: Atraumatic, normocephalic Eyes: Anicteric, normal conjunctiva, extraocular movements grossly intact Neck: Supple Respiratory: Somewhat diminished at the bases, possibly secondary to body habitus, normal respiratory effort Cardiovascular: Regular rate GI: nontender, nondistended Extremities: 1+ bilateral lower extremity edema Musculoskeletal: Moving all extremities Neuro: No overt focal neurological deficits, does have repetitive movements in his lips Skin: No rashes appreciated Psych: Cooperative Assessment & Plan Assessment/Plan (1) Acute exacerbation of CHF (congestive heart failure): (2) Acute exacerbation of chronic obstructive pulmonary disease: PLAN: Plan #Hypoxia in the setting of chronic hypoxic respiratory failure and acute on chronic CHF -likely due to COPD exacerbation and heart failure exacerbation. -He has known EF of 55% from 2D echo done in April 2022.? He does have RVSP of 53 mmHg which may be influencing his shortness of breath. -CTA chest was negative for PE and showed small right plerual effusion and basilar aatelectasis -Currently on breathing treatments with bronchodilators.? COVID test negative -Seems to be improving, will de-escalate to p.o. steroids and p.o. Lasix and assess progress, continue home metolazone -Currently down to his baseline 3L of oxygen. 10/27: continues to improve, awaiting placement #History of prostate cancer: -on enzalutamide. Follow up with urology on outpatient basis -Thoracic spine MRI shows sclerotic bone metastatic disease involving T1 T6, T7 and T9-T10 and T11 vertebral bodies with sclerotic bone mets of T6 and T11 vertebral bodies. -Lumbar spine MRI showed pronounced L1 central compression fracture with bony edema and enhancing sclerotic bony metastasis involving T11, L3 and L4 vertebral bodies. -They want to follow up with their oncologist in [place], and say they will ask for their oncologist to request records of the imaging to determine the next course of action. He was supposed to follow up in March. #Type 2 diabetes mellitus: On insulin sliding scale.? Accu-Cheks ACHS. #Chronic A-fib -On Coumadin but INR subtherapeutic, will adjust dose. Based on the RE-LY Trial algorithm, given INR 1.6 will increase by 10 %/week, Given weekly dose of 48 mg will increase by 5 mg. Will increase to 6 mg 5 times a week to 7 mg 5 times a week and continue 9 mg Wednesdays and Saturdays -On Coreg and Cardizem #Hypertension: on metolazone and losartan as well as cardizem #Hyperlipidemia: on statin #Super morbid obesity:? BMI is 47. Complicates acute care, expected recovery and prognosis #TARIQ: on BIPAP qhs #DVT ppx: Due to subtherapeutic INR we will add SCDs Anabella Morrell MD Time spent in the patient's overall evaluation,decision-making process, review of diagnostic data, adjustment of management, discussion with other providers, nursing nursing and ancillary staff involved in patient's care documentation, 30 minutes Charges/Coding Visit Charges Inpatient E&M: 87463 Subs Hosp L2
--- NOTE | 2022-10-27 13:50 | CASEMGMT ---
CINDI received a call from patient's Milagros. Milagros asked if SW has heard anything from [facility]. SW told her SW has not and that information was sent and they confirmed they received it. Milagros asked CINDI to send a referral to [facility] also. CINDI sent a referral to [facility] via [facility]. Arpita Means [employer]
--- NOTE | 2022-10-27 14:59 | CASEMGMT ---
CINDI placed a call to [facility]. SW answered their questions and they said they will call CINDI back. Arpita GIBSON
--- NOTE | 2022-10-27 16:08 | CASEMGMT ---
CINDI called patient's Milagros and let her know [facility] is unable to take patient. CINDI let her know that we are still waiting on [facility]. CINDI let her know CINDI did place a call to [facility] around 2p and they were reviewing the referral and medications. Milagros said CINDI does not hear back from [facility] tomorrow by noon she will just take patient home. CINDI will follow up with her tomorrow. Arpita Means MSW PAIGE
[2022-10-27] MEDS: Jantoven 2 MG Tablet PO (18:15)
[2022-10-27] MEDS: Insulin Lispro 100 UNIT/ML INSULN.PEN SC (18:15)
[2022-10-27 18:40] LABS: Bedside Glucose 190 mg/dL (74-106)
[2022-10-27] MEDS: Metolazone 2.5 MG Tablet PO (20:43)
[2022-10-27] MEDS: Atorvastatin Calcium 10 MG Tablet PO (20:43)
[2022-10-27 21:06] LABS: Bedside Glucose 146 mg/dL (74-106)
[2022-10-28] VITALS (7 sets, daily range): BP systolic 117–162; BP diastolic 72–100; PULSE 77–93; RESP 16–20; TEMP 36.3–36.9; O2SAT 91–99; BMI 45.9
[2022-10-28 06:07] LABS: Basophil# 0.02 X10^3/uL; Basophil% 0.4 % (0-1); Eosinophil# 0.05 X10^3/uL; Hematocrit 43.7 % (40-54); Lymphocyte % 30.2 % (19-41); Mean Corpuscular Hgb 32.6 pg (27.0-32.0); Mean Corpuscular Volume 101.6 fL (80-94); Mean Platelet Vol. 10.3 fl (6.2-12.0); Monocyte# 0.41 X10^3/uL; Monocyte% 8.2 % (0-10); NRBC Flagged by Analyzer 0 % (0-5); Neutrophil # 2.97 X10^3/uL (2.7-7.7); Neutrophil % 59.8 % (47-70); Platelet Count 148 K/mm3 (150-450); RBC Distribution Width CV 15.7 % (11.6-14.6); RBC Distribution Width SD 58.5 fl (35.1-43.9)
[2022-10-28 06:28] LABS: International Normalized Ratio 1.8; Prothrombin Time (Protime)PT. 20.3 SECONDS (11.7-14.9)
[2022-10-28 06:50] LABS: Anion Gap 4 (5-15); BUN 31 mg/dL (7-18); BUN/Creat Ratio 34.8 RATIO (10-20); Calcium,Total 8.9 mg/dL (8.5-10.1); Chloride 98 mmol/L (98-107); Creatinine, Serum 0.89 mg/dL (0.70-1.30); EST Glomerular Filtration Rate 89 mL/min (>60); Est Glom Filt Rate - Afr Amer 107 mL/min (>60); Estimated Creatinine Clearance 73.92 ml/min; Glucose 117 mg/dL (74-106); Potassium 3.7 mmol/L (3.5-5.1); Sodium Level 137 mmol/L (136-145)
[2022-10-28] MEDS: Ipratropium/Albuterol Sulfate 3 ML AMPUL.NEB INHALATION ×2 (07:03→11:20)
[2022-10-28] MEDS: Potassium Chloride Oral Tablet 20 MEQ PO (07:47)
[2022-10-28] MEDS: dilTIAZem CD 180 MG Capsule PO (07:48)
[2022-10-28] MEDS: Famotidine 20 MG Tablet 40 MG PO (07:48)
[2022-10-28] MEDS: Venlafaxine XR 150 MG Capsule PO (07:48)
[2022-10-28] MEDS: Montelukast 10 MG Tablet PO (07:48)
[2022-10-28] MEDS: Losartan Potassium 100 MG Tablet PO (07:49)
[2022-10-28] MEDS: predniSONE 20 MG Tablet 60 MG PO (07:49)
[2022-10-28] MEDS: Primidone 50 MG Tablet 150 MG PO (07:49)
[2022-10-28] MEDS: Carvedilol 25 MG Tablet PO (07:50)
[2022-10-28] MEDS: Furosemide 40 MG Tablet 60 MG PO (07:50)
[2022-10-28] MEDS: ENZALUTAMIDE 40 MG TABLET 160 MG PO (07:53)
[2022-10-28 08:15] LABS: Bedside Glucose 118 mg/dL (74-106)
--- NOTE | 2022-10-28 08:26 | CASEMGMT ---
SW received a voice mail from patient's daughter. She was wondering about Palliative Care for patient. CINDI also received a voice mail from [facility] and they declined patient. CINDI will notify patient's . Arpita GIBSON
--- NOTE | 2022-10-28 11:00 | CASEMGMT ---
DANIA THEODORE in to discuss discharge home with and patient. states she is going to take patient home with resumption of [facility]. provided number to [facility]. DANIA THEODORE called Maggi at [facility] at [phone]. DANIA THEODORE spoke to Maggi and [facility]. DANIA THEODORE received fax#: [phone]. DANIA THEODORE will send discharge instructions when available. and patient had no further questions or concerns at this time. CM will continue to follow this patient and plan for a safe discharge.
[2022-10-28] MEDS: Insulin Lispro 100 UNIT/ML INSULN.PEN SC (11:22)
--- NOTE | 2022-10-28 11:48 | DS.PCM_ITS ---
Providers Date of Admission: 10/22/22 Date of Discharge: 10/28/22 Primary Care Physician: Dr. Milady Kimble MD Reason For Visit: ACUTE ON CHRONIC HYPOXIA, CHF/COPD Diagnosis Discharge Diagnosis (1) Acute exacerbation of CHF (congestive heart failure): Status: Chronic Code(s): I50.9 - Heart failure, unspecified (2) Acute exacerbation of chronic obstructive pulmonary disease: Status: Chronic Code(s): J44.1 - Chronic obstructive pulmonary disease with (acute) exacerbation Plan #Hypoxia in the setting of chronic hypoxic respiratory failure and acute on chronic CHF #History of prostate cancer: #Type 2 diabetes mellitus: On insulin sliding scale.? Accu-Cheks ACHS. #Chronic A-fib #Hypertension: #Hyperlipidemia: #Super morbid obesity:? #TARIQ: Medications at Discharge Home Medications leuprolide acetate (6 month) 45 mg intramuscular syringe kit (Lupron Depot) 45 mg IM [id number] cancer 06/21/19 venlafaxine 150 mg capsule,extended release 24 hr (Effexor XR) 150 mg PO DAILY depression 06/21/19 primidone 50 mg tablet 150 mg PO BID tremors 10/22/20 multivitamin 1 tab PO DAILY supplement 01/22/21 enzalutamide 40 mg tablet (Xtandi) 160 mg PO DAILY cancer 05/27/21 albuterol sulfate 90 mcg/actuation aerosol inhaler 1 inh inhalation DAILY Wheezing 10/10/21 omega-3 fatty acids 1,000 mg capsule 1,000 mg PO DAILY supplement 10/10/21 famotidine 40 mg tablet 40 mg PO DAILY acid reflux #90 tabs 10/31/21 potassium chloride 20 mEq tablet,extended release(part/cryst) 20 meq PO BID supplement #180 tabs 10/31/21 fluticasone fur. 200 mcg-umeclid 62.5 mcg-vilant 25 mcg inhalat.powder (Trelegy Ellipta) 1 inh inhalation BID COPD #60 ea 02/05/22 atorvastatin 10 mg tablet (Lipitor) 10 mg PO DAILY cholesterol #90 tabs 07/07/22 carvedilol 25 mg tablet 25 mg PO BID blood pressure 07/07/22 losartan 100 mg tablet 100 mg PO DAILY blood pressure #90 tabs 07/07/22 metformin 500 mg tablet,extended release 24 hr 500 mg PO QHS diabetes #90 tabs 07/07/22 montelukast 10 mg tablet 10 mg PO DAILY allergies #90 tabs 07/07/22 probiotic 1 tab PO DAILY supplement 07/07/22 warfarin 6 mg tablet 9 mg PO .WSa blood clots #90 tabs 07/07/22 diltiazem HCl 180 mg capsule,extended release 24 hr 180 mg PO DAILY 30 days #30 caps 10/28/22 furosemide 40 mg tablet 60 mg PO BIDLX 30 days #90 tabs 10/28/22 metolazone 2.5 mg tablet 2.5 mg PO QMWF 30 days #13 tabs 10/28/22 warfarin 2 mg tablet (Jantoven) 2 mg PO SuMoTuThFr@1700 14 days #10 tabs 10/28/22 warfarin 5 mg tablet (Jantoven) 5 mg PO SuMoTuThFr@1700 14 days #10 tabs 10/28/22 Hospital Course Summary of Care Provided Minutes Spent on Discharge: 32 Hospital Course: The patient is a 72 y/o M w/ PMHx: Morbid Obesity, COPD with Chronic Hypoxic Respiratory Failure (2L NC) following with Dr. Poole, Chronic atrial fibrillation, HTN, HLD, Chronic Diastolic CHF, Diabetes mellitus type II, Hx Malignant melanoma, TARIQ, Hx Prostate CA who presents to the [facility] ED on 10/22/22 with history of progressively worsening dyspnea over the last 2 weeks. A COPD and heart failure exacerbation. His previous echo April 2022 had RVSP of 53% which was presumed to be contributing to his shortness of breath and CTA chest was negative for PE but did show small right pleural effusion and bibasilar atelectasis. He was given IV Lasix and IV steroids and improved significantly. These were de-escalated and he did well on his baseline 3 L O2. Initially been quite weak however while awaiting insurance approval his strength improved significantly and he was discharged home. Discharge instructions as followed: -Please continue your home inhalers -Your INR was decreased at 1.8 so your Coumadin has been adjusted and you are taking 9 mg Thursday and Thursday and 7 mg all other days.? I will be important that you call your prescribing physician upon discharge and inform them of this change as he will need continued monitoring of your INR and adjustment of your medication -You have also been started on a medication, Cardizem, which helps with heart rate and blood pressure and you will take this daily -Your home Lasix has been decreased to 60 mg twice daily and metolazone 2.5 mg was added back to your regimen and you will take this Thursday, Thursday, Thursday.? This regimen has helped with your breathing and your fluid -Weigh yourself every day. A sudden weight gain can mean you are retaining fluid. Weigh yourself at the same time of day and in the same kind of clothes. Ideally, weigh yourself first thing in the morning after you empty your bladder, but before you eat breakfast. -Please call your physician if your weight goes up by more than 2 pounds in 1 da y or 5 pounds in 1 week. This can be a sign that you are retaining more fluid than you should be. Clues to weight gain include checking your ankles for swelling, or noticing you are short of breath when you lie down -Please limit your sodium intake to less than 3 g/day. Here are tips: Limit canned, dried, packaged, and fast foods. Don't add salt to your food at the table. Season foods with herbs instead of salt when you cook. When you eat out, ask that the semiconductor wafers etcher stripper not add any salt to your dish. Don't eat fried or greasy foods. Be careful of bottled beverages. They can contain a lot of salt -Please call your primary care provider's office upon discharge to schedule a hospital follow up within 1 week. -For any concerning signs or symptoms please call 911 or proceed to the nearest emergency department Physical Exam Narrative General: Alert, oriented, no apparent distress HEENT: Atraumatic, normocephalic Eyes: Anicteric, normal conjunctiva, extraocular movements grossly intact Neck: Supple Respiratory: Somewhat diminished at the bases, possibly secondary to body habitus, normal respiratory effort Cardiovascular: Regular rate GI: nontender, nondistended Extremities: 1+ bilateral lower extremity edema Musculoskeletal: Moving all extremities Neuro: No overt focal neurological deficits, does have repetitive movements in his lips Skin: No rashes appreciated Psych: Cooperative Weight / BMI Weight Weight: 141.1 kg Body Mass Index (BMI) 45.9 ABG / Lab / Microbiology Data Result Diagrams: 10/28/22 05:49 10/28/22 05:49 Laboratory: Laboratory Results - last 24 hr 10/27/22 12:06: POC Glucose 130 H 10/27/22 18:13: POC Glucose 190 H 10/27/22 20:46: POC Glucose 146 H 10/28/22 05:49: WBC 5.0, RBC 4.30 L, Hgb 14.0, Hct 43.7, MCV 101.6 H, MCH 32.6 H , MCHC 32.0, RDW Std Deviation 58.5 H, RDW Coeff of Kayley 15.7 H, Plt Count 148 L, MPV 10.3, Immature Gran % (Auto) 0.400, Neut % (Auto) 59.8, Lymph % (Auto) 30.2, [place] % (Auto) 8.2, Eos % (Auto) 1.0, Baso % (Auto) 0.4, Absolute Neuts (auto) 3.0, Absolute Lymphs (auto) 1.50, Nucleated RBC % 0 10/28/22 05:49: Sodium 137, Potassium 3.7, Chloride 98, Carbon Dioxide 35.0 H, Anion Gap 4 L, BUN 31 H, Creatinine 0.89, Estim Creat Clear Calc 73.92, Est GFR (MDRD) Af Amer 107, Est GFR (MDRD) Non-Af 89, BUN/Creatinine Ratio 34.8 H, Glucose 117 H, Calcium 8.9 10/28/22 05:49: PT 20.3 H, INR 1.8 10/28/22 07:21: POC Glucose 118 H Microbiology: Microbiology 10/22/22 21:45 Mucosa - Nasopharyngeal Respiratory Panel (PCR) - Final 10/22/22 16:40 Nasal Secretion SARS-CoV-2 & FLU Antigen (Rapid) - Final D/C Instructions Discharge Diet: - (DASH diet with calorie controlled) Meaningful Use Info Meaningful Use Diagnoses (Choose all that apply): None applicable Discharge Plan Admission Admit Date/Time: 10/22/22 21:32 Primary Reason for Your Visit: Shortness of breath Attending Provider: Anabella Morrell Primary Care Provider: Milady Kimble Consulting Providers: Pam Holloway ; Cornelia Snow Instructions Patient Instructions: Coping with Heart Failure Additional Instructions / Restrictions: DISCHARGE INSTRUCTIONS PLEASE READ *Please take this with you to your next doctors appointment* -Please continue your home inhalers -Your INR was decreased at 1.8 so your Coumadin has been adjusted and you are taking 9 mg Thursday and Thursday and 7 mg all other days. I will be important that you call your prescribing physician upon discharge and inform them of this change as he will need continued monitoring of your INR and adjustment of your medication -You have also been started on a medication, Cardizem, which helps with heart rate and blood pressure and you will take this daily -Your home Lasix has been decreased to 60 mg twice daily and metolazone 2.5 mg was added back to your regimen and you will take this Thursday, Thursday, Thursday. This regimen has helped with your breathing and your fluid -Weigh yourself every day. A sudden weight gain can mean you are retaining fluid. Weigh yourself at the same time of day and in the same kind of clothes. Ideally, weigh yourself first thing in the morning after you empty your bladder, but before you eat breakfast. -Please call your physician if your weight goes up by more than 2 pounds in 1 day or 5 pounds in 1 week. This can be a sign that you are retaining more fluid than you should be. Clues to weight gain include checking your ankles for swelling, or noticing you are short of breath when you lie down -Please limit your sodium intake to less than 3 g/day. Here are tips: Limit canned, dried, packaged, and fast foods. Don't add salt to your food at the table. Season foods with herbs instead of salt when you cook. When you eat out, ask that the semiconductor wafers etcher stripper not add any salt to your dish. Don't eat fried or greasy foods. Be careful of bottled beverages. They can contain a lot of salt -Please call your primary care provider's office upon discharge to schedule a h ospital follow up within 1 week. -For any concerning signs or symptoms please call 911 or proceed to the nearest emergency department Discharge Orders/Prescriptions Prescriptions: New furosemide 40 mg Tablet 60 mg PO BIDLX 30 Days Qty: 90 0RF metolazone 2.5 mg Tablet 2.5 mg PO QMWF 30 Days Qty: 13 0RF diltiazem HCl 180 mg Capsule,Extended Release 24hr 180 mg PO DAILY 30 Days Qty: 30 0RF warfarin [Jantoven] 2 mg Tablet 2 mg PO SuMoTuThFr@1700 14 Days Qty: 10 0RF warfarin [Jantoven] 5 mg Tablet 5 mg PO SuMoTuThFr@1700 14 Days Qty: 10 0RF Continued venlafaxine [Effexor XR] 150 mg capsule,extended release 24hr 150 mg PO DAILY Lupron Depot (6 Month) 45 mg syringe kit 45 mg IM [id number] primidone 50 mg tablet 150 mg PO BID Xtandi 40 mg tablet 160 mg PO DAILY Rx Instructions: 4 tabs daily albuterol sulfate 90 mcg/actuation HFA aerosol inhaler 1 inh inhalation DAILY omega-3 fatty acids 1,000 mg capsule 1,000 mg PO DAILY potassium chloride 20 mEq tablet,ER particles/crystals 20 meq PO BID Qty: 180 3RF famotidine 40 mg tablet 40 mg PO DAILY Qty: 90 3RF carvedilol 25 mg tablet 25 mg PO BID Rx Instructions: must administer with a meal/food probiotic 1 tab PO DAILY multivitamin Tablet 1 tab PO DAILY Trelegy Ellipta 200-62.5-25 mcg blister with device 1 inh INHALATION BID Qty: 60 6RF atorvastatin [Lipitor] 10 mg tablet 10 mg PO DAILY Qty: 90 3RF losartan 100 mg tablet 100 mg PO DAILY Qty: 90 3RF metformin 500 mg tablet extended release 24 hr 500 mg PO QHS Qty: 90 3RF montelukast 10 mg tablet 10 mg PO DAILY Qty: 90 3RF warfarin 6 mg tablet 9 mg PO .WSa Qty: 90 1RF Rx Instructions: Managed by Jarad Enriquez [facility] Discontinued metolazone 2.5 mg tablet 2.5 mg PO .COMPLEX Rx Instructions: Take every other day: Thursday, Thursday, Thursday furosemide [Lasix] 80 mg tablet 80 mg PO BID 30 Days Qty: 180 3RF warfarin 6 mg tablet 6 mg PO .SMTuThF Qty: 90 3RF Referrals / Follow Up: Milady Kimble MD [Primary Care Provider] - 10/29/22 9:30 am Disposition Disposition (needs filled in before D/C Order can be placed): Home Health Service Charges/Coding Visit Charges Inpatient E&M: 69714 Disch Hosp >30min
[2022-10-28 12:05] LABS: Bedside Glucose 174 mg/dL (74-106)
--- NOTE | 2022-10-28 12:08 | PHA.DC.MR ---
Pharmacy Service has performed discharge medication reconciliation for this patient. The patient's discharge medication list was reviewed for discrepancies and discrepancies were resolved. Home Medications leuprolide acetate (6 month) 45 mg intramuscular syringe kit (Lupron Depot) 45 mg IM [id number] cancer 06/21/19 venlafaxine 150 mg capsule,extended release 24 hr (Effexor XR) 150 mg PO DAILY depression 06/21/19 primidone 50 mg tablet 150 mg PO BID tremors 10/22/20 multivitamin 1 tab PO DAILY supplement 01/22/21 enzalutamide 40 mg tablet (Xtandi) 160 mg PO DAILY Check with primary doctor 05/27/21 albuterol sulfate 90 mcg/actuation aerosol inhaler 1 inh inhalation DAILY Wheezing 10/10/21 omega-3 fatty acids 1,000 mg capsule 1,000 mg PO DAILY Check with primary doctor 10/10/21 famotidine 40 mg tablet 40 mg PO DAILY acid reflux #90 tabs 10/31/21 potassium chloride 20 mEq tablet,extended release(part/cryst) 20 meq PO BID supplement #180 tabs 10/31/21 fluticasone fur. 200 mcg-umeclid 62.5 mcg-vilant 25 mcg inhalat.powder (Trelegy Ellipta) 1 inh inhalation BID COPD #60 ea 02/05/22 atorvastatin 10 mg tablet (Lipitor) 10 mg PO DAILY cholesterol #90 tabs 07/07/22 carvedilol 25 mg tablet 25 mg PO BID Check with primary doctor 07/07/22 losartan 100 mg tablet 100 mg PO DAILY blood pressure #90 tabs 07/07/22 metformin 500 mg tablet,extended release 24 hr 500 mg PO QHS diabetes #90 tabs 07/07/22 montelukast 10 mg tablet 10 mg PO DAILY allergies #90 tabs 07/07/22 probiotic 1 tab PO DAILY Check with primary doctor 07/07/22 warfarin 6 mg tablet 9 mg PO .WSa blood clots #90 tabs 07/07/22 diltiazem HCl 180 mg capsule,extended release 24 hr 180 mg PO DAILY 30 days #30 caps 10/28/22 furosemide 40 mg tablet 60 mg PO BIDLX 30 days #90 tabs 10/28/22 metolazone 2.5 mg tablet 2.5 mg PO QMWF 30 days #13 tabs 10/28/22 warfarin 2 mg tablet (Jantoven) 2 mg PO SuMoTuThFr@1700 14 days #10 tabs 10/28/22 warfarin 5 mg tablet (Jantoven) 5 mg PO SuMoTuThFr@1700 14 days #10 tabs 10/28/22
== END 2022-10-28 14:05 | disposition home health service (06) | DRG 291 ==
LOC: ED 21:42 → PCU 22:05
PROVIDERS: Student in an Organized Health Care Education/Training Program; Admitting Provider Family Medicine; Emergency Provider Emergency Medicine; PCP Internal Medicine; Visit Provider Internal Medicine
DX: I11.0 Hypertensive heart disease with heart failure (principal); I50.33 Acute on chronic diastolic (congestive) heart failure; C79.51 Secondary malignant neoplasm of bone; J96.11 Chronic respiratory failure with hypoxia; E87.20 Acidosis, unspecified; J44.1 Chronic obstructive pulmonary disease with (acute) exacerbation; I48.20 Chronic atrial fibrillation, unspecified; Z68.42 Body mass index [BMI] 45.0-49.9, adult; Z79.01 Long term (current) use of anticoagulants; E66.01 Morbid (severe) obesity due to excess calories; E11.9 Type 2 diabetes mellitus without complications; K21.9 Gastro-esophageal reflux disease without esophagitis; J98.01 Acute bronchospasm; G47.33 Obstructive sleep apnea (adult) (pediatric); E78.5 Hyperlipidemia, unspecified; Z79.818 Long term (current) use of other agents affecting estrogen receptors and estrogen levels; Z87.891 Personal history of nicotine dependence; Z79.52 Long term (current) use of systemic steroids; Z99.81 Dependence on supplemental oxygen; Z85.46 Personal history of malignant neoplasm of prostate
CPT/HCPCS: 36415; 71046; 71275; 72157; 72158; 80048; 80053; 80061; 82803; 82962; 83605; 83735; 83880; 84145; 84443; 84484; 85025; 85379; 85610; 87428; 87633; 87635; 93005; 94640; 94668; 97110; 97112; 97116; 97162; 97166; 97530; 99252; 99285; A9575; Q9967; A4216; G0463; J1940; U0003; U0005

== ENCOUNTER → 2022-11-21 | Outpatient (CLI) | payer MEDICARE, OTHER, SELFPAY ==
[2022-11-21 16:18] LABS: Anion Gap 7 (5-15); BUN 21 mg/dL (7-18); Calcium,Total 9.2 mg/dL (8.5-10.1); Chloride 98 mmol/L (98-107); Creatinine, Serum 0.95 mg/dL (0.70-1.30); EST Glomerular Filtration Rate 82 mL/min (>60); Est Glom Filt Rate - Afr Amer 99 mL/min (>60); Glucose 139 mg/dL (74-106); Potassium 3.7 mmol/L (3.5-5.1); Sodium Level 134 mmol/L (136-145)
== END | disposition home or self-care (01) ==
LOC: LAB 14:48
PROVIDERS: PCP Internal Medicine; Referring Provider Physician Assistant Medical; Visit Provider Physician Assistant Medical
DX: I50.32 Chronic diastolic (congestive) heart failure (principal)
CPT/HCPCS: 36415; 80048

== ENCOUNTER → 2022-12-11 | Outpatient (CLI) | payer MEDICARE, OTHER, SELFPAY ==
[2022-12-11 16:35] LABS: Bacteria 0 SEEN /hpf (None Seen); Mucous, Urine 0 SEEN /hpf (<or=2+); Squamous Epithelial Cells - UA 0 SEEN /hpf (0-5); White Blood Cells 0 SEEN /hpf (0-5)
[2022-12-11 17:38] LABS: Color, Urine Red (Yellow); Glucose, Dipstick Normal (Normal); Ketone-Dipstick 5 mg/dl (Negative); Leukocyte Esterase-Dipstick 25 /ul (Negative); Nitrite-Dipstick Negative (Negative); Occult Blood-Urine 250 /ul (Negative); Protein-Dipstick 100 mg/dl (Negative); Specific Gravity, Urine 1.025 (1.002-1.030); Urine Bilirubin Dipstick Negative (Negative); Urine Clarity Cloudy (Clear); Urine Urobilinogen Normal (Normal)
[2022-12-11 17:46] LABS: Anion Gap 9 (5-15); BUN 24 mg/dL (7-18); BUN/Creat Ratio 21.8 RATIO (10-20); Calcium,Total 9.4 mg/dL (8.5-10.1); Chloride 96 mmol/L (98-107); EST Glomerular Filtration Rate 70 mL/min (>60); Est Glom Filt Rate - Afr Amer 84 mL/min (>60); Glucose 116 mg/dL (74-106); Magnesium 2.2 mg/dL (1.6-2.6); Potassium 3.7 mmol/L (3.5-5.1); Sodium Level 140 mmol/L (136-145)
[2022-12-11 17:49] LABS: Red Blood Cells-Urine > 100 SEEN /hpf (0-5)
== END | disposition home or self-care (01) ==
LOC: LAB 16:31
PROVIDERS: PCP Internal Medicine; Visit Provider Internal Medicine
DX: I11.0 Hypertensive heart disease with heart failure (principal); I50.33 Acute on chronic diastolic (congestive) heart failure; R31.9 Hematuria, unspecified
CPT/HCPCS: 36415; 80048; 81001; 83735

== ENCOUNTER → 2023-02-04 | Outpatient (CLI) | payer MEDICARE, OTHER, SELFPAY ==
[2023-02-04 16:17] LABS: Anion Gap 10 (5-15); BUN 20 mg/dL (7-18); BUN/Creat Ratio 17.5 RATIO (10-20); Calcium,Total 9.1 mg/dL (8.5-10.1); Chloride 99 mmol/L (98-107); Creatinine, Serum 1.14 mg/dL (0.70-1.30); EST Glomerular Filtration Rate 67 mL/min (>60); Est Glom Filt Rate - Afr Amer 81 mL/min (>60); Glucose 140 mg/dL (74-106); Potassium 3.3 mmol/L (3.5-5.1); Sodium Level 138 mmol/L (136-145)
== END | disposition home or self-care (01) ==
LOC: LAB 15:23
PROVIDERS: PCP Internal Medicine; Referring Provider Nurse Practitioner Family; Visit Provider Nurse Practitioner Family
DX: I50.9 Heart failure, unspecified (principal)
CPT/HCPCS: 36415; 80048

== ENCOUNTER → 2023-05-12 | Outpatient (CLI) | payer MEDICARE, OTHER, SELFPAY ==
[2023-05-12 09:46] LABS: Absolute Lymphocyte Count 0.82 X10^3/uL (0.83-4.51); Basophil# 0.02 X10^3/uL; Basophil% 0.6 % (0-1); Eosinophil# 0.16 X10^3/uL; Eosinophils% 4.8 % (0-5); Hematocrit 37.6 % (40-54); Lymphocyte # 0.82 X10^3/ul (0.83-4.51); Lymphocyte % 24.6 % (19-41); Mean Corp Hgb Conc 31.9 g/dL (32-36); Mean Corpuscular Hgb 31.7 pg (27.0-32.0); Mean Corpuscular Volume 99.5 fL (80-94); Mean Platelet Vol. 9.7 fl (6.2-12.0); Monocyte# 0.32 X10^3/uL; Monocyte% 9.6 % (0-10); NRBC Flagged by Analyzer 0 % (0-5); Neutrophil % 59.8 % (47-70); Platelet Count 118 K/mm3 (150-450); Red Blood Count 3.78 M/mm3 (4.6-6.2); White Blood Count 3.3 K/mm3 (4.4-11.0)
[2023-05-12 10:26] LABS: ALB/GLOB Ratio 1.1 RATIO (0.9-2.4); AST(SGOT) 27 U/L (15-37); Alanine Aminotransfer ALT/SGPT 50 U/L (16-61); Albumin, Serum 3.4 g/dL (3.2-5.0); Alkaline Phosphatase 62 U/L (45-117); Anion Gap 7 (5-15); BUN 23 mg/dL (7-18); Calcium,Total 8.8 mg/dL (8.5-10.1); Chloride 100 mmol/L (98-107); Cholesterol 205 mg/dL (200); Creatinine, Serum 1.35 mg/dL (0.70-1.30); EST Glomerular Filtration Rate 55 mL/min (>60); Est Glom Filt Rate - Afr Amer 66 mL/min (>60); Globulin 3.2 g/dL (2.2-4.2); Glucose 126 mg/dL (74-106); High Density Lipoprotein 48 mg/dL; Magnesium 2.1 mg/dL (1.6-2.6); Potassium 3.8 mmol/L (3.5-5.1); Protein, Total 6.6 g/dL (6.4-8.2); Sodium Level 139 mmol/L (136-145); Triglycerides 308 mg/dL; Very Low Density Lipoprotein 62 mg/dL (5-40)
[2023-05-12 10:27] LABS: Hemoglobin A1c 6.1 % (3.8-5.6)
[2023-05-12 10:28] LABS: Vitamin D,25 Hydroxy 28.9 ng/mL
== END | disposition home or self-care (01) ==
LOC: LAB 09:23
PROVIDERS: PCP Internal Medicine; Referring Provider Internal Medicine; Visit Provider Internal Medicine
DX: I11.0 Hypertensive heart disease with heart failure (principal); C79.51 Secondary malignant neoplasm of bone; J44.9 Chronic obstructive pulmonary disease, unspecified; I50.32 Chronic diastolic (congestive) heart failure; E66.01 Morbid (severe) obesity due to excess calories; C61 Malignant neoplasm of prostate; E11.9 Type 2 diabetes mellitus without complications; Z13.220 Encounter for screening for lipoid disorders; E87.6 Hypokalemia; G47.33 Obstructive sleep apnea (adult) (pediatric); E55.9 Vitamin D deficiency, unspecified
CPT/HCPCS: 36415; 80053; 80061; 82306; 83036; 83735; 84443; 85025